=== PATIENT | male | born 1960 | race Caucasian/White ===

== ENCOUNTER 2017-10-20 13:23 | Inpatient (IN) | payer MEDICARE, MEDICAID ==
[~2017-10-20] VITALS: Ht 182.9 cm; Wt 84.4 kg
[2017-10-20] VITALS (9 sets, daily range): BP systolic 73–164; BP diastolic 39–79
--- NOTE | 2017-10-20 13:44 | ED General ---
General Stated Complaint: SOA Source of Information: Patient, EMS Exam Limitations: No Limitations History of Present Illness Date Seen by Provider: Oct 20, 2017 Time Seen by Provider: 13:39 Initial Comments The patient is a 56-year-old white male who is quadriplegic. He was sent from [facility] after it was observed that he had rattling breath sounds and they feared aspiration. There was no observed aspiration. He has a chronic tracheostomy, a feeding tube, and a colostomy. He was able to give history only by shaking his head yes or no. Timing/Duration: 4-6 Hours Associated Systoms: Shortness of Air Allergies and Home Medications Allergies Coded Allergies: amoxicillin (Verified Allergy, Unknown, 10/20/17) nitrofurantoin (Verified Allergy, Unknown, 10/20/17) Constitutional: see HPI Respiratory: short of breath, wheezing Physical Exam Vital Signs Vital Sign - Last 12Hours 10/20/17 13:27 Temp 101.2 Pulse 104 Resp 22 Pulse Ox 99 O2 Delivery Trach Collar O2 Flow Rate 14.00 Capillary Refill : General Appearance: Anxious, Other (skin is damp) Eyes: Bilateral Eye Normal Inspection HEENT: Normal ENT Inspection Neck: Normal Inspection Respiratory: Other (Reiling and distant breath sounds on the right) Cardiovascular: Regular Rate, Rhythm, No Edema, No Gallop, No JVD, No Murmur, Normal Peripheral Pulses Gastrointestinal: Other (colostomy with bag leaking soft stool) Extremity: Other (flexion contractures and 1+ doughy edema) Progress/Results/Core Measures Suspected Sepsis SIRS Temperature: Pulse: Respiratory Rate: Laboratory Tests 10/20/17 13:48: White Blood Count 21.2H Blood Pressure / Mean: Laboratory Tests 10/20/17 13:48: Creatinine 1.02, Platelet Count 263, Total Bilirubin 0.5 Results/Orders Lab Results Laboratory Tests Test 10/20/17 13:48 10/20/17 14:20 Range/Units White Blood Count 21.2 H 4.3-11.0 10^3/uL Red Blood Count 4.70 4.35-5.85 10^6/uL Hemoglobin 11.6 L 13.3-17.7 G/DL Hematocrit 38 L 40-54 % Mean Corpuscular Volume 80 80-99 FL Mean Corpuscular Hemoglobin 25 25-34 PG Mean Corpuscular Hemoglobin Concent 31 L 32-36 G/DL Red Cell Distribution Width 17.6 H 10.0-14.5 % Platelet Count 263 130-400 10^3/uL Mean Platelet Volume 11.6 H 7.4-10.4 FL Neutrophils (%) (Auto) 82 H 42-75 % Lymphocytes (%) (Auto) 7 L 12-44 % Monocytes (%) (Auto) 6 0-12 % Eosinophils (%) (Auto) 4 0-10 % Basophils (%) (Auto) 0 0-10 % Neutrophils # (Auto) 17.5 H 1.8-7.8 X 10^3 Lymphocytes # (Auto) 1.4 1.0-4.0 X 10^3 Monocytes # (Auto) 1.4 H 0.0-1.0 X 10^3 Eosinophils # (Auto) 0.9 H 0.0-0.3 10^3/uL Basophils # (Auto) 0.0 0.0-0.1 10^3/uL Sodium Level 139 135-145 MMOL/L Potassium Level 4.7 3.6-5.0 MMOL/L Chloride Level 100 98-107 MMOL/L Carbon Dioxide Level 22 21-32 MMOL/L Anion Gap 17 H 5-14 MMOL/L Blood Urea Nitrogen 86 H 7-18 MG/DL Creatinine 1.02 0.60-1.30 MG/DL Estimat Glomerular Filtration Rate > 60 BUN/Creatinine Ratio 84 Glucose Level 282 H 70-105 MG/DL Calcium Level 11.9 H 8.5-10.1 MG/DL Total Bilirubin 0.5 0.1-1.0 MG/DL Aspartate Amino Transf (AST/SGOT) 13 5-34 U/L Alanine Aminotransferase (ALT/SGPT) 13 0-55 U/L Alkaline Phosphatase 110 40-136 U/L Total Protein 9.7 H 6.4-8.2 GM/DL Albumin 3.7 3.2-4.5 GM/DL My Orders Orders - CUAUHTEMOC MANLEY MD Cbc With Automated Diff (10/20/17 13:30) Comprehensive Metabolic Panel (10/20/17 13:30) Ua Culture If Indicated (10/20/17 13:30) Chest 1 View, Ap/Pa Only (10/20/17 13:30) Manual Differential (10/20/17 13:48) Blood Culture (10/20/17 14:24) Influenza A And B Antigens (10/20/17 14:24) Sputum Culture (10/20/17 14:24) Lactic Acid Analyzer (10/20/17 14:24) Urinalysis (10/20/17 14:44) Urine Culture (10/20/17 14:44) Arterial Blood Gas (10/20/17 14:44) Cbc With Automated Diff (10/20/17 14:46) Comprehensive Metabolic Panel (10/20/17 14:46) Lactic Acid Analyzer (10/20/17 14:46) Sputum Culture (10/20/17 14:46) Ua Culture If Indicated (10/20/17 14:46) Protime With Inr (10/20/17 14:46) Partial Thromboplastin Time (10/20/17 14:46) O2 (10/20/17 14:46) Saline Lock/Iv-Start (10/20/17 14:46) Saline Lock/Iv-Start (10/20/17 14:46) Cefepime 2 Grams Iv (10/20/17 15:00) Vital Signs Adult Sepsis Patie Q1H (10/20/17 14:46) Remove Rings In Anticipation O (10/20/17 14:46) Vital Signs/I&O Vital Sign - Last 12Hours 10/20/17 13:27 Temp 101.2 Pulse 104 Resp 22 B/P (MAP) Pulse Ox 99 O2 Delivery Trach Collar O2 Flow Rate 14.00 Capillary Refill : Departure Communication (Admissions) Progress Notes Chest x-ray suggestive of infiltrates bibasilar plus cardiomegaly. White count is 21,000. Dr. Schwartz was called and discussed the case. Time 1442 Impression Impression: Primary Impression: pneumonia Disposition: ADMITTED INPATIENT Condition: Stable/Unchanged Admissions Decision to Admit Reason: Admit from ER (General) Decision to Admit/Date: Oct 20, 2017 Time/Decision to Admit Time: 14:54 CUAUHTEMOC MANLEY MD Oct 20, 2017 13:44
[2017-10-20 14:04] LABS: BASOPHILS % (AUTO) 0 % (0-10); EOSINOPHILS # (AUTO) 0.9 10^3/uL (0.0-0.3); EOSINOPHILS % (AUTO) 4 % (0-10); HEMATOCRIT 38 % (40-54); HEMOGLOBIN 11.6 G/DL (13.3-17.7); LYMPHOCYTES # (AUTO) 1.4 X 10^3 (1.0-4.0); LYMPHOCYTES % (AUTO) 7 % (12-44); MEAN CORPUSCULAR HEMOGLOBIN 25 PG (25-34); MEAN CORPUSCULAR HGB CONC 31 G/DL (32-36); MEAN CORPUSCULAR VOLUME 80 FL (80-99); MEAN PLATELET VOLUME 11.6 FL (7.4-10.4); MONOCYTES # (AUTO) 1.4 X 10^3 (0.0-1.0); MONOCYTES % (AUTO) 6 % (0-12); NEUTROPHILS # (AUTO) 17.5 X 10^3 (1.8-7.8); NEUTROPHILS % (AUTO) 82 % (42-75); PLATELET COUNT 263 10^3/uL (130-400); RED CELL DISTRIBUTION WIDTH 17.6 % (10.0-14.5); WHITE BLOOD COUNT 21.2 10^3/uL (4.3-11.0)
--- NOTE | 2017-10-20 14:10 | Diagnostic Imaging Report ---
INDICATION: Shortness of air. Time of exam: 1:54 PM No prior studies are available for comparison. The heart is enlarged. There is a tracheostomy tube with tip above the dolores. There appear to be airspace infiltrates in the left perihilar and bibasilar regions. No effusion or pneumothorax is seen. IMPRESSION: Cardiomegaly and bilateral pulmonary infiltrates. Dictated by: Dictated on workstation # [id number]
[2017-10-20 14:27] LABS: ALANINE AMINOTRANSFERASE 13 U/L (0-55); ALBUMIN 3.7 GM/DL (3.2-4.5); ALKALINE PHOSPHATASE 110 U/L (40-136); BILIRUBIN,TOTAL 0.5 MG/DL (0.1-1.0); BUN/CREATININE RATIO 84; CALCIUM 11.9 MG/DL (8.5-10.1); CARBON DIOXIDE 22 MMOL/L (21-32); CHLORIDE 100 MMOL/L (98-107); CREATININE SERUM 1.02 MG/DL (0.60-1.30); GFR ESTIMATED > 60; GLUCOSE 282 MG/DL (70-105); POTASSIUM 4.7 MMOL/L (3.6-5.0); SODIUM 139 MMOL/L (135-145); TOTAL PROTEIN 9.7 GM/DL (6.4-8.2)
[2017-10-20 14:30] LABS: BILIRUBIN,URINE NEGATIVE (NEGATIVE); CLARITY,URINE SLIGHTLY CLOUDY; COLOR,URINE YELLOW; GLUCOSE, URINE (UA) 4+ (NEGATIVE); KETONES,URINE NEGATIVE (NEGATIVE); LEUKOCYTE ESTERASE ,URINE NEGATIVE (NEGATIVE); NITRITE,URINE NEGATIVE (NEGATIVE); PH,URINE 7 (5-9); PROTEIN,URINE 2+ (NEGATIVE); UROBILINOGEN,URINE NORMAL (NORMAL)
[2017-10-20 14:55] LABS: BAND NEUTROPHILS 1 %; EOSINOPHILS % (MANUAL) 5 %; LYMPHOCYTES % (MANUAL) 9 %; MONOCYTES % (MANUAL) 6 %; NEUTROPHILS % (MANUAL) 79 %
[2017-10-20 14:56] LABS: ANISOCYTOSIS MODERATE; BASOPHILS % (MANUAL) 0 %
[2017-10-20] MEDS ORDERED: CEFEPIME INJECTION 2,000 MG in D5W 50 ML IVPB SOLUTION 50 ML IV ONE (15:00)
[2017-10-20 15:01] LABS: BACTERIA,URINE NEGATIVE /HPF; CALCIUM OXALATE CRYSTALS,UR MODERATE /LPF
[2017-10-20 15:09] LABS: PROTHROMBIN TIME PATIENT 30.8 SEC (12.2-14.7)
[2017-10-20] MEDS ORDERED: NS IV 1000 ML 1,000 ML ONE (18:03)
[2017-10-20] MEDS ORDERED: NS IV 1000 ML 1,000 ML IV SCH ×2 (18:15→23:30)
[2017-10-20] MEDS ORDERED: RT-ALBUTEROL/IPRATROPIUM 3 ML (DUONEB) VIAL ONE (18:15)
[2017-10-20] MEDS ORDERED: CATHETER FLUSH 10 ML SYR IV PRN (18:15)
[2017-10-20] MEDS ORDERED: VANCOMYCIN 1500 MG/NS 500 ML IVPB IV NR ×2 (18:30)
[2017-10-20] MEDS: APAP 325 MG/10.15 ML LIQ (TYLENOL) UDC PEG PRN (18:37)
[2017-10-20] MEDS: NS IV 1000 ML 1,000 ML IV SCH ×5 (18:38→22:52)
[2017-10-20 20:23] LABS: ABG BASE EXCESS 3.9 MMOL/L (-2.5-2.5); ABG OXYGEN SATURATION 97 % (94-100); ABG PCO2 37 MMHG (35-45); ABG PH 7.49 (7.37-7.43); ABG PO2 85 MMHG (79-93); ABG TCO2 27.8 MMOL/L (21.0-31.0)
[2017-10-20] MEDS ORDERED: ACET160O28 PEG (20:24)
[2017-10-20 20:26] LABS: ALLENS TEST YES-POS; INSPIRED O2 100%; PATIENT TEMP 102.9; VENTILATOR NO
[2017-10-20] MEDS ORDERED: FAMO20TA3 PEG (20:36)
[2017-10-20] MEDS ORDERED: CARB15DR74 OU (20:36)
[2017-10-20] MEDS ORDERED: METF1000 PEG (20:36)
[2017-10-20] MEDS ORDERED: LEVO100T7 PEG (20:36)
[2017-10-20] MEDS ORDERED: [UNRECOGNIZED DRUG - CODE] PEG (20:36)
[2017-10-20] MEDS ORDERED: CARV25TA PEG (20:36)
[2017-10-20] MEDS ORDERED: DIGO125T PEG (20:36)
[2017-10-20] MEDS ORDERED: WARF7.5T6 PEG (20:36)
[2017-10-20] MEDS ORDERED: INSU100V6 SQ (20:36)
[2017-10-20] MEDS ORDERED: IPRA3AMP IH (20:39)
[2017-10-20] MEDS ORDERED: RT-ALBUTEROL/IPRATROPIUM 3 ML (DUONEB) VIAL INH PRN (21:15)
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
[2017-10-20] MEDS ORDERED: NOREPINEPHRINE 4 MG/4 ML (LEVOPHED) AMP IV ONE (21:36)
[2017-10-20] MEDS ORDERED: NS (IVPB) 250 ML ONE (21:36)
[2017-10-20] MEDS: NOREPINEPHRINE 4 MG in NS (IVPB) 250 ML IV SCH (21:41)
--- NOTE | 2017-10-20 21:41 | Progress Note-Post Operative ---
Post-Operative Progess Note Surgeon (s)/Boot Repairer (s) Surgeon TRAM ROLAND DO Boot Repairer: na Pre-Operative Diagnosis sepsis- need central line Post-Operative Diagnosis same Procedure & Operative Findings Date of Procedure 10/20/17 Procedure Performed/Findings left femoral vein central line placement u/s guided Anesthesia Type none Estimated Blood Loss Estimated blood loss (mL): minimal Specimens/Packing Specimens Removed na TRAM ROLAND DO Oct 20, 2017 21:40
[2017-10-20 21:57] LABS: BASOPHILS % (AUTO) 0 % (0-10); EOSINOPHILS # (AUTO) 0.4 10^3/uL (0.0-0.3); EOSINOPHILS % (AUTO) 3 % (0-10); HEMATOCRIT 29 % (40-54); LYMPHOCYTES # (AUTO) 1.3 X 10^3 (1.0-4.0); LYMPHOCYTES % (AUTO) 9 % (12-44); MEAN CORPUSCULAR HEMOGLOBIN 25 PG (25-34); MEAN CORPUSCULAR HGB CONC 31 G/DL (32-36); MEAN CORPUSCULAR VOLUME 81 FL (80-99); MONOCYTES # (AUTO) 1.3 X 10^3 (0.0-1.0); MONOCYTES % (AUTO) 9 % (0-12); NEUTROPHILS # (AUTO) 11.5 X 10^3 (1.8-7.8); NEUTROPHILS % (AUTO) 79 % (42-75); PLATELET COUNT 206 10^3/uL (130-400); RED BLOOD COUNT 3.63 10^6/uL (4.35-5.85); WHITE BLOOD COUNT 14.5 10^3/uL (4.3-11.0)
[2017-10-20] MEDS ORDERED: RT-ALBUTEROL/IPRATROPIUM 3 ML (DUONEB) VIAL INH SCH (22:00)
[2017-10-20 22:12] LABS: BUN/CREATININE RATIO 88; CALCIUM 9.5 MG/DL (8.5-10.1); CARBON DIOXIDE 25 MMOL/L (21-32); CHLORIDE 109 MMOL/L (98-107); GFR ESTIMATED > 60; GLUCOSE 245 MG/DL (70-105); MAGNESIUM 1.8 MG/DL (1.8-2.4); PHOSPHORUS 2.2 MG/DL (2.3-4.7); POTASSIUM 3.4 MMOL/L (3.6-5.0); SODIUM 145 MMOL/L (135-145)
[2017-10-20 22:13] LABS: INR 3.2 (0.8-1.4); PROTHROMBIN TIME PATIENT 32.7 SEC (12.2-14.7)
--- NOTE | 2017-10-20 22:48 | OPERATIVE REPORT ---
DATE OF SERVICE: 10/20/2017 PREOPERATIVE DIAGNOSIS: Sepsis, needing central line. POSTOPERATIVE DIAGNOSIS: Sepsis, needing central line. PROCEDURE: Left femoral vein central line placement ultrasound-guided. SURGEON: Tram Menchaca DO. ANESTHESIA: None. ESTIMATED BLOOD LOSS: Minimal. COMPLICATIONS: None. INDICATIONS: The patient is a 56-year-old male with sepsis secondary to the pneumonia. The patient is paraplegic and has atrial fibrillation, on Coumadin, his INR is greater than 3. A central line was decided to be placed at the left femoral vein. Consent was obtained. DESCRIPTION OF PROCEDURE: The left femoral area was prepped and draped in a sterile fashion. Timeout was performed. Using ultrasound, the left femoral vein was located. Under direct visualization of the ultrasound, the left femoral vein was then accessed. Dark nonpulsatile blood was withdrawn. The guidewire was inserted and the needle was removed. A stab incision was made at the insertion point and the dilator was then advanced over the guidewire and removed. A triple lumen catheter was then advanced over the guidewire and the wire was then removed. All ports were accessed and flushed without difficulty. The catheter was then secured with 3-0 silk sutures. The area was then washed and dried and sterile bandage was applied. The patient tolerated the procedure well without any complications. RECOMMENDATIONS: Recommend only leaving the femoral central line for a few days and then if still needed, have a PICC line placed and then have the femoral line removed. Job ID: [id number] DocumentID: [id number] Dictated Date: 10/20/2017 21:43:58 [employer] Agent Date: 10/20/2017 22:47:41 Dictated By: TRAM MENCHACA DO
[2017-10-20] MEDS: inSUlin (REGULAR) HUMAN 1 UNIT/0.01 ML (CHARGE PER UNIT) SC SCH (23:30)
[2017-10-20] MEDS: POTASSIUM CL 10MEQ/50ML IVPB 50 ML IV SCH (23:31)
[2017-10-21] VITALS (33 sets, daily range): BP systolic 95–158; BP diastolic 56–95
[2017-10-21] MEDS: NS IV 1000 ML 1,000 ML IV SCH ×2 (01:19→05:25)
[2017-10-21] MEDS: RT-ALBUTEROL/IPRATROPIUM 3 ML (DUONEB) VIAL INH SCH ×12 (01:55→21:59)
[2017-10-21] MEDS ORDERED: meTOprolol 5 MG/5 ML (LOPRESSOR) VIAL IV ONE (03:00)
[2017-10-21] MEDS ORDERED: DIGOXIN 0.25 MG/ML (LANOXIN) 2 ML AMP IV SCH (03:00)
[2017-10-21] MEDS: MAGNESIUM 1 GM/100 ML IVPB 100 ML IV SCH ×5 (03:08→05:58)
[2017-10-21 03:20] LABS: BASOPHILS % (AUTO) 0 % (0-10); EOSINOPHILS # (AUTO) 0.6 10^3/uL (0.0-0.3); EOSINOPHILS % (AUTO) 4 % (0-10); HEMATOCRIT 32 % (40-54); HEMOGLOBIN 9.6 G/DL (13.3-17.7); LYMPHOCYTES # (AUTO) 1.4 X 10^3 (1.0-4.0); LYMPHOCYTES % (AUTO) 9 % (12-44); MEAN CORPUSCULAR HEMOGLOBIN 25 PG (25-34); MEAN CORPUSCULAR HGB CONC 30 G/DL (32-36); MEAN CORPUSCULAR VOLUME 82 FL (80-99); MEAN PLATELET VOLUME 11.1 FL (7.4-10.4); MONOCYTES # (AUTO) 1.2 X 10^3 (0.0-1.0); MONOCYTES % (AUTO) 8 % (0-12); NEUTROPHILS # (AUTO) 12.3 X 10^3 (1.8-7.8); NEUTROPHILS % (AUTO) 79 % (42-75); PLATELET COUNT 232 10^3/uL (130-400); RED BLOOD COUNT 3.89 10^6/uL (4.35-5.85); RED CELL DISTRIBUTION WIDTH 17.2 % (10.0-14.5); WHITE BLOOD COUNT 15.6 10^3/uL (4.3-11.0)
[2017-10-21 03:37] LABS: BUN/CREATININE RATIO 76; CALCIUM 9.2 MG/DL (8.5-10.1); CARBON DIOXIDE 23 MMOL/L (21-32); CHLORIDE 111 MMOL/L (98-107); CREATININE SERUM 0.72 MG/DL (0.60-1.30); GFR ESTIMATED > 60; GLUCOSE 252 MG/DL (70-105); MAGNESIUM 1.6 MG/DL (1.8-2.4); PHOSPHORUS 2.3 MG/DL (2.3-4.7); POTASSIUM 3.3 MMOL/L (3.6-5.0); SODIUM 146 MMOL/L (135-145)
[2017-10-21] MEDS: POTASSIUM CL 10MEQ/50ML IVPB 50 ML IV SCH ×7 (03:53→06:03)
[2017-10-21] MEDS: CEFEPIME 2 GM/D5W 50 ML IVPB IV SCH ×4 (05:06→18:34)
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
[2017-10-21] MEDS: LACTATED RINGERS 1,000 ML IV SCH ×2 (06:29→17:43)
[2017-10-21] MEDS: inSUlin (REGULAR) HUMAN 1 UNIT/0.01 ML (CHARGE PER UNIT) SC SCH ×4 (06:29→18:15)
[2017-10-21] MEDS ORDERED: LEVOTHYROXINE 100 MCG (LEVOTHROID) TAB PO NR (07:44)
[2017-10-21] MEDS: VANCOMYCIN 1250 MG/NS 250 ML IVPB IV SCH ×4 (08:13→20:16)
[2017-10-21] MEDS: inSUlin DETERMIR 1 UNIT/0.01 ML (LEVEMIR) CHARGE PER UNIT SQ SCH ×2 (08:14→21:18)
[2017-10-21 09:31] LABS: MAGNESIUM 2.4 MG/DL (1.8-2.4); POTASSIUM 3.8 MMOL/L (3.6-5.0)
--- NOTE | 2017-10-21 10:07 | Diagnostic Imaging Report ---
INDICATION: Pneumonia COMPARISON: 10/20/2017 FINDINGS: A single view of the chest demonstrates persistent but decreased infiltrate in the left hilar region. There is unchanged opacity in the right lung base. The heart remains enlarged without pulmonary edema. There is no pneumothorax. Trace effusion is seen in the right costophrenic angle. IMPRESSION: 1. Stable consolidation and infiltrate with small effusion in the right base. 2. Improved aeration of the left hilar region. Dictated by: Dictated on workstation # [id number]
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
[2017-10-21] MEDS: aCETylcysteine 20% (MUCOMYST) 30ML SOLN VIAL INH SCH ×3 (14:21→21:59)
[2017-10-21] MEDS: DAKIN'S 1/2 STRENGTH (0.25%) 473 ML BTL TOP SCH (17:43)
[2017-10-22] VITALS (36 sets, daily range): BP systolic 96–150; BP diastolic 52–101
[2017-10-22] MEDS: RT-ALBUTEROL/IPRATROPIUM 3 ML (DUONEB) VIAL INH SCH ×12 (00:46→22:48)
[2017-10-22] MEDS: NOREPINEPHRINE 4 MG in NS (IVPB) 250 ML IV SCH (01:55)
[2017-10-22] MEDS: aCETylcysteine 20% (MUCOMYST) 30ML SOLN VIAL INH SCH ×6 (02:40→22:48)
[2017-10-22 05:36] LABS: BASOPHILS % (AUTO) 0 % (0-10); EOSINOPHILS # (AUTO) 0.2 10^3/uL (0.0-0.3); EOSINOPHILS % (AUTO) 2 % (0-10); HEMATOCRIT 28 % (40-54); HEMOGLOBIN 8.2 G/DL (13.3-17.7); LYMPHOCYTES # (AUTO) 0.9 X 10^3 (1.0-4.0); LYMPHOCYTES % (AUTO) 9 % (12-44); MEAN CORPUSCULAR HEMOGLOBIN 24 PG (25-34); MEAN CORPUSCULAR HGB CONC 29 G/DL (32-36); MEAN CORPUSCULAR VOLUME 83 FL (80-99); MEAN PLATELET VOLUME 10.4 FL (7.4-10.4); MONOCYTES % (AUTO) 9 % (0-12); NEUTROPHILS # (AUTO) 8.5 X 10^3 (1.8-7.8); NEUTROPHILS % (AUTO) 80 % (42-75); PLATELET COUNT 210 10^3/uL (130-400); RED BLOOD COUNT 3.38 10^6/uL (4.35-5.85); RED CELL DISTRIBUTION WIDTH 16.7 % (10.0-14.5); WHITE BLOOD COUNT 10.5 10^3/uL (4.3-11.0)
[2017-10-22 05:46] LABS: INR 4.4 (0.8-1.4); PROTHROMBIN TIME PATIENT 41.8 SEC (12.2-14.7)
[2017-10-22 05:54] LABS: BUN/CREATININE RATIO 43; CALCIUM 8.9 MG/DL (8.5-10.1); CARBON DIOXIDE 22 MMOL/L (21-32); CHLORIDE 113 MMOL/L (98-107); CREATININE SERUM 0.53 MG/DL (0.60-1.30); GFR ESTIMATED > 60; GLUCOSE 124 MG/DL (70-105); MAGNESIUM 1.6 MG/DL (1.8-2.4); PHOSPHORUS 2.2 MG/DL (2.3-4.7); POTASSIUM 3.3 MMOL/L (3.6-5.0); SODIUM 146 MMOL/L (135-145)
[2017-10-22] MEDS: POTASSIUM CL 10MEQ/50ML IVPB 50 ML IV SCH ×4 (05:59→08:05)
[2017-10-22] MEDS: MAGNESIUM 1 GM/100 ML IVPB 100 ML IV SCH ×3 (05:59→06:10)
[2017-10-22] MEDS ORDERED: TROUGH ORDER-PHARMACY XX NR (06:00)
[2017-10-22] MEDS: inSUlin (REGULAR) HUMAN 1 UNIT/0.01 ML (CHARGE PER UNIT) SC SCH ×4 (06:01→17:00)
[2017-10-22] MEDS: CEFEPIME 2 GM/D5W 50 ML IVPB IV SCH ×4 (06:09→17:00)
[2017-10-22] MEDS: VANCOMYCIN 1250 MG/NS 250 ML IVPB IV SCH ×2 (06:10)
[2017-10-22] MEDS: LEVOTHYROXINE 100 MCG (LEVOTHROID) TAB PO SCH (06:10)
[2017-10-22] MEDS: LACTATED RINGERS 1,000 ML IV SCH ×3 (06:13→17:00)
--- OUTSIDE RECORDS SUMMARY | 2017-10-22 06:46 | XMS REPORT ---
Author Author Shari Correia [facility] Address [address] [place], [place] [id number] Care Team Providers Care Planer Off Bearer Name Role Phone Shari Correia PCP Unavailable Strides, Independent Unavailable Unavailable Allergies and Adverse Reactions Name Reaction Notes amoxicillin nitrofurantoin Plan of Treatment Planned Activity Comments Planned Date Planned Time Plan/Goal Hemoglobin A1C 12/23/2015 12:00 AM Vitamin B12 12/23/2015 12:00 AM TSH 12/23/2015 12:00 AM T4, Free 12/23/2015 12:00 AM ABDOMEN ONE VIEW 12/09/2016 12:00 AM Basic metabolic profile 03/16/2015 12:00 AM .Lipid Panel 03/16/2015 12:00 AM TSH 03/16/2015 12:00 AM Medications Active Name Start Date Estimated Completion Date SIG Comments aspirin 81 mg oral tablet,delayed release (DR/EC) take 1 tablet (81 mg) by oral route once daily ferrous sulfate 325 mg (65 mg iron) oral tablet 07/30/2014 TAKE 1 TABLET BY MOUTH DAILY citalopram 20 mg oral tablet 10/21/2014 take 1 tablet by oral route daily for 30 days Nyamyc 100,000 unit/gram topical powder 11/19/2014 apply to the affected area(s) by topical route 2 times per day Levemir FlexTouch 100 unit/mL (3 mL) subcutaneous insulin pen 11/21/2014 INJECT 20 UNITS TWICE DAILY ferrous sulfate 325 mg (65 mg iron) oral tablet 01/12/2015 TAKE 1 TABLET BY MOUTH DAILY levothyroxine 50 mcg oral tablet 02/13/2015 TAKE 1 TABLET BY MOUTH EVERY DAY WITH 25MCG (TOTAL OF 75MCG) ferrous sulfate 325 mg (65 mg iron) oral tablet 03/02/2015 TAKE 1 TABLET BY MOUTH DAILY nystatin 100,000 unit/gram topical powder 03/30/2015 APPLY TO AFFECTED AREA TWO TIMES DAILY ferrous sulfate 325 mg (65 mg iron) oral tablet 04/14/2015 TAKE 1 TABLET BY MOUTH DAILY nystatin 100,000 unit/gram topical powder 04/20/2015 APPLY TO AFFECTED AREA TWO TIMES DAILY baclofen 20 mg oral tablet 05/07/2015 TAKE 1 TABLET BY MOUTH THREE TIMES DAILY for 30 days nystatin 100,000 unit/gram topical powder 05/25/2015 APPLY TO AFFECTED AREA TWO TIMES DAILY Januvia 100 mg oral tablet 09/04/2015 TAKE 1 TABLET BY MOUTH BEFORE BREAKFAST Senna Lax 8.6 mg oral tablet 09/04/2015 TAKE 1 TABLET BY MOUTH TWICE DAILY Unifine Pentips 31 gauge x 09/28" miscellaneous needle 2015 USE DIRECTED WITH CollarityLOG FLEXPEN baclofen 20 mg oral tablet 03/31/2016 TAKE 1 TABLET BY MOUTH THREE TIMES DAILY FOR 30 DAYS 28 mg iron- 800 mcg oral tablet take 1 tablet by oral route daily MagOx 400 mg oral tablet take 1 tablet by oral route daily levothyroxine 50 mcg oral tablet 05/19/2016 11/10/2017 take 1 tablet (50 mcg) by oral route once daily for 90 days metformin 1,000 mg oral tablet 05/19/2016 take 1 tablet (1,000 mg) by oral route 2 times per day with morning and evening meals pravastatin 20 mg oral tablet take 1 tablet (20 mg) by oral route once daily Fiber Therapy (m-cellulose) 500 mg oral tablet take 1 tablet by oral route daily Mucinex 600 mg oral tablet extended release 12hr take 1 tablet (600 mg) by oral route every 12 hours Xarelto 20 mg oral tablet take 1 tablet (20 mg) by oral route once daily with the evening meal Ferrex 150 Forte 150-25-1 mg-mcg-mg oral capsule take 1 capsule by oral route once daily Mapap Extra Strength 500 mg oral tablet take 2 tablets (1,000 mg) by oral route every 4 hours as needed not to exceed 8 tablets per 24hrs Celexa 20 mg oral tablet take 1 tablet (20 mg) by oral route once daily Levemir 100 unit/mL subcutaneous solution inject by subcutaneous 10 units daily albuterol sulfate 2.5 mg /3 mL (0.083 %) inhalation solution for nebulization 06/20/2016 12/17/2016 inhale 3 milliliters (2.5 mg) by nebulization route 4 for 30 days [facility] CONTOUR TEST STRIPS one box 06/27/2016 12/19/2017 Blood sugar checks TID. Dx: E11.9 Xarelto 20 mg oral tablet 08/08/2016 TAKE 1 TABLET BY MOUTH DAILY metformin 1,000 mg oral tablet 08/08/2016 TAKE 1 TABLET BY MOUTH TWICE DAILY Januvia 100 mg oral tablet 09/06/2016 TAKE 1 TABLET BY MOUTH DAILY Vitamin Plus Low Iron 27 mg iron- 1 mg oral tablet 09/29/2016 TAKE 1 TABLET BY MOUTH ONCE DAILY levothyroxine 50 mcg oral tablet 09/29/2016 TAKE 1 TABLET BY MOUTH DAILY baclofen 20 mg oral tablet 09/29/2016 TAKE 1 TABLET BY MOUTH THREE TIMES DAILY famotidine 20 mg oral tablet 10/24/2016 04/22/2017 TAKE 1 TABLET BY MOUTH TWICE DAILY for 30 days citalopram 20 mg oral tablet 10/31/2016 TAKE 1 TABLET BY MOUTH DAILY pravastatin 20 mg oral tablet 10/31/2016 TAKE 1 TABLET BY MOUTH DAILY metformin 1,000 mg oral tablet 11/07/2016 TAKE 1 TABLET BY MOUTH TWICE DAILY Levemir 100 unit/mL subcutaneous solution 12/06/2016 INJECT 10 UNITS SUBCUTANEOUS DAILY Name Start Date Expiration Date SIG Comments warfarin 3 mg oral tablet 03/22/2010 04/21/2010 TAKE 1 TABLET BY MOUTH DAILY zolpidem 10 mg oral tablet 04/26/2010 08/24/2010 TAKE 1 TABLET BY MOUTH AT BEDTIME NEEDED FOR INSOMNIA potassium chloride 20 mEq oral tablet,ER particles/crystals 12/26/20102010 TAKE 1 TABLET BY MOUTH EVERY DAY cefpodoxime 100 mg oral tablet 11/26/2012 12/03/2012 take 1 tablet (100 mg) by oral route every 12 hours for 7 days with food Keflex 500 mg oral capsule 12/31/2012 01/07/2013 take 1 capsule (500 mg) by oral route every 12 hours for 7 days Levemir Flexpen 100 unit/mL (3 mL) subcutaneous insulin pen 02/08/20132012 INJECT 20 UNITS TWICE DAILY Cipro 500 mg oral tablet 04/22/2013 04/27/2013 take 1 tablet (500 mg) by oral route every 12 hours for 5 days baclofen 20 mg oral tablet 08/27/2013 10/26/2013 TAKE 1 TABLET BY MOUTH THREE TIMES DAILY hydrocodone-acetaminophen 5-500 mg oral tablet 08/27/2013 09/26/2013 take 1 tablet by oral route every 6 hours as needed for pain baclofen 20 mg oral tablet 10/08/2013 03/07/2014 TAKE 1 TABLET BY MOUTH THREE TIMES DAILY citalopram 20 mg oral tablet 10/08/2013 10/03/2014 take 1 tablet by oral route daily for 30 days metformin 500 mg oral tablet 10/08/2013 04/06/2014 TAKE 1 TABLET BY MOUTH THREE TIMES DAILY Replaced/Retired Drug 27-1 mg oral tablet 10/08/2013 04/06/2014 take 1 tablet by oral route daily for 30 days Levemir Flexpen 100 unit/mL (3 mL) subcutaneous insulin pen 04/08/20142013 INJECT 20 UNITS TWICE DAILY for 30 days ferrous sulfate 325 mg (65 mg iron) oral tablet 05/05/2014 08/03/2014 TAKE 1 TABLET BY MOUTH DAILY Macrobid 100 mg oral capsule 05/22/2014 05/29/2014 take 1 capsule (100 mg) by oral route every 12 hours with food for 7 days Bactrim DS 800-160 mg oral tablet 06/05/2014 06/10/2014 take 1 tablet by oral route 2 times per day for 5 days Bactrim 400-80 mg oral tablet 06/26/2014 07/06/2014 take 2 tablets by oral route every 12 hours for 10 days Keflex 500 mg oral capsule 07/28/2014 08/09/2014 take 1 capsule (500 mg) by oral route every 12 hours for 12 days Macrobid 100 mg oral capsule 07/28/2014 08/27/2014 take 1 capsule by oral route every 12 hours for 30 days Coumadin 1 mg oral tablet 09/10/2014 09/05/2015 take 1 tablet (1 mg) by oral route once daily for 90 days warfarin 2.5 mg oral tablet 09/30/2014 03/29/2015 take 1 tablet (2.5 mg) by oral route once daily for 30 days Replaced/Retired Drug 27-1 mg oral tablet 10/10/2014 10/05/2015 take 1 tablet by oral route daily for 30 days Unifine Pentips 31 gauge x 09/28" miscellaneous needle 10/10/2014 10/05/2015 USE DIRECTED WITH NOVOLOG FLEXPEN Metamucil oral Take 2 capfuls at hs prn levothyroxine 50 mcg oral tablet 12/11/2014 06/03/2016 take 1 tablet (50 mcg) by oral route once daily for 90 days baclofen 20 mg oral tablet 01/15/2015 05/15/2015 TAKE 1 TABLET BY MOUTH THREE TIMES DAILY for 30 days ceftriaxone 1 gram injection recon soln 01/19/2015 01/20/2015 inject 1 gram by intramuscular route once daily for 1 day levothyroxine 25 mcg oral tablet 01/26/2015 02/25/2015 take 1 tablet (25 mcg) by oral route once daily along with 50 mcg for a total of 75 mcg. lidocaine HCl 10 mg/mL (1 %) injection solution 02/13/2015 USE DIRECTED TO RECONSTITUTE CEFTRIAXONE lidocaine HCl 10 mg/mL (1 %) injection solution 02/13/2015 USE DIRECTED TO RECONSTITUTE CEFTRIAXONE Nyamyc 100,000 unit/gram topical powder 02/27/2015 APPLY TO AFFECTED AREA TWO TIMES DAILY Nystop 100,000 unit/gram topical powder 03/02/2015 APPLY TO AFFECTED AREA TWO TIMES DAILY Levemir FlexTouch 100 unit/mL (3 mL) subcutaneous insulin pen 03/05/20152014 INJECT 20 UNITS TWICE DAILY Novolog Flexpen 100 unit/mL subcutaneous insulin pen 03/05/2015 09/01/2015 INJECT 12 UNITS SUBCUTANEOUSLY 15 MINUTES BEFORE EACH MEAL warfarin 2.5 mg oral tablet 03/30/2015 take 1 tablet (2.5 mg) by oral route once daily for 30 days hydrocodone-acetaminophen 5-325 mg oral tablet 03/30/2015 04/29/2015 take 1 tablet by oral route every 6 hours as needed for pain for 30 days cephalexin 250 mg oral capsule 04/16/2015 04/26/2015 take 2 capsules by oral route Q12H Bactrim DS 800-160 mg oral tablet 05/04/2015 05/14/2015 take 1 tablet by oral route 2 times per day cefixime 200 mg oral suspension for reconstitution 05/08/2015 05/18/2015 1 tab PO BID for 10 days Levaquin 500 mg oral tablet 06/03/2015 06/10/2015 take 1 tablet (500 mg) by oral route once daily for 7 days ferrous sulfate 325 mg (65 mg iron) oral tablet 06/15/2015 TAKE 1 TABLET BY MOUTH DAILY fenofibrate 54 mg oral tablet 08/18/2015 08/12/2016 take 1 tablet (54 mg) by oral route once daily for 90 days nystatin 100,000 unit/gram topical powder 08/31/2015 APPLY TO AFFECTED AREA TWO TIMES DAILY digoxin 250 mcg oral tablet 09/04/2015 TAKE 1 TABLET BY MOUTH EVERY DAY Mucinex 600 mg oral tablet extended release 12hr 09/04/2015 TAKE 1 TABLET BY MOUTH EVERY 12 HOURS Xarelto 20 mg oral tablet 09/04/2015 TAKE 1 TABLET BY MOUTH DAILY levothyroxine 50 mcg oral tablet 09/04/2015 TAKE 1 TABLET BY MOUTH EVERY MORNING AT 6AM Vol-Plus 27-1 mg oral tablet 09/16/2015 take 1 tablet by oral route daily for 30 days citalopram 20 mg oral tablet 10/08/2015 TAKE 1 TABLET BY MOUTH DAILY Levemir FlexTouch 100 unit/mL (3 mL) subcutaneous insulin pen 10/19/2015 INJECT 20 UNITS TWICE DAILY albuterol sulfate 2.5 mg /3 mL (0.083 %) inhalation solution for nebulization 11/05/2015 USE 1 VIAL VIA NEBULIZER EVERY FOUR HOURS Macrobid 100 mg oral capsule 11/13/2015 11/27/2015 take 1 capsule (100 mg) by oral route 2 times per day with food for 14 days Ceftin 250 mg oral tablet 12/25/2015 01/01/2016 take 1 tablet (250 mg) by oral route every 12 hours for 7 days pravastatin 20 mg oral tablet 12/28/2015 09/23/2016 TAKE 1 TABLET BY MOUTH ONCE DAILY AT BEDTIME for 90 days Cipro 500 mg oral tablet 11/08/2016 2016 take 1 tablet (500 mg) by oral route 2 times per day for 10 days Discontinued Name Start Date Discontinued Date SIG Comments bisacodyl 10 mg rectal suppository 08/24/2009 11/05/2012 insert 1 suppository (10 mg) by rectal route once daily Cipro 500 mg oral tablet 11/05/2012 take 1 tablet (500 mg) by oral route 2 times per day for 7 days baclofen 20 mg oral tablet 11/05/2012 11/05/2012 Take 1 tablet TID Triaoluance 06/05/2014 1 at noon levemir subqutaneous 20 units 06/05/2014 BID NovoFine 30 30 gauge x 1/3" miscellaneous needle 06/05/2014 use as directed metronidazole 500 mg oral tablet 06/05/2014 betamethasone dipropionate 0.05 % topical cream 04/01/2013 06/05/2014 apply a thin layer to the affected area(s) by topical route 2 times per day Lanoxin oral .25 08/27/2013 06/25/2014 Take 1 tablet in am warfarin 4 mg oral tablet 01/28/2014 06/25/2014 TAKE 1 TABLET BY MOUTH ONCE DAILY metoclopramide HCl 10 mg oral tablet 04/07/2014 06/25/2014 TAKE 1 TABLET BY MOUTH TWICE DAILY Metoclopramide oral 10 mg 06/30/2014 09/10/2014 Take 1 tablet BID, 1 in am and 1 in pm metoclopramide HCl 10 mg oral tablet 08/01/2014 10/14/2015 TAKE 1 TABLET BY MOUTH TWICE DAILY metoclopramide HCl 10 mg oral tablet 10/14/2015 05/19/2016 take 1 tablet by oral route 3 times a day (before meals) for 30 days Cipro 500 mg oral tablet 12/07/2015 12/09/2015 take 1 tablet (500 mg) by oral route every 12 hours for 7 days atorvastatin 10 mg oral tablet 05/19/2016 take 1 tablet (10 mg) by oral route once daily at bedtime digoxin 125 mcg oral tablet 05/19/2016 take 1 tablet (125 mcg) by oral route once daily escitalopram oxalate 10 mg oral tablet 05/19/2016 take 1 tablet (10 mg) by oral route once daily Colace 100 mg oral capsule 05/19/2016 take 1 capsule (100 mg) by oral route 2 times per day midodrine 10 mg oral tablet 05/19/2016 take 1 tablet (10 mg) by oral route 3 times per day guaifenesin 100 mg/5 mL oral liquid 05/19/2016 take 20 milliliters by oral route every 8 hours Problem List Description Status Onset Atrial Fibrillation Active Diabetes Mellitus, Type II Active Chronic UTI's Active Hemorrhoids, External Active Kidney Stones Active Quadriplegic spinal paralysis Active 04/28/2016 Recurrent hematuria Active 12/09/2016 Bacterial UTI Active 12/09/2016 H/O renal calculi Active 12/09/2016 Vital Signs Date Time BP-Sys(mm[Hg] BP-Angelita(mm[Hg]) HR(bpm) RR(rpm) Temp WT HT HC BMI BSA BMI Percentile O2 Sat(%) 12/09/2016 8:37:00 AM 78 bpm 20 rpm 96.3 F 210 lbs 72 in 28.48 kg/m2 2.20 m2 98 % 08/31/2016 2:26:00 PM 134 mmHg 78 mmHg 102 bpm 18 rpm 98.2 F 190 lbs 72 in 25.7684 kg/m 2.0924 m 99 % 05/19/2016 4:28:00 PM 124 mmHg 68 mmHg 88 bpm 18 rpm 99.7 F 100 % 04/26/2016 2:54:00 PM 184 lbs 04/26/2016 2:15:00 PM 118 mmHg 70 mmHg 84 bpm 18 rpm 97.9 F 184 lbs 72 in 24.9546 kg/m 2.0591 m 12/24/2015 9:58:00 AM 120 mmHg 70 mmHg 79 bpm 16 rpm 98.8 F 96 % 12/18/2015 10:55:00 AM 100 mmHg 70 mmHg 56 bpm 18 rpm 97.9 F 100 % 10/05/2015 3:38:00 PM 62 bpm 97.1 F 219.25 lbs 72 in 29.74 kg/ m2 2.25 m2 100 % 08/31/2015 3:02:00 PM 124 mmHg 74 mmHg 59 bpm 97.8 F 223 lbs 72 in 30.2439 kg/m 2.2668 m 98 % 06/05/2015 11:34:00 AM 110 mmHg 70 mmHg 92 bpm 24 rpm 97.7 F 235 lbs 72 in 31.87 kg/m2 2.33 m2 88 % 06/03/2015 10:01:00 AM 118 mmHg 76 mmHg 89 bpm 18 rpm 96.8 F 99 % 03/16/2015 2:21:00 PM 73 bpm 99.4 F 234 lbs 72 in 31.74 kg/m2 2.32 m2 98 % 12/23/2014 9:10:00 AM 230 lbs 72 in 31.1933 kg/m 2.3021 m 12/11/2014 2:45:00 PM 116 mmHg 72 mmHg 91 bpm 18 rpm 99 F 229.312 lbs 72 in 31.10 kg/m2 2.30 m2 98 % 09/10/2014 3:54:00 PM 124 mmHg 68 mmHg 58 bpm 16 rpm 98 F 225 lbs 72 in 30.5152 kg/m 2.277 m 99 % 06/25/2014 2:58:00 PM 118 mmHg 70 mmHg 96 bpm 18 rpm 99.5 F 230 lbs 72 in 31.19 kg/m2 2.30 m2 97 % 06/11/2014 2:17:00 PM 130 mmHg 72 mmHg 76 bpm 18 rpm 99 F 72 in 99 % 03/18/2014 1:21:00 PM 108 mmHg 80 mmHg 57 bpm 18 rpm 98.5 F 72 in 97 % 12/26/2013 2:49:00 PM 122 mmHg 64 mmHg 101 bpm 18 rpm 99.8 F 100 % 10/08/2013 2:17:00 PM 64 bpm 18 rpm 97.4 F 212 lbs 72 in 28.75 kg/m2 2.21 m2 97 % 08/01/2013 2:05:00 PM 116 mmHg 72 mmHg 76 bpm 16 rpm 97.6 F 205 lbs 72 in 27.8027 kg/m 2.1734 m 08/01/2013 10:20:00 AM 122 mmHg 88 mmHg 64 bpm 16 rpm 97.7 F 98 % 07/09/2013 2:59:00 PM 110 mmHg 64 mmHg 98 bpm 16 rpm 99.8 F 100 % 07/03/2013 1:52:00 PM 94 mmHg 50 mmHg 74 bpm 18 rpm 98 F 100 % 04/22/2013 1:46:00 PM 112 mmHg 78 mmHg 64 bpm 18 rpm 99.5 F 208 lbs 72 in 28.2096 kg/m 2.1893 m 04/01/2013 1:54:00 PM 110 mmHg 80 mmHg 52 bpm 16 rpm 98.9 F 98 % 12/31/2012 2:06:00 PM 122 mmHg 80 mmHg 67 bpm 16 rpm 98.3 F 98 % 11/29/2012 1:08:00 PM 110 mmHg 82 mmHg 119 bpm 18 rpm 97.2 F 100 % 11/05/2012 1:07:00 PM 125 mmHg 78 mmHg 75 bpm 20 rpm 99.3 F 225 lbs 72 in 30.5152 kg/m 2.277 m 99 % Social History Name Description Comments Tobacco Never smoker Alcohol rare History of Procedures Date Ordered Description Order Status 12/23/2015 12:00 AM COMPLETE CBC W/AUTO DIFF WBC Returned 12/23/2015 12:00 AM COMPREHEN METABOLIC PANEL Returned 11/05/2012 12:00 AM COMPLETE CBC W/AUTO DIFF WBC Reviewed 11/05/2012 12:00 AM COMPREHEN METABOLIC PANEL Reviewed 11/05/2012 12:00 AM LIPID PANEL Reviewed 11/05/2012 12:00 AM ASSAY THYROID STIM HORMONE Reviewed 11/05/2012 12:00 AM GLYCOSYLATED HEMOGLOBIN TEST Reviewed 11/28/2012 12:00 AM ASSAY OF IRON Reviewed 11/28/2012 12:00 AM VITAMIN B-12 Reviewed 11/28/2012 12:00 AM ASSAY OF FOLIC ACID SERUM Reviewed 11/28/2012 12:00 AM ASSAY OF FERRITIN Reviewed 07/03/2013 12:00 AM Flu Injection 3 Years And Above [facility]# [address]-85 RHC Reviewed 07/09/2013 12:00 AM THER/PROPH/DIAG INJ SC/IM Reviewed 07/09/2013 12:00 AM Toradol 30 Mg [facility]#4321-4966-27 Reviewed 12/26/2013 12:00 AM LIPID PANEL Reviewed 12/26/2013 12:00 AM GLYCOSYLATED HEMOGLOBIN TEST Reviewed 12/26/2013 12:00 AM PROTHROMBIN TIME Reviewed 02/27/2014 12:00 AM ASSAY THYROID STIM HORMONE Reviewed 04/23/2014 12:00 AM PROTHROMBIN TIME Reviewed 06/09/2014 12:00 AM COMPLETE CBC W/AUTO DIFF WBC Reviewed 06/09/2014 12:00 AM COMPREHEN METABOLIC PANEL Reviewed 06/09/2014 12:00 AM LIPID PANEL Reviewed 06/09/2014 12:00 AM GLYCOSYLATED HEMOGLOBIN TEST Reviewed 06/09/2014 12:00 AM ASSAY THYROID STIM HORMONE Reviewed 06/09/2014 12:00 AM ASSAY OF FREE THYROXINE Reviewed 06/09/2014 12:00 AM PROTHROMBIN TIME Reviewed 09/09/2014 12:00 AM COMPLETE CBC W/AUTO DIFF WBC Reviewed 09/09/2014 12:00 AM COMPREHEN METABOLIC PANEL Reviewed 09/09/2014 12:00 AM LIPID PANEL Reviewed 09/09/2014 12:00 AM GLYCOSYLATED HEMOGLOBIN TEST Reviewed 09/09/2014 12:00 AM ASSAY THYROID STIM HORMONE Reviewed 09/09/2014 12:00 AM ASSAY OF FREE THYROXINE Reviewed 09/09/2014 12:00 AM PROTHROMBIN TIME Reviewed 12/03/2014 12:00 AM COMPLETE CBC W/AUTO DIFF WBC Reviewed 12/03/2014 12:00 AM COMPREHEN METABOLIC PANEL Reviewed 12/03/2014 12:00 AM PROTHROMBIN TIME Reviewed 12/03/2014 12:00 AM ASSAY THYROID STIM HORMONE Reviewed 12/12/2014 12:00 AM ASSAY THYROID STIM HORMONE Reviewed 01/19/2015 12:00 AM URINALYSIS AUTO W/SCOPE Reviewed 03/16/2015 12:00 AM COMPLETE CBC W/AUTO DIFF WBC Reviewed Results Summary Data and Description Results 08/14/2009 9:26 AM PT PPP Cont Qn 18.20 secsINR PPP Qn 2.2 Coumadin Plan continue with 3 mg daily INR Target Range 2.0-3.0 Next Lab Draw Repeat in 1 month 11/27/2012 5:04 PM WBC 11.8 RBC 4.55 HGB 11.50 g/dLHCT 36.50 %MCV 80.0 fLMCH 25.30 pgMCHC 31.50 g/dLRDW SD 46 RDW CV 15.80 %MPV 9.40 fLPLT 315 NRBC# 0.00 NRBC% 0.0 %NEUT 65.90 %%LYMP 25.20 %%MONO 7.70 %%EOS 0.90 %%BASO 0.30 %#NEUT 7.75 #LYMP 2.96 #MONO 0.91 #EOS 0.10 #BASO 0.03 MANUAL DIFF NOT IND PROTIME 24.60 secsINR 2.4 GLUCOSE 115.0 mg/dLSODIUM 134.0 mmol/LPOTASSIUM 3.70 mmol/ LCHLORIDE 96.0 mmol/LCO2 25.0 mmol/LBUN 10.0 mg/dLCREATININE 0.50 mg/dLSGOT/AST 17.0 IU/LSGPT/ALT 16.0 IU/LALK PHOS 102.0 IU/LTOTAL PROTEIN 7.40 g/dLALBUMIN 3.30 g/dLTOTAL BILI 0.40 mg/dLCALCIUM 9.60 mg/dLAGE 52 GFR NonAA 173 GFR AA 210 eGFR 60 eGFR AA* 60 TRIGLYCERIDES 310.0 mg/dLCHOLESTEROL 201.0 mg/dLHDL 29.0 mg/ dLTOT CHOL/HDL 6.9 LDL (CALC) 110.0 mg/dLTSH 3.330 uIU/mLCREAT UR 8.40 mg/ dLMICROALBUMIN UR 19.0 ug/mLALB:CREAT RATIO 226 FERRITIN 72.0 ng/mLIRON TOTAL 35.0 ug/dLGLYCOHEMOGLOBIN A1C 6.90 %VITAMIN B12 425.0 pg/mLFOLATE 18.60 ng/mL 11/29/2012 1:09 PM Colonoscopy-Women and Men over 50 Declined 12/27/2012 12:59 PM COLOR LT PINK APPEARANCE CLEAR SPEC GRAV <=1.005 pH 5.5 PROTEIN NEGATIVE GLUCOSE NEGATIVE KETONE NEGATIVE BILIRUBIN NEGATIVE BLOOD LARGE NITRITE NEGATIVE LEUK SCREEN TRACE WBC/HPF 0-5 RBC/HPF 0-5 CASTS/LPF NEGATIVE CRYSTALS NEGATIVE MUCOUS THRDS NEGATIVE BACTERIA FEW EPITH CELLS NEGATIVE TRICHOMONAS NEGATIVE YEAST NEGATIVE CULT ORDERED YES 02/14/2013 1:42 PM COLOR YELLOW APPEARANCE HAZY SPEC GRAV <=1.005 pH 6.0 PROTEIN NEGATIVE GLUCOSE NEGATIVE KETONE NEGATIVE BILIRUBIN NEGATIVE BLOOD NEGATIVE NITRITE POSITIVE LEUK SCREEN SMALL WBC/HPF 0-5 RBC/HPF NEGATIVE CASTS/ LPF NEGATIVE CRYSTALS NEGATIVE MUCOUS THRDS NEGATIVE BACTERIA 2++ EPITH CELLS NEGATIVE TRICHOMONAS NEGATIVE YEAST NEGATIVE CULT ORDERED YES 03/14/2013 5:52 PM COLOR YELLOW APPEARANCE CLOUDY SPEC GRAV <=1.005 pH 6.5 PROTEIN NEGATIVE GLUCOSE NEGATIVE KETONE NEGATIVE BILIRUBIN NEGATIVE BLOOD TRACE -INTACT NITRITE POSITIVE LEUK SCREEN TRACE WBC/HPF 10-20 RBC/HPF RARE CASTS/LPF NEGATIVE CRYSTALS NEGATIVE MUCOUS THRDS NEGATIVE BACTERIA 3+++ EPITH CELLS NEGATIVE TRICHOMONAS NEGATIVE YEAST NEGATIVE CULT SET UP? YES 04/09/2013 12:32 PM WBC 11.4 RBC 4.63 HGB 12.20 g/dLHCT 38.10 %MCV 82.0 fLMCH 26.30 pgMCHC 32.0 g/dLRDW SD 50 RDW CV 16.50 %MPV 9.50 fLPLT 244 NRBC# 0.00 NRBC % 0.0 GLUCOSE 87.0 mg/dLSODIUM 132.0 mmol/LPOTASSIUM 4.10 mmol/LCHLORIDE 95.0 mmol/LCO2 28.0 mmol/LBUN 13.0 mg/dLCREATININE 0.50 mg/dLSGOT/AST 16.0 IU/LSGPT/ ALT 13.0 IU/LALK PHOS 91.0 IU/LTOTAL PROTEIN 8.0 g/dLALBUMIN 3.70 g/dLTOTAL BILI 0.50 mg/dLCALCIUM 9.50 mg/dLAGE 52 GFR NonAA 173 GFR AA 210 eGFR 60 eGFR AA * 60 TRIGLYCERIDES 218.0 mg/dLCHOLESTEROL 155.0 mg/dLHDL 36.0 mg/dLTOT CHOL/HDL 4.3 LDL (CALC) 75.0 mg/dLHGB A1C <4.0 %Est Avg Glucose 68.1 mg/dLDIGOXIN 0.0120 ng/mLHGB A1C <4.0 %Est Avg Glucose 68.1 mg/dL 04/23/2013 4:51 PM COLOR STRAW APPEARANCE HAZY SPEC GRAV <=1.005 pH 6.5 PROTEIN NEGATIVE GLUCOSE NEGATIVE KETONE NEGATIVE BILIRUBIN NEGATIVE BLOOD LARGE NITRITE NEGATIVE LEUK SCREEN SMALL WBC/HPF 0-5 RBC/HPF 0-5 CASTS/LPF FEW HYALINE CRYSTALS TRACE AMORPH MUCOUS THRDS FEW BACTERIA 1+ EPITH CELLS FEW SQUAMOUS TRICHOMONAS FEW YEAST FEW CULT SET UP? YES 05/30/2013 5:10 PM COLOR YELLOW APPEARANCE HAZY SPEC GRAV <=1.005 pH 7.0 PROTEIN NEGATIVE GLUCOSE NEGATIVE KETONE NEGATIVE BILIRUBIN NEGATIVE BLOOD SMALL NITRITE POSITIVE LEUK SCREEN LARGE WBC/HPF 5-10 RBC/HPF NEGATIVE CASTS/ LPF NEGATIVE CRYSTALS 1+ AMORPHOUS MUCOUS THRDS NEGATIVE BACTERIA 1+ EPITH CELLS NEGATIVE TRICHOMONAS NEGATIVE YEAST NEGATIVE CULT SET UP? YES 06/11/2013 2:35 PM PROTIME 23.90 secsINR 2.3 06/13/2013 4:14 PM COLOR YELLOW APPEARANCE CLEAR SPEC GRAV <=1.005 pH 7.0 PROTEIN NEGATIVE GLUCOSE NEGATIVE KETONE NEGATIVE BILIRUBIN NEGATIVE BLOOD TRACE -LYSED NITRITE POSITIVE LEUK SCREEN SMALL WBC/HPF 0-5 RBC/HPF NEGATIVE CASTS/ LPF NEGATIVE CRYSTALS NEGATIVE MUCOUS THRDS NEGATIVE BACTERIA 1+ EPITH CELLS FEW RENAL TRICHOMONAS NEGATIVE YEAST NEGATIVE CULT ORDERED YES 07/02/2013 5:29 PM COLOR YELLOW APPEARANCE CLOUDY SPEC GRAV <=1.005 pH 6.5 PROTEIN NEGATIVE GLUCOSE NEGATIVE KETONE NEGATIVE BILIRUBIN NEGATIVE BLOOD MODERATE NITRITE POSITIVE LEUK SCREEN MODERATE WBC/HPF 5-10 RBC/HPF NEGATIVE CASTS/LPF NEGATIVE CRYSTALS 1+ AMORPHOUS MUCOUS THRDS 1+ BACTERIA 1+ EPITH CELLS NEGATIVE TRICHOMONAS NEGATIVE YEAST NEGATIVE CULT SET UP? YES 07/19/2013 11:43 AM PROTIME 25.50 secsINR 2.5 Coumadin Plan cont same Next Lab Draw Repeat in 1 month 08/07/2013 1:01 PM WBC 8.4 RBC 5.05 HGB 13.90 g/dLHCT 41.10 %MCV 81.0 fLMCH 27.50 pgMCHC 33.80 g/dLRDW SD 49 RDW CV 16.20 %MPV 9.60 fLPLT 215 NRBC# 0.00 NRBC% 0.0 PROTIME 28.90 secsINR 2.8 COLOR YELLOW APPEARANCE CLEAR SPEC GRAV 1.010 pH 7.5 PROTEIN NEGATIVE GLUCOSE NEGATIVE KETONE NEGATIVE BILIRUBIN NEGATIVE BLOOD NEGATIVE NITRITE NEGATIVE LEUK SCREEN NEGATIVE WBC/HPF RARE RBC/ HPF RARE CASTS/LPF NEGATIVE CRYSTALS NEGATIVE MUCOUS THRDS NEGATIVE BACTERIA NEGATIVE EPITH CELLS FEW SQUAMOUS TRICHOMONAS NEGATIVE YEAST NEGATIVE CULT SET UP? NO GLUCOSE 99.0 mg/dLSODIUM 133.0 mmol/LPOTASSIUM 3.70 mmol/LCHLORIDE 95.0 mmol/LCO2 25.0 mmol/LBUN 12.0 mg/dLCREATININE 0.60 mg/dLCALCIUM 10.40 mg/dL[age] GFR NonAA 0 GFR AA 0 eGFR 0 eGFR AA* 0 11/01/2013 3:18 PM PROTIME 20.20 secsINR 1.9 12/06/2013 1:26 PM PROTIME 29.40 secsINR 2.7 12/31/2013 1:37 PM PROTIME 33.20 secsINR 3.1 TRIGLYCERIDES 236.0 mg/ dLCHOLESTEROL 170.0 mg/dLHDL 37.0 mg/dLTOT CHOL/HDL 4.6 LDL (CALC) 86.0 mg/ dLHGB A1C 5.10 %Est Avg Glucose 99.7 mg/dL 01/08/2014 2:39 PM PROTIME 31.0 secsINR 2.9 03/07/2014 1:43 PM COLOR YELLOW APPEARANCE CLOUDY SPEC GRAV 1.025 pH 6.0 PROTEIN TRACE GLUCOSE NEGATIVE KETONE NEGATIVE BILIRUBIN NEGATIVE BLOOD SMALL NITRITE POSITIVE [place]UK SCREEN LARGE WBC/HPF 100-200 RBC/HPF RARE CASTS/LPF NEGATIVE CRYSTALS NEGATIVE MUCOUS THRDS NEGATIVE BACTERIA 3+++ EPITH CELLS NEGATIVE TRICHOMONAS NEGATIVE YEAST NEGATIVE CULT SET UP? YES 03/14/2014 2:19 PM FREE T4 1.01 TSH 5.770 uIU/mL 04/08/2014 2:00 PM COLOR YELLOW APPEARANCE CLEAR SPEC GRAV <=1.005 pH 7.0 PROTEIN NEGATIVE GLUCOSE NEGATIVE KETONE NEGATIVE BILIRUBIN NEGATIVE BLOOD NEGATIVE NITRITE NEGATIVE LEUK SCREEN NEGATIVE WBC/HPF NEGATIVE RBC/HPF NEGATIVE CASTS/LPF NEGATIVE CRYSTALS NEGATIVE MUCOUS THRDS NEGATIVE BACTERIA NEGATIVE EPITH CELLS NEGATIVE TRICHOMONAS NEGATIVE YEAST NEGATIVE CULT SET UP? NO 04/25/2014 7:07 PM PROTIME 10.0 secsINR 1.0 06/03/2014 4:58 PM COLOR YELLOW APPEARANCE HAZY SPEC GRAV <=1.005 pH 7.0 PROTEIN NEGATIVE GLUCOSE NEGATIVE KETONE NEGATIVE BILIRUBIN NEGATIVE BLOOD MODERATE NITRITE NEGATIVE LEUK SCREEN LARGE WBC/HPF 5-10 RBC/HPF RARE CASTS/LPF NEGATIVE CRYSTALS NEGATIVE MUCOUS THRDS NEGATIVE BACTERIA 2++ EPITH CELLS NEGATIVE TRICHOMONAS NEGATIVE YEAST NEGATIVE CULT SET UP? YES 06/12/2014 5:31 PM PROTIME 10.30 secsINR 1.0 WBC 6.8 RBC 4.61 HGB 12.80 g/ dLHCT 38.20 %MCV 83.0 fLMCH 27.80 pgMCHC 33.50 g/dLRDW SD 46 RDW CV 15.30 %MPV 8.90 fLPLT 252 NRBC# 0.00 NRBC% 0.0 %NEUT 55.0 %%LYMP 36.0 %%MONO 6.80 %%EOS 1.80 %%BASO 0.40 %#NEUT 3.74 #LYMP 2.45 #MONO 0.46 #EOS 0.12 #BASO 0.03 MANUAL DIFF NOT IND GLUCOSE 94.0 mg/dLSODIUM 130.0 mmol/LPOTASSIUM 3.90 mmol/LCHLORIDE 95.0 mmol/LCO2 26.0 mmol/LBUN 11.0 mg/dLCREATININE 0.50 mg/dLSGOT/AST 17.0 IU/ LSGPT/ALT 19.0 IU/LALK PHOS 87.0 IU/LTOTAL PROTEIN 7.50 g/dLALBUMIN 3.70 g/ dLTOTAL BILI 0.30 mg/dLCALCIUM 9.10 mg/dLAGE 53 GFR NonAA 173 GFR AA 210 eGFR 60 eGFR AA* 60 TRIGLYCERIDES 295.0 mg/dLCHOLESTEROL 177.0 mg/dLHDL 35.0 mg/ dLTOT CHOL/HDL 5.1 LDL (CALC) 83.0 mg/dLFREE T4 0.98 TSH 8.030 uIU/mLHGB A1C 6.30 %Est Avg Glucose 134.1 mg/dL 06/20/2014 2:40 PM COLOR YELLOW APPEARANCE HAZY SPEC GRAV 1.010 pH 7.0 PROTEIN NEGATIVE GLUCOSE NEGATIVE KETONE NEGATIVE BILIRUBIN NEGATIVE BLOOD LARGE NITRITE NEGATIVE [place] SCREEN MODERATE WBC/HPF 5-10 RBC/HPF NEGATIVE CASTS/LPF NEGATIVE CRYSTALS NEGATIVE MUCOUS THRDS NEGATIVE BACTERIA FEW EPITH CELLS NEGATIVE TRICHOMONAS NEGATIVE YEAST NEGATIVE CULT SET UP? YES 07/18/2014 2:37 PM GLUCOSE 174.0 mg/dLSODIUM 133.0 mmol/LPOTASSIUM 4.10 mmol/ LCHLORIDE 96.0 mmol/LCO2 27.0 mmol/LBUN 10.0 mg/dLCREATININE 0.60 mg/dLCALCIUM 9.50 mg/dLAGE 53 GFR NonAA 140 GFR AA 170 eGFR 60 eGFR AA* 60 COLOR YELLOW APPEARANCE HAZY SPEC GRAV <=1.005 pH 6.5 PROTEIN NEGATIVE GLUCOSE 100 KETONE NEGATIVE BILIRUBIN NEGATIVE BLOOD TRACE-INTACT NITRITE POSITIVE [place]UK SCREEN TRACE WBC/HPF 0-5 RBC/HPF RARE CASTS/LPF NEGATIVE CRYSTALS NEGATIVE MUCOUS THRDS NEGATIVE BACTERIA 1+ EPITH CELLS FEW SQUAMOUS TRICHOMONAS NEGATIVE YEAST NEGATIVE CULT SET UP? YES COLOR YELLOW APPEARANCE HAZY SPEC GRAV <=1.005 pH 6.5 PROTEIN NEGATIVE GLUCOSE 100 KETONE NEGATIVE BILIRUBIN NEGATIVE BLOOD TRACE- INTACT NITRITE POSITIVE [place]UK SCREEN TRACE WBC/HPF 0-5 RBC/HPF RARE CASTS/LPF NEGATIVE CRYSTALS NEGATIVE MUCOUS THRDS NEGATIVE BACTERIA 1+ EPITH CELLS FEW SQUAMOUS TRICHOMONAS NEGATIVE YEAST NEGATIVE CULT SET UP? YES TSH 4.610 uIU/mL 09/09/2014 2:51 PM WBC 7.0 RBC 4.83 HGB 13.50 g/dLHCT 40.70 %MCV 84.0 fLMCH 28.0 pgMCHC 33.20 g/dLRDW SD 45 RDW CV 14.50 %MPV 10.10 fLPLT 218 NRBC# 0.00 NRBC% 0.0 %NEUT 71.90 %%LYMP 21.30 %%MONO 5.70 %%EOS 0.70 %%BASO 0.40 %#NEUT 5.01 #LYMP 1.49 #MONO 0.40 #EOS 0.05 #BASO 0.03 MANUAL DIFF NOT IND PROTIME 11.0 secsINR 1.1 GLUCOSE 105.0 mg/dLSODIUM 133.0 mmol/LPOTASSIUM 3.60 mmol/ LCHLORIDE 101.0 mmol/LCO2 22.0 mmol/LBUN 13.0 mg/dLCREATININE 0.60 mg/dLSGOT/ AST 14.0 IU/LSGPT/ALT 16.0 IU/LALK PHOS 77.0 IU/LTOTAL PROTEIN 6.50 g/dLALBUMIN 3.40 g/dLTOTAL BILI 0.30 mg/dLCALCIUM 8.50 mg/dLAGE 53 GFR NonAA 140 GFR AA 170 eGFR 60 eGFR AA* 60 FREE T4 0.96 TSH 6.340 uIU/mLTRIGLYCERIDES 273.0 mg/ dLCHOLESTEROL 163.0 mg/dLHDL 30.0 mg/dLTOT CHOL/HDL 5.4 LDL (CALC) 78.0 mg/ dLHGB A1C <4.0 %Est Avg Glucose 68.1 mg/dL 10/02/2014 4:10 PM COLOR STRAW APPEARANCE CLEAR SPEC GRAV <=1.005 pH 7.5 PROTEIN NEGATIVE GLUCOSE NEGATIVE KETONE NEGATIVE BILIRUBIN NEGATIVE BLOOD MODERATE NITRITE POSITIVE [place] SCREEN MODERATE WBC/HPF 5-10 RBC/HPF NEGATIVE CASTS/LPF NEGATIVE CRYSTALS TRACE AMORPH MUCOUS THRDS NEGATIVE BACTERIA 1+ EPITH CELLS NEGATIVE TRICHOMONAS NEGATIVE YEAST NEGATIVE CULT SET UP? YES 2014 1:20 PM COLOR YELLOW APPEARANCE CLEAR SPEC GRAV 1.010 pH 6.0 PROTEIN NEGATIVE GLUCOSE 250 KETONE NEGATIVE BILIRUBIN NEGATIVE BLOOD SMALL NITRITE POSITIVE [place] SCREEN LARGE WBC/HPF 10-20 RBC/HPF 5-10 CASTS/LPF NEGATIVE CRYSTALS 2++ AMORPHOUS MUCOUS THRDS NEGATIVE BACTERIA 3+++ EPITH CELLS NEGATIVE TRICHOMONAS NEGATIVE YEAST NEGATIVE 12/04/2014 1:05 PM PROTIME 24.30 secsINR 2.4 COLOR YELLOW APPEARANCE HAZY SPEC GRAV 1.020 pH 6.5 PROTEIN TRACE GLUCOSE NEGATIVE KETONE NEGATIVE BILIRUBIN NEGATIVE BLOOD MODERATE NITRITE POSITIVE [place] SCREEN MODERATE WBC/HPF 20-50 RBC/ HPF 5-10 CASTS/LPF NEGATIVE CRYSTALS NEGATIVE MUCOUS THRDS NEGATIVE BACTERIA 1+ EPITH CELLS NEGATIVE TRICHOMONAS NEGATIVE YEAST NEGATIVE WBC 4.3 RBC 5.09 HGB 14.10 g/dLHCT 43.70 %MCV 86.0 fLMCH 27.70 pgMCHC 32.30 g/dLRDW SD 44 RDW CV 14.40 %MPV 9.60 fLPLT 254 NRBC# 0.00 NRBC% 0.0 TSH 7.030 uIU/mL 01/12/2015 1:59 PM COLOR YELLOW APPEARANCE CLOUDY SPEC GRAV <=1.005 pH 6.5 PROTEIN NEGATIVE GLUCOSE NEGATIVE KETONE NEGATIVE BILIRUBIN NEGATIVE BLOOD LARGE NITRITE NEGATIVE [place] SCREEN LARGE WBC/HPF 5-10 RBC/HPF NEGATIVE CASTS/ LPF FEW FINE GRAN CRYSTALS 2++ AMORPHOUS MUCOUS THRDS NEGATIVE BACTERIA 2++ EPITH CELLS FEW RENAL TRICHOMONAS NEGATIVE YEAST NEGATIVE CULT ORDERED YES 01/15/2015 2:41 PM PROTIME 23.60 secsINR 2.3 TSH 6.310 uIU/mL 01/22/2015 1:59 PM COLOR YELLOW APPEARANCE CLEAR SPEC GRAV <=1.005 pH 6.5 PROTEIN NEGATIVE GLUCOSE NEGATIVE KETONE NEGATIVE BILIRUBIN NEGATIVE BLOOD MODERATE NITRITE NEGATIVE [place] SCREEN TRACE WBC/HPF 0-5 RBC/HPF RARE CASTS/LPF NEGATIVE CRYSTALS NEGATIVE MUCOUS THRDS NEGATIVE BACTERIA FEW EPITH CELLS FEW RENAL TRICHOMONAS NEGATIVE YEAST NEGATIVE CULT SET UP? NO 02/12/2015 2:45 PM TSH 4.780 uIU/mLPROTIME 28.0 secsINR 2.7 03/12/2015 2:55 PM WBC 6.6 RBC 4.87 HGB 13.20 g/dLHCT 41.0 %MCV 84.0 fLMCH 27.10 pgMCHC 32.20 g/dLRDW SD 46 RDW CV 14.90 %MPV 10.0 fLPLT 232 NRBC# 0.00 NRBC% 0.0 TSH 3.410 uIU/mLPROTIME 24.0 secsINR 2.3 COLOR YELLOW APPEARANCE CLOUDY SPEC GRAV 1.010 pH 6.0 PROTEIN 30 GLUCOSE NEGATIVE KETONE NEGATIVE BILIRUBIN NEGATIVE BLOOD LARGE NITRITE POSITIVE [place] SCREEN LARGE MICRO INDICATED? SEE BELOW WBC/HPF 20-50 RBC/HPF 0-5 CASTS/LPF NEGATIVE CRYSTALS NEGATIVE MUCOUS THRDS NEGATIVE BACTERIA 2++ EPITH CELLS FEW RENAL TRICHOMONAS NEGATIVE YEAST NEGATIVE CULT SET UP? YES GLUCOSE 196.0 mg/dLSODIUM 133.0 mmol/ LPOTASSIUM 3.90 mmol/LCHLORIDE 96.0 mmol/LCO2 25.0 mmol/LBUN 15.0 mg/ dLCREATININE 0.70 mg/dLSGOT/AST 18.0 IU/LSGPT/ALT 26.0 IU/LALK PHOS 76.0 IU/ LTOTAL PROTEIN 7.30 g/dLALBUMIN 3.90 g/dLTOTAL BILI 0.40 mg/dLCALCIUM 8.90 mg/ dLAGE 54 GFR NonAA 117 GFR AA 142 eGFR >60 mL/min/1.73 m2eGFR AA* >60 04/09/2015 3:11 PM PROTIME 24.90 secsINR 2.4 COLOR STRAW APPEARANCE CLEAR SPEC GRAV <=1.005 pH 6.0 PROTEIN NEGATIVE GLUCOSE NEGATIVE KETONE NEGATIVE BILIRUBIN NEGATIVE BLOOD TRACE-INTACT NITRITE NEGATIVE [place] SCREEN MODERATE WBC/HPF 0-5 RBC/HPF NEGATIVE CASTS/LPF FEW FINE GRAN CRYSTALS 1+ AMORPHOUS MUCOUS THRDS NEGATIVE BACTERIA 2++ EPITH CELLS NEGATIVE TRICHOMONAS NEGATIVE YEAST NEGATIVE CULT ORDERED YES 04/30/2015 4:40 PM COLOR YELLOW APPEARANCE HAZY SPEC GRAV 1.010 pH 6.0 PROTEIN 100 GLUCOSE >=1000 KETONE NEGATIVE BILIRUBIN NEGATIVE BLOOD LARGE NITRITE POSITIVE [place] SCREEN MODERATE MICRO INDICATED? SEE BELOW WBC/HPF 100-200 RBC/ HPF 10-20 CASTS/LPF NEGATIVE CRYSTALS NEGATIVE MUCOUS THRDS NEGATIVE BACTERIA 3+ ++ EPITH CELLS NEGATIVE TRICHOMONAS NEGATIVE YEAST NEGATIVE CULT SET UP? YES 06/05/2015 10:55 AM LACTIC ACID 3.5 mmol/LWBC 11.5 RBC 4.62 HGB 12.40 g/dLHCT 38.50 %MCV 83.0 fLMCH 26.80 pgMCHC 32.20 g/dLRDW SD 48 RDW CV 15.90 %MPV 8.70 fLPLT 259 NRBC# 0.00 NRBC% 0.0 GLUCOSE 318.0 mg/dLSODIUM 131.0 mmol/LPOTASSIUM 4.0 mmol/LCHLORIDE 94.0 mmol/LCO2 26.0 mmol/LBUN 15.0 mg/dLCREATININE 0.80 mg/ dLSGOT/AST 16.0 IU/LSGPT/ALT 19.0 IU/LALK PHOS 77.0 IU/LTOTAL PROTEIN 7.10 g/ dLALBUMIN 3.90 g/dLTOTAL BILI 0.30 mg/dLCALCIUM 9.20 mg/dLAGE 54 GFR NonAA 100 GFR AA 121 eGFR >60 mL/min/1.73meGFR AA* >60 10/06/2015 10:23 AM WBC 8.0 RBC 4.47 HGB 9.20 g/dLHCT 32.0 %MCV 72.0 fLMCH 20.60 pgMCHC 28.80 g/dLRDW SD 46 RDW CV 17.80 %MPV 9.40 fLPLT 360 NRBC# 0.00 NRBC% 0.0 GLUCOSE 177.0 mg/dLSODIUM 127.0 mmol/LPOTASSIUM 4.40 mmol/LCHLORIDE 92.0 mmol/LCO2 23.0 mmol/LBUN 11.0 mg/dLCREATININE 0.60 mg/dLSGOT/AST 14.0 IU/ LSGPT/ALT 10.0 IU/LALK PHOS 76.0 IU/LTOTAL PROTEIN 7.50 g/dLALBUMIN 3.60 g/ dLTOTAL BILI 0.40 mg/dLCALCIUM 9.20 mg/dLAGE 54 GFR NonAA 139 GFR AA 168 eGFR > 60 mL/min/1.73meGFR AA* >60 MAGNESIUM 1.80 mg/dLCOLOR YELLOW APPEARANCE CLOUDY SPEC GRAV 1.015 pH 8.0 PROTEIN 30 GLUCOSE NEGATIVE mg/dLKETONE NEGATIVE BILIRUBIN NEGATIVE BLOOD SMALL NITRITE NEGATIVE [place] SCREEN LARGE WBC/HPF 10-20 RBC/HPF NEGATIVE CASTS/LPF FEW HYALINE /LPFCRYSTALS 2++ TRI PHOS MUCOUS THRDS NEGATIVE BACTERIA 2++ EPITH CELLS NEGATIVE /HPFTRICHOMONAS NEGATIVE YEAST NEGATIVE CULT ORDERED YES Hemoglobin A1c 5.80 %Estim. Avg Glu (eAG) 120 10/10/2015 5:50 AM GLUCOSE 124.0 mg/dLSODIUM 139.0 mmol/LPOTASSIUM 3.40 mmol/ LCHLORIDE 102.0 mmol/LCO2 28.0 mmol/LBUN 14.0 mg/dLCREATININE 0.60 mg/dLSGOT/ AST 10.0 IU/LSGPT/ALT 8.0 IU/LALK PHOS 65.0 IU/LTOTAL PROTEIN 7.0 g/dLALBUMIN 3.40 g/dLTOTAL BILI 0.30 mg/dLCALCIUM 8.70 mg/dLAGE 54 GFR NonAA 139 GFR AA 168 eGFR >60 mL/min/1.73meGFR AA* >60 WBC 6.7 RBC 3.76 HGB 7.90 g/dLHCT 27.80 % MCV 74.0 fLMCH 21.0 pgMCHC 28.40 g/dLRDW SD 48 RDW CV 17.80 %MPV 8.10 fLPLT 226 NRBC# 0.00 NRBC% 0.0 %NEUT 72.10 %%LYMP 12.10 %%MONO 14.80 %%EOS 0.70 %%BASO 0.30 %#NEUT 4.80 #LYMP 0.81 #MONO 0.99 #EOS 0.05 #BASO 0.02 MANUAL DIFF NOT IND 10/11/2015 6:20 AM TSH 7.840 uIU/mLGLUCOSE 123.0 mg/dLSODIUM 140.0 mmol/ LPOTASSIUM 2.90 mmol/LCHLORIDE 105.0 mmol/LCO2 28.0 mmol/LBUN 8.0 mg/ dLCREATININE 0.50 mg/dLALBUMIN 3.30 g/dLCALCIUM 8.50 mg/dLPHOSPHORUS 2.60 mg/ dLAGE 54 GFR NonAA 172 GFR AA 208 eGFR >60 mL/min/1.73meGFR AA* >60 MAGNESIUM 1.80 mg/dLDIGOXIN 0.0020 ng/mLWBC 6.7 RBC 3.64 HGB 7.60 g/dLHCT 27.30 %MCV 75.0 fLMCH 20.90 pgMCHC 27.80 g/dLRDW SD 49 RDW CV 17.60 %MPV 8.50 fLPLT 247 NRBC# 0.00 NRBC% 0.0 %NEUT 65.0 %%LYMP 19.20 %%MONO 13.80 %%EOS 1.70 %%BASO 0.30 %# NEUT 4.33 #LYMP 1.28 #MONO 0.92 #EOS 0.11 #BASO 0.02 MANUAL DIFF NOT IND FREE T4 0.95 10/12/2015 6:30 AM GLUCOSE 123.0 mg/dLSODIUM 137.0 mmol/LPOTASSIUM 3.0 mmol/ LCHLORIDE 101.0 mmol/LCO2 27.0 mmol/LBUN 6.0 mg/dLCREATININE 0.50 mg/dLALBUMIN 3.30 g/dLCALCIUM 8.60 mg/dLPHOSPHORUS 2.60 mg/dLAGE 54 GFR NonAA 172 GFR AA 208 eGFR >60 mL/min/1.73meGFR AA* >60 MAGNESIUM 1.50 mg/dLWBC 8.6 RBC 4.00 HGB 8.40 g/dLHCT 29.40 %MCV 74.0 fLMCH 20.80 pgMCHC 28.20 g/dLRDW SD 47 RDW CV 17.40 %MPV 8.80 fLPLT 264 NRBC# 0.00 NRBC% 0.0 %NEUT 62.90 %%LYMP 20.20 %%MONO 15.10 %%EOS 1.40 %%BASO 0.40 %#NEUT 5.40 #LYMP 1.73 #MONO 1.29 #EOS 0.12 #BASO 0.03 MANUAL DIFF NOT IND 10/12/2015 5:00 PM COLOR YELLOW APPEARANCE CLEAR SPEC GRAV 1.015 pH 5.5 PROTEIN 30 GLUCOSE NEGATIVE mg/dLKETONE NEGATIVE BILIRUBIN NEGATIVE BLOOD LARGE NITRITE NEGATIVE [place] SCREEN MODERATE MICRO INDICATED? SEE BELOW WBC/HPF 20-50 RBC/HPF 5-10 CASTS/LPF NEGATIVE /LPFCRYSTALS NEGATIVE MUCOUS THRDS FEW BACTERIA FEW EPITH CELLS 1+ SQUAMOUS /HPFTRICHOMONAS NEGATIVE YEAST NEGATIVE CULT SET UP ? YES 10/13/2015 6:55 AM GLUCOSE 128.0 mg/dLSODIUM 137.0 mmol/LPOTASSIUM 3.0 mmol/ LCHLORIDE 103.0 mmol/LCO2 28.0 mmol/LBUN 4.0 mg/dLCREATININE 0.50 mg/dLALBUMIN 3.0 g/dLCALCIUM 8.20 mg/dLPHOSPHORUS 2.70 mg/dLAGE 54 GFR NonAA 172 GFR AA 208 eGFR >60 mL/min/1.73meGFR AA* >60 MAGNESIUM 1.60 mg/dLWBC 6.8 RBC 3.87 HGB 8.0 g/dLHCT 28.10 %MCV 73.0 fLMCH 20.70 pgMCHC 28.50 g/dLRDW SD 46 RDW CV 17.40 %MPV 8.50 fLPLT 225 NRBC# 0.00 NRBC% 0.0 %NEUT 59.20 %%LYMP 28.10 %%MONO 10.50 % %EOS 1.90 %%BASO 0.30 %#NEUT 4.00 #LYMP 1.90 #MONO 0.71 #EOS 0.13 #BASO 0.02 MANUAL DIFF NOT IND 11/10/2015 3:02 PM COLOR YELLOW APPEARANCE CLEAR SPEC GRAV <=1.005 pH 6.5 PROTEIN NEGATIVE GLUCOSE NEGATIVE mg/dLKETONE NEGATIVE BILIRUBIN NEGATIVE BLOOD LARGE NITRITE NEGATIVE [place] SCREEN LARGE WBC/HPF 5-10 RBC/HPF 5-10 CASTS/LPF NEGATIVE /LPFCRYSTALS 1+ AMORPHOUS MUCOUS THRDS NEGATIVE BACTERIA FEW EPITH CELLS NEGATIVE /HPFTRICHOMONAS NEGATIVE YEAST NEGATIVE CULT ORDERED YES 12/07/2015 2:47 PM COLOR YELLOW APPEARANCE CLEAR SPEC GRAV <=1.005 pH 6.5 PROTEIN NEGATIVE GLUCOSE 100 KETONE NEGATIVE BILIRUBIN NEGATIVE BLOOD MODERATE NITRITE NEGATIVE [place] SCREEN LARGE WBC/HPF TNTC RBC/HPF 5-10 CASTS/LPF NEGATIVE /LPFCRYSTALS NEGATIVE MUCOUS THRDS NEGATIVE BACTERIA 2++ EPITH CELLS NEGATIVE / HPFTRICHOMONAS NEGATIVE YEAST NEGATIVE CULT ORDERED YES 12/14/2015 2:58 PM COLOR YELLOW APPEARANCE CLEAR SPEC GRAV <=1.005 pH 5.5 PROTEIN NEGATIVE GLUCOSE NEGATIVE mg/dLKETONE NEGATIVE BILIRUBIN NEGATIVE BLOOD SMALL NITRITE NEGATIVE [place] SCREEN SMALL WBC/HPF 0-5 RBC/HPF NEGATIVE CASTS/LPF NEGATIVE /LPFCRYSTALS NEGATIVE MUCOUS THRDS NEGATIVE BACTERIA 2++ EPITH CELLS NEGATIVE /HPFTRICHOMONAS NEGATIVE YEAST NEGATIVE CULT ORDERED YES 12/17/2015 5:00 PM GLUCOSE 114.0 mg/dLSODIUM 135.0 mmol/LPOTASSIUM 4.30 mmol/ LCHLORIDE 94.0 mmol/LCO2 27.0 mmol/LBUN 15.0 mg/dLCREATININE 0.70 mg/dLCALCIUM 9.20 mg/dLAGE 55 GFR NonAA 116 GFR AA 141 eGFR >60 mL/min/1.73meGFR AA* >60 12/23/2015 3:10 PM WBC 14.0 RBC 4.17 HGB 8.50 g/dLHCT 28.30 %MCV 68.0 fLMCH 20.40 pgMCHC 30.0 g/dLRDW SD 41 RDW CV 17.10 %MPV 8.70 fLPLT 446 NRBC# 0.00 NRBC % 0.0 GLUCOSE 150.0 mg/dLSODIUM 130.0 mmol/LPOTASSIUM 4.0 mmol/LCHLORIDE 92.0 mmol/LCO2 27.0 mmol/LBUN 14.0 mg/dLCREATININE 0.60 mg/dLSGOT/AST 11.0 IU/LSGPT/ ALT 10.0 IU/LALK PHOS 70.0 IU/LTOTAL PROTEIN 7.60 g/dLALBUMIN 3.30 g/dLTOTAL BILI 0.40 mg/dLCALCIUM 9.50 mg/dLAGE 55 GFR NonAA 139 GFR AA 168 eGFR >60 mL/min /1.73meGFR AA* >60 COLOR YELLOW APPEARANCE CLEAR SPEC GRAV <=1.005 pH 6.0 PROTEIN TRACE GLUCOSE 250 KETONE NEGATIVE BILIRUBIN NEGATIVE BLOOD MODERATE NITRITE NEGATIVE [place] SCREEN TRACE MICRO IND? SEE BELOW WBC/HPF 0-5 RBC/HPF RARE CASTS/LPF NEGATIVE /LPFCRYSTALS NEGATIVE MUCOUS THRDS NEGATIVE BACTERIA FEW EPITH CELLS NEGATIVE /HPFTRICHOMONAS NEGATIVE YEAST NEGATIVE 03/23/2016 6:50 AM WBC 8.4 RBC 4.55 HGB 10.0 g/dLHCT 33.40 %MCV 73.0 fLMCH 22.0 pgMCHC 29.90 g/dLRDW SD 50 RDW CV 19.20 %MPV 8.70 fLPLT 367 NRBC# 0.00 NRBC % 0.0 GLUCOSE 186.0 mg/dLSODIUM 134.0 mmol/LPOTASSIUM 3.80 mmol/LCHLORIDE 95.0 mmol/LCO2 28.0 mmol/LBUN 24.0 mg/dLCREATININE 0.50 mg/dLSGOT/AST 21.0 IU/LSGPT/ ALT 28.0 IU/LALK PHOS 172.0 IU/LTOTAL PROTEIN 8.20 g/dLALBUMIN 3.40 g/dLTOTAL BILI 0.30 mg/dLCALCIUM 9.80 mg/dLAGE 55 GFR NonAA 171 GFR AA 207 eGFR >60 mL/min /1.73meGFR AA* >60 TRIGLYCERIDES 185.0 mg/dLCHOLESTEROL 153.0 mg/dLHDL 21.0 mg /dLTOT CHOL/HDL 7.3 LDL (CALC) 95.0 mg/dLMAGNESIUM 2.0 mg/dLPREALBUMIN 22.0 mg/ dLFREE T4 1.01 TSH 6.910 uIU/mL 03/30/2016 6:35 AM GLUCOSE 149.0 mg/dLSODIUM 136.0 mmol/LPOTASSIUM 4.30 mmol/ LCHLORIDE 97.0 mmol/LCO2 27.0 mmol/LBUN 21.0 mg/dLCREATININE 0.50 mg/dLSGOT/AST 18.0 IU/LSGPT/ALT 25.0 IU/LALK PHOS 164.0 IU/LTOTAL PROTEIN 7.70 g/dLALBUMIN 3.40 g/dLTOTAL BILI 0.20 mg/dLCALCIUM 9.70 mg/dLAGE 55 GFR NonAA 171 GFR AA 207 eGFR >60 mL/min/1.73meGFR AA* >60 WBC 9.4 RBC 4.57 HGB 10.10 g/dLHCT 34.70 % MCV 76.0 fLMCH 22.10 pgMCHC 29.10 g/dLRDW SD 51 RDW CV 18.90 %MPV 8.90 fLPLT 451 NRBC# 0.00 NRBC% 0.0 05/18/2016 6:35 AM GLUCOSE 100.0 mg/dLSODIUM 135.0 mmol/LPOTASSIUM 4.40 mmol/ LCHLORIDE 104.0 mmol/LCO2 18.0 mmol/LBUN 23.0 mg/dLCREATININE 0.60 mg/dLSGOT/ AST 18.0 IU/LSGPT/ALT 16.0 IU/LALK PHOS 118.0 IU/LTOTAL PROTEIN 7.60 g/ dLALBUMIN 3.90 g/dLTOTAL BILI 0.40 mg/dLCALCIUM 9.50 mg/dLAGE 55 GFR NonAA 139 GFR AA 168 eGFR >60 mL/min/1.73meGFR AA* >60 MAGNESIUM 1.80 mg/dLPHOSPHORUS 3.70 mg/dLWBC 7.4 RBC 5.22 HGB 11.40 g/dLHCT 39.30 %MCV 75.0 fLMCH 21.80 pgMCHC 29.0 g/dLRDW SD 49 RDW CV 18.80 %MPV 9.40 fLPLT 341 NRBC# 0.00 NRBC% 0.0 %NEUT 59.0 %%LYMP 28.90 %%MONO 8.60 %%EOS 2.40 %%BASO 0.70 %#NEUT 4.38 #LYMP 2.15 # MONO 0.64 #EOS 0.18 #BASO 0.05 SEGS 61 LYMPHS 31 MONOS 5 EOS 2.0 %BASO 1.0 % 05/19/2016 4:02 PM MAGNESIUM 1.70 mg/dLGLUCOSE 120.0 mg/dLSODIUM 135.0 mmol/ LPOTASSIUM 4.10 mmol/LCHLORIDE 100.0 mmol/LCO2 22.0 mmol/LBUN 17.0 mg/ dLCREATININE 0.60 mg/dLSGOT/AST 17.0 IU/LSGPT/ALT 20.0 IU/LALK PHOS 148.0 IU/ LTOTAL PROTEIN 9.0 g/dLALBUMIN 4.50 g/dLTOTAL BILI 0.40 mg/dLCALCIUM 9.90 mg/ dLAGE 55 GFR NonAA 139 GFR AA 168 eGFR >60 mL/min/1.73meGFR AA* >60 08/22/2016 4:13 PM WBC 8.2 RBC 5.85 HGB 14.80 g/dLHCT 45.70 %MCV 78.0 fLMCH 25.30 pgMCHC 32.40 g/dLRDW SD 50 RDW CV 18.50 %MPV 8.80 fLPLT 308 NRBC# 0.00 NRBC% 0.0 GLUCOSE 129.0 mg/dLSODIUM 130.0 mmol/LPOTASSIUM 3.80 mmol/LCHLORIDE 90.0 mmol/LCO2 26.0 mmol/LBUN 15.0 mg/dLCREATININE 0.60 mg/dLCALCIUM 10.70 mg/ dLAGE 55 GFR NonAA 139 GFR AA 168 eGFR >60 mL/min/1.73meGFR AA* >60 MAGNESIUM 2.0 mg/dL 11/07/2016 11:29 AM COLOR YELLOW APPEARANCE HAZY SPEC GRAV <=1.005 pH 6.5 PROTEIN NEGATIVE GLUCOSE NEGATIVE mg/dLKETONE NEGATIVE BILIRUBIN NEGATIVE BLOOD LARGE NITRITE POSITIVE [place]UK SCREEN LARGE MICRO IND? SEE BELOW WBC/HPF 10-20 RBC/ HPF 5-10 CASTS/LPF NEGATIVE /LPFCRYSTALS NEGATIVE MUCOUS THRDS NEGATIVE BACTERIA 1+ EPITH CELLS NEGATIVE /HPFTRICHOMONAS NEGATIVE YEAST NEGATIVE 11/22/2016 2:25 PM MAGNESIUM 2.0 mg/dLGLUCOSE 110.0 mg/dLSODIUM 129.0 mmol/ LPOTASSIUM 4.50 mmol/LCHLORIDE 92.0 mmol/LCO2 25.0 mmol/LBUN 13.0 mg/ dLCREATININE 0.60 mg/dLCALCIUM 10.20 mg/dLAGE 56 GFR NonAA 138 GFR AA 167 eGFR > 60 mL/min/1.73meGFR AA* >60 WBC 8.0 RBC 5.37 HGB 15.0 g/dLHCT 45.40 %MCV 85.0 fLMCH 27.90 pgMCHC 33.0 g/dLRDW SD 42 RDW CV 13.50 %MPV 8.50 fLPLT 297 NRBC# 0.00 NRBC% 0.0 History Of Immunizations Name Date Admin Mfg Name Mfg Code Trade Name Lot# Route Inj Vis Given Vis Pub CVX Influenza 07/03/2013 [employer] pasteur PMC Fluzone > 3 Years [id number] Intramuscular Right Deltoid 07/03/2013 04/19/2013 141 Pneumococcal 03/30/2016 Not Entered NE Prevnar 13 Not Entered Not Entered 09/02/2016 09/25/2017 133 Influenza 09/05/2016 Not Entered NE Fluvirin Not Entered Not Entered 09/25/2017 09/25/2017 141 History of Past Illness Name Date of Onset Comments Hemorrhoids, External Kidney Stones Chronic UTI's Atrial Fibrillation Diabetes Mellitus, Type II Quadriplegia Hypothyroidism Quadriplegic spinal paralysis 04/28/2016 Recurrent hematuria 12/09/2016 Bacterial UTI 12/09/2016 H/O renal calculi 12/09/2016 Diabetes Mellitus, Type II Nov 05 2012 1:08PM Atrial Fibrillation Nov 05 2012 1:08PM Chronic Urinary Tract Infections Nov 05 2012 1:08PM Paraplegia Nov 05 2012 1:08PM Fatigue Nov 05 2012 1:08PM Screening for Ischemic Heart Disease Nov 05 2012 1:08PM Anemia Nov 28 2012 3:40PM Diabetes Mellitus, Type II Nov 29 2012 1:10PM Atrial Fibrillation Nov 29 2012 1:10PM Chronic Urinary Tract Infections Nov 29 2012 1:10PM Paraplegia Nov 29 2012 1:10PM Hyperlipidemia Nov 29 2012 1:10PM Diabetes Mellitus, Type II Dec 31 2012 2:08PM Atrial Fibrillation Dec 31 2012 2:08PM Chronic Urinary Tract Infections Dec 31 2012 2:08PM Paraplegia Dec 31 2012 2:08PM Hyperlipidemia Dec 31 2012 2:08PM Diabetes Mellitus, Type II Apr 01 2013 1:58PM Atrial Fibrillation Apr 01 2013 1:58PM Chronic Urinary Tract Infections Apr 01 2013 1:58PM Paraplegia Apr 01 2013 1:58PM Hyperlipidemia Apr 01 2013 1:58PM Heat rash Apr 01 2013 1:58PM Dysuria Apr 22 2013 1:51PM Left Otitis Media, Acute Apr 22 2013 1:51PM Flu Jul 03 2013 2:02PM Diabetes Mellitus, Type II Jul 03 2013 1:55PM Atrial Fibrillation Jul 03 2013 1:55PM Chronic Urinary Tract Infections Jul 03 2013 1:55PM Paraplegia Jul 03 2013 1:55PM Hyperlipidemia Jul 03 2013 1:55PM Cellulitis/Abscess Jul 09 2013 3:01PM Resolved Cellulitis/Abscess Aug 01 2013 10:22AM Hyponatremia Aug 01 2013 10:22AM Urinary Tract Infection Aug 01 2013 10:22AM Abscess Aug 01 2013 2:13PM Diabetes Mellitus, Type II Oct 08 2013 2:22PM Hyperlipidemia, unspecified Oct 08 2013 2:22PM Atrial Fibrillation Oct 08 2013 2:22PM Hemorrhoids, External Oct 08 2013 2:22PM Diabetes Mellitus, Type II Dec 26 2013 2:53PM Atrial Fibrillation Dec 26 2013 2:53PM Hemorrhoids, External Dec 26 2013 2:53PM Fatigue Feb 27 2014 11:15AM Atrial Fibrillation Mar 18 2014 1:25PM Diabetes Mellitus, Type II Mar 18 2014 1:25PM Hemorrhoids, External Mar 18 2014 1:25PM Kidney Stones Mar 18 2014 1:25PM Urinary Tract Infection Mar 18 2014 1:25PM Atrial Fibrillation Apr 23 2014 11:59AM Atrial Fibrillation Jun 09 2014 7:57AM Diabetes Mellitus, Type II Jun 09 2014 7:57AM Fatigue Jun 09 2014 7:57AM Hyperlipidemia, Mixed Jun 25 2014 3:02PM Hypothyroidism, Acquired Jun 25 2014 3:02PM Hyponatremia Jun 25 2014 3:02PM Diabetes Mellitus, Type II Jun 11 2014 2:21PM UTI Jun 11 2014 2:21PM Atrial Fibrillation Sep 09 2014 8:24AM Diabetes Mellitus, Type II Sep 09 2014 8:24AM Fatigue Sep 09 2014 8:24AM Atrial Fibrillation Sep 10 2014 3:59PM Hemorrhoids, External Sep 10 2014 3:59PM Kidney Stones Sep 10 2014 3:59PM Pressure ulcer Sep 10 2014 3:59PM Glucose intolerance (impaired glucose tolerance) Sep 10 2014 3:59PM Chronic anticoagulation Sep 10 2014 3:59PM Hypothyroidism, Acquired Dec 03 2014 3:22PM Atrial Fibrillation Dec 03 2014 3:22PM Diabetes Mellitus, Type II Dec 03 2014 3:22PM Hypothyroidism, Acquired Dec 12 2014 11:40AM UTI (lower urinary tract infection) Jan 19 2015 9:13AM Atrial Fibrillation Dec 11 2014 2:46PM Diabetes Mellitus, Type II Dec 11 2014 2:46PM Hemorrhoids, External Dec 11 2014 2:46PM Kidney Stones Dec 11 2014 2:46PM Atrial Fibrillation Mar 05 2015 4:55PM Diabetes Mellitus, Type II Mar 05 2015 4:55PM Hemorrhoids, External Mar 05 2015 4:55PM Kidney Stones Mar 05 2015 4:55PM Hypothyroid Mar 05 2015 4:55PM UTI (urinary tract infection) Apr 16 2015 5:13PM Atrial Fibrillation Mar 16 2015 2:24PM Diabetes Mellitus, Type II Mar 16 2015 2:24PM Hemorrhoids, External Mar 16 2015 2:24PM Kidney Stones Mar 16 2015 2:24PM Quadriplegia following spinal cord injury Mar 16 2015 2:24PM Recurrent UTI Mar 16 2015 2:24PM UTI (urinary tract infection) May 04 2015 1:39PM Bronchitis, Acute Jun 03 2015 10:03AM Pneumonia of left lower lobe due to infectious organism Jun 05 2015 11:37AM Diabetes Mellitus, Type II Aug 31 2015 3:08PM Generalized weakness Aug 31 2015 3:08PM Tracheostomy present Aug 31 2015 3:08PM Acute respiratory failure with hypoxia Aug 31 2015 3:08PM Pleural effusion associated with pulmonary infection Aug 31 2015 3:08PM Quadriplegia, C1-C4 incomplete Aug 31 2015 3:08PM Atrial fibrillation with normal ventricular rate Aug 31 2015 3:08PM Anticoagulant long-term use Aug 31 2015 3:08PM Diabetes Mellitus, Type II Oct 05 2015 3:43PM Fatigue Oct 05 2015 3:43PM Hypothyroidism, Acquired Oct 05 2015 3:43PM Chronic hypoxemic respiratory failure Oct 05 2015 3:43PM Paraplegic spinal paralysis Oct 05 2015 3:43PM Recurrent UTI (urinary tract infection) Oct 05 2015 3:43PM Atrial fibrillation with normal ventricular rate Oct 05 2015 3:43PM Urinary tract infection associated with catheterization of urinary tract, initial encounter Dec 18 2015 10:58AM Urinary tract infection associated with catheterization of urinary tract, subsequent encounter Dec 24 2015 9:59AM Pneumonia Mar 29 2016 4:07PM Atrial Fibrillation Mar 29 2016 4:07PM Diabetes Mellitus, Type II Mar 29 2016 4:07PM Hemorrhoids, External Mar 29 2016 4:07PM Kidney Stones Mar 29 2016 4:07PM Acute on chronic respiratory failure with hypoxia Mar 29 2016 4:07PM Pressure sore, stage III Mar 29 2016 4:07PM Quadriplegia Mar 29 2016 4:07PM Quadriplegic spinal paralysis Apr 26 2016 3:26PM Metabolic acidosis May 19 2016 4:32PM Paraplegia at T4 level May 19 2016 4:32PM History of Gram positive sepsis May 19 2016 4:32PM Iron (Fe) deficiency anemia May 19 2016 4:32PM Nonhealing nonsurgical wound May 19 2016 4:32PM Diabetes Mellitus, Type II, Uncontrolled May 19 2016 4:32PM Respiratory failure, chronic neuromuscular May 19 2016 4:32PM Tracheostomy care May 19 2016 4:32PM Bowel habit changes May 19 2016 4:32PM Ileus Aug 05 2016 1:14PM Hypothyroidism, Acquired Aug 31 2016 2:31PM Paraplegia Aug 31 2016 2:31PM Spasticity Aug 31 2016 2:31PM History of recurrent pneumonia Aug 31 2016 2:31PM History of recurrent UTI (urinary tract infection) Aug 31 2016 2:31PM Atrial fibrillation Aug 31 2016 2:31PM Recurrent hematuria Dec 09 2016 8:40AM Urinary tract infection, site not specified Dec 09 2016 8:40AM H/O renal calculi Dec 09 2016 8:40AM History of kidney stones Dec 09 2016 9:37AM Recurrent UTI Dec 09 2016 9:37AM Payers Insurance Name Company Name Plan Name Plan Number Policy Number Policy Group Number Start Date Medicare RHC Medicare RHC [id number] N/A [facility] [id number] Tuesday, 2012 [facility] [id number] N/A Medicare Part A Medicare - Lab/Xray [id number] Sunday, June 25, 1989 Medicare Part B Medicare Of [place] [id number] May [facility] Prog [id number] May Medicare Part A Medicare Part A [id number] Sunday, June 25, 1989 History of Encounters Visit Date Visit Type Provider 12/09/2016 Office visit Shari Correia MD 08/31/2016 Office visit Rhonda Tejada MD 05/19/2016 Office visit Rhonda Tejada MD 05/11/2016 [facility] Carolyn Mercado MD 04/29/2016 [facility] Shahram Morrow DO 04/29/2016 [facility] Carolyn Mercado MD 04/29/2016 [facility] Carolyn Mercado MD 04/26/2016 Procedures Austin Reyez DO 03/29/2016 Office visit Rhonda Tejada MD 12/24/2015 Office visit Nicholas Bonilla APRN 12/18/2015 Office visit Nicholas Bonilla APRN 10/20/2015 Office visit Sidney Shin MD 10/10/2015 [facility] Yonny Rivera MD 10/05/2015 Office visit Rhonda Tejada MD 08/31/2015 Office visit Rhonda Tejada MD 06/09/2015 Hospital Austin Reyez DO 06/08/2015 Hospital Austin Reyez DO 06/08/2015 Hospital Austin Reyez DO 06/05/[address] Kev Shane MD 06/03/2015 Office visit Jasmyne Del Rosario WEATHER ALGORITHM SCIENTIST 03/16/2015 Office visit Rhonda Tejada MD 12/23/2014 Office visit Shari Correia MD 12/11/2014 Office visit Rhonda Tejada MD 09/10/2014 Office visit Rhonda Tejada MD 06/25/2014 Office visit hRonda Tejada MD 06/11/2014 Office visit Rhonda Tejada MD 04/10/2014 [facility] Sidney Shin MD 04/08/2014 [facility] Jamaica Martin MD 03/18/2014 Office visit Nicholas Bonilla WEATHER ALGORITHM SCIENTIST 12/26/2013 Office visit Rhonda Tejada MD 12/12/2013 [facility] Carolyn Mercado MD 12/08/2013 [facility] Joan Sherman MD 12/06/2013 [facility] Jamaica Martin MD 10/08/2013 Office visit Rhonda Tejada MD 08/01/2013 Office visit Austin Reyez DO 08/01/2013 Office visit Jovanna Kapadia MD 07/13/2013 [facility] DO 07/10/2013 [facility] DO 07/09/2013 Office visit Jovanna Kapadia MD 07/09/2013 [facility] DO 07/03/2013 Office visit Jovanna Kapadia MD 04/22/2013 Office visit Jasmyne Del Rosario WEATHER ALGORITHM SCIENTIST 04/01/2013 Office visit Jovanna Kapadia MD 12/31/2012 Office visit Jovanna Kapadia MD 11/29/2012 Office visit Jovanna Kapadia MD 11/05/2012 Office visit Jasmyne Del Rosario WEATHER ALGORITHM SCIENTIST 11/30/2011 [facility] Carolyn Mercado MD 08/12/2011 [facility] Carolyn Mercado MD 06/29/2011 [facility] Carolyn Mercado MD 03/20/2011 [facility] Carolyn Mercado MD 05/01/2010 Laboratory Jose Luis Stinson MD 04/28/2010 Laboratory Jose Luis Stinson MD 11/20/2009 [facility] Jose Luis Stinson MD 2009 [facility] Jose Luis Stinson MD 11/17/2009 [facility] Jose Luis Stinson MD 11/16/2009 [facility] Suha Ray MD 11/15/2009 [facility] Suha Ray MD 09/02/2009 Laboratory Richar Jeong MD 08/14/2009 Laboratory Richar Jeong MD 07/21/2009 Laboratory Richar Jeong MD 07/20/2009 Office visit Richar Jeong MD 07/17/2009 Laboratory Richar Jeong MD 06/26/2009 Laboratory Richar Jeong MD 06/19/2009 Laboratory Richar Jeong MD 06/04/2009 Laboratory Richar Jeong MD 05/18/2009 Laboratory Jose Luis Stinson MD 05/18/2009 Voided Jose Luis Stinson MD
--- OUTSIDE RECORDS SUMMARY | 2017-10-22 06:47 | XMS REPORT ---
Author Author Rhonda Tejada Organization [facility] Address [address] [place], [place] [address] Care Team Providers Care Telephone Operator Chief Name Role Phone Rhonda Tejada PCP Strides, Independent Unavailable Unavailable Allergies and Adverse Reactions Name Reaction Notes amoxicillin nitrofurantoin Plan of Treatment Planned Activity Comments Planned Date Planned Time Plan/Goal Hemoglobin A1C 12/23/2015 12:00 AM Vitamin B12 12/23/2015 12:00 AM TSH 12/23/2015 12:00 AM T4, Free 12/23/2015 12:00 AM CBC with Auto 03/13/2017 12:00 AM Complete blood count (CBC) with differential count 05/22/2017 12:00 AM URINALYSIS W/MICRO C&S IF IND 05/22/2017 12:00 AM Basic metabolic profile 03/16/2015 12:00 [...] 09/28" miscellaneous needle 2015 USE DIRECTED WITH Cura TVLOG FLEXPEN baclofen 20 mg oral tablet 03/31/2016 [...] take 1 tablet by oral route daily Xarelto 20 mg oral tablet take 1 tablet (20 mg) by oral route once daily with the evening meal Ferrex 150 Forte 150-25-1 mg-mcg-mg oral capsule take 1 capsule by oral route once daily Mapap Extra Strength 500 mg oral tablet take 2 tablets (1,000 mg) by oral route every 4 hours as needed not to exceed 8 tablets per 24hrs Levemir 100 unit/mL subcutaneous solution inject by subcutaneous 10 units daily Xarelto 20 mg oral tablet 08/08/2016 TAKE [...] 1 TABLET BY MOUTH THREE TIMES DAILY pravastatin 20 mg oral tablet 10/31/2016 TAKE 1 TABLET BY MOUTH DAILY metformin 1,000 mg oral tablet 11/07/2016 TAKE 1 TABLET BY MOUTH TWICE DAILY Levemir 100 unit/mL subcutaneous solution 12/06/2016 INJECT 10 UNITS SUBCUTANEOUS DAILY Pepcid 20 mg oral tablet take 1 tablet (20 mg) by oral route 2 times per day Reglan 10 mg oral tablet take 1 tablet (10 mg) by oral route 3 times per day 30 minutes before meals and at bedtime Contour Test Strips miscellaneous strip 01/17/2017 07/16/2017 Test 3x daily. Dx: E11.9 Xarelto 20 mg oral tablet 01/25/2017 TAKE 1 TABLET BY MOUTH DAILY Januvia 100 mg oral tablet 01/31/2017 TAKE 1 TABLET BY MOUTH DAILY betamethasone valerate 0.1 % topical cream 03/22/2017 07/20/2017 apply a thin layer to the affected area(s) by topical route once daily for 30 days baclofen 20 mg oral tablet 03/27/2017 TAKE 1 TABLET BY MOUTH THREE TIMES DAILY levothyroxine 100 mcg oral tablet 04/24/2017 10/21/2017 take 1 tablet (100 mcg ) by oral route once daily for 30 days metformin 1,000 mg oral tablet 04/26/2017 TAKE 1 TABLET BY MOUTH TWICE DAILY famotidine 20 mg oral tablet 04/26/2017 TAKE 1 TABLET BY MOUTH TWICE DAILY for 30 days citalopram 20 mg oral tablet 04/26/2017 TAKE 1 TABLET BY MOUTH DAILY pravastatin 20 mg oral tablet 04/26/2017 TAKE 1 TABLET BY MOUTH DAILY Name Start Date Expiration Date SIG [...] ONCE DAILY AT BEDTIME for 90 days albuterol sulfate 2.5 mg /3 mL (0.083 %) inhalation solution for nebulization 06/20/2016 12/17/2016 inhale 3 milliliters (2.5 mg) by nebulization route 4 for 30 days famotidine 20 mg oral tablet 10/24/2016 04/22/2017 TAKE 1 TABLET BY MOUTH TWICE DAILY for 30 days Cipro 500 mg oral tablet 11/08/2016 2016 take 1 tablet (500 mg) by oral route 2 times per day for 10 days Bactrim DS 800-160 mg oral tablet 04/13/2017 05/11/2017 Take one tablet PO BID x7 days and then one PO after supper x14 days Discontinued Name Start Date Discontinued Date SIG Comments bisacodyl 10 mg rectal suppository 08/24/2009 11/05/2012 insert 1 suppository (10 mg) by rectal route once daily Cipro 500 mg oral tablet 11/05/2012 take 1 tablet (500 mg) by oral route 2 times per day for 7 days baclofen 20 mg oral tablet 11/05/2012 11/05/2012 Take 1 tablet TID Triaoluance 06/05/2014 1 at [facility] 20 units 06/05/2014 BID NovoFine 30 [...] milliliters by oral route every 8 hours Mucinex 600 mg oral tablet extended release 12hr 12/21/2016 take 1 tablet ( 600 mg) by oral route every 12 hours Celexa 20 mg oral tablet 03/22/2017 take 1 tablet (20 mg) by oral route once daily [facility] CONTOUR TEST STRIPS one box 06/27/2016 01/17/2017 Blood sugar checks TID. Dx: E11.9 citalopram 20 mg oral tablet 10/31/2016 12/21/2016 TAKE 1 TABLET BY MOUTH DAILY Problem List Description Status Onset Atrial Fibrillation Active Diabetes Mellitus, Type II Active Chronic UTI's Active Hemorrhoids, External Active Kidney Stones Active Quadriplegic spinal paralysis Active 04/28/2016 Recurrent hematuria Active 12/09/2016 Bacterial UTI Active 12/09/2016 H/O renal calculi Active 12/09/2016 Neurogenic bladder disorder Active 04/13/2017 Protein in urine Active 04/13/2017 Vital Signs Date Time BP-Sys(mm[Hg] BP-Angelita(mm[Hg]) HR(bpm) RR(rpm) Temp WT HT HC BMI BSA BMI Percentile O2 Sat(%) 05/22/2017 2:37:00 PM 79 bpm 16 rpm 99.9 F 217 lbs 72 in 29.43 kg/m2 2.24 m2 96 % 04/13/2017 10:20:00 AM 68 bpm 18 rpm 97.7 F 211 lbs 72 in 28.6165 kg/m 2.205 m 98 % 03/22/2017 3:59:00 PM 211 lbs 03/22/2017 3:21:00 PM 114 mmHg 78 mmHg 99 bpm 16 rpm 99.5 F 99 % 12/21/2016 2:19:00 PM 82 bpm 16 rpm 100.7 F 72 in 99 % 12/09/2016 8:37:00 AM 78 bpm 20 rpm 96.3 F 210 lbs 72 in 28.4808 kg/m 2.1998 m 98 % 08/31/2016 2:26:00 PM 134 mmHg 78 mmHg 102 bpm 18 rpm 98.2 F 190 lbs 72 in 25.77 kg/m2 2.09 m2 99 % 05/19/2016 4:28:00 PM 124 mmHg 68 mmHg 88 bpm 18 rpm 99.7 F 100 % 04/26/2016 2:54:00 PM 184 lbs 04/26/2016 2:15:00 PM 118 mmHg 70 mmHg 84 bpm 18 rpm 97.9 F 184 lbs 72 in 24.95 kg/m2 2.06 m2 12/24/2015 9:58:00 AM 120 mmHg 70 mmHg 79 bpm 16 rpm 98.8 F 96 % 12/18/2015 10:55:00 AM 100 mmHg 70 mmHg 56 bpm 18 rpm 97.9 F 100 % 10/05/2015 3:38:00 PM 62 bpm 97.1 F 219.25 lbs 72 in 29.7353 kg/m 2.2477 m 100 % 08/31/2015 3:02:00 PM 124 mmHg 74 mmHg 59 bpm 97.8 F 223 lbs 72 in 30.24 kg/m2 2.27 m2 98 % 06/05/2015 11:34:00 AM 110 mmHg 70 mmHg 92 bpm 24 rpm 97.7 F 235 lbs 72 in 31.8714 kg/m 2.327 m 88 % 06/03/2015 10:01:00 AM 118 mmHg 76 mmHg 89 bpm 18 rpm 96.8 F 99 % 03/16/2015 2:21:00 PM 73 bpm 99.4 F 234 lbs 72 in 31.7358 kg/m 2.3221 m 98 % 12/23/2014 9:10:00 AM 230 lbs 72 in 31.19 kg/m2 2.30 m2 12/11/2014 2:45:00 PM 116 mmHg 72 mmHg 91 bpm 18 rpm 99 F 229.312 lbs 72 in 31.1 kg/m 2.2987 m 98 % 09/10/2014 3:54:00 PM 124 mmHg 68 mmHg 58 bpm 16 rpm 98 F 225 lbs 72 in 30.52 kg/m2 2.28 m2 99 % 06/25/2014 2:58:00 PM 118 mmHg 70 mmHg 96 bpm 18 rpm 99.5 F 230 lbs 72 in 31.1933 kg/m 2.3021 m 97 % 06/11/2014 2:17:00 PM 130 mmHg [...] rpm 97.4 F 212 lbs 72 in 28.7521 kg/m 2.2102 m 97 % 08/01/2013 2:05:00 PM 116 mmHg 72 mmHg 76 bpm 16 rpm 97.6 F 205 lbs 72 in 27.80 kg/m2 2.17 m2 08/01/2013 10:20:00 AM 122 mmHg 88 mmHg 64 bpm 16 rpm 97.7 F 98 % 07/09/2013 2:59:00 PM 110 mmHg 64 mmHg 98 bpm 16 rpm 99.8 F 100 % 07/03/2013 1:52:00 PM 94 mmHg 50 mmHg 74 bpm 18 rpm 98 F 100 % 04/22/2013 1:46:00 PM 112 mmHg 78 mmHg 64 bpm 18 rpm 99.5 F 208 lbs 72 in 28.21 kg/m2 2.19 m2 04/01/2013 1:54:00 PM 110 mmHg 80 mmHg 52 bpm 16 rpm 98.9 F 98 % 12/31/2012 2:06:00 PM 122 mmHg 80 mmHg 67 bpm 16 rpm 98.3 F 98 % 11/29/2012 1:08:00 PM 110 mmHg 82 mmHg 119 bpm 18 rpm 97.2 F 100 % 11/05/2012 1:07:00 PM 125 mmHg 78 mmHg 75 bpm 20 rpm 99.3 F 225 lbs 72 in 30.52 kg/m2 2.28 m2 99 % Social History Name Description Comments Tobacco Never smoker Alcohol rare History of Procedures Date Ordered Description Order Status 12/23/2015 12:00 AM COMPLETE CBC W/AUTO DIFF WBC Returned 12/23/2015 12:00 AM COMPREHEN METABOLIC PANEL Returned 12/09/2016 12:00 AM X-RAY EXAM OF ABDOMEN Reviewed 03/13/2017 12:00 AM COMPREHEN METABOLIC PANEL Returned 03/13/2017 12:00 AM GLYCOSYLATED HEMOGLOBIN TEST Returned 03/13/2017 12:00 AM LIPID PANEL Returned 03/13/2017 12:00 AM MICROALBUMIN QUANTITATIVE Returned 03/13/2017 12:00 AM ASSAY THYROID STIM HORMONE Returned 04/11/2017 12:00 AM Consult/Referral Reviewed 03/22/2017 12:00 AM METABOLIC PANEL TOTAL CA Returned 04/15/2017 12:00 AM URINALYSIS AUTO W/SCOPE Returned 03/22/2017 12:00 AM ASSAY THYROID STIM HORMONE Returned 03/22/2017 12:00 AM HEMOGLOBIN ELECTROPHORESIS Returned 05/22/2017 12:00 AM COMPREHEN METABOLIC PANEL Returned 05/22/2017 12:00 AM GLYCOSYLATED HEMOGLOBIN TEST Returned 05/22/2017 12:00 AM ASSAY THYROID STIM HORMONE Returned 11/05/2012 12:00 AM COMPLETE CBC W/AUTO [...] AM Flu Injection 3 Years And Above [facility]# [address]-56 RHC Reviewed 07/09/2013 12:00 AM THER/PROPH/DIAG INJ SC/IM Reviewed 07/09/2013 12:00 AM Toradol 30 Mg [facility]#8459-4523-18 Reviewed 12/26/2013 12:00 AM LIPID PANEL Reviewed [...] CBC W/AUTO DIFF WBC Reviewed Results Summary Date and Description Results 11/27/2012 5:04 PM WBC 11.8 RBC 4.55 HGB 11.50 g/dLHCT 36.50 %MCV 80.0 fLMCH 25.30 pgMCHC 31.50 g/dLRDW SD 46 RDW CV 15.80 %MPV 9.40 fLPLT 315 NRBC# 0.00 NRBC% 0.0 %NEUT 65.90 %%LYMP 25.20 %%MONO 7.70 %%EOS 0.90 %%BASO 0.30 %#NEUT 7.75 #LYMP 2.96 #MONO 0.91 #EOS 0.10 #BASO 0.03 MANUAL DIFF NOT IND GLUCOSE 115.0 mg/dLSODIUM 134.0 mmol/LPOTASSIUM 3.70 mmol/LCHLORIDE 96.0 mmol/LCO2 25.0 mmol/LBUN 10.0 mg/dLCREATININE 0.50 mg/dLSGOT/AST 17.0 IU/LSGPT/ALT 16.0 IU/ LALK PHOS 102.0 IU/LTOTAL PROTEIN 7.40 g/dLALBUMIN 3.30 g/dLTOTAL BILI 0.40 mg/ dLCALCIUM 9.60 mg/dLAGE 52 GFR NonAA 173 GFR AA 210 eGFR 60 eGFR AA* 60 TRIGLYCERIDES 310.0 mg/dLCHOLESTEROL 201.0 mg/dLHDL 29.0 mg/dLTOT CHOL/HDL 6.9 LDL (CALC) 110.0 mg/dLTSH 3.330 uIU/mLFERRITIN 72.0 ng/mLIRON TOTAL 35.0 ug/ dLGLYCOHEMOGLOBIN A1C 6.90 %VITAMIN B12 425.0 pg/mLFOLATE 18.60 ng/mL 12/31/2013 1:37 PM PROTIME 33.20 secsINR 3.1 TRIGLYCERIDES 236.0 mg/ dLCHOLESTEROL 170.0 mg/dLHDL 37.0 mg/dLTOT CHOL/HDL 4.6 LDL (CALC) 86.0 mg/ dLHGB A1C 5.10 %Est Avg Glucose 99.7 mg/dL 03/14/2014 2:19 PM FREE T4 1.01 TSH 5.770 uIU/mL 04/25/2014 7:07 PM PROTIME 10.0 secsINR 1.0 06/12/2014 5:31 PM PROTIME 10.30 secsINR 1.0 [...] A1C 6.30 %Est Avg Glucose 134.1 mg/dL 09/09/2014 2:51 PM WBC 7.0 RBC 4.83 [...] A1C <4.0 %Est Avg Glucose 68.1 mg/dL 12/04/2014 1:05 PM PROTIME 24.30 secsINR 2.4 WBC 4.3 RBC 5.09 HGB 14.10 g/ dLHCT 43.70 %MCV 86.0 fLMCH 27.70 pgMCHC 32.30 g/dLRDW SD 44 RDW CV 14.40 %MPV 9.60 fLPLT 254 NRBC# 0.00 NRBC% 0.0 TSH 7.030 uIU/mL 01/15/2015 2:41 PM TSH 6.310 uIU/mL 01/22/2015 1:59 PM COLOR YELLOW APPEARANCE CLEAR SPEC GRAV <=1.005 pH 6.5 PROTEIN NEGATIVE GLUCOSE NEGATIVE KETONE NEGATIVE BILIRUBIN NEGATIVE BLOOD MODERATE NITRITE NEGATIVE LEUK SCREEN TRACE WBC/HPF 0-5 RBC/HPF RARE CASTS/LPF NEGATIVE CRYSTALS NEGATIVE MUCOUS THRDS NEGATIVE BACTERIA FEW EPITH CELLS FEW RENAL TRICHOMONAS NEGATIVE YEAST NEGATIVE CULT SET UP? NO 03/12/2015 2:55 PM GLUCOSE 196.0 mg/dLSODIUM 133.0 mmol/LPOTASSIUM 3.90 mmol/ LCHLORIDE 96.0 mmol/LCO2 25.0 mmol/LBUN 15.0 mg/dLCREATININE 0.70 mg/dLSGOT/AST 18.0 IU/LSGPT/ALT 26.0 IU/LALK PHOS 76.0 IU/LTOTAL PROTEIN 7.30 g/dLALBUMIN 3.90 g/dLTOTAL BILI 0.40 mg/dLCALCIUM 8.90 mg/dLAGE 54 GFR NonAA 117 GFR AA 142 eGFR >60 mL/min/1.73 m2eGFR AA* >60 10/06/2015 10:23 AM WBC 8.0 RBC 4.47 HGB 9.20 g/dLHCT 32.0 %MCV 72.0 fLMCH 20.60 pgMCHC 28.80 g/dLRDW SD 46 RDW CV 17.80 %MPV 9.40 fLPLT 360 NRBC# 0.00 NRBC% 0.0 History Of Immunizations Name Date Admin Mfg Name Mfg Code Trade Name Lot# Route Inj Vis Given Vis Pub CVX Influenza 07/03/2013 sanofi pasteur PMC Fluzone > 3 Years [id number] Intramuscular Right Deltoid 07/03/2013 04/19/2013 141 Pneumococcal [...] Bacterial UTI 12/09/2016 H/O renal calculi 12/09/2016 Neurogenic bladder disorder 04/13/2017 Protein in urine 04/13/2017 Diabetes Mellitus, Type II Nov 05 2012 [...] 9:37AM Recurrent UTI Dec 09 2016 9:37AM Quadriplegia Dec 21 2016 2:23PM Recurrent UTI Dec 21 2016 2:23PM Neurogenic bladder Dec 21 2016 2:23PM Diabetes Mellitus, Type II Mar 13 2017 9:20AM Hypothyroidism, Acquired Mar 13 2017 9:20AM Hypothyroidism, Acquired Mar 22 2017 3:23PM Elevated serum protein level Mar 22 2017 3:23PM Hyponatremia Mar 22 2017 3:23PM Paroxysmal atrial fibrillation Mar 22 2017 3:23PM Quadriplegia Mar 22 2017 3:23PM Neurogenic bladder Mar 22 2017 3:23PM Woods catheter in place Mar 22 2017 3:23PM Colostomy care Mar 22 2017 3:23PM Pressure ulcer of left buttock, stage 1 Mar 22 2017 3:23PM Bacterial infection, unspecified Apr 13 2017 10:22AM Protein in urine Apr 13 2017 10:22AM Neurogenic bladder disorder Apr 13 2017 10:22AM Diabetes Mellitus, Type II May 22 2017 2:42PM Hypothyroidism, Acquired May 22 2017 2:42PM Hyponatremia May 22 2017 2:42PM Hypercalcemia May 22 2017 2:42PM Quadriplegia May 22 2017 2:42PM Elevated serum protein level May 22 2017 2:42PM Elevated hematocrit May 22 2017 2:42PM History of respiratory failure May 22 2017 2:42PM Payers Insurance Name Company Name Plan Name Plan Number Policy Number Policy Group Number Start Date Medicare RHC Medicare RHC [id number] N/A [facility] [id number] Tuesday, 2012 [facility] [id number] N/A Medicare Part A Medicare - Lab/Xray [id number] Sunday, June 25, 1989 Medicare Part B Medicare Of [place] [id number] May [place] [employer] [place]g [id number] May Medicare Part A Medicare Part A [id number] Sunday, June 25, 1989 History of Encounters Visit Date Visit Type Provider 05/22/2017 Office visit Rhonda Tejada MD 05/01/2017 Surgery Shari Correia MD 04/13/2017 Office visit Shari Correia MD 03/22/2017 Office visit Rhonda Tejada MD 12/21/2016 Office visit Rhonda Tejada MD 12/17/2016 [facility] Gonzalez Mattson MD 12/15/2016 [facility] Aissatou DO 12/09/2016 Office visit Shari Correia MD 08/31/2016 Office visit Rhonda Tejada MD 05/19/2016 Office visit Rhonda Tejada MD 05/11/2016 Hospital Carolyn Mercado MD 04/29/2016 [facility] Shahram Morrow DO 04/29/2016 [facility] Carolyn Mercado MD 04/29/2016 Hospital Carolyn Mercado MD 04/26/2016 Procedures Austin Reyez DO 03/29/2016 Office visit Rhonda Tejada MD 12/24/2015 Office visit Nicholas Bonilla APRN 12/18/2015 Office visit Nicholas Bonilla APRN 10/20/2015 Office visit Sidney Shin MD 10/10/2015 [facility] Yonny Rivera MD 10/05/2015 Office visit Rhonda Tejada MD 08/31/2015 Office visit Rhonda Tejada MD 06/09/2015 [facility]2015 [facility] DO 06/08/2015 [facility] DO 06/05/[address] Kev Shane MD 06/03/2015 Office visit Jasmyne Del Rosario APRN 03/16/2015 Office visit Rhonda Tejada MD 12/23/2014 Office visit Shari Correia MD 12/11/2014 Office visit Rhonda Tejada MD 09/10/2014 Office visit Rhonda Tejada MD 06/25/2014 Office visit Rhonda Tejada MD 06/11/2014 Office visit Rhonda Tejada MD 04/10/2014 [facility] Sidney Shin MD 04/08/2014 [facility] Jamaica Martin MD 03/18/2014 Office visit Nicholas Bonilla APRN 12/26/2013 Office visit Rhonda Tejada MD 12/12/2013 [facility] Carolyn Mercado MD 12/08/2013 [facility] Joan Sherman MD 12/06/2013 [facility] Jamaica Martin MD 10/08/2013 Office visit Rhonda Tejada MD 08/01/2013 Office visit Austin Reyez DO 08/01/2013 Office visit Jovanna Kapadia MD 07/13/2013 Hospital Austin Reyez DO 07/10/2013 Hospital Austin Reyez DO 07/09/2013 Office visit Jovanna Kapadia MD 07/09/2013 Hospital Austin Reyez DO 07/03/2013 Office visit Jovanna Kapadia MD 04/22/2013 Office visit Jasmyne Del Rosario VIAL GAUGER 04/01/2013 Office visit Jovanna Kapadia MD 12/31/2012 Office visit Jovanna Kapadia MD 11/29/2012 Office visit Jovanna Kapadia MD 11/05/2012 Office visit Jasmyne Del Rosario VIAL GAUGER 11/30/2011 Hospital Carolyn Mercado MD 08/12/2011 Hospital Carolyn Mercado MD 06/29/2011 Hospital Carolyn Mercado MD 03/20/2011 Hospital Carolyn Mercado MD 05/01/2010 Laboratory Jose Luis Stinson MD 04/28/2010 Laboratory Jose Luis Stinson MD 11/20/2009 [facility] Jose Luis Stinson MD 2009 [facility] Jose Luis Stinson MD 11/17/2009 [facility] Jose Luis Stinson MD 11/16/2009 [facility] Suha Ray MD 11/15/2009 [facility] Suha Ray MD 09/02/2009 Laboratory Richar [...]
--- OUTSIDE RECORDS SUMMARY | 2017-10-22 06:47 | XMS REPORT | CCD ---
Author Author JB KNIGHT Unknown Address [address] [place] [address] Care Team Providers Care Internet Marketing Analyst Name Role Phone BANKS, RAMESH DO Attphys BANKS, RAMESH DO Prisurg Allergies Allergy Code Allergy Type Reaction Status MACROBID 949478 Drug allergy Active Active Medications Medication Code Dose Units Frequency Route Modification Start Date/Time Albuterol Sulfate 0.083% Inhalation Solution 844178 2.5 MILLIGRAMS EVERY 6 HOURS INHALATION 12/18/2016 11: 15 Prescription Detail 2.5 MILLIGRAMS INHALATION EVERY 6 HOURS Atorvastatin Calcium 20MG Oral Tablet [id number] 20 MILLIGRAMS DAILY ORAL 12/18/2016 11:15 Prescription Detail 20 MILLIGRAMS ORAL DAILY Famotidine 20MG Oral Tablet [id number] 20 MILLIGRAMS TWO TIMES A DAY ORAL 12/18/2016 11:15 Prescription Detail 20 MILLIGRAMS ORAL TWO TIMES A DAY HYDROcodone bitartrate-acetaminophen 5MG-325MG Oral Tablet [id number] 1 EACH NEEDED ORAL 12/18/2016 11:15 Prescription Detail 1 EACH ORAL NEEDED Levemir 100U/1ML Subcutaneous Solution 709955 20 UNIT AT BEDTIME SUBCUTANEOUS 12/18/2016 11:15 Prescription Detail 20 UNIT SUBCUTANEOUS AT BEDTIME levoFLOXacin 500MG Oral Tablet [id number] 500 MILLIGRAMS DAILY BY MOUTH 12/18/2016 11:14 Prescription Detail 500 MILLIGRAMS BY MOUTH DAILY Magnesium Oxide 400MG Oral Tablet [id number] 400 MILLIGRAMS DAILY BY MOUTH 05/12/2016 11:17 Prescription Detail 400 MILLIGRAMS BY MOUTH DAILY FOR SUPPLEMENT/LOW MAGNESIUM Aspirin 81MG Oral Tablet, Enteric Coated [id number] 81 MILLIGRAMS DAILY ORAL 10/13/2015 12:41 Prescription Detail 81 MILLIGRAMS ORAL DAILY Baclofen 20MG Oral Tablet 198530 20 MILLIGRAMS THREE TIMES A DAY ORAL 10/13/2015 12:41 Prescription Detail 20 MILLIGRAMS ORAL THREE TIMES A DAY [facility] Fiber Therapy 500 MG Oral Tablet [id number] 500 MG DAILY ORAL 10/13/2015 12:41 Prescription Detail 500 MG ORAL DAILY Januvia 100MG Oral Tablet [id number] 100 MILLIGRAMS DAILY ORAL 10/13/2015 12:41 Prescription Detail 100 MILLIGRAMS ORAL DAILY Levothyroxine 25MCG Oral Tablet [id number] 50 MCG DAILY ORAL 10/13/2015 12:41 Prescription Detail 50 MCG ORAL DAILY Vitamin Oral Tablet [id number] 1 EACH DAILY ORAL 10/13/2015 12:41 Prescription Detail 1 EACH ORAL DAILY Xarelto 20MG Oral Tablet [id number] 20 MILLIGRAMS DAILY ORAL 10/13/2015 12:41 Prescription Detail 20 MILLIGRAMS ORAL DAILY Celexa 20MG Oral Tablet [id number] 20 MILLIGRAMS DAILY ORAL 04/10/2014 13:46 Prescription Detail 20 MILLIGRAMS ORAL DAILY Problems Problem Code Start Date Resolved Date Status Severe sepsis with septic shock 90204764 12/14/2016 Active Dehydrated 47240090 12/15/2016 Active Acute nephritis 04131729 12/15/2016 Active Septic shock 39824247 12/14/2016 Resolved Severe sepsis with septic shock 45426600 04/29/20162016 Resolved Quadraplegia 39128043 12/15/2016 Resolved Procedures Procedure Code Procedure Type Date ^CULTURE AEROBIC ID [id number] SNOMED CT 08/19/2016 ^CULTURE URINE IDENTIFICATION 724409927 SNOMED CT 2015 ^UA WITH MICRO 819799558 SNOMED CT 08/19/2016 CULTURE URINE 586731004 SNOMED CT 08/19/2016 UA ROUTINE C&S IF IND [id number] SNOMED CT 08/19/2016 Results UA ROUTINE C&S IF IND - Collect Date/Time: 08/19/2016 09:45 Test Name Code Test Result Test Units Test Ref Range COLOR YELLOW N/A NL: YELLOW APPEARANCE CLOUDY N/A NL: CLEAR SPEC GRAV 1.010 N/A NL: 1.002 - 1.022 pH 8.5 N/A NL: 5 - 9 PROTEIN NEGATIVE N/A NL: NEGATIVE mg/dl GLUCOSE NEGATIVE N/A NL: NEGATIVE mg/dl KETONE NEGATIVE N/A NL: NEGATIVE mg/dl BILIRUBIN NEGATIVE N/A NL: NEGATIVE BLOOD SMALL N/A NL: NEGATIVE NITRITE POSITIVE N/A NL: NEGATIVE LEUK SCREEN LARGE N/A NL: NEGATIVE MICRO INDICATED? SEE BELOW N/A WBC/HPF 20-50 N/A NL: NEGATIVE RBC/HPF 5-10 N/A NL: NEGATIVE CASTS/LPF NEGATIVE N/A NL: NEGATIVE CRYSTALS 1+ AMORPHOUS N/A NL: NEGATIVE MUCOUS THRDS NEGATIVE N/A NL: NEGATIVE BACTERIA 3+++ N/A NL: NEGATIVE EPITH CELLS NEGATIVE N/A NL: NEGATIVE TRICHOMONAS NEGATIVE N/A NL: NEGATIVE YEAST NEGATIVE N/A NL: NEGATIVE CULT SET UP? YES N/A Function Status Unknown or Not Available. History of Immunizations Immunization Code Date influenza, split (incl. purified surface antigen) 15 08/14/2006 pneumococcal polysaccharide PPV23 33 08/19/2011 pneumococcal, unspecified formulation 109 03/30/2016 Influenza, seasonal, injectable 141 06/25/2012 Plan of Treatment Unknown or Not Available. Social History Smoking Status Code Start Date End Date Never smoker [id number] Vital Signs Unknown or Not Available. Function Status Unknown or Not Available. Goals Unknown or Not Available. ASSESSMENTS Unknown or Not Available. Health Concerns Section Unknown or Not Available.
--- OUTSIDE RECORDS SUMMARY | 2017-10-22 06:48 | XMS REPORT | CCD ---
Author Author MAYRA MORALES Organization Unknown Address [address] [place], [place] [address] Care Team Providers Care Disability Examiner Name Role Phone SIXTO HYDE, SIGIFREDO Mcgovern Attphys SIGIFREDO HENSON MDsufrandy Vital Signs Unknown or Not Available. Allergies Allergy Code Allergy Type Reaction Status MACROBID 218054 Drug allergy Active AMOXICILLIN AND CLAVULANATE POTASSIUM 48895 Drug allergy HIVES Active Procedures Procedure Code Procedure Type Date COMPREHENSIVE METABOLIC PANEL 448848908 SNOMED CT 2014 ^CBC W/AUTO DIFF 1944968 SNOMED CT 01/13/2015 URINALYSIS ONLY 058292045 SNOMED CT 01/13/2015 CBC W/ AUTO DIFF (RFLX MAN DIFF IF IND) 1534525 SNOMED CT 01/13/2015 History of Immunizations Immunization Code Date influenza, split (incl. purified surface antigen) 15 08/14/2006 pneumococcal polysaccharide PPV23 33 08/19/2011 Influenza, seasonal, injectable 141 06/25/2012 Problems Problem Code Start Date Resolved Date Status Abdominal pain 40949089 04/08/2014 Active DIABETES MELLITUS 78676 Active DECUBITUS ULCERS 617275867 Active Quadraplegia 62682824 Active Results COMPREHENSIVE METABOLIC PANEL - Collect Date/Time: 01/13/2015 10:00 Test Name Code Test Result Test Units Test Ref Range GLUCOSE 2345-7 278 MG/DL L=70 H=100 SODIUM 2951-2 133 MEQ/L L=135 H=148 POTASSIUM 2823-3 4.0 MEQ/L L=3.5 H=5.3 CHLORIDE 2075-0 96 MEQ/L L=96 H=110 CO2 2028-9 25 MEQ/L L=22 H=29 BUN 3094-0 11 MG/DL L=8 H=22 CREATININE 2160-0 0.7 MG/DL L=0.6 H=1.6 SGOT/AST 1920-8 15 IU/L L=10 H=40 SGPT/ALT 1742-6 21 IU/L L=8 H=54 ALK PHOS 6768-6 68 IU/L L=35 H=115 TOTAL PROTEIN 2885-2 8.7 G/DL L=5.5 H=8.5 ALBUMIN 1751-7 4.5 G/DL L=3.1 H=5.4 TOTAL BILI 1975-2 0.5 MG/DL L=0.0 H=1.5 CALCIUM 38601-1 10.1 MG/DL L=8.2 H=10.6 AGE 54 yrs GFR NonAA 117 GFR AA 142 eGFR >60 N/A eGFR AA* >60 N/A CBC W/ AUTO DIFF (RFLX MAN DIFF IF IND) - Collect Date/Time: 01/13/2015 10:00 Test Name Code Test Result Test Units Test Ref Range WBC 33244-9 11.4 TH/CMM L=4.5 H=10.8 RBC 789-8 5.00 ML/CMM L=4.70 H=6.10 HGB 718-7 13.8 G/DL L=14.0 H=18.0 HCT 4544-3 42.5 % L=42.0 H=52.0 MCV 85 FL L=81 H=99 MCH 27.6 PG L=27.0 H=33.0 MCHC 32.5 G/DL L=31.0 H=36.0 RDW SD 46 FL L=36 H=50 RDW CV 15.1 % L=0.0 H=14.8 MPV 9.1 FL L=9.3 H=12.5 PLT 777-3 233 TH/CMM L=130 H=440 NRBC# 0.00 TH/CMM L=0.00 H=0.00 NRBC% 0.0 /100WBC L=0.0 H=2.0 %NEUT 82.3 % %LYMP 13.0 % %MONO 4.1 % %EOS 0.4 % %BASO 0.2 % #NEUT 9.40 TH/CMM L=2.10 H=8.20 #LYMP 1.48 TH/CMM L=0.90 H=5.20 #MONO 0.47 TH/CMM L=0.16 H=1.00 #EOS 0.05 TH/CMM L=0.00 H=0.80 #BASO 0.02 TH/CMM L=0.00 H=0.20 MANUAL DIFF NOT IND N/A PT/PTT - Collect Date/Time: 01/13/2015 10:00 Test Name Code Test Result Test Units Test Ref Range PROTIME 93425-9 21.7 SEC L=9.9 H=11.9 INR 2.1 PTT 3173-2 40.9 SEC L=22.2 H=37.2 URINALYSIS ONLY - Collect Date/Time: 01/13/2015 10:30 Test Name Code Test Result Test Units Test Ref Range COLOR YELLOW N/A NL: YELLOW APPEARANCE CLEAR N/A NL: CLEAR SPEC GRAV <=1.005 N/A NL: 1.002 - 1.022 pH 6.0 N/A NL: 5 - 9 PROTEIN NEGATIVE N/A NL: NEGATIVE mg/dl GLUCOSE >=1000 N/A NL: NEGATIVE mg/dl KETONE NEGATIVE N/A NL: NEGATIVE mg/dl BILIRUBIN NEGATIVE N/A NL: NEGATIVE BLOOD LARGE N/A NL: NEGATIVE NITRITE NEGATIVE N/A NL: NEGATIVE LEUK SCREEN SMALL N/A NL: NEGATIVE WBC/HPF 0-5 N/A NL: NEGATIVE RBC/HPF 0-5 N/A NL: NEGATIVE CASTS/LPF NEGATIVE N/A NL: NEGATIVE CRYSTALS NEGATIVE N/A NL: NEGATIVE MUCOUS THRDS NEGATIVE N/A NL: NEGATIVE BACTERIA 2++ N/A NL: NEGATIVE EPITH CELLS NEGATIVE N/A NL: NEGATIVE TRICHOMONAS NEGATIVE N/A NL: NEGATIVE YEAST NEGATIVE N/A NL: NEGATIVE Active Medications Medication Code Dose Units Frequency Route Modification Start Date/Time Baclofen 20MG Oral Tablet 256238 40 MILLIGRAMS WITH LUNCH ORAL 04/10/2014 13:46 Celexa 20MG Oral Tablet 770932 20 MILLIGRAMS DAILY ORAL 04/10/2014 13:46 Digoxin 0.25MG Oral Tablet 307057 0.25 MILLIGRAMS DAILY ORAL 04/10/2014 13:46 Lanoxin 0.25MG Oral Tablet 063819 0.25 MILLIGRAMS DAILY ORAL 04/10/2014 13:46 Levemir 100U/ML Subcutaneous Solution 070426 20 EACH TWO TIMES A DAY SUBCUTANEOUS 04/10/2014 13:46 Warfarin 4MG Oral Tablet 365425 4 MILLIGRAMS DAILY ORAL 04/10/2014 13:46 Baclofen 20MG Oral Tablet 000414 40 MILLIGRAMS AT BEDTIME ORAL 12/09/2013 11:23 Baclofen 20MG Oral Tablet 797464 60 MILLIGRAMS DAILY ORAL 12/09/2013 11:23 Metformin 500MG Oral Tablet 576600 500 MILLIGRAMS EVERY 6 HOURS ORAL 12/09/2013 11:23 TriAdvance [id number]-159ZS-907ZG-2M Oral Tablet 0903975 1 EACH DAILY ORAL 12/09/2013 11:23 Citalopram 20MG Oral Tablet 696224 20 MILLIGRAMS DAILY ORAL 07/18/2013 10:31 Hydrocodone Bitart/Acet 500MG-5MG Oral Tablet 341961 1 EACH AT BEDTIME ORAL 07/18/2013 10:31 Novolog 100U/ML Subcutaneous Solution 8527261 12 UNIT BEFORE EACH MEAL SUBCUTANEOUS 07/18/2013 10:31 Reglan 10MG Oral Tablet 629156 10 MILLIGRAMS TWO TIMES A DAY ORAL 07/18/2013 10:31 Medications Administered During Visit Unknown or Not Available. Encounters Encounter Diagnosis Diagnosis Code Start Date HEMATURIA UNSPECIFIED 99148 01/13/2015 Social History Smoking Status Code Start Date End Date Never smoker [id number] Patient Decision Aids Unknown or Not Available. Discharge Instructions You were admitted to [facility] on 01/13/2015 with a principal diagnosis of HEMATURIA UNSPECIFIED. You were discharged from [facility] on 01/13/2015. Should you have any questions prior to discharge, please contact a member of your healthcare team. If you have left the hospital and have any questions, please contact your primary care physician. Chief Complaint and Reason For Visit Chief Complaint Date of Onset BLOOD IN CATHETER Function Status Unknown or Not Available. Referral/Transition of Care Unknown or Not Available.
--- OUTSIDE RECORDS SUMMARY | 2017-10-22 06:50 | XMS REPORT ---
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 Name Role Phone Rhonda Tejada PCP [place], Independent Unavailable Unavailable Allergies and Adverse Reactions Name Reaction Notes amoxicillin nitrofurantoin Plan of Treatment Planned Activity Comments Planned Date Planned Time Plan/Goal Hemoglobin A1C 12/23/2015 12:00 AM Vitamin B12 12/23/2015 12:00 AM TSH 12/23/2015 12:00 AM T4, Free 12/23/2015 12:00 AM Basic metabolic profile 03/16/2015 12:00 [...] 09/28" miscellaneous needle 2015 USE DIRECTED WITH [employer] FLEXPEN baclofen 20 mg oral tablet 03/31/2016 [...] TAKE 1 TABLET BY MOUTH TWICE DAILY Cipro 500 mg oral tablet 11/08/2016 2016 take 1 tablet (500 mg) by oral route 2 times per day for 10 days Name Start Date Expiration Date SIG Comments [...] 30 days Unifine Pentips 31 gauge x /" miscellaneous needle 10/10/2014 10/05/2015 USE DIRECTED WITH [...] ONCE DAILY AT BEDTIME for 90 days Discontinued Name Start Date Discontinued Date [...] Stones Active Quadriplegic spinal paralysis Active 04/28/2016 Vital Signs Date Time BP-Sys(mm[Hg] BP-Angelita(mm[Hg]) HR(bpm) RR(rpm) Temp WT HT HC BMI BSA BMI Percentile O2 Sat(%) 08/31/2016 2:26:00 PM 134 mmHg 78 mmHg [...] AM Flu Injection 3 Years And Above [facility]# [address]-27 RHC Reviewed 07/09/2013 12:00 AM THER/PROPH/DIAG INJ SC/IM Reviewed 07/09/2013 12:00 AM Toradol 30 Mg [facility]#7634-2582-37 Reviewed 12/26/2013 12:00 AM LIPID PANEL Reviewed [...] >60 mL/min/1.73meGFR AA* >60 MAGNESIUM 2.0 mg/dL History Of Immunizations Name Date Admin Mfg Name Mfg Code Trade Name Lot# Route Inj Vis Given Vis Pub CVX Influenza 07/03/2013 sanofi pasteur PMC Fluzone > 3 Years [id number] Intramuscular Right Deltoid 07/03/2013 04/19/2013 141 Pneumococcal 03/30/2016 Not Entered NE Prevnar 13 Not Entered Not Entered 09/02/2016 09/25/2017 133 Influenza 09/05/2016 Not Entered NE Fluvirin Not Entered Not Entered 09/25/2017 09/25/2017 141 History of Past Illness Name Date of Onset Comments Hemorrhoids, External Kidney Stones Chronic UTI's Atrial Fibrillation Diabetes Mellitus, Type II Quadriplegia Hypothyroidism Quadriplegic spinal paralysis 04/28/2016 Diabetes Mellitus, Type II Nov 05 2012 [...] 2:31PM Atrial fibrillation Aug 31 2016 2:31PM Payers Insurance Name Company Name Plan Name Plan Number Policy Number Policy Group Number Start Date Medicare RHC Medicare RHC [id number] N/A [facility] [id number] Tuesday, 2012 [facility] [id number] N/A Medicare Part A Medicare - Lab/Xray [id number] Sunday, June 25, 1989 Medicare Part B Medicare Of [place] [id number] May [place] Medical [facility] Pro [id number] May Medicare Part A Medicare Part A [id number] Sunday, June 25, 1989 History of Encounters Visit Date Visit Type Provider 08/31/2016 Office visit Rhonda Tejada MD 05/19/2016 Office visit Rhonda Tejada MD 05/11/2016 [facility] Carolyn Mercado MD 04/29/2016 [facility] Shahram Morrow DO 04/29/2016 [facility] Carolyn Mercado MD 04/29/2016 [facility] Carolyn Mercado MD 04/26/2016 Procedures Austin Reyez DO 03/29/2016 Office visit Rhonda Tejada MD 12/24/2015 Office visit Nicholas Bonilla APRN 12/18/2015 Office visit Nicholas Bonilla APRN 10/20/2015 Office visit Sidney Shin MD 10/10/2015 [facility] Yonny Rivera MD 10/05/2015 Office visit Rhonda Tejada MD 08/31/2015 Office visit Rhonda Tejada MD 06/09/2015 Hospital [facility] Reyez DO 06/08/2015 [facility]2015 [facility] DO 06/05/[address] Kev Shane MD 06/03/2015 Office visit Jasmyne Del Rosario SOLAR SALES MANAGER 03/16/2015 Office visit Rhonda Tejada MD 12/23/2014 Office visit Shari Correia MD 12/11/2014 Office visit Rhonda Tejada MD 09/10/2014 Office visit Rhonda Tejada MD 06/25/2014 Office visit Rhonda Tejada MD 06/11/2014 Office visit Rhonda Tejada MD 04/10/2014 [facility] Sidney Shin MD 04/08/2014 [facility] Veronica HYDE 03/18/2014 Office visit Nicholas Bonilla APRN 12/26/2013 Office visit Rhonda Tejada MD 12/12/2013 [facility] Carolyn Mercado MD 12/08/2013 [facility] Joan Sherman [facility]/06[facility] Office visit Rhonda Tejada MD 08/01/2013 [facility] 08/01[facility]2013 Office visit Jovanna Kapadia MD 07/13/2013 [facility] DO 07/10/2013 [facility] DO 07/09/2013 Office visit Jovanna Kapadia MD 07/09/2013 [facility] DO 07/03/2013 Office visit Jovanna Kapadia MD 04/22/2013 Office visit Jasmyne Del Rosario SOLAR SALES MANAGER 04/01/2013 Office visit Jovanna Kapadia MD 12/31/2012 Office visit Jovanna Kapadia MD 11/29/2012 Office visit Jovanna Kapadia MD 11/05/2012 Office visit Jasmyne Del Rosario SOLAR SALES MANAGER 11/30/2011 Hospital Carolyn Mercado MD 08/12/2011 Hospital Carolyn Mercado MD 06/29/2011 Hospital Carolyn Mercado MD 03/20/2011 Hospital Carolyn Mercado MD 05/01/2010 Laboratory Jose Luis Stinson MD 04/28/2010 Laboratory Jose Luis Stinson MD 11/20/2009 Hospital Jose Luis Stinson MD 2009 Hospital Jose Luis Stinson MD 11/17/2009 [facility] Jose Luis Stinson MD 11/16/2009 [facility] Suha Ray MD 11/15/2009 [facility] Suha Ray MD 09/02/2009 Laboratory Richar Jeong MD 08/14/2009 Laboratory Richar Jeong MD 07/21/2009 Laboratory Richar Jeong MD 07/20/2009 Office visit Richar Jeong MD 07/17/2009 Laboratory Richar Jeong MD 06/26/2009 Laboratory Richar Jeong MD 06/19/2009 Laboratory Richar Jeong MD 06/04/2009 Laboratory Richar Jeong MD 05/18/2009 Laboratory Jose Luis Stinson MD 05/18/2009 Voided Jose Luis Stinson MD
--- OUTSIDE RECORDS SUMMARY | 2017-10-22 06:52 | XMS REPORT ---
Author Author Nicholas Bonilla [facility] Address [address] [place], [place] [id number] Care Team Providers Care Assistant Athletic Trainer Name Role Phone Nicholas Bonilla PCP Str[place], Independent Unavailable Unavailable Allergies and Adverse Reactions Name Reaction Notes amoxicillin Plan of Treatment Planned Activity Comments Planned Date Planned Time Plan/Goal GLYCOSYLATED HEMOGLOBIN TEST 12/23/2015 12:00 AM VITAMIN B-12 12/23/2015 12:00 AM ASSAY THYROID STIM HORMONE 12/23/2015 12:00 AM ASSAY OF FREE THYROXINE 12/23/2015 12:00 AM METABOLIC PANEL TOTAL CA 03/16/2015 12:00 AM LIPID PANEL 03/16/2015 12:00 AM ASSAY THYROID STIM HORMONE 03/16/2015 12:00 AM Medications Active Name Start Date Estimated Completion Date SIG Comments aspirin 81 mg oral tablet,delayed release (DR/EC) take 1 tablet (81 mg) by oral route once daily pravastatin 20 mg oral tablet 07/14/2014 TAKE 1 TABLET BY MOUTH ONCE DAILY AT BEDTIME ferrous sulfate 325 mg (65 mg iron) oral tablet 07/30/2014 TAKE 1 TABLET BY MOUTH DAILY metformin 500 mg oral tablet 08/01/2014 TAKE 1 TABLET BY MOUTH THREE TIMES DAILY citalopram 20 mg oral tablet 10/21/2014 take 1 tablet by oral route daily for 30 days Nyamyc 100,000 unit/gram topical powder 11/19/2014 apply to the affected area(s) by topical route 2 times per day pravastatin 20 mg oral tablet 11/20/2014 TAKE 1 TABLET BY MOUTH ONCE DAILY AT BEDTIME Levemir FlexTouch 100 unit/mL (3 mL) subcutaneous insulin pen 11/21/2014 INJECT 20 UNITS TWICE DAILY Metamucil oral Take 2 capfuls at hs prn levothyroxine 50 mcg oral tablet 12/11/2014 06/03/2016 take 1 tablet (50 mcg) by oral route once daily for 90 days ferrous sulfate 325 mg (65 mg iron) oral tablet 01/12/2015 TAKE 1 TABLET BY MOUTH DAILY [facility] CONTOUR TEST STRIPS one box 01/29/2015 07/22/2016 USE DIRECTED. Blood sugar checks TID. Dx: insulin dependent DMII. 250.00 levothyroxine 50 mcg oral tablet 02/13/2015 TAKE 1 TABLET BY MOUTH EVERY DAY WITH 25MCG (TOTAL OF 75MCG) lidocaine HCl 10 mg/mL (1 %) injection solution 02/13/2015 USE DIRECTED TO [facility] Nyamyc 100,000 unit/gram topical powder 02/27/2015 APPLY TO AFFECTED AREA TWO TIMES DAILY pravastatin 20 mg oral tablet 03/02/2015 TAKE 1 TABLET BY MOUTH ONCE DAILY AT BEDTIME Nystop 100,000 unit/gram topical powder 03/02/2015 APPLY TO AFFECTED AREA TWO TIMES DAILY ferrous sulfate 325 mg (65 mg iron) oral tablet 03/02/2015 TAKE 1 TABLET BY MOUTH DAILY levothyroxine 75 mcg oral tablet 03/05/2015 08/26/2016 take 1 tablet (75 mcg) by oral route once daily for 90 days nystatin 100,000 unit/gram topical powder 03/30/2015 APPLY TO AFFECTED AREA TWO TIMES DAILY warfarin 2.5 mg oral tablet 03/30/2015 take 1 tablet (2.5 mg) by oral route once daily for 30 days ferrous sulfate 325 mg (65 mg iron) oral tablet 04/14/2015 TAKE 1 TABLET BY MOUTH DAILY nystatin 100,000 unit/gram topical powder 04/20/2015 APPLY TO AFFECTED AREA TWO TIMES DAILY baclofen 20 mg oral tablet 05/07/2015 TAKE 1 TABLET BY MOUTH THREE TIMES DAILY for 30 days nystatin 100,000 unit/gram topical powder 05/25/2015 APPLY TO AFFECTED AREA TWO TIMES DAILY pravastatin 20 mg oral tablet 06/08/2015 TAKE 1 TABLET BY MOUTH ONCE DAILY AT BEDTIME ferrous sulfate 325 mg (65 mg iron) oral tablet 06/15/2015 TAKE 1 TABLET BY MOUTH DAILY fenofibrate 54 mg oral tablet 08/18/2015 08/12/2016 take 1 tablet (54 mg) by oral route once daily for 90 days nystatin 100,000 unit/gram topical powder 08/31/2015 APPLY TO AFFECTED AREA TWO TIMES DAILY digoxin 250 mcg oral tablet 09/04/2015 TAKE 1 TABLET BY MOUTH EVERY DAY famotidine 20 mg oral tablet 09/04/2015 TAKE 1 TABLET BY MOUTH TWICE DAILY Mucinex 600 mg oral tablet extended release 12hr 09/04/2015 TAKE 1 TABLET BY MOUTH EVERY 12 HOURS Januvia 100 mg oral tablet 09/04/2015 TAKE 1 TABLET BY MOUTH BEFORE BREAKFAST Senna Lax 8.6 mg oral tablet 09/04/2015 TAKE 1 TABLET BY MOUTH TWICE DAILY Xarelto 20 mg oral tablet 09/04/2015 TAKE 1 TABLET BY MOUTH DAILY levothyroxine 50 mcg oral tablet 09/04/2015 TAKE 1 TABLET BY MOUTH EVERY MORNING AT 6AM Vol-Plus 27-1 mg oral tablet 09/16/2015 take 1 tablet by oral route daily for 30 days albuterol sulfate 2.5 mg /3 mL (0.083 %) inhalation solution for nebulization 09/22/2015 inhale 3 milliliters (2.5 mg) by nebulization route 3 times per day as needed citalopram 20 mg oral tablet 10/08/2015 TAKE 1 TABLET BY MOUTH DAILY metoclopramide HCl 10 mg oral tablet 10/14/2015 10/08/2016 take 1 tablet by oral route 3 times a day (before meals) for 30 days Levemir FlexTouch 100 unit/mL (3 mL) subcutaneous insulin pen 10/19/2015 INJECT 20 UNITS TWICE DAILY albuterol sulfate 2.5 mg /3 mL (0.083 %) inhalation solution for nebulization 11/05/2015 USE 1 VIAL VIA NEBULIZER EVERY FOUR HOURS baclofen 20 mg oral tablet 11/10/2015 TAKE 1 TABLET BY MOUTH THREE TIMES DAILY FOR 30 DAYS Unifine Pentips 31 gauge x 09/28" miscellaneous needle 2015 USE DIRECTED WITH [employer] FLEXPEN Ceftin 250 mg oral tablet 12/25/2015 01/01/2016 take 1 tablet (250 mg) by oral route every 12 hours for 7 days pravastatin 20 mg oral tablet 12/28/2015 09/23/2016 TAKE 1 TABLET BY MOUTH ONCE DAILY AT BEDTIME for 90 days Name Start Date Expiration Date SIG [...] by oral route daily for 30 days pravastatin 20 mg oral tablet 01/23/2014 01/18/2015 TAKE 1 TABLET BY MOUTH ONCE DAILY AT BEDTIME for 90 days Levemir Flexpen 100 unit/mL (3 mL) [...] 10/10/2014 10/05/2015 USE DIRECTED WITH NOVOLOG FLEXPEN baclofen 20 mg oral tablet 01/15/2015 05/15/2015 [...] mcg for a total of 75 mcg. Levemir FlexTouch 100 unit/mL (3 mL) subcutaneous insulin pen 03/05/20152014 INJECT 20 UNITS TWICE DAILY Novolog Flexpen 100 unit/mL subcutaneous insulin pen 03/05/2015 09/01/2015 INJECT 12 UNITS SUBCUTANEOUSLY 15 MINUTES BEFORE EACH MEAL hydrocodone-acetaminophen 5-325 mg oral tablet 03/30/2015 04/29/2015 [...] oral route once daily for 7 days Macrobid 100 mg oral capsule 11/13/2015 11/27/2015 take 1 capsule (100 mg) by oral route 2 times per day with food for 14 days Discontinued Name Start Date Discontinued Date SIG Comments bisacodyl 10 mg rectal suppository 08/24/2009 11/05/2012 insert 1 suppository (10 mg) by rectal route once daily Cipro 500 mg oral tablet 11/05/2012 take 1 tablet (500 mg) by oral route 2 times per day for 7 days baclofen 20 mg oral tablet 11/05/2012 11/05/2012 Take 1 tablet TID Triaoluance 06/05/2014 1 at [facility] subqutaneous 20 units 06/05/2014 BID NovoFine 30 30 gauge x 09/27" miscellaneous needle 06/05/2014 use as directed metronidazole [...] TWICE DAILY Cipro 500 mg oral tablet 12/07/2015 12/09/2015 take 1 tablet (500 mg) by oral route every 12 hours for 7 days Problem List Description Status Onset Atrial Fibrillation Active Diabetes Mellitus, Type II Active Chronic UTI's Active Hemorrhoids, External Active Kidney Stones Active Vital Signs Date Time BP-Sys(mm[Hg] BP-Angelita(mm[Hg]) HR(bpm) RR(rpm) Temp WT HT HC BMI BSA BMI Percentile O2 Sat(%) 12/24/2015 9:58:00 AM 120 mmHg 70 mmHg [...] F 225 lbs 72 in 30.52 kg/m2 2.277 m 99 % Social History Name Description Comments Tobacco Never smoker Alcohol rare History of Procedures Date Ordered Description Order Status 12/23/2015 12:00 AM COMPLETE CBC W/AUTO DIFF WBC Returned 12/23/2015 12:00 AM COMPREHEN METABOLIC PANEL Returned 11/05/2012 12:00 AM COMPLETE CBC W/AUTO DIFF WBC Returned 11/05/2012 12:00 AM COMPREHEN METABOLIC PANEL Returned 11/05/2012 12:00 AM LIPID PANEL Returned 11/05/2012 12:00 AM ASSAY THYROID STIM HORMONE Returned 11/05/2012 12:00 AM GLYCOSYLATED HEMOGLOBIN TEST Returned 11/28/2012 12:00 AM ASSAY OF IRON Returned 11/28/2012 12:00 AM VITAMIN B-12 Returned 11/28/2012 12:00 AM ASSAY OF FOLIC ACID SERUM Reviewed 11/28/2012 12:00 AM ASSAY OF FERRITIN Returned 07/03/2013 12:00 AM Flu Injection 3 Years And Above [facility]# [address]-18 RHC Reviewed 07/09/2013 12:00 AM THER/PROPH/DIAG INJ SC/IM Reviewed 07/09/2013 12:00 AM Toradol [address] [facility]#3808-3449-38 Reviewed 12/26/2013 12:00 AM LIPID PANEL Reviewed 12/26/2013 12:00 AM GLYCOSYLATED HEMOGLOBIN TEST Reviewed 12/26/2013 12:00 AM PROTHROMBIN TIME Reviewed 02/27/2014 12:00 AM ASSAY THYROID STIM HORMONE Returned 04/23/2014 12:00 AM PROTHROMBIN TIME Returned 06/09/2014 12:00 AM COMPLETE CBC W/AUTO DIFF WBC Returned 06/09/2014 12:00 AM COMPREHEN METABOLIC PANEL Returned 06/09/2014 12:00 AM LIPID PANEL Returned 06/09/2014 12:00 AM GLYCOSYLATED HEMOGLOBIN TEST Returned 06/09/2014 12:00 AM ASSAY THYROID STIM HORMONE Returned 06/09/2014 12:00 AM ASSAY OF FREE THYROXINE Returned 06/09/2014 12:00 AM PROTHROMBIN TIME Returned 09/09/2014 12:00 AM COMPLETE CBC W/AUTO DIFF WBC Returned 09/09/2014 12:00 AM COMPREHEN METABOLIC PANEL Returned 09/09/2014 12:00 AM LIPID PANEL Returned 09/09/2014 12:00 AM GLYCOSYLATED HEMOGLOBIN TEST Returned 09/09/2014 12:00 AM ASSAY THYROID STIM HORMONE Returned 09/09/2014 12:00 AM ASSAY OF FREE THYROXINE Returned 09/09/2014 12:00 AM PROTHROMBIN TIME Returned 12/03/2014 12:00 AM COMPLETE CBC W/AUTO DIFF WBC Returned 12/03/2014 12:00 AM COMPREHEN METABOLIC PANEL Returned 12/03/2014 12:00 AM PROTHROMBIN TIME Returned 12/03/2014 12:00 AM ASSAY THYROID STIM HORMONE Returned 12/12/2014 12:00 AM ASSAY THYROID STIM HORMONE Returned 01/19/2015 12:00 AM URINALYSIS AUTO W/SCOPE Returned 03/16/2015 12:00 AM COMPLETE CBC W/AUTO DIFF WBC Returned Results Summary Data and Description Results 08/14/2009 9:26 AM PT PPP Cont Qn 18.20 secsINR PPP Qn 2.2 Coumadin Plan continue with 3 mg daily INR Target Range 2.0-3.0 Next Lab Draw Repeat in 1 month 11/27/2012 5:04 PM WBC 11.8 RBC 4.55 HGB 11.50 g/dLHCT 36.50 %MCV 80.0 fLMCH 25.30 pgMCHC 31.50 g/dLRDW CV 15.80 %MPV 9.40 fLPLT 315 %NEUT 65.90 %%LYMP 25.20 %%MONO 7.70 %%EOS 0.90 %%BASO 0.30 %#NEUT 7.75 #LYMP 2.96 #MONO 0.91 #EOS 0.10 #BASO 0.03 PROTIME 24.60 secsINR 2.4 GLUCOSE 115.0 mg/dLSODIUM 134.0 mmol/ LPOTASSIUM 3.70 mmol/LCHLORIDE 96.0 mmol/LCO2 25.0 mmol/LBUN 10.0 mg/ dLCREATININE 0.50 mg/dLSGOT/AST 17.0 IU/LSGPT/ALT 16.0 IU/LALK PHOS 102.0 IU/ LTOTAL PROTEIN 7.40 g/dLALBUMIN 3.30 g/dLTOTAL BILI 0.40 mg/dLCALCIUM 9.60 mg/ dLeGFR 60 TRIGLYCERIDES 310.0 mg/dLCHOLESTEROL 201.0 mg/dLHDL 29.0 mg/dLLDL ( CALC) 110.0 mg/dLTSH 3.330 uIU/mLCREAT UR 8.40 mg/dLMICROALBUMIN UR 19.0 ug/ mLALB:CREAT RATIO 226 FERRITIN 72.0 ng/mLIRON TOTAL 35.0 ug/dLVITAMIN B12 425.0 pg/mLFOLATE 18.60 ng/mL 11/29/2012 1:09 PM Colonoscopy-Women and Men over 50 Declined 12/27/2012 12:59 PM COLOR LT PINK APPEARANCE CLEAR SPEC GRAV <=1.005 pH 5.5 PROTEIN NEGATIVE GLUCOSE NEGATIVE KETONE NEGATIVE BILIRUBIN NEGATIVE BLOOD LARGE NITRITE NEGATIVE LEUK SCREEN TRACE CASTS/LPF NEGATIVE CRYSTALS NEGATIVE MUCOUS THRDS NEGATIVE BACTERIA FEW EPITH CELLS NEGATIVE TRICHOMONAS NEGATIVE YEAST NEGATIVE 02/14/2013 1:42 PM COLOR YELLOW APPEARANCE HAZY SPEC GRAV <=1.005 pH 6.0 PROTEIN NEGATIVE GLUCOSE NEGATIVE KETONE NEGATIVE BILIRUBIN NEGATIVE BLOOD NEGATIVE NITRITE POSITIVE LEUK SCREEN SMALL CASTS/LPF NEGATIVE CRYSTALS NEGATIVE MUCOUS THRDS NEGATIVE BACTERIA 2++ EPITH CELLS NEGATIVE TRICHOMONAS NEGATIVE YEAST NEGATIVE 03/14/2013 5:52 PM COLOR YELLOW APPEARANCE CLOUDY SPEC GRAV <=1.005 pH 6.5 PROTEIN NEGATIVE GLUCOSE NEGATIVE KETONE NEGATIVE BILIRUBIN NEGATIVE BLOOD TRACE -INTACT NITRITE POSITIVE LEUK SCREEN TRACE CASTS/LPF NEGATIVE CRYSTALS NEGATIVE MUCOUS THRDS NEGATIVE BACTERIA 3+++ EPITH CELLS NEGATIVE TRICHOMONAS NEGATIVE YEAST NEGATIVE 04/09/2013 12:32 PM WBC 11.4 RBC 4.63 HGB 12.20 g/dLHCT 38.10 %MCV 82.0 fLMCH 26.30 pgMCHC 32.0 g/dLRDW CV 16.50 %MPV 9.50 fLPLT 244 GLUCOSE 87.0 mg/dLSODIUM 132.0 mmol/LPOTASSIUM 4.10 mmol/LCHLORIDE 95.0 mmol/LCO2 28.0 mmol/LBUN 13.0 mg/ dLCREATININE 0.50 mg/dLSGOT/AST 16.0 IU/LSGPT/ALT 13.0 IU/LALK PHOS 91.0 IU/ LTOTAL PROTEIN 8.0 g/dLALBUMIN 3.70 g/dLTOTAL BILI 0.50 mg/dLCALCIUM 9.50 mg/ dLeGFR 60 TRIGLYCERIDES 218.0 mg/dLCHOLESTEROL 155.0 mg/dLHDL 36.0 mg/dLLDL ( CALC) 75.0 mg/dLHGB A1C <4.0 %Est Avg Glucose 68.1 mg/dLDIGOXIN 0.0120 ng/mLHGB A1C <4.0 %Est Avg Glucose 68.1 mg/dL 04/23/2013 4:51 PM COLOR STRAW APPEARANCE HAZY SPEC GRAV <=1.005 pH 6.5 PROTEIN NEGATIVE GLUCOSE NEGATIVE KETONE NEGATIVE BILIRUBIN NEGATIVE BLOOD LARGE NITRITE NEGATIVE LEUK SCREEN SMALL CASTS/LPF FEW HYALINE CRYSTALS TRACE AMORPH MUCOUS THRDS FEW BACTERIA 1+ EPITH CELLS FEW SQUAMOUS TRICHOMONAS FEW YEAST FEW 05/30/2013 5:10 PM COLOR YELLOW APPEARANCE HAZY SPEC GRAV <=1.005 pH 7.0 PROTEIN NEGATIVE GLUCOSE NEGATIVE KETONE NEGATIVE BILIRUBIN NEGATIVE BLOOD SMALL NITRITE POSITIVE LEUK SCREEN LARGE CASTS/LPF NEGATIVE CRYSTALS 1+ AMORPHOUS MUCOUS THRDS NEGATIVE BACTERIA 1+ EPITH CELLS NEGATIVE TRICHOMONAS NEGATIVE YEAST NEGATIVE 06/11/2013 2:35 PM PROTIME 23.90 secsINR 2.3 06/13/2013 4:14 PM COLOR YELLOW APPEARANCE CLEAR SPEC GRAV <=1.005 pH 7.0 PROTEIN NEGATIVE GLUCOSE NEGATIVE KETONE NEGATIVE BILIRUBIN NEGATIVE BLOOD TRACE -LYSED NITRITE POSITIVE LEUK SCREEN SMALL CASTS/LPF NEGATIVE CRYSTALS NEGATIVE MUCOUS THRDS NEGATIVE BACTERIA 1+ EPITH CELLS FEW RENAL TRICHOMONAS NEGATIVE YEAST NEGATIVE 07/02/2013 5:29 PM COLOR YELLOW APPEARANCE CLOUDY SPEC GRAV <=1.005 pH 6.5 PROTEIN NEGATIVE GLUCOSE NEGATIVE KETONE NEGATIVE BILIRUBIN NEGATIVE BLOOD MODERATE NITRITE POSITIVE LEUK SCREEN MODERATE CASTS/LPF NEGATIVE CRYSTALS 1+ AMORPHOUS MUCOUS THRDS 1+ BACTERIA 1+ EPITH CELLS NEGATIVE TRICHOMONAS NEGATIVE YEAST NEGATIVE 07/19/2013 11:43 AM PROTIME 25.50 secsINR 2.5 Coumadin Plan cont same Next Lab Draw Repeat in 1 month 08/07/2013 1:01 PM WBC 8.4 RBC 5.05 HGB 13.90 g/dLHCT 41.10 %MCV 81.0 fLMCH 27.50 pgMCHC 33.80 g/dLRDW CV 16.20 %MPV 9.60 fLPLT 215 PROTIME 28.90 secsINR 2.8 COLOR YELLOW APPEARANCE CLEAR SPEC GRAV 1.010 pH 7.5 PROTEIN NEGATIVE GLUCOSE NEGATIVE KETONE NEGATIVE BILIRUBIN NEGATIVE BLOOD NEGATIVE NITRITE NEGATIVE LEUK SCREEN NEGATIVE CASTS/LPF NEGATIVE CRYSTALS NEGATIVE MUCOUS THRDS NEGATIVE BACTERIA NEGATIVE EPITH CELLS FEW SQUAMOUS TRICHOMONAS NEGATIVE YEAST NEGATIVE GLUCOSE 99.0 mg/dLSODIUM 133.0 mmol/LPOTASSIUM 3.70 mmol/LCHLORIDE 95.0 mmol/LCO2 25.0 mmol/LBUN 12.0 mg/dLCREATININE 0.60 mg/dLCALCIUM 10.40 mg/ dLeGFR 0 11/01/2013 3:18 PM PROTIME 20.20 secsINR 1.9 12/06/2013 1:26 PM PROTIME 29.40 secsINR 2.7 12/31/2013 1:37 PM PROTIME 33.20 secsINR 3.1 TRIGLYCERIDES 236.0 mg/ dLCHOLESTEROL 170.0 mg/dLHDL 37.0 mg/dLLDL (CALC) 86.0 mg/dLHGB A1C 5.10 %Est Avg Glucose 99.7 mg/dL 01/08/2014 2:39 PM PROTIME 31.0 secsINR 2.9 03/07/2014 1:43 PM COLOR YELLOW APPEARANCE CLOUDY SPEC GRAV 1.025 pH 6.0 PROTEIN TRACE GLUCOSE NEGATIVE KETONE NEGATIVE BILIRUBIN NEGATIVE BLOOD SMALL NITRITE POSITIVE LEUK SCREEN LARGE CASTS/LPF NEGATIVE CRYSTALS NEGATIVE MUCOUS THRDS NEGATIVE BACTERIA 3+++ EPITH CELLS NEGATIVE TRICHOMONAS NEGATIVE YEAST NEGATIVE 03/14/2014 2:19 PM TSH 5.770 uIU/mL 04/08/2014 2:00 PM COLOR YELLOW APPEARANCE CLEAR SPEC GRAV <=1.005 pH 7.0 PROTEIN NEGATIVE GLUCOSE NEGATIVE KETONE NEGATIVE BILIRUBIN NEGATIVE BLOOD NEGATIVE NITRITE NEGATIVE LEUK SCREEN NEGATIVE CASTS/LPF NEGATIVE CRYSTALS NEGATIVE MUCOUS THRDS NEGATIVE BACTERIA NEGATIVE EPITH CELLS NEGATIVE TRICHOMONAS NEGATIVE YEAST NEGATIVE 04/25/2014 7:07 PM PROTIME 10.0 secsINR 1.0 06/03/2014 4:58 PM COLOR YELLOW APPEARANCE HAZY SPEC GRAV <=1.005 pH 7.0 PROTEIN NEGATIVE GLUCOSE NEGATIVE KETONE NEGATIVE BILIRUBIN NEGATIVE BLOOD MODERATE NITRITE NEGATIVE LEUK SCREEN LARGE CASTS/LPF NEGATIVE CRYSTALS NEGATIVE MUCOUS THRDS NEGATIVE BACTERIA 2++ EPITH CELLS NEGATIVE TRICHOMONAS NEGATIVE YEAST NEGATIVE 06/12/2014 5:31 PM PROTIME 10.30 secsINR 1.0 WBC 6.8 RBC 4.61 HGB 12.80 g/ dLHCT 38.20 %MCV 83.0 fLMCH 27.80 pgMCHC 33.50 g/dLRDW CV 15.30 %MPV 8.90 fLPLT 252 %NEUT 55.0 %%LYMP 36.0 %%MONO 6.80 %%EOS 1.80 %%BASO 0.40 %#NEUT 3.74 #LYMP 2.45 #MONO 0.46 #EOS 0.12 #BASO 0.03 GLUCOSE 94.0 mg/dLSODIUM 130.0 mmol/ LPOTASSIUM 3.90 mmol/LCHLORIDE 95.0 mmol/LCO2 26.0 mmol/LBUN 11.0 mg/ dLCREATININE 0.50 mg/dLSGOT/AST 17.0 IU/LSGPT/ALT 19.0 IU/LALK PHOS 87.0 IU/ LTOTAL PROTEIN 7.50 g/dLALBUMIN 3.70 g/dLTOTAL BILI 0.30 mg/dLCALCIUM 9.10 mg/ dLeGFR 60 TRIGLYCERIDES 295.0 mg/dLCHOLESTEROL 177.0 mg/dLHDL 35.0 mg/dLLDL ( CALC) 83.0 mg/dLTSH 8.030 uIU/mLHGB A1C 6.30 %Est Avg Glucose 134.1 mg/dL 06/20/2014 2:40 PM COLOR YELLOW APPEARANCE HAZY SPEC GRAV 1.010 pH 7.0 PROTEIN NEGATIVE GLUCOSE NEGATIVE KETONE NEGATIVE BILIRUBIN NEGATIVE BLOOD LARGE NITRITE NEGATIVE LEUK SCREEN MODERATE CASTS/LPF NEGATIVE CRYSTALS NEGATIVE MUCOUS THRDS NEGATIVE BACTERIA FEW EPITH CELLS NEGATIVE TRICHOMONAS NEGATIVE YEAST NEGATIVE 07/18/2014 2:37 PM GLUCOSE 174.0 mg/dLSODIUM 133.0 mmol/LPOTASSIUM 4.10 mmol/ LCHLORIDE 96.0 mmol/LCO2 27.0 mmol/LBUN 10.0 mg/dLCREATININE 0.60 mg/dLCALCIUM 9.50 mg/dLeGFR 60 COLOR YELLOW APPEARANCE HAZY SPEC GRAV <=1.005 pH 6.5 PROTEIN NEGATIVE GLUCOSE 100 KETONE NEGATIVE BILIRUBIN NEGATIVE BLOOD TRACE-INTACT NITRITE POSITIVE LEUK SCREEN TRACE CASTS/LPF NEGATIVE CRYSTALS NEGATIVE MUCOUS THRDS NEGATIVE BACTERIA 1+ EPITH CELLS FEW SQUAMOUS TRICHOMONAS NEGATIVE YEAST NEGATIVE COLOR YELLOW APPEARANCE HAZY SPEC GRAV <=1.005 pH 6.5 PROTEIN NEGATIVE GLUCOSE 100 KETONE NEGATIVE BILIRUBIN NEGATIVE BLOOD TRACE-INTACT NITRITE POSITIVE LEUK SCREEN TRACE CASTS/LPF NEGATIVE CRYSTALS NEGATIVE MUCOUS THRDS NEGATIVE BACTERIA 1+ EPITH CELLS FEW SQUAMOUS TRICHOMONAS NEGATIVE YEAST NEGATIVE TSH 4.610 uIU/mL 09/09/2014 2:51 PM WBC 7.0 RBC 4.83 HGB 13.50 g/dLHCT 40.70 %MCV 84.0 fLMCH 28.0 pgMCHC 33.20 g/dLRDW CV 14.50 %MPV 10.10 fLPLT 218 %NEUT 71.90 %%LYMP 21.30 %%MONO 5.70 %%EOS 0.70 %%BASO 0.40 %#NEUT 5.01 #LYMP 1.49 #MONO 0.40 #EOS 0.05 #BASO 0.03 PROTIME 11.0 secsINR 1.1 GLUCOSE 105.0 mg/dLSODIUM 133.0 mmol/ LPOTASSIUM 3.60 mmol/LCHLORIDE 101.0 mmol/LCO2 22.0 mmol/LBUN 13.0 mg/ dLCREATININE 0.60 mg/dLSGOT/AST 14.0 IU/LSGPT/ALT 16.0 IU/LALK PHOS 77.0 IU/ LTOTAL PROTEIN 6.50 g/dLALBUMIN 3.40 g/dLTOTAL BILI 0.30 mg/dLCALCIUM 8.50 mg/ dLeGFR 60 TSH 6.340 uIU/mLTRIGLYCERIDES 273.0 mg/dLCHOLESTEROL 163.0 mg/dLHDL 30.0 mg/dLLDL (CALC) 78.0 mg/dLHGB A1C <4.0 %Est Avg Glucose 68.1 mg/dL 10/02/2014 4:10 PM COLOR STRAW APPEARANCE CLEAR SPEC GRAV <=1.005 pH 7.5 PROTEIN NEGATIVE GLUCOSE NEGATIVE KETONE NEGATIVE BILIRUBIN NEGATIVE BLOOD MODERATE NITRITE POSITIVE LEUK SCREEN MODERATE CASTS/LPF NEGATIVE CRYSTALS TRACE AMORPH MUCOUS THRDS NEGATIVE BACTERIA 1+ EPITH CELLS NEGATIVE TRICHOMONAS NEGATIVE YEAST NEGATIVE 2014 1:20 PM COLOR YELLOW APPEARANCE CLEAR SPEC GRAV 1.010 pH 6.0 PROTEIN NEGATIVE GLUCOSE 250 KETONE NEGATIVE BILIRUBIN NEGATIVE BLOOD SMALL NITRITE POSITIVE LEUK SCREEN LARGE CASTS/LPF NEGATIVE CRYSTALS 2++ AMORPHOUS MUCOUS THRDS NEGATIVE BACTERIA 3+++ EPITH CELLS NEGATIVE TRICHOMONAS NEGATIVE YEAST NEGATIVE 12/04/2014 1:05 PM PROTIME 24.30 secsINR 2.4 COLOR YELLOW APPEARANCE HAZY SPEC GRAV 1.020 pH 6.5 PROTEIN TRACE GLUCOSE NEGATIVE KETONE NEGATIVE BILIRUBIN NEGATIVE BLOOD MODERATE NITRITE POSITIVE LEUK SCREEN MODERATE CASTS/LPF NEGATIVE CRYSTALS NEGATIVE MUCOUS THRDS NEGATIVE BACTERIA 1+ EPITH CELLS NEGATIVE TRICHOMONAS NEGATIVE YEAST NEGATIVE WBC 4.3 RBC 5.09 HGB 14.10 g/dLHCT 43.70 %MCV 86.0 fLMCH 27.70 pgMCHC 32.30 g/dLRDW CV 14.40 %MPV 9.60 fLPLT 254 TSH 7.030 uIU/mL 01/12/2015 1:59 PM COLOR YELLOW APPEARANCE CLOUDY SPEC GRAV <=1.005 pH 6.5 PROTEIN NEGATIVE GLUCOSE NEGATIVE KETONE NEGATIVE BILIRUBIN NEGATIVE BLOOD LARGE NITRITE NEGATIVE LEUK SCREEN LARGE CASTS/LPF FEW FINE GRAN CRYSTALS 2++ AMORPHOUS MUCOUS THRDS NEGATIVE BACTERIA 2++ EPITH CELLS FEW RENAL TRICHOMONAS NEGATIVE YEAST NEGATIVE 01/15/2015 2:41 PM PROTIME 23.60 secsINR 2.3 TSH 6.310 uIU/mL 01/22/2015 1:59 PM COLOR YELLOW APPEARANCE CLEAR SPEC GRAV <=1.005 pH 6.5 PROTEIN NEGATIVE GLUCOSE NEGATIVE KETONE NEGATIVE BILIRUBIN NEGATIVE BLOOD MODERATE NITRITE NEGATIVE LEUK SCREEN TRACE CASTS/LPF NEGATIVE CRYSTALS NEGATIVE MUCOUS THRDS NEGATIVE BACTERIA FEW EPITH CELLS FEW RENAL TRICHOMONAS NEGATIVE YEAST NEGATIVE 02/12/2015 2:45 PM TSH 4.780 uIU/mLPROTIME 28.0 secsINR 2.7 03/12/2015 2:55 PM WBC 6.6 RBC 4.87 HGB 13.20 g/dLHCT 41.0 %MCV 84.0 fLMCH 27.10 pgMCHC 32.20 g/dLRDW CV 14.90 %MPV 10.0 fLPLT 232 TSH 3.410 uIU/mLPROTIME 24.0 secsINR 2.3 COLOR YELLOW APPEARANCE CLOUDY SPEC GRAV 1.010 pH 6.0 PROTEIN 30 GLUCOSE NEGATIVE KETONE NEGATIVE BILIRUBIN NEGATIVE BLOOD LARGE NITRITE POSITIVE LEUK SCREEN LARGE CASTS/LPF NEGATIVE CRYSTALS NEGATIVE MUCOUS THRDS NEGATIVE BACTERIA 2++ EPITH CELLS FEW RENAL TRICHOMONAS NEGATIVE YEAST NEGATIVE GLUCOSE 196.0 mg/dLSODIUM 133.0 mmol/LPOTASSIUM 3.90 mmol/LCHLORIDE 96.0 mmol/ LCO2 25.0 mmol/LBUN 15.0 mg/dLCREATININE 0.70 mg/dLSGOT/AST 18.0 IU/LSGPT/ALT 26.0 IU/LALK PHOS 76.0 IU/LTOTAL PROTEIN 7.30 g/dLALBUMIN 3.90 g/dLTOTAL BILI 0.40 mg/dLCALCIUM 8.90 mg/dLeGFR >60 mL/min/1.73 m2 04/09/2015 3:11 PM PROTIME 24.90 secsINR 2.4 COLOR STRAW APPEARANCE CLEAR SPEC GRAV <=1.005 pH 6.0 PROTEIN NEGATIVE GLUCOSE NEGATIVE KETONE NEGATIVE BILIRUBIN NEGATIVE BLOOD TRACE-INTACT NITRITE NEGATIVE LEUK SCREEN MODERATE CASTS/LPF FEW FINE GRAN CRYSTALS 1+ AMORPHOUS MUCOUS THRDS NEGATIVE BACTERIA 2++ EPITH CELLS NEGATIVE TRICHOMONAS NEGATIVE YEAST NEGATIVE 04/30/2015 4:40 PM COLOR YELLOW APPEARANCE HAZY SPEC GRAV 1.010 pH 6.0 PROTEIN 100 GLUCOSE >=1000 KETONE NEGATIVE BILIRUBIN NEGATIVE BLOOD LARGE NITRITE POSITIVE LEUK SCREEN MODERATE CASTS/LPF NEGATIVE CRYSTALS NEGATIVE MUCOUS THRDS NEGATIVE BACTERIA 3+++ EPITH CELLS NEGATIVE TRICHOMONAS NEGATIVE YEAST NEGATIVE 06/05/2015 10:55 AM LACTIC ACID 3.5 mmol/LWBC 11.5 RBC 4.62 HGB 12.40 g/dLHCT 38.50 %MCV 83.0 fLMCH 26.80 pgMCHC 32.20 g/dLRDW CV 15.90 %MPV 8.70 fLPLT 259 GLUCOSE 318.0 mg/dLSODIUM 131.0 mmol/LPOTASSIUM 4.0 mmol/LCHLORIDE 94.0 mmol/ LCO2 26.0 mmol/LBUN 15.0 mg/dLCREATININE 0.80 mg/dLSGOT/AST 16.0 IU/LSGPT/ALT 19.0 IU/LALK PHOS 77.0 IU/LTOTAL PROTEIN 7.10 g/dLALBUMIN 3.90 g/dLTOTAL BILI 0.30 mg/dLCALCIUM 9.20 mg/dLeGFR >60 mL/min/1.73m 10/06/2015 10:23 AM WBC 8.0 RBC 4.47 HGB 9.20 g/dLHCT 32.0 %MCV 72.0 fLMCH 20.60 pgMCHC 28.80 g/dLRDW CV 17.80 %MPV 9.40 fLPLT 360 GLUCOSE 177.0 mg/ dLSODIUM 127.0 mmol/LPOTASSIUM 4.40 mmol/LCHLORIDE 92.0 mmol/LCO2 23.0 mmol/ LBUN 11.0 mg/dLCREATININE 0.60 mg/dLSGOT/AST 14.0 IU/LSGPT/ALT 10.0 IU/LALK PHOS 76.0 IU/LTOTAL PROTEIN 7.50 g/dLALBUMIN 3.60 g/dLTOTAL BILI 0.40 mg/ dLCALCIUM 9.20 mg/dLeGFR >60 mL/min/1.73mMAGNESIUM 1.80 mg/dLCOLOR YELLOW APPEARANCE CLOUDY SPEC GRAV 1.015 pH 8.0 PROTEIN 30 GLUCOSE NEGATIVE mg/ dLKETONE NEGATIVE BILIRUBIN NEGATIVE BLOOD SMALL NITRITE NEGATIVE LEUK SCREEN LARGE CASTS/LPF FEW HYALINE /LPFCRYSTALS 2++ TRI PHOS MUCOUS THRDS NEGATIVE BACTERIA 2++ EPITH CELLS NEGATIVE /HPFTRICHOMONAS NEGATIVE YEAST NEGATIVE Hemoglobin A1c 5.80 % 10/10/2015 5:50 AM GLUCOSE 124.0 mg/dLSODIUM 139.0 mmol/LPOTASSIUM 3.40 mmol/ LCHLORIDE 102.0 mmol/LCO2 28.0 mmol/LBUN 14.0 mg/dLCREATININE 0.60 mg/dLSGOT/ AST 10.0 IU/LSGPT/ALT 8.0 IU/LALK PHOS 65.0 IU/LTOTAL PROTEIN 7.0 g/dLALBUMIN 3.40 g/dLTOTAL BILI 0.30 mg/dLCALCIUM 8.70 mg/dLeGFR >60 mL/min/1.73mWBC 6.7 RBC 3.76 HGB 7.90 g/dLHCT 27.80 %MCV 74.0 fLMCH 21.0 pgMCHC 28.40 g/dLRDW CV 17.80 %MPV 8.10 fLPLT 226 %NEUT 72.10 %%LYMP 12.10 %%MONO 14.80 %%EOS 0.70 %% BASO 0.30 %#NEUT 4.80 #LYMP 0.81 #MONO 0.99 #EOS 0.05 #BASO 0.02 10/11/2015 6:20 AM TSH 7.840 uIU/mLGLUCOSE 123.0 mg/dLSODIUM 140.0 mmol/ LPOTASSIUM 2.90 mmol/LCHLORIDE 105.0 mmol/LCO2 28.0 mmol/LBUN 8.0 mg/ dLCREATININE 0.50 mg/dLALBUMIN 3.30 g/dLCALCIUM 8.50 mg/dLPHOSPHORUS 2.60 mg/ dLeGFR >60 mL/min/1.73mMAGNESIUM 1.80 mg/dLDIGOXIN 0.0020 ng/mLWBC 6.7 RBC 3.64 HGB 7.60 g/dLHCT 27.30 %MCV 75.0 fLMCH 20.90 pgMCHC 27.80 g/dLRDW CV 17.60 %MPV 8.50 fLPLT 247 %NEUT 65.0 %%LYMP 19.20 %%MONO 13.80 %%EOS 1.70 %%BASO 0.30 %#NEUT 4.33 #LYMP 1.28 #MONO 0.92 #EOS 0.11 #BASO 0.02 10/12/2015 6:30 AM GLUCOSE 123.0 mg/dLSODIUM 137.0 mmol/LPOTASSIUM 3.0 mmol/ LCHLORIDE 101.0 mmol/LCO2 27.0 mmol/LBUN 6.0 mg/dLCREATININE 0.50 mg/dLALBUMIN 3.30 g/dLCALCIUM 8.60 mg/dLPHOSPHORUS 2.60 mg/dLeGFR >60 mL/min/1.73m MAGNESIUM 1.50 mg/dLWBC 8.6 RBC 4.00 HGB 8.40 g/dLHCT 29.40 %MCV 74.0 fLMCH 20.80 pgMCHC 28.20 g/dLRDW CV 17.40 %MPV 8.80 fLPLT 264 %NEUT 62.90 %%LYMP 20.20 %%MONO 15.10 %%EOS 1.40 %%BASO 0.40 %#NEUT 5.40 #LYMP 1.73 #MONO 1.29 # EOS 0.12 #BASO 0.03 10/12/2015 5:00 PM COLOR YELLOW APPEARANCE CLEAR SPEC GRAV 1.015 pH 5.5 PROTEIN 30 GLUCOSE NEGATIVE mg/dLKETONE NEGATIVE BILIRUBIN NEGATIVE BLOOD LARGE NITRITE NEGATIVE LEUK SCREEN MODERATE CASTS/LPF NEGATIVE /LPFCRYSTALS NEGATIVE MUCOUS THRDS FEW BACTERIA FEW EPITH CELLS 1+ SQUAMOUS /HPFTRICHOMONAS NEGATIVE YEAST NEGATIVE 10/13/2015 6:55 AM GLUCOSE 128.0 mg/dLSODIUM 137.0 mmol/LPOTASSIUM 3.0 mmol/ LCHLORIDE 103.0 mmol/LCO2 28.0 mmol/LBUN 4.0 mg/dLCREATININE 0.50 mg/dLALBUMIN 3.0 g/dLCALCIUM 8.20 mg/dLPHOSPHORUS 2.70 mg/dLeGFR >60 mL/min/1.73mMAGNESIUM 1.60 mg/dLWBC 6.8 RBC 3.87 HGB 8.0 g/dLHCT 28.10 %MCV 73.0 fLMCH 20.70 pgMCHC 28.50 g/dLRDW CV 17.40 %MPV 8.50 fLPLT 225 %NEUT 59.20 %%LYMP 28.10 %%MONO 10.50 %%EOS 1.90 %%BASO 0.30 %#NEUT 4.00 #LYMP 1.90 #MONO 0.71 #EOS 0.13 #BASO 0.02 11/10/2015 3:02 PM COLOR YELLOW APPEARANCE CLEAR SPEC GRAV <=1.005 pH 6.5 PROTEIN NEGATIVE GLUCOSE NEGATIVE mg/dLKETONE NEGATIVE BILIRUBIN NEGATIVE BLOOD LARGE NITRITE NEGATIVE LEUK SCREEN LARGE CASTS/LPF NEGATIVE /LPFCRYSTALS 1+ AMORPHOUS MUCOUS THRDS NEGATIVE BACTERIA FEW EPITH CELLS NEGATIVE / HPFTRICHOMONAS NEGATIVE YEAST NEGATIVE 12/07/2015 2:47 PM COLOR YELLOW APPEARANCE CLEAR SPEC GRAV <=1.005 pH 6.5 PROTEIN NEGATIVE GLUCOSE 100 KETONE NEGATIVE BILIRUBIN NEGATIVE BLOOD MODERATE NITRITE NEGATIVE LEUK SCREEN LARGE CASTS/LPF NEGATIVE /LPFCRYSTALS NEGATIVE MUCOUS THRDS NEGATIVE BACTERIA 2++ EPITH CELLS NEGATIVE /HPFTRICHOMONAS NEGATIVE YEAST NEGATIVE 12/14/2015 2:58 PM COLOR YELLOW APPEARANCE CLEAR SPEC GRAV <=1.005 pH 5.5 PROTEIN NEGATIVE GLUCOSE NEGATIVE mg/dLKETONE NEGATIVE BILIRUBIN NEGATIVE BLOOD SMALL NITRITE NEGATIVE LEUK SCREEN SMALL CASTS/LPF NEGATIVE /LPFCRYSTALS NEGATIVE MUCOUS THRDS NEGATIVE BACTERIA 2++ EPITH CELLS NEGATIVE / HPFTRICHOMONAS NEGATIVE YEAST NEGATIVE 12/17/2015 5:00 PM GLUCOSE 114.0 mg/dLSODIUM 135.0 mmol/LPOTASSIUM 4.30 mmol/ LCHLORIDE 94.0 mmol/LCO2 27.0 mmol/LBUN 15.0 mg/dLCREATININE 0.70 mg/dLCALCIUM 9.20 mg/dLeGFR >60 mL/min/1.73m 12/23/2015 3:10 PM WBC 14.0 RBC 4.17 HGB 8.50 g/dLHCT 28.30 %MCV 68.0 fLMCH 20.40 pgMCHC 30.0 g/dLRDW CV 17.10 %MPV 8.70 fLPLT 446 GLUCOSE 150.0 mg/ dLSODIUM 130.0 mmol/LPOTASSIUM 4.0 mmol/LCHLORIDE 92.0 mmol/LCO2 27.0 mmol/LBUN 14.0 mg/dLCREATININE 0.60 mg/dLSGOT/AST 11.0 IU/LSGPT/ALT 10.0 IU/LALK PHOS 70.0 IU/LTOTAL PROTEIN 7.60 g/dLALBUMIN 3.30 g/dLTOTAL BILI 0.40 mg/dLCALCIUM 9.50 mg/dLeGFR >60 mL/min/1.73mCOLOR YELLOW APPEARANCE CLEAR SPEC GRAV <= 1.005 pH 6.0 PROTEIN TRACE GLUCOSE 250 KETONE NEGATIVE BILIRUBIN NEGATIVE BLOOD MODERATE NITRITE NEGATIVE LEUK SCREEN TRACE CASTS/LPF NEGATIVE /LPFCRYSTALS NEGATIVE MUCOUS THRDS NEGATIVE BACTERIA FEW EPITH CELLS NEGATIVE / HPFTRICHOMONAS NEGATIVE YEAST NEGATIVE History Of Immunizations Name Date Admin Mf Name Mfg Code Trade Name Lot# Route Inj Vis Given Vis Pub CVX Influenza 07/03/2013 sanofi pasteur PMC Fluzone > 3 Years [id number] Intramuscular Right Deltoid 07/03/2013 04/19/2013 141 History of Past Illness Name Date of Onset Comments Hemorrhoids, External Kidney Stones Chronic UTI's Atrial Fibrillation Diabetes Mellitus, Type II Quadriplegia Hypothyroidism Diabetes Mellitus, Type II Nov 05 2012 [...] tract, subsequent encounter Dec 24 2015 9:59AM Payers Insurance Name Company Name Plan Name Plan Number Policy Number Policy Group Number Start Date Medicare Part A Medicare Part A [id number] Sunday, 1989 [facility] [id number] N/A [facility] [id number] Tuesday, 2012 Medicare Part B Medicare [facility] [id number] May [place] Medical Assistance [facility] Medical Assistance Pro [id number] May History of Encounters Visit Date Visit Type Provider 12/24/2015 Office visit Nicholas Bonilla APRN 12/18/2015 Office visit Nicholas Bonilla APRN 10/20/2015 Office visit Sidney Shin MD 10/10/2015 [facility] Yonny Rivera MD 10/05/2015 Office visit Rhonda Tejada MD 08/31/2015 [facility] Austin Aissatou VELÁSQUEZ 06/08/2015 [facility] 06/05/[address] Kev Shane MD 06/03/2015 Office visit Jasmyne Del Rosario APRN 03/16/2015 Office visit Rhonda Tejada MD 12/23/2014 Office visit Shari Correia MD 12/11/2014 Office visit Rhonda eTjada MD 09/10/2014 Office visit Rhonda Tejada MD 06/25/2014 Office visit Rhonda Tejada MD 06/11/2014 Office visit Rhonda Tejada MD 04/10/2014 [facility] Sidney Shin MD 04/08/2014 [facility] Jamaica Martin MD 03/18/2014 Office visit Nicholas Bonilla APRN 12/26/2013 Office visit Rhonda Tejada MD 12/12/2013 [facility] Carolyn Mercado MD 12/08/2013 [facility] Joan Sherman MD 12/06/2013 [facility] Jamaica WallerPriscilla HYDE 10/08/2013 Office visit Rhonda Tejada MD 08/01/2013 Office visit Austin Reyez DO 08/01/2013 Office visit Jovanna Kapadia MD 07/13/2013 Hospital [place] Reyez DO 07/10/2013 Hospital [place] Reyez DO 07/09/2013 Office visit Jovanna Kapadia MD 07/09/2013 Hospital [place] Reyez DO 07/03/2013 Office visit Jovanna Kapadia MD 04/22/2013 Office visit Jasmyne Del Rosario CHOCOLATE PRODUCTION MACHINE OPERATOR 04/01/2013 Office visit Jovanna Kapadia MD 12/31/2012 Office visit Jovanna Kapadia MD 11/29/2012 Office visit Jovanna Kapadia MD 11/05/2012 Office visit Jasmyne Del Rosario CHOCOLATE PRODUCTION MACHINE OPERATOR 11/30/2011 [facility] Carolyn Mercado MD 08/12/2011 [facility] Carolyn Mercado MD 06/29/2011 [facility] Carolyn Mercado MD 03/20/2011 [facility] Carolyn Mercado MD 05/01/2010 Laboratory Jose Luis Stinson MD 04/28/2010 Laboratory Jose Luis Stinson MD 11/20/2009 [facility] Jose Luis Stinson MD 2009 [facility] Jose Luis Stinson MD 11/17/2009 [facility] Jose Luis Stinson MD 11/16/2009 [facility] Suha Ray MD 11/15/2009 [facility] Suha Ray MD 09/02/2009 Laboratory Richar [...]
--- OUTSIDE RECORDS SUMMARY | 2017-10-22 06:55 | XMS REPORT ---
Author Author Rhonda Tejada Organization [facility] Address [address] [place], [place] [id number] Care Team Providers Care Train Brake Operator Name Role Phone Rhonda Tejada PCP Strides, [...] APPLY TO AFFECTED AREA TWO TIMES DAILY famotidine 20 mg oral tablet 09/04/2015 TAKE 1 TABLET BY MOUTH TWICE DAILY Januvia 100 mg oral tablet 09/04/2015 TAKE 1 TABLET BY MOUTH BEFORE BREAKFAST Senna Lax 8.6 mg oral tablet 09/04/2015 TAKE 1 TABLET BY MOUTH TWICE DAILY Unifine Pentips 31 gauge x 09/28" miscellaneous needle 2015 USE DIRECTED WITH [employer] FLEXPEN baclofen 20 mg oral tablet 03/31/2016 [...] 1 TABLET BY MOUTH THREE TIMES DAILY Name Start Date Expiration Date SIG [...] AM Flu Injection 3 Years And Above [facility]# [address]-69 RHC Reviewed 07/09/2013 12:00 AM THER/PROPH/DIAG INJ SC/IM Reviewed 07/09/2013 12:00 AM Toradol 30 Mg [facility]#3327-8101-35 Reviewed 12/26/2013 12:00 AM LIPID PANEL Reviewed [...] sanofi pasteur PMC Fluzone > 3 Years [id number] Intramuscular Right Deltoid 07/03/2013 04/19/2013 141 Pneumococcal 03/30/2016 Not Entered NE Prevnar 13 Not Entered Not Entered 09/02/2016 09/25/2017 133 History of Past Illness Name Date of [...] Number Start Date Medicare Part A Medicare RHC [id number] N/A [facility] [id number] Tuesday, 2012 [facility] [id number] N/A Medicare Part A Medicare - Lab/Xray [id number] Sunday, June [birth year], 1989 Medicare Part B Medicare Of [place] [id number] May [place] Medical Assistance [facility] Pro [id number] May Medicare Part A Medicare Part A [id number] Sunday, June 25[birth year] 1989 History of Encounters Visit Date Visit Type Provider 08/31/2016 Office visit Rhonda Tejada MD 05/19/2016 Office visit Rhonda Tejada MD 05/11/2016 Hospital Carolyn Mercado MD 04/29/2016 [facility] Shahram Morrow DO 04/29/2016 [facility] Carolyn Mercado MD 04/29/2016 [facility] Carolyn Mercado MD 04/26/2016 Procedures Austin Reyez DO 03/29/2016 Office visit Rhonda Tejada MD 12/24/2015 Office visit Nicholas Bonilla STERILE PREPARATION TECHNICIAN 12/18/2015 Office visit Nicholas Bonilla STERILE PREPARATION TECHNICIAN 10/20/2015 Office visit Sidney Shin MD 10/10/2015 [facility] Yonny Rivera MD 10/05/2015 Office visit Rhonda Tejada MD 08/31/2015 Office visit Rohnda Tejada MD 06/09/2015 Hospital Austin Reyez DO 06/08/2015 Hospital Austin Reyez DO 06/08/2015 Hospital [place] Aissatou DO 06/05/[address] Kev Shane MD 06/03/2015 Office visit Jasmyne Del Rosario STERILE PREPARATION TECHNICIAN 03/16/2015 Office visit Rhonda Tejada MD 12/23/2014 Office visit Shari Correia MD 12/11/2014 Office visit Rhonda Tejada MD 09/10/2014 Office visit Rhonda Tejada MD 06/25/2014 Office visit Rhonda Tejada MD 06/11/2014 Office visit Rhonda Tejada MD 04/10/2014 [facility] Sidney Shin MD 04/08/2014 [facility] Jamaica Martin MD 03/18/2014 Office visit Nicholas Bonilla APRN 12/26/2013 Office visit Rhonda Tejada MD 12/12/2013 [facility] Carolyn Mercado MD 12/08/2013 [facility] Joan Sherman MD 12/06/2013 [facility] Jamaica Martin MD 10/08/2013 Office visit Rhonda Tejada MD 08/01/2013 Office visit Austin Reyez DO 08/01/2013 Office visit Jovanna Kapadia MD 07/13/2013 Hospital [place] Bouman DO 07/10/2013 [facility] Austin Racheluman DO 07/09/2013 Office visit Jovanna Kapadia MD 07/09/2013 [facility] 07/03/2013 Office visit Jovanna Kapadia MD 04/22/2013 Office visit Jasmyne Del Rosario STERILE PREPARATION TECHNICIAN 04/01/2013 Office visit Jovanna Kapadia MD 12/31/2012 Office visit Jovanna Kapadia MD 11/29/2012 Office visit Jovanna Kapadia MD 11/05/2012 Office visit Jasmyne Del Rosario STERILE PREPARATION TECHNICIAN 11/30/2011 Hospital Carolyn Mercado MD 08/12/2011 [facility] Carolyn Mercado MD 06/29/2011 [facility] Carolyn Mercado MD 03/20/2011 [facility] Carolyn Mercado MD 05/01/2010 Laboratory Jose Luis Stinson MD 04/28/2010 Laboratory Jose Luis Stinson MD 11/20/2009 [facility] Jose Luis Stinson MD 2009 [facility] Jose Luis Stinson MD 11/17/2009 [facility] Jose Luis Stinson MD 11/16/2009 [facility] Suha Ray MD 11/15/2009 [facility] Suha Ray MD 09/02/2009 Laboratory Richar [...]
--- OUTSIDE RECORDS SUMMARY | 2017-10-22 06:56 | XMS REPORT ---
Author Author [facility] Organization [facility] Address [address] [place], [place] [id number] Care Team Providers Care Quality Control Chemist Name Role Phone PCP Unavailable Strides, Independent Unavailable Unavailable Allergies and Adverse Reactions Name Reaction Notes amoxicillin Plan of Treatment Planned Activity Comments Planned Date Planned Time Plan/Goal COMPREHEN METABOLIC PANEL 12/03/2014 12:00 AM URINALYSIS AUTO W/SCOPE 01/19/2015 12:00 AM Medications Active Name Start Date Estimated Completion Date SIG Comments ASCENSIA CONTOUR TEST STRIPS one box 01/09/2014 07/03/2015 USE DIRECTED. Blood sugar checks TID. Dx: insulin dependent DMII. 250.00 aspirin oral tablet,delayed release (DR/EC) 81 mg take 1 tablet (81 mg) by oral route once daily pravastatin oral tablet 20 mg 07/14/2014 TAKE 1 TABLET BY MOUTH ONCE DAILY AT BEDTIME ferrous sulfate oral tablet 325 mg (65 mg iron) 07/30/2014 TAKE 1 TABLET BY MOUTH DAILY metoclopramide HCl oral tablet 10 mg 08/01/2014 TAKE 1 TABLET BY MOUTH TWICE DAILY metformin oral tablet 500 mg 08/01/2014 TAKE 1 TABLET BY MOUTH THREE TIMES DAILY fenofibrate oral tablet 54 mg 09/10/2014 09/05/2015 take 1 tablet (54 mg) by oral route once daily for 90 days Coumadin oral tablet 1 mg 09/10/2014 09/05/2015 take 1 tablet (1 mg) by oral route once daily for 90 days warfarin oral tablet 2.5 mg 09/30/2014 03/29/2015 take 1 tablet (2.5 mg) by oral route once daily for 30 days Vol-Plus oral tablet 27-1 mg 10/10/2014 10/05/2015 take 1 tablet by oral route daily for 30 days Unifine Pentips miscellaneous needle 31 X 1/4 " 10/10/2014 10/05/2015 USE DIRECTED WITH NOVOLOG FLEXPEN citalopram oral tablet 20 mg 10/21/2014 take 1 tablet by oral route daily for 30 days [facility] topical powder 100,000 unit/gram 11/19/2014 apply to the affected area(s) by topical route 2 times per day pravastatin oral tablet 20 mg 11/20/2014 TAKE 1 TABLET BY MOUTH ONCE DAILY AT BEDTIME Levemir FlexTouch subcutaneous insulin pen 100 unit/mL (3 mL) 11/21/2014 INJECT 20 UNITS TWICE DAILY Metamucil oral Take 2 capfuls at hs prn levothyroxine oral tablet 50 mcg 12/11/2014 06/03/2016 take 1 tablet (50 mcg) by oral route once daily for 90 days Levemir FlexTouch subcutaneous insulin pen 100 unit/mL (3 mL) 12/30/2014 INJECT 20 UNITS TWICE DAILY ferrous sulfate oral tablet 325 mg (65 mg iron) 01/12/2015 TAKE 1 TABLET BY MOUTH DAILY baclofen oral tablet 20 mg 01/15/2015 05/15/2015 TAKE 1 TABLET BY MOUTH THREE TIMES DAILY for 30 days ceftriaxone injection recon soln 1 gram 01/19/2015 01/20/2015 inject 1 gram by intramuscular route once daily for 1 day Name Start Date Expiration Date SIG Comments Warfarin Oral Tablet 3 mg 03/22/2010 04/21/2010 TAKE 1 TABLET BY MOUTH DAILY Zolpidem Oral Tablet 10 mg 04/26/2010 08/24/2010 TAKE 1 TABLET BY MOUTH AT BEDTIME NEEDED FOR INSOMNIA potassium chloride Oral Tablet, ER Particles/Crystals 20 mEq 12/26/20102010 TAKE 1 TABLET BY MOUTH EVERY DAY cefpodoxime Oral tablet 100 mg 11/26/2012 12/03/2012 take 1 tablet (100 mg) by oral route every 12 hours for 7 days with food Keflex Oral capsule 500 mg 12/31/2012 01/07/2013 take 1 capsule (500 mg) by oral route every 12 hours for 7 days Levemir Flexpen Subcutaneous Insulin Pen 100 unit/mL (3 mL) 02/08/20132012 INJECT 20 UNITS TWICE DAILY Cipro Oral tablet 500 mg 04/22/2013 04/27/2013 take 1 tablet (500 mg) by oral route every 12 hours for 5 days baclofen Oral tablet 20 mg 08/27/2013 10/26/2013 TAKE 1 TABLET BY MOUTH THREE TIMES DAILY hydrocodone-acetaminophen Oral tablet 5-500 mg 08/27/2013 09/26/2013 take 1 tablet by oral route every 6 hours as needed for pain baclofen oral tablet 20 mg 10/08/2013 03/07/2014 TAKE 1 TABLET BY MOUTH THREE TIMES DAILY citalopram oral tablet 20 mg 10/08/2013 10/03/2014 take 1 tablet by oral route daily for 30 days metformin oral tablet 500 mg 10/08/2013 04/06/2014 TAKE 1 TABLET BY MOUTH THREE TIMES DAILY Vol-Plus oral tablet 27-1 mg 10/08/2013 04/06/2014 take 1 tablet by oral route daily for 30 days pravastatin oral tablet 20 mg 01/23/2014 01/18/2015 TAKE 1 TABLET BY MOUTH ONCE DAILY AT BEDTIME for 90 days Levemir Flexpen subcutaneous insulin pen 100 unit/mL (3 mL) 04/08/20142013 INJECT 20 UNITS TWICE DAILY for 30 days ferrous sulfate oral tablet 325 mg (65 mg iron) 05/05/2014 08/03/2014 TAKE 1 TABLET BY MOUTH DAILY Macrobid oral capsule 100 mg 05/22/2014 05/29/2014 take 1 capsule (100 mg) by oral route every 12 hours with food for 7 days Novolog Flexpen subcutaneous insulin pen 100 unit/mL 05/30/2014 11/26/2014 INJECT 12 UNITS SUBCUTANEOUSLY 15 MINUTES BEFORE EACH MEAL Bactrim DS oral tablet 800-160 mg 06/05/2014 06/10/2014 take 1 tablet by oral route 2 times per day for 5 days Bactrim oral tablet 400-80 mg 06/26/2014 07/06/2014 take 2 tablets by oral route every 12 hours for 10 days levothyroxine oral tablet 25 mcg 06/26/2014 10/24/2014 take 1 tablet (25 mcg) by oral route once daily for 30 days Keflex oral capsule 500 mg 07/28/2014 08/09/2014 take 1 capsule (500 mg) by oral route every 12 hours for 12 days Macrobid oral capsule 100 mg 07/28/2014 08/27/2014 take 1 capsule by oral route every 12 hours for 30 days hydrocodone-acetaminophen oral tablet 5-325 mg 12/03/2014 01/02/2015 take 1 tablet by oral route every 6 hours as needed for pain for 30 days Bactrim DS oral tablet 800-160 mg 12/16/2014 01/15/2015 take 1 tablet by oral route 2 times per day Discontinued Name Start Date Discontinued Date SIG Comments Bisacodyl Rectal Suppository 10 mg 08/24/2009 11/05/2012 insert 1 suppository (10 mg) by rectal route once daily Cipro Oral Tablet 500 mg 11/05/2012 take 1 tablet (500 mg) by oral route 2 times per day for 7 days baclofen Oral tablet 20 mg 11/05/2012 11/05/2012 Take 1 tablet TID Triaoluance 06/05/2014 1 [facility]aneous [facility] units 06/05/2014 BID NovoFine 30 Miscellaneous Needle 30 x 09/27 " 06/05/2014 use as directed metronidazole Oral tablet 500 mg 06/05/2014 betamethasone dipropionate topical cream 0.05 % 04/01/2013 06/05/2014 apply a thin layer to the affected area(s) by topical route 2 times per day Lanoxin oral .25 08/27/2013 06/25/2014 Take 1 tablet in am warfarin oral tablet 4 mg 01/28/2014 06/25/2014 TAKE 1 TABLET BY MOUTH ONCE DAILY metoclopramide HCl oral tablet 10 mg 04/07/2014 06/25/2014 TAKE 1 TABLET BY MOUTH TWICE DAILY Metoclopramide oral 10 mg 06/30/2014 09/10/2014 Take 1 tablet BID, 1 in am and 1 in pm Problem List Description Status Onset Atrial Fibrillation Active Diabetes Mellitus, Type II Active Chronic UTI's Active Hemorrhoids, External Active Kidney Stones Active Vital Signs Date Time BP-Sys(mm[Hg] BP-Angelita(mm[Hg]) HR(bpm) RR(rpm) Temp WT HT HC BMI BSA BMI Percentile O2 Sat(%) 12/23/2014 9:10:00 AM 230 lbs 72 in [...] of Procedures Date Ordered Description Order Status 11/05/2012 12:00 AM COMPLETE CBC W/AUTO DIFF [...] 11/28/2012 12:00 AM ASSAY OF FERRITIN Returned 07/09/2013 12:00 AM THER/PROPH/DIAG INJ SC/IM Reviewed 12/26/2013 12:00 AM LIPID PANEL Reviewed [...] W/AUTO DIFF WBC Returned 12/03/2014 12:00 AM PROTHROMBIN TIME Returned 12/03/2014 12:00 AM ASSAY THYROID STIM HORMONE Returned 12/12/2014 12:00 AM ASSAY THYROID STIM HORMONE Returned Results Summary Data and Description Results [...] mg/dLLDL ( CALC) 75.0 mg/dLHGB A1C <4.0 %DIGOXIN 0.0120 ng/mLHGB A1C <4.0 % 04/23/2013 4:51 PM COLOR STRAW APPEARANCE HAZY [...] 37.0 mg/dLLDL (CALC) 86.0 mg/dLHGB A1C 5.10 % 01/08/2014 2:39 PM PROTIME 31.0 secsINR 2.9 [...] CALC) 83.0 mg/dLTSH 8.030 uIU/mLHGB A1C 6.30 % 06/20/2014 2:40 PM COLOR YELLOW APPEARANCE HAZY [...] 30.0 mg/dLLDL (CALC) 78.0 mg/dLHGB A1C <4.0 % 10/02/2014 4:10 PM COLOR STRAW APPEARANCE CLEAR [...] PROTIME 23.60 secsINR 2.3 TSH 6.310 uIU/mL History Of Immunizations Name Date Admin Mf Name Mfg Code Trade Name Lot# Route Inj Vis Given Vis Pub CVX Influenza 07/03/2013 sanofi pasteur PMC Fluzone > 3 Years [id number] Intramuscular Right Deltoid 07/03/2013 04/19/2013 141 History [...] urinary tract infection) Jan 19 2015 9:13AM Payers Insurance Name Company Name Plan Name Plan Number Policy Number Policy Group Number Start Date Medicare Part B Medicare Of [place] [id number] May [facility] [id number] Tuesday, 2012 [facility] [id number] N/A [place] [facility] [place] [facility] [place] [facility]g [id number] May Medicare Part A Medicare Part A [id number] Sunday, 1989 History of Encounters Visit Date Visit Type Provider 12/23/2014 Office visit Shari Correia MD 12/11/2014 Office visit Rhonda Tejada MD 09/10/2014 Office visit Rhonda Tejada MD 06/25/2014 Office visit Rhonda Tejada MD 06/11/2014 Office visit Rhonda Tejada MD 04/10/2014 [facility] Sidnye Shin MD 04/08/2014 [facility] Jamaica Martin MD 03/18/2014 Office visit Nicholas Bonilla APRN 12/26/2013 Office visit Rhonda Tejada MD 12/12/2013 [facility] Carolyn Mercado MD 12/08/2013 [facility] Joan Sherman MD 12/06/2013 [facility] Jamaica Martin MD 10/08/2013 Office visit Rhonda Tejada MD 08/01/2013 Office visit Jovanna Kapadia MD 08/01/2013 Office visit Austin Reyez DO 07/13/2013 [facility] Austin Reyez DO 07/10/2013 [facility] Austin Reyez DO 07/09/2013 Office visit Jovanna Kapadia MD 07/09/2013 [facility] Austin Reyez DO 07/03/2013 Office visit Jovanna Kapadia MD 04/22/2013 Office visit Jasmyne Del Rosario EMERGENCY ROOM DOCTOR 04/01/2013 Office visit Jovanna Kapadia MD 12/31/2012 Office visit Jovanna Kapadia MD 11/29/2012 Office visit Jovanna Kapadia MD 11/05/2012 Office visit Jasmyne Del Rosario EMERGENCY ROOM DOCTOR 11/30/2011 Hospital Carolyn Mercado MD 08/12/2011 Hospital Carolyn Mercado MD 06/29/2011 [facility] Carolyn Mercado MD 03/20/2011 Hospital Carolyn Mercado MD 05/01/2010 Laboratory Jose Luis Stinson MD 04/28/2010 Laboratory Jose Luis Stinson MD 11/20/2009 [facility] Jose Luis Stinson MD 2009 [facility] Jose Luis Stinson MD 11/17/2009 [facility] Jose Luis Stinson MD 11/16/2009 [facility] Suha Ray MD 11/15/2009 [facility] Suha Ray MD 09/02/2009 Laboratory Richar Jeong MD 08/14/2009 Laboratory Richar Jeong MD 07/21/2009 Laboratory Richar Jeong MD 07/20/2009 Office visit Richar Jeong MD 07/17/2009 Laboratory Richar Jeong MD 06/26/2009 Laboratory Richar Jeong MD 06/19/2009 Laboratory Richar Jeong MD 06/04/2009 Laboratory Richar Jeong MD 05/18/2009 Voided Jose Luis Stinson MD 05/18/2009 Laboratory Jose Luis Stinson MD
--- OUTSIDE RECORDS SUMMARY | 2017-10-22 06:58 | XMS REPORT | CCD ---
Author Author JB KNIGHT Unknown Address [address] [place], [place] [address] Care Team Providers Care Wheat Washer Name Role Phone BANKS, RAMESH DO Attphys BANKS, RAMESH DO Prisurg Vital Signs Unknown or Not Available. Allergies Allergy Code Allergy Type Reaction Status MACROBID [id number] Drug allergy Active AMOXICILLIN AND CLAVULANATE POTASSIUM 73939 Drug allergy HIVES Active Procedures Procedure Code Procedure Type Date ^CULTURE AEROBIC ID [id number] SNOMED CT 04/29/2016 ^CULTURE URINE IDENTIFICATION [id number] SNOMED CT 2015 ^UA WITH MICRO [id number] SNOMED CT 04/29/2016 CULTURE URINE 352098566 SNOMED CT 04/29/2016 UA ROUTINE C&S IF IND [id number] SNOMED CT 04/29/2016 History of Immunizations Immunization Code Date influenza, split (incl. purified surface antigen) 15 08/14/2006 pneumococcal polysaccharide PPV23 33 08/19/2011 pneumococcal, unspecified formulation 109 03/30/2016 Influenza, seasonal, injectable 141 06/25/2012 Problems Problem Code Start Date Resolved Date Status Septic shock 06133365 Active Quadraplegia 40059306 Active Severe sepsis with septic shock 03072030 04/29/2016 Active Results UA ROUTINE C&S IF IND - Collect Date/Time: 04/29/2016 17:30 Test Name Code Test Result Test Units Test Ref Range COLOR RED N/A NL: YELLOW APPEARANCE CLOUDY N/A NL: CLEAR SPEC GRAV 1.020 N/A NL: 1.002 - 1.022 pH 6.5 N/A NL: 5 - 9 PROTEIN >=300 N/A NL: NEGATIVE mg/dl GLUCOSE NEGATIVE N/A NL: NEGATIVE mg/dl KETONE NEGATIVE N/A NL: NEGATIVE mg/dl BILIRUBIN NEGATIVE N/A NL: NEGATIVE BLOOD LARGE N/A NL: NEGATIVE NITRITE NEGATIVE N/A NL: NEGATIVE LEUK SCREEN MODERATE N/A NL: NEGATIVE MICRO INDICATED? SEE BELOW N/A WBC/HPF 50-100 N/A NL: NEGATIVE RBC/HPF 100-200 N/A NL: NEGATIVE CASTS/LPF NEGATIVE N/A NL: NEGATIVE CRYSTALS NEGATIVE N/A NL: NEGATIVE MUCOUS THRDS NEGATIVE N/A NL: NEGATIVE BACTERIA 1+ N/A NL: NEGATIVE EPITH CELLS NEGATIVE N/A NL: NEGATIVE TRICHOMONAS NEGATIVE N/A NL: NEGATIVE YEAST NEGATIVE N/A NL: NEGATIVE CULT SET UP? YES N/A Active Medications Medication Code Dose Units Frequency Route Modification Start Date/Time Pravastatin Sodium 20MG Oral Tablet [id number] 20 MILLIGRAMS DAILY ORAL 05/12/2016 12:29 Prescription Detail 20 MILLIGRAMS ORAL DAILY Senna-Time S 50MG-8.6MG Oral Tablet 139390 2 EACH TWO TIMES A DAY BY MOUTH 05/12/2016 11:18 Prescription Detail 2 EACH BY MOUTH TWO TIMES A DAY FOR CONSTIPATION Ferrex 150 Forte [id number] Oral Capsule [id number] 150 MILLIGRAMS DAILY BY MOUTH 05/12/2016 11:17 Prescription Detail 150 MILLIGRAMS BY MOUTH DAILY FOR IRON DEFICIENCY ANEMIA Magnesium Oxide 400MG Oral Tablet [id number] 400 MILLIGRAMS DAILY BY MOUTH 05/12/2016 11:17 Prescription Detail 400 MILLIGRAMS BY MOUTH DAILY FOR SUPPLEMENT/LOW MAGNESIUM Mapap Extra Strength 500MG Oral Tablet [id number] 500-1000 MILLIGRAMS NEEDED EVERY 6 HR BY MOUTH 2015 11:17 Prescription Detail 500-1000 MILLIGRAMS BY MOUTH NEEDED EVERY 6 HR Albuterol Sulfate 0.083% Inhalation Solution 637757 1 EACH EVERY 4 HOURS INHALATION 10/13/2015 12:41 Prescription Detail 1 EACH INHALATION EVERY 4 HOURS Aspirin 81MG Oral Tablet, Enteric Coated 558090 81 MILLIGRAMS DAILY ORAL 10/13/2015 12:41 Prescription Detail 81 MILLIGRAMS ORAL DAILY Baclofen 20MG Oral Tablet [id number] 20 MILLIGRAMS THREE TIMES A DAY ORAL 10/13/2015 12:41 Prescription Detail 20 MILLIGRAMS ORAL THREE TIMES A DAY [facility] Fiber Therapy 500 MG Oral Tablet [id number] 500 MG DAILY ORAL 10/13/2015 12:41 Prescription Detail 500 MG ORAL DAILY Januvia 100MG Oral Tablet 375839 100 MILLIGRAMS DAILY ORAL 10/13/2015 12:41 Prescription Detail 100 MILLIGRAMS ORAL DAILY Levemir 100U/1ML Subcutaneous Solution 095096 10 UNIT DAILY SUBCUTANEOUS 10/13/2015 12:41 Prescription Detail 10 UNIT SUBCUTANEOUS DAILY Levothyroxine 25MCG Oral Tablet 160018 50 MCG DAILY ORAL 10/13/2015 12:41 Prescription Detail 50 MCG ORAL DAILY metFORMIN HCl 500MG Oral Tablet 051778 3516 MILLIGRAMS TWO TIMES A DAY ORAL 10/13/2015 12:41 Prescription Detail 1000 MILLIGRAMS ORAL TWO TIMES A DAY Mucinex 600MG Oral Tablet, Extended Release [id number] 600 MILLIGRAMS TWO TIMES A DAY ORAL 10/13/2015 12:41 Prescription Detail 600 MILLIGRAMS ORAL TWO TIMES A DAY NovoLOG 100U/1ML Subcutaneous Solution 072085 1 EACH s..s. with meals SUBCUTANEOUS 10/13/2015 12:41 Prescription Detail 1 EACH SUBCUTANEOUS s..s. with meals Pepcid 20MG Oral Tablet 428077 20 MILLIGRAMS TWO TIMES A DAY ORAL 10/13/2015 12:41 Prescription Detail 20 MILLIGRAMS ORAL TWO TIMES A DAY Vitamin Oral Tablet [id number] 1 EACH DAILY ORAL 10/13/2015 12:41 Prescription Detail 1 EACH ORAL DAILY Xarelto 20MG Oral Tablet [id number] 20 MILLIGRAMS DAILY ORAL 10/13/2015 12:41 Prescription Detail 20 MILLIGRAMS ORAL DAILY Celexa 20MG Oral Tablet 750387 20 MILLIGRAMS DAILY ORAL 04/10/2014 13:46 Prescription Detail 20 MILLIGRAMS ORAL DAILY Medications Administered During Visit Unknown or Not Available. Encounters Encounter Diagnosis Diagnosis Code Start Date Hematuria, unspecified R319 04/29/2016 Social History Smoking Status Code Start Date End Date Never smoker [id number] Patient Decision Aids Unknown or Not Available. Discharge Instructions You were admitted to [facility] on 04/29/2016 16:10 with a principal diagnosis of Hematuria, unspecified You had the following tests done: UA ROUTINE C&S IF IND You were discharged from [facility] on 04/29/2016 18:42 Should you have any questions prior to discharge, please contact a member of your healthcare team. If you have left the hospital and have any questions, please contact your primary care physician. Chief Complaint and Reason For Visit Chief Complaint Date of Onset BP PROBLEM Function Status Unknown or Not Available. Plan of Care Unknown or Not Available. Referral/Transition of Care Unknown or Not Available.
--- OUTSIDE RECORDS SUMMARY | 2017-10-22 06:58 | XMS REPORT ---
Author Author Nicholas Bonilla [facility] Address [address] [place], [place] [address] Care Team Providers Care Legal Secretary Name Role Phone Nicholas Bonilla PCP Strides, Independent Unavailable Unavailable Allergies and Adverse Reactions Name Reaction Notes amoxicillin Plan of Treatment Planned Activity Comments Planned Date Planned Time Plan/Goal COMPLETE CBC W/AUTO DIFF WBC 12/23/2015 12:00 AM COMPREHEN METABOLIC PANEL 12/23/2015 12:00 AM GLYCOSYLATED HEMOGLOBIN TEST 12/23/2015 12:00 AM VITAMIN [...] 10/08/2015 TAKE 1 TABLET BY MOUTH DAILY pravastatin 20 mg oral tablet 10/08/2015 TAKE 1 TABLET BY MOUTH ONCE DAILY AT BEDTIME metoclopramide HCl 10 mg oral tablet 10/14/2015 [...] 09/28" miscellaneous needle 2015 USE DIRECTED WITH [employer] FLEXPEN Ceftin 250 mg oral tablet 12/18/2015 12/25/2015 take 1 tablet (250 mg) by oral route every 12 hours for 7 days Name Start Date Expiration Date SIG Comments warfarin 3 mg oral tablet 03/22/2010 04/21/2010 TAKE 1 TABLET BY MOUTH DAILY zolpidem 10 mg oral tablet 04/26/2010 08/24/2010 TAKE 1 TABLET BY MOUTH AT BEDTIME NEEDED FOR INSOMNIA potassium chloride 20 mEq oral tablet,ER particles/crystals 12/26/2010 5/3/ 2011 TAKE 1 TABLET BY MOUTH EVERY DAY [...] 1 tablet TID Triaoluance 06/05/2014 1 at [facility] subqutaneous 20 units 06/05/2014 BID NovoFine 30 30 gauge x /3" miscellaneous needle 06/05/2014 use as directed metronidazole [...] HC BMI BSA BMI Percentile O2 Sat(%) 12/18/2015 10:55:00 AM 100 mmHg 70 mmHg [...] AM Flu Injection 3 Years And Above [facility]# [id number] RHC Reviewed 07/09/2013 12:00 AM THER/PROPH/DIAG INJ SC/IM Reviewed 07/09/2013 12:00 AM Toradol 30 Mg [facility]#[id number] Reviewed 12/26/2013 12:00 AM LIPID PANEL Reviewed [...] mg/dLCREATININE 0.70 mg/dLCALCIUM 9.20 mg/dLeGFR >60 mL/min/1.73m History Of Immunizations Name Date Admin Mfg Name Mfg Code Trade Name Lot# Route Inj Vis Given Vis Pub CVX Influenza 07/03/2013 sanofi pasteur PMC Fluzone > 3 Years [id number] Intramuscular Right Deltoid 07/03/2013 04/19/2013 141 History [...] normal ventricular rate Oct 05 2015 3:43PM Payers Insurance Name Company Name Plan Name Plan Number Policy Number Policy Group Number Start Date Medicare Part B Medicare Of [place] [id number] May [facility] [id number] N/A [place] Medical Assistance Program [place] Medical [place] Pro [id number] May Medicare Part A Medicare Part A [id number] Sunday, 1989 [facility] [id number] Tuesday, 2012 History of Encounters Visit Date Visit Type Provider 12/18/2015 Office visit Nicholas Bonilla APRN 10/20/2015 Office visit Sidney Shin MD 10/10/2015 [facility] Yonny Rivera MD 10/05/2015 Office visit Rhonda Tejada MD 08/31/2015 Office visit Rhonda Tejada MD 06/09/2015 [facility] Austin Reyez DO 06/08/2015 [facility] Austin Reyez DO 06/08/2015 [facility] Austin Reyez DO 06/05/[address] Kev Shane MD 06/03/2015 Office visit Jasmyne Del Rosario TIRE DESIGN ENGINEER 03/16/2015 Office visit Rhonda Tejada MD 12/23/2014 Office visit Shari Correia MD 12/11/2014 Office visit Rhonda Tejada MD 09/10/2014 Office visit Rhonda Tejada MD 06/25/2014 Office visit Rhonda Tejada MD 06/11/2014 Office visit Rhonda Tejada MD 04/10/2014 [facility] Sidney Shin MD 04/08/2014 [facility] Jamaica Martin MD 03/18/2014 Office visit Nicholas Bonilla TIRE DESIGN ENGINEER 12/26/2013 Office visit Rhonda Tejada MD 12/12/2013 [facility] Carolyn Mercado MD 12/08/2013 [facility] Joan Sherman MD 12/06/2013 [facility] Jamaica Martin MD 10/08/2013 Office visit Rhonda Tejada MD 08/01/2013 Office visit Austin Reyez DO 08/01/2013 Office visit Jovanna Kapadia MD 07/13/2013 [facility] DO 07/10/2013 [facility] DO 07/09/2013 Office visit Jovanna Kapadia MD 07/09/2013 [facility] DO 07/03/2013 Office visit Jovanna Kapadia MD 04/22/2013 Office visit Jasmyne Del Rosario TIRE DESIGN ENGINEER 04/01/2013 Office visit Jovanna Kapadia MD 12/31/2012 Office visit Jovanna Kapadia MD 11/29/2012 Office visit Jovanna Kapadia MD 11/05/2012 Office visit Jasmyne Del Rosario TIRE DESIGN ENGINEER 11/30/2011 [facility] Carolyn Mercado MD 08/12/2011 [facility] Carolyn Mercado MD 06/29/2011 Hospital Carolyn Mercado MD 03/20/2011 [facility] Carolyn Mercado MD 05/01/2010 Laboratory Jose Luis Stinson MD 04/28/2010 Laboratory Jose Luis Stinson MD 11/20/2009 [facility] Jose Luis Stinson MD 2009 [facility] Jose Luis Stinson MD 11/17/2009 Hospital Jose Luis Stinson MD 11/16/2009 [facility] Suha Ray MD 11/15/2009 [facility] Suha Ray MD 09/02/2009 Laboratory [...]
--- OUTSIDE RECORDS SUMMARY | 2017-10-22 07:02 | XMS REPORT ---
Author Author Rhonda Tejada [facility] Address [address] [place], [place] [address] Care Team Providers Care Land Surveyor Assistant Name Role Phone Rhonda Tejada PCP Strides, [...] 09/28" miscellaneous needle 2015 USE DIRECTED WITH [employer] FLEXPEN baclofen 20 mg oral tablet 03/31/2016 [...] solution inject by subcutaneous 10 units daily [facility] CONTOUR TEST STRIPS one box [...] BY MOUTH TWICE DAILY for 30 days pravastatin 20 mg oral tablet 10/31/2016 TAKE [...] 30 minutes before meals and at bedtime Name Start Date Expiration Date SIG Comments [...] by nebulization route 4 for 30 days Cipro 500 mg oral [...] mg) by oral route every 12 hours citalopram 20 mg oral tablet 10/31/2016 12/21/2016 [...] HC BMI BSA BMI Percentile O2 Sat(%) 12/21/2016 2:19:00 PM 82 bpm 16 rpm [...] 12:00 AM X-RAY EXAM OF ABDOMEN Reviewed 11/05/2012 12:00 AM COMPLETE CBC W/AUTO DIFF [...] AM Flu Injection 3 Years And Above [facility]# [id number] RHC Reviewed 07/09/2013 12:00 AM THER/PROPH/DIAG INJ SC/IM Reviewed 07/09/2013 12:00 AM Toradol 30 Mg [facility]#[id number] Reviewed 12/26/2013 12:00 AM LIPID PANEL Reviewed [...] sanofi pasteur PMC Fluzone > 3 Years [id number] Intramuscular Right Deltoid 07/03/2013 04/19/2013 141 Pneumococcal [...] 2:23PM Neurogenic bladder Dec 21 2016 2:23PM Payers Insurance Name Company Name Plan Name Plan Number Policy Number Policy Group Number Start Date Medicare RHC Medicare RHC [id number] N/A [facility] [id number] Tuesday, 2012 [facility] [id number] N/A Medicare Part A Medicare - Lab/Xray [id number] Sunday, [birth year] 1989 Medicare Part B Medicare Of [place] [id number] May [place] Medical Assistance [facility] Pro [id number] May Medicare Part A Medicare Part A [id number] Sunday, [birth year] 25[birth year] 1989 History of Encounters Visit Date Visit Type Provider 12/21/2016 Office visit Rhonda Tejada MD 12/17/2016 [facility] Gonzalez Mattson MD 12/15/2016 [facility] Austin Reyez DO 12/09/2016 Office visit Shari Correia MD 08/31/2016 Office visit Rhonda Tejada MD 05/19/2016 Office visit Rhonda Tejada MD 05/11/2016 Hospital Carolyn Mercado MD 04/29/2016 [facility] Shahram Morrow DO 04/29/2016 [facility] Carolyn Mercado MD 04/29/2016 [facility] Carolyn Mercado MD 04/26/2016 Procedures Austin Bouman DO 03/29/2016 Office visit Rhonda Tejada MD 12/24/2015 Office visit Nicholas Bonilla [employer] 12/18/2015 Office visit Nicholas Bonilla APRN 10/20/2015 Office visit Sidney Shin MD 10/10/2015 [facility] Yonny Rivera MD 10/05/2015 Office visit Rhonda Tejada MD 08/31/2015 Office visit Rhonda Tejada MD 06/09/2015 Hospital Austin Bouman DO 06/08/2015 Hospital Austin Bouman DO 06/08/2015 Hospital Austin Bouman DO 06/05/[address] Kev Shane MD 06/03/2015 Office visit Jasmyne Del Rosario [employer] 03/16/2015 Office visit Rhonda Tejada MD 12/23/2014 Office visit Shari Correia MD 12/11/2014 Office visit Rhonda Tejada MD 09/10/2014 Office visit Rhonda Tejada MD 06/25/2014 Office visit Rhonda Tejada MD 06/11/2014 Office visit Rhonda Tejada MD 04/10/2014 [facility] Sidney Shin MD 04/08/2014 [facility] Jamaica Martin MD 03/18/2014 Office visit Nicholas Bonlila APRN 12/26/2013 Office visit Rhonda Tejada MD 12/12/2013 [facility] Carolyn Mercado MD 12/08/2013 [facility] Joan Sherman [facility]06[facility]2013 [facility]2013 Office visit Rhonda Tejada MD 08/01/2013 Office visit Austin Racheljosefa DO 08/01/2013 Office visit Jovanna Kapadia MD 07/13/2013 Hospital Austin Bouman DO 07/10/2013 Hospital Austin Bouman DO 07/09/2013 Office visit Jovanna Kapadia MD 07/09/2013 Hospital Austin Bouman DO 07/03/2013 Office visit Jovanna Kapadia MD 04/22/2013 Office visit Jasmyne Del Rosario [employer] 04/01/2013 Office visit Jovanna Kapadia MD 12/31/2012 Office visit Jovanna Kapadia MD 11/29/2012 Office visit Jovanna Kapadia MD 11/05/2012 Office visit Jasmyne Del Rosario [employer] 11/30/2011 [facility] Carolyn Mercado MD 08/12/2011 [facility] Carolyn Mercado MD 06/29/2011 [facility] Carolyn Mercado MD 03/20/2011 [facility] Carolyn Mercado MD 05/01/2010 Laboratory Jose Luis Stinson MD 04/28/2010 Laboratory Jose Luis Stinson MD 11/20/2009 [facility] Jose Luis Stinson MD 2009 [facility] Jose Luis Stinson MD 11/17/2009 [facility] Jose Luis Stinson MD 11/16/2009 [facility] Suha Ray MD 11/15/2009 [facility] Suha Ray MD 09/02/2009 Laboratory Rich[facility] [...]
--- OUTSIDE RECORDS SUMMARY | 2017-10-22 07:04 | XMS REPORT ---
Author Author Rhonda Tejada Organization [facility] Address [address] [place], [place] [address] Care Team Providers Care Plate Gauger Name Role Phone Rhonda Tejada PCP Strides, [...] 09/28" miscellaneous needle 2015 USE DIRECTED WITH [employer] Partners[employer] baclofen 20 mg oral tablet 03/31/2016 TAKE [...] 12/19/2017 Blood sugar checks TID. Dx: E11.9 Name Start Date Expiration Date SIG Comments [...] tablet TID Triaoluance 06/05/2014 [facility] units 06/05/2014 BID NovoFine [...] HC BMI BSA BMI Percentile O2 Sat(%) 05/19/2016 4:28:00 PM 124 mmHg 68 mmHg [...] AM Flu Injection 3 Years And Above [facility]# [id number] RHC Reviewed 07/09/2013 12:00 AM THER/PROPH/DIAG INJ SC/IM Reviewed 07/09/2013 12:00 AM Toradol 30 Mg [facility]#[id number] Reviewed 12/26/2013 12:00 AM LIPID PANEL Reviewed [...] 155.0 mg/dLHDL 36.0 mg/dLLDL ( CALC) 75.0 mg/dLEst Avg Glucose 68.1 mg/dLDIGOXIN 0.0120 ng/mLEst Avg Glucose 68.1 mg/dL 04/23/2013 4:51 PM [...] dLCHOLESTEROL 170.0 mg/dLHDL 37.0 mg/dLLDL (CALC) 86.0 mg/dLEst Avg Glucose 99.7 mg/dL 01/08/2014 2:39 PM [...] 35.0 mg/dLLDL ( CALC) 83.0 mg/dLTSH 8.030 uIU/mLEst Avg Glucose 134.1 mg/dL 06/20/2014 2:40 PM [...] mg/dLCHOLESTEROL 163.0 mg/dLHDL 30.0 mg/dLLDL (CALC) 78.0 mg/dLEst Avg Glucose 68.1 mg/dL 10/02/2014 4:10 PM [...] EPITH CELLS NEGATIVE /HPFTRICHOMONAS NEGATIVE YEAST NEGATIVE 10/10/2015 5:50 AM GLUCOSE 124.0 mg/dLSODIUM 139.0 [...] CELLS NEGATIVE / HPFTRICHOMONAS NEGATIVE YEAST NEGATIVE 03/23/2016 6:50 AM WBC 8.4 RBC 4.55 HGB 10.0 g/dLHCT 33.40 %MCV 73.0 fLMCH 22.0 pgMCHC 29.90 g/dLRDW CV 19.20 %MPV 8.70 fLPLT 367 GLUCOSE 186.0 mg/ dLSODIUM 134.0 mmol/LPOTASSIUM 3.80 mmol/LCHLORIDE 95.0 mmol/LCO2 28.0 mmol/ LBUN 24.0 mg/dLCREATININE 0.50 mg/dLSGOT/AST 21.0 IU/LSGPT/ALT 28.0 IU/LALK PHOS 172.0 IU/LTOTAL PROTEIN 8.20 g/dLALBUMIN 3.40 g/dLTOTAL BILI 0.30 mg/ dLCALCIUM 9.80 mg/dLeGFR >60 mL/min/1.73mTRIGLYCERIDES 185.0 mg/dLCHOLESTEROL 153.0 mg/dLHDL 21.0 mg/dLLDL (CALC) 95.0 mg/dLMAGNESIUM 2.0 mg/dLPREALBUMIN 22.0 mg/dLTSH 6.910 uIU/mL 03/30/2016 6:35 AM GLUCOSE 149.0 mg/dLSODIUM 136.0 mmol/LPOTASSIUM 4.30 mmol/ LCHLORIDE 97.0 mmol/LCO2 27.0 mmol/LBUN 21.0 mg/dLCREATININE 0.50 mg/dLSGOT/AST 18.0 IU/LSGPT/ALT 25.0 IU/LALK PHOS 164.0 IU/LTOTAL PROTEIN 7.70 g/dLALBUMIN 3.40 g/dLTOTAL BILI 0.20 mg/dLCALCIUM 9.70 mg/dLeGFR >60 mL/min/1.73mWBC 9.4 RBC 4.57 HGB 10.10 g/dLHCT 34.70 %MCV 76.0 fLMCH 22.10 pgMCHC 29.10 g/dLRDW CV 18.90 %MPV 8.90 fLPLT 451 05/18/2016 6:35 AM GLUCOSE 100.0 mg/dLSODIUM 135.0 mmol/LPOTASSIUM 4.40 mmol/ LCHLORIDE 104.0 mmol/LCO2 18.0 mmol/LBUN 23.0 mg/dLCREATININE 0.60 mg/dLSGOT/ AST 18.0 IU/LSGPT/ALT 16.0 IU/LALK PHOS 118.0 IU/LTOTAL PROTEIN 7.60 g/ dLALBUMIN 3.90 g/dLTOTAL BILI 0.40 mg/dLCALCIUM 9.50 mg/dLeGFR >60 mL/min/1.73m MAGNESIUM 1.80 mg/dLPHOSPHORUS 3.70 mg/dLWBC 7.4 RBC 5.22 HGB 11.40 g/dLHCT 39.30 %MCV 75.0 fLMCH 21.80 pgMCHC 29.0 g/dLRDW CV 18.80 %MPV 9.40 fLPLT 341 % NEUT 59.0 %%LYMP 28.90 %%MONO 8.60 %%EOS 2.40 %%BASO 0.70 %#NEUT 4.38 #LYMP 2.15 #MONO 0.64 #EOS 0.18 #BASO 0.05 EOS 2.0 %BASO 1.0 % 05/19/2016 4:02 PM MAGNESIUM 1.70 mg/dLGLUCOSE 120.0 mg/dLSODIUM 135.0 mmol/ LPOTASSIUM 4.10 mmol/LCHLORIDE 100.0 mmol/LCO2 22.0 mmol/LBUN 17.0 mg/ dLCREATININE 0.60 mg/dLSGOT/AST 17.0 IU/LSGPT/ALT 20.0 IU/LALK PHOS 148.0 IU/ LTOTAL PROTEIN 9.0 g/dLALBUMIN 4.50 g/dLTOTAL BILI 0.40 mg/dLCALCIUM 9.90 mg/ dLeGFR >60 mL/min/1.73m History Of Immunizations Name Date Admin Mfg Name Mfg Code Trade Name Lot# Route Inj Vis Given Vis Pub CVX Influenza 07/03/2013 sanofi pasteur PMC Fluzone > 3 Years [id number] Intramuscular Right Deltoid 07/03/2013 04/19/2013 141 History [...] at T4 level May 19 2016 4:32PM Chronic hypoxemic respiratory failure May 19 2016 4:32PM History of Gram positive sepsis May 19 2016 4:32PM Iron (Fe) deficiency anemia May 19 2016 4:32PM Nonhealing nonsurgical wound May 19 2016 4:32PM Payers Insurance Name Company Name Plan Name Plan Number Policy Number Policy Group Number Start Date Medicare Part A Medicare RHC [id number] N/A [facility] [id number] N/A Medicare Part A Medicare - Lab/Xray [id number] Sunday, June 25, 1989 Medicare Part B Medicare Of [place] [id number] May [place] Medical Assistance [facility] Medical Assistance Prog [id number] May Medicare Part A Medicare Part A [id number] Sunday, June 25, 1989 [facility] [id number] Tuesday, September 25, 2012 History of Encounters Visit Date Visit Type Provider 05/19/2016 Office visit Rhonda Tejada MD 05/11/2016 Hospital Carolyn Mercado MD 04/29/2016 [facility] Shahram Morrow DO 04/29/2016 [facility] Carolyn Mrecado MD 04/29/2016 [facility] Carolyn Mercado MD 04/26/2016 Procedures Austin Reyez DO 03/29/2016 Office visit Rhonda Tejada MD 12/24/2015 Office visit Nicholas Bonilla APRN 12/18/2015 Office visit Nicholas Bonilla APRN 10/20/2015 Office visit Sidney Shin MD 10/10/2015 [facility] Yonny Rivera MD 10/05/2015 Office visit Rhonda Tejada MD 08/31/2015 Office visit Rhonda Tejada MD 06/09/2015 [facility] 06/08/2015 [facility] 06/08/2015 [facility] 06/05/[address] Kev Shane MD 06/03/2015 Office visit Jasmyne Del Rosario APRN 03/16/2015 Office visit Rhonda Tejada MD 12/23/2014 Office visit Shari Correia MD 12/11/2014 Office visit Rhonda Tejada MD 09/10/2014 Office visit Rhonda Tejada MD 06/25/2014 Office visit Rhonda Tejada MD 06/11/2014 Office visit Rhonda Tejada MD 04/10/2014 [facility] Sidney Shin MD 04/08/2014 [facility] Jamaica Martin MD 03/18/2014 Office visit Nicholas Bonilla APRN 12/26/2013 Office visit Rhonda Tejada MD 12/12/2013 [facility] Carolyn Mercado MD 12/08/2013 [facility] Joan Sherman MD 12/06/2013 [facility] [place] Veronica HYDE 10/08/2013 Office visit Rhonda Tejada MD 08/01/2013 Office visit Austin Reyez DO 08/01/2013 Office visit Jovanna Kapadia MD 07/13/2013 Hospital Austin Reyez DO 07/10/2013 Hospital Austin Reyez DO 07/09/2013 Office visit Jovanna Kapadia MD 07/09/2013 Hospital Austin Reyez DO 07/03/2013 Office visit Jovanna Kapadia MD 04/22/2013 Office visit Jasmyne Del Rosario HAND BRIM IRONER 04/01/2013 Office visit Jovanna Kapadia MD 12/31/2012 Office visit Jovanna Kapadia MD 11/29/2012 Office visit Jovanna Kapadia MD 11/05/2012 Office visit Jasmyne Del Rosario HAND BRIM IRONER 11/30/2011 [facility] Carolyn Mercado MD 08/12/2011 [facility] Carolyn Mercado MD 06/29/2011 [facility] Carolyn Mercado MD 03/20/2011 [facility] Carolyn Mercado MD 05/01/2010 Laboratory Jose Luis Stinson MD 04/28/2010 Laboratory Jose Luis Stinson MD 11/20/2009 [facility] Jose Luis Stinson MD 2009 [facility] Jose Luis Stinson MD 11/17/2009 [facility] Jose Luis Stinson MD 11/16/2009 [facility] Suha Ray MD 11/15/2009 [facility] Suha Ray MD 09/02/2009 Laboratory [...]
--- OUTSIDE RECORDS SUMMARY | 2017-10-22 07:08 | XMS REPORT ---
Author Author Rhonda Tejada Organization [facility] Address [address] [place], [place] [id number] Care Team Providers Care Enrollment Management Vice President Name Role Phone Rhonda Tejada PCP Strides, Independent Unavailable Unavailable Allergies and Adverse Reactions Name Reaction Notes amoxicillin nitrofurantoin Plan of Treatment Planned Activity Comments Planned Date Planned Time Plan/Goal Hemoglobin A1C 12/23/2015 12:00 AM Vitamin B12 12/23/2015 12:00 AM TSH 12/23/2015 12:00 AM T4, Free 12/23/2015 12:00 AM CBC with Auto 03/13/2017 12:00 AM CMP (comprehensive metabolic panel) 03/13/2017 12:00 AM Hemoglobin A1C 03/13/2017 12:00 AM Lipid profile 03/13/2017 12:00 AM Microalbuminuria 03/13/2017 12:00 AM Thyroid stimulating hormone (TSH) 03/13/2017 12:00 AM Basic metabolic profile 03/16/2015 12:00 [...] TWICE DAILY Unifine Pentips 31 gauge x 1/4" miscellaneous needle 2015 USE DIRECTED WITH [email or web address] baclofen 20 mg oral tablet 03/31/2016 TAKE [...] 01/31/2017 TAKE 1 TABLET BY MOUTH DAILY Name [...] 30 days Unifine Pentips 31 gauge x 1/4" miscellaneous needle 10/10/2014 10/05/2015 USE DIRECTED WITH [...] 1 tablet TID Triaoluance 06/05/2014 1 at on [facility] subqutaneous 20 units 06/05/2014 BID NovoFine [...] mg) by oral route every 12 hours ASCENSIA CONTOUR TEST STRIPS one box 06/27/2016 [...] AM Flu Injection 3 Years And Above [facility]# [id number] RHC Reviewed 07/09/2013 12:00 AM THER/PROPH/DIAG INJ SC/IM Reviewed 07/09/2013 12:00 AM Toradol 30 Mg [facility]#[id number] Reviewed 12/26/2013 12:00 AM LIPID PANEL Reviewed [...] Reviewed Results Summary Date and Description Results 08/14/2009 9:26 AM PT [...] sanofi pasteur PMC Fluzone > 3 Years [id number] Intramuscular Right Deltoid 07/03/2013 04/19/2013 141 Pneumococcal [...] 9:20AM Hypothyroidism, Acquired Mar 13 2017 9:20AM Payers Insurance Name Company Name Plan Name Plan Number Policy Number Policy Group Number Start Date Medicare [facility] Medicare [facility] [id number] N/A [facility] [id number] Tuesday, 2012 [facility] [id number] N/A Medicare Part A Medicare - Lab/Xray [id number] Sunday, June [birth year] 1989 Medicare Part B Medicare Of [place] [id number] May [facility] Medical Assistance Pro [id number] May Medicare Part A Medicare Part A [id number] Sunday, June 25, 1989 History of Encounters Visit Date Visit Type Provider 12/21/2016 Office visit Rhonda Tejada MD 12/17/2016 [facility] Gonzalez Mattson MD 12/15/2016 [facility] Austin Reyez DO 12/09/2016 Office visit Shari Correia MD 08/31/2016 Office visit Rhonda Tejada MD 05/19/2016 Office visit Rhonda Tejada MD 05/11/2016 Hospital Carolyn Mercado MD 04/29/2016 [facility] Shahram Morrow DO 04/29/2016 [facility] Carolyn Mercado MD 04/29/2016 Hospital Carolyn Mercado MD 04/26/2016 Procedures Austin Reyez DO 03/29/2016 Office visit Rhonda Tejada MD 12/24/2015 Office visit Nicholas Bonilla DIGITAL CONTROLS TECHNICAL OFFICER 12/18/2015 Office visit Nicholas Bonilla DIGITAL CONTROLS TECHNICAL OFFICER 10/20/2015 Office visit Sidney Shin MD 10/10/2015 [facility] Yonny Rivera MD 10/05/2015 Office visit Rhonda Tejada MD 08/31/2015 Office visit Rhonda Tejada MD 06/09/2015 [facility] 06/08/2015 [facility] 06/08/2015 [facility] 06/05/[address] Kev Shane MD 06/03/2015 Office visit Jasmyne Del Rosario APRN 03/16/2015 Office visit Rhonda Tejada MD 12/23/2014 Office visit Shari Correia MD 12/11/2014 Office visit Rhonda Tejada MD 09/10/2014 Office visit Rhonda Tejada MD 06/25/2014 Office visit Rhonda Tejada MD 06/11/2014 Office visit Rhonda Tejada MD 04/10/2014 [facility] Sidney Shin MD 04/08/2014 [facility] Jamaica Martin MD 03/18/2014 Office visit Nicholas Bonilla APRN 12/26/2013 Office visit Rhonda Tejada MD 12/12/2013 [facility] Carolyn Mercado MD 12/08/2013 [facility] Joan Sherman MD 12/06/2013 [facility] Jamaica Martin MD 10/08/2013 Office visit Rhonda Tejada MD 08/01/2013 Office visit Austin Reyez DO 08/01/2013 Office visit Jovanna Kapadia MD 07/13/2013 Hospital Austin Reyez DO 07/10/2013 Hospital Austin Reyez DO 07/09/2013 Office visit Jovnana Kapadia MD 07/09/2013 Hospital Austin Reyez DO 07/03/2013 Office visit Jovanna Kapadia MD 04/22/2013 Office visit Jasmyne Del Rosario DIGITAL CONTROLS TECHNICAL OFFICER 04/01/2013 Office visit Jovanna Kapadia MD 12/31/2012 Office visit Jovanna Kapadia MD 11/29/2012 Office visit Jovanna Kapadia MD 11/05/2012 Office visit Jasmyne Del Rosario DIGITAL CONTROLS TECHNICAL OFFICER 11/30/2011 Hospital Carolyn Mercado MD 08/12/2011 [facility] Carolyn Mercado MD 06/29/2011 [facility] Carolyn Mercado MD 03/20/2011 [facility] Carolyn Mercado MD 05/01/2010 Laboratory Jose Luis Stinson MD 04/28/2010 Laboratory Jose Luis Stinson MD 11/20/2009 [facility] Jose Luis Stinson MD 2009 [facility] Jose Luis Stinson MD 11/17/2009 [facility] Jose Luis Stinson MD 11/16/2009 [facility] Suha Ray MD 11/15/2009 [facility] Suha Ray MD 09/02/2009 Laboratory [...]
--- OUTSIDE RECORDS SUMMARY | 2017-10-22 07:10 | XMS REPORT ---
Author Author Nicholas Bonilla [facility] Address [address] [place], [place] [address] Care Team Providers Care Welt Slasher Name Role Phone Nicholas Bonilla PCP Strides, [...] 30 DAYS Unifine Pentips 31 gauge x 1/4" miscellaneous needle 2015 USE DIRECTED WITH [employer] FLEXPEN Ceftin 250 mg oral tablet 12/18/2015 [...] tablet TID Triaoluance 06/05/2014 1 at noon [facility] subqutaneous 20 units 06/05/2014 BID NovoFine 30 [...] AM Flu Injection 3 Years And Above [facility]# [id number] RHC Reviewed 07/09/2013 12:00 AM THER/PROPH/DIAG INJ SC/IM Reviewed 07/09/2013 12:00 AM Toradol 30 Mg [facility]#[id number] Reviewed 12/26/2013 12:00 AM LIPID PANEL Reviewed [...] NEGATIVE History Of Immunizations Name Date Admin Mfg Name Mfg Code Trade Name Lot# Route Inj Vis Given Vis Pub CVX Influenza 07/03/2013 sanofi pasteur PMC Fluzone > 3 Years [id number] Intramuscular Right Deltoid 07/03/2013 04/19/2013 141 History [...] tract, initial encounter Dec 18 2015 10:58AM Payers Insurance Name Company Name Plan Name Plan Number Policy Number Policy Group Number Start Date Medicare Part B Medicare [place] [id number] May [facility] [id number] N/A [place] Medical [place] Program [place] Medical Assistance Pro [id number] May Medicare Part A Medicare Part A [id number] Sunday, 1989 [facility] [id number] Tuesday, 2012 History of Encounters Visit Date Visit Type Provider 12/18/2015 Office visit Nicholas Bonilla SUPERINTENDENT MARINE 10/20/2015 Office visit Sidney Shin MD 10/10/2015 [facility] Yonny Rivera MD 10/05/2015 Office visit Rhonda Tejada MD 08/31/2015 Office visit Rhonda Tejada MD 06/09/2015 [facility] Austin Reyez DO 06/08/2015 [facility] Austin Reyez DO 06/08/2015 [facility] Austin Aissatou VELÁSQUEZ 06/05/[address] Kev Shane MD 06/03/2015 Office visit Jasmyne Del Rosario SUPERINTENDENT MARINE 03/16/2015 Office visit Rhonda Tejada MD 12/23/2014 Office visit Shari Correia MD 12/11/2014 Office visit Rhonda Tejada MD 09/10/2014 Office visit Rhonda Tejada MD 06/25/2014 Office visit Rhonda Tejada MD 06/11/2014 Office visit Rhonda Tejada MD 04/10/2014 [facility] Sidney Shin MD 04/08/2014 [facility] Jamaica Martin MD 03/18/2014 Office visit Nicholas Bonilla APRN 12/26/2013 Office visit Rhonda Tejada MD 12/12/2013 [facility] Carolyn Mercado MD 12/08/2013 [facility] Joan Sherman MD 12/06/2013 [facility] Jamaica Martin MD 10/08/2013 Office visit Rhonda Tejada MD 08/01/2013 Office visit Austin Reyez DO 08/01/2013 Office visit Jovanna Kapadia MD 07/13/2013 [facility] Austin Reyez DO 07/10/2013 Hospital Austin Reyez DO 07/09/2013 Office visit Jovanna Kapadia MD 07/09/2013 Hospital Austin Reyez DO 07/03/2013 Office visit Jovanna Kapadia MD 04/22/2013 Office visit Jasmyne Del Rosario SUPERINTENDENT MARINE 04/01/2013 Office visit Jovanna Kapadia MD 12/31/2012 Office visit Jovanna Kapadia MD 11/29/2012 Office visit Jovanna Kapadia MD 11/05/2012 Office visit Jasmyne Del Rosario SUPERINTENDENT MARINE 11/30/2011 Hospital Carolyn Mercado MD 08/12/2011 [facility] Carolyn Mercado MD 06/29/2011 [facility] Carolyn Mercado MD 03/20/2011 [facility] Carolyn Mercado MD 05/01/2010 Laboratory Jose Luis Stinson MD 04/28/2010 Laboratory Jose Luis Stinson MD 11/20/2009 [facility] Jose Luis Stinson MD 2009 [facility] Jose Luis Stinson MD 11/17/2009 [facility] Jose Luis Stinson MD 11/16/2009 [facility] Suha Ray MD 11/15/2009 [facility] Suha Ray MD 09/02/2009 Laboratory Richar Jeong MD 08/14/2009 Laboratory Richar Jeong MD 07/21/2009 Laboratory Richar Jeong MD 07/20/2009 Office visit Richar Jeong MD 07/17/2009 Laboratory Richar Jeong MD 06/26/2009 Laboratory Richar Jeong MD 06/19/2009 Laboratory Richar Jeong MD 06/04/2009 Laboratory Richar Jeong MD 05/18/2009 Laboratory Jose Luis Stinson MD 05/18/2009 Voided Jose Luis Stinson MD
--- OUTSIDE RECORDS SUMMARY | 2017-10-22 07:11 | XMS REPORT ---
Author Author [facility] Organization [facility] Address [address] [place], [place] [address] Care Team Providers Care Hse Coordinator Name Role Phone PCP Unavailable Strides, Independent Unavailable Unavailable Allergies and Adverse Reactions Name Reaction Notes amoxicillin Plan of Treatment Planned Activity Comments Planned Date Planned Time Plan/Goal COMPREHEN METABOLIC PANEL 12/03/2014 12:00 AM Medications Active Name Start Date Estimated Completion Date SIG Comments aspirin oral tablet,delayed release (DR/EC) 81 mg [...] days Unifine Pentips miscellaneous needle 31 X /4 " 10/10/2014 10/05/2015 USE DIRECTED WITH NOVOLOG FLEXPEN citalopram oral tablet 20 mg 10/21/2014 take 1 tablet by oral route daily for 30 days [facility] topical powder 100,000 unit/gram 11/19/2014 apply to [...] once daily for 90 days ferrous sulfate oral tablet 325 mg (65 mg iron) 01/12/2015 TAKE 1 TABLET BY MOUTH DAILY baclofen oral tablet 20 mg 01/15/2015 05/15/2015 TAKE 1 TABLET BY MOUTH THREE TIMES DAILY for 30 days ASCENSIA CONTOUR TEST STRIPS one box 01/29/2015 07/22/2016 USE DIRECTED. Blood sugar checks TID. Dx: insulin dependent DMII. 250.00 levothyroxine oral tablet 50 mcg 02/13/2015 TAKE 1 TABLET BY MOUTH EVERY DAY WITH 25MCG (TOTAL OF 75MCG) lidocaine HCl injection solution 10 mg/mL (1 %) 02/13/2015 USE DIRECTED TO RECONSTITUTE CEFTRIAXONE Nyamyc topical powder 100,000 unit/gram 02/27/2015 APPLY TO AFFECTED AREA TWO TIMES DAILY pravastatin oral tablet 20 mg 03/02/2015 TAKE 1 TABLET BY MOUTH ONCE DAILY AT BEDTIME Nystop topical powder 100,000 unit/gram 03/02/2015 APPLY TO AFFECTED AREA TWO TIMES DAILY ferrous sulfate oral tablet 325 mg (65 mg iron) 03/02/2015 TAKE 1 TABLET BY MOUTH DAILY Levemir FlexTouch subcutaneous insulin pen 100 unit/mL (3 mL) 03/05/20152014 INJECT 20 UNITS TWICE DAILY levothyroxine oral tablet 75 mcg 03/05/2015 08/26/2016 take 1 tablet (75 mcg) by oral route once daily for 90 days Novolog Flexpen subcutaneous insulin pen 100 unit/mL 03/05/2015 09/01/2015 INJECT 12 UNITS SUBCUTANEOUSLY 15 MINUTES BEFORE EACH MEAL Name Start Date Expiration Date SIG Comments [...] with food for 7 days Bactrim DS oral tablet 800-160 mg 06/05/2014 06/10/2014 take 1 tablet by oral route 2 times per day for 5 days Bactrim oral tablet 400-80 mg 06/26/2014 07/06/2014 take 2 tablets by oral route every 12 hours for 10 days Keflex oral capsule 500 mg 07/28/2014 08/09/2014 take 1 capsule (500 mg) by oral route every 12 hours for 12 days Macrobid oral capsule 100 mg 07/28/2014 08/27/2014 take 1 capsule by oral route every 12 hours for 30 days Bactrim DS oral tablet 800-160 mg 12/16/2014 01/15/2015 take 1 tablet by oral route 2 times per day ceftriaxone injection recon soln 1 gram 01/19/2015 01/20/2015 inject 1 gram by intramuscular route once daily for 1 day levothyroxine oral tablet 25 mcg 01/26/2015 02/25/2015 take 1 tablet (25 mcg) by oral route once daily along with 50 mcg for a total of 75 mcg. hydrocodone-acetaminophen oral tablet 5-325 mg 01/29/2015 02/28/2015 take 1 tablet by oral route every 6 hours as needed for pain for 30 days Discontinued Name Start Date Discontinued Date SIG Comments Bisacodyl Rectal Suppository 10 mg 08/24/2009 11/05/2012 insert 1 suppository (10 mg) by rectal route once daily Cipro Oral Tablet 500 mg 11/05/2012 take 1 tablet (500 mg) by oral route 2 times per day for 7 days baclofen Oral tablet 20 mg 11/05/2012 11/05/2012 Take 1 tablet TID Triaoluance 06/05/2014 1 at [facility] subqutaneous 20 units 06/05/2014 BID NovoFine 30 Miscellaneous Needle 30 x 1/3 " 06/05/2014 use as directed metronidazole Oral [...] 01/19/2015 12:00 AM URINALYSIS AUTO W/SCOPE Returned Results Summary Data and Description Results [...] PM TSH 4.780 uIU/mLPROTIME 28.0 secsINR 2.7 History Of Immunizations Name Date Admin Mfg Name Mfg Code Trade Name Lot# Route Inj Vis Given Vis Pub CVX Influenza 07/03/2013 sanofi pasteur PMC Fluzone > 3 Years [id number] Intramuscular Right Deltoid 07/03/2013 04/19/2013 141 History of Past Illness Name Date of Onset Comments Hemorrhoids, External Kidney Stones Chronic UTI's Atrial Fibrillation Diabetes Mellitus, Type II Quadriplegia hypothyroidism Diabetes Mellitus, Type II Nov 05 2012 [...] 2015 4:55PM Hypothyroid Mar 05 2015 4:55PM Payers Insurance Name Company Name Plan Name Plan Number Policy Number Policy Group Number Start Date Medicare Part B Medicare [place] [id number] [facility] [id number] Tuesday, 2012 [facility] [id number] N/A [place] Medical Assistance [facility] Medical Assistance Pro [id number] May Medicare Part A Medicare Part A [id number] Sunday, 1989 History of Encounters Visit Date Visit Type Provider 12/23/2014 Office visit Shari Correia MD 12/11/2014 Office visit Rhonda Tejada MD 09/10/2014 Office visit Rhonda Tejada MD 06/25/2014 Office visit Rhonda Tejada MD 06/11/2014 Office visit Rhonda Tejada MD 04/10/2014 [facility] Sidney Shin MD 04/08/2014 [facility] Jamaica Martin MD 03/18/2014 Office visit Nicholas Bonilla APRN 12/26/2013 Office visit Rhonda Tejada MD 12/12/2013 [facility] Carolyn Mercado MD 12/08/2013 [facility] Joan Sherman MD 12/06/2013 [facility] Jamaica Martin MD 10/08/2013 Office visit Rhonda Tejada MD 08/01/2013 Office visit Jovanna Kapadia MD 08/01/2013 Office visit Austin Reyez DO 07/13/2013 [facility] Austin Reyez DO 07/10/2013 [facility] Austin Reyez DO 07/09/2013 Office visit Jovanna Kapadia MD 07/09/2013 [facility] Austin Reyez DO 07/03/2013 Office visit Jovanna Kapadia MD 04/22/2013 Office visit Jasmyne Del Rosario APRN 04/01/2013 Office visit Jovanna Kapadia MD 12/31/2012 Office visit Jovanna Kapadia MD 11/29/2012 Office visit Jovanna Kapadia MD 11/05/2012 Office visit Jasmyne Del Rosario APRN 11/30/2011 [facility] Carolyn Mercado MD 08/12/2011 [facility] Carolyn Mercado MD 06/29/2011 [facility] Carolyn Mercado MD 03/20/2011 [facility] Carolyn Mercado MD 05/01/2010 Laboratory Jose Luis Stinson MD 04/28/2010 Laboratory Jose Luis Stinson MD 11/20/2009 [facility] Jose Luis Stinson MD 2009 [facility] Jose Luis Stinson MD 11/17/2009 [facility] Jose Luis Stinson MD 11/16/2009 [facility] Suha Ray MD 11/15/2009 [facility] Suha Ray MD 09/02/2009 Laboratory Richar [...]
--- OUTSIDE RECORDS SUMMARY | 2017-10-22 07:14 | XMS REPORT ---
Author Author Asutin Reyez Organization [facility] Address [address] [place] [id number] Care Team Providers Care Tin Plater Name Role Phone Austin Reyez PCP Unavailable Strides, Independent Unavailable Unavailable Allergies [...] pen 11/21/2014 INJECT 20 UNITS TWICE DAILY levothyroxine 50 mcg oral tablet 12/11/2014 06/03/2016 [...] EVERY DAY WITH 25MCG (TOTAL OF 75MCG) pravastatin 20 mg oral tablet 03/02/2015 TAKE [...] TABLET BY MOUTH ONCE DAILY AT BEDTIME famotidine 20 mg oral tablet 09/04/2015 TAKE 1 TABLET BY MOUTH TWICE DAILY Januvia 100 mg oral tablet 09/04/2015 TAKE 1 TABLET BY MOUTH BEFORE BREAKFAST Senna Lax 8.6 mg oral tablet 09/04/2015 TAKE 1 TABLET BY MOUTH TWICE DAILY albuterol sulfate 2.5 mg /3 mL (0.083 %) inhalation solution for nebulization 09/22/2015 inhale 3 milliliters (2.5 mg) by nebulization route 3 times per day as needed metoclopramide HCl 10 mg oral tablet 10/14/2015 10/08/2016 take 1 tablet by oral route 3 times a day (before meals) for 30 days Unifine Pentips 31 gauge x /" miscellaneous needle 2015 USE DIRECTED WITH NOVOLOG FLEXPEN baclofen 20 mg oral tablet 03/31/2016 TAKE 1 TABLET BY MOUTH THREE TIMES DAILY FOR 30 DAYS atorvastatin 10 mg oral tablet take 1 tablet (10 mg) by oral route once daily at bedtime digoxin 125 mcg oral tablet take 1 tablet (125 mcg) by oral route once daily escitalopram oxalate 10 mg oral tablet take 1 tablet (10 mg) by oral route once daily 28 mg iron- 800 mcg oral tablet take 1 tablet by oral route daily Colace 100 mg oral capsule take 1 capsule (100 mg) by oral route 2 times per day midodrine 10 mg oral tablet take 1 tablet (10 mg) by oral route 3 times per day MagOx 400 mg oral tablet take 1 tablet by oral route daily guaifenesin 100 mg/5 mL oral liquid take 20 milliliters by oral route every 8 hours Name Start Date Expiration Date SIG Comments [...] oral Take 2 capfuls at hs prn baclofen 20 mg oral tablet 01/15/2015 05/15/2015 [...] HC BMI BSA BMI Percentile O2 Sat(%) 04/26/2016 2:54:00 PM 184 lbs 04/26/2016 2:15:00 [...] AM Flu Injection 3 Years And Above [facility]# [address]-51 RHC Reviewed 07/09/2013 12:00 AM THER/PROPH/DIAG INJ SC/IM Reviewed 07/09/2013 12:00 AM Toradol 30 Mg [facility]#[id number] Reviewed 12/26/2013 12:00 AM LIPID PANEL Reviewed [...] g/dLRDW CV 18.90 %MPV 8.90 fLPLT 451 History Of Immunizations Name Date Admin Mfg Name Mfg Code Trade Name Lot# Route Inj Vis Given Vis Pub CVX Influenza 07/03/2013 sanofi pasteur PMC Fluzone > 3 Years [id number] Intramuscular Right Deltoid 07/03/2013 04/19/2013 141 History [...] Quadriplegic spinal paralysis Apr 26 2016 3:26PM Payers Insurance Name Company Name Plan Name Plan Number Policy Number Policy Group Number Start Date Medicare Part A Medicare [facility] [address] [id number] N/A [facility] [id number] N/A Medicare Part A Medicare - Lab/Xray [id number] Sunday, [birth year] 1989 Medicare Part B Medicare Of [place] [id number] May [place] Medical Assistance Program [place] Medical Assistance Pro [id number] May Medicare Part A Medicare Part A [id number] Sunday, June 25, 1991 [facility] [id number] Tuesday, September 25, 2012 History of Encounters Visit Date Visit Type Provider 04/26/2016 Procedures Austin Reyez DO 03/29/2016 Office visit Rhonda Tejada MD 12/24/2015 Office visit Nicholas Bonilla PHARMACOLOGY ASSOCIATE 12/18/2015 Office visit Nicholas Bonilla APRN 10/20/2015 Office visit Sidney Shin MD 10/10/2015 [facility] Yonny Rivera MD 10/05/2015 Office visit Rhonda Tejada MD 08/31/2015 Office visit Rhonda Tejada MD 06/09/2015 [facility] 06/08/2015 [facility] [place] Aissatou [place]QUEZ 06/08/2015 [facility] [place] Aissatou [place] 06/05/[address] Kev Shane MD 06/03/2015 Office visit Jasmyne Del Rosario APRN 03/16/2015 Office visit Rhonda Tejada MD 12/23/2014 Office visit Shari Correia MD 12/11/2014 Office visit Rhonda Tejada MD 09/10/2014 Office visit Rhonda Tejada MD 06/25/2014 Office visit Rhonda Tejada MD 06/11/2014 Office visit Rhonda Tejada MD 04/10/2014 [facility] Sidney Shin MD 04/08/2014 [facility] Jamaica Martin MD 03/18/2014 Office visit Nicholas Bonilla APRN 12/26/2013 Office visit Rhonda Tejada MD 12/12/2013 [facility] Carolyn Mercado MD 12/08/2013 [facility] Joan Sherman MD 12/06/2013 [facility] Jamaica Martin MD 10/08/2013 Office visit Rhonda Tejada MD 08/01/2013 Office visit Austin Reyez DO 08/01/2013 Office visit Jovanna Kapadia MD 07/13/2013 Hospital Austin Reyez DO 07/10/2013 [facility] Austin Reyez DO 07/09/2013 Office visit Jovanna Kapadia MD 07/09/2013 Hospital Austin Reyez DO 07/03/2013 Office visit Jovanna Kapadia MD 04/22/2013 Office visit Jasmyne Del Rosario APRN 04/01/2013 Office visit Jovanna Kapadia MD 12/31/2012 Office visit Jovanna Kapadia MD 11/29/2012 Office visit Jovanna Kapadia MD 11/05/2012 Office visit Jasmyne [place] Del Rosario APRN 11/30/2011 Hospital Carolyn Mercado MD 08/12/2011 [facility] Carolyn Mercado MD 06/29/2011 [facility] Carolyn Mercado MD 03/20/2011 [facility] Carolyn Mercado MD 05/01/2010 Laboratory Jose Luis Stinson MD 04/28/2010 Laboratory Jose Luis Stinson MD 11/20/2009 [facility] Jose Luis Stinson MD 2009 [facility] Jose Luis Stinson MD 11/17/2009 [facility] Jose Luis Stinson MD 11/16/2009 [facility] Suha Ray MD 11/15/2009 [facility] Suha Ray MD 09/02/2009 Laboratory Richar [...]
[2017-10-22] MEDS: KCL 10 MEQ TAB (MICRO K) PO SCH (07:16)
--- OUTSIDE RECORDS SUMMARY | 2017-10-22 07:17 | XMS REPORT ---
Author Author Rhonda Tejada Organization [facility] Address [address] [place], [place] [id number] Care Team Providers Care Body Former Name Role Phone Rhonda Tejada PCP Strides, Independent Unavailable Unavailable Allergies and Adverse Reactions Name Reaction Notes amoxicillin nitrofurantoin Plan of Treatment Planned Activity Comments Planned Date Planned Time Plan/Goal Hemoglobin A1C 12/23/2015 12:00 AM Vitamin B12 12/23/2015 12:00 AM TSH 12/23/2015 12:00 AM T4, Free 12/23/2015 12:00 AM CBC with Auto 03/13/2017 12:00 AM Protein electrophoresis blood 03/22/2017 12:00 AM Basic metabolic profile 03/16/2015 12:00 [...] 09/28" miscellaneous needle 2015 USE DIRECTED WITH fsboWOWPEN baclofen 20 mg oral tablet 03/31/2016 TAKE [...] topical route once daily for 30 days levothyroxine 50 mcg oral tablet 03/27/2017 TAKE 1 TABLET BY MOUTH DAILY baclofen 20 mg oral tablet 03/27/2017 TAKE [...] 1 tablet TID Triaoluance 06/05/2014 1 at [facility] subqutaneous 20 units 06/05/2014 BID [...] HC BMI BSA BMI Percentile O2 Sat(%) 03/22/2017 3:59:00 PM 211 lbs 03/22/2017 3:21:00 [...] THYROID STIM HORMONE Returned 03/22/2017 12:00 AM METABOLIC PANEL TOTAL CA Returned 03/22/2017 12:00 AM ASSAY THYROID STIM [...] AM Flu Injection 3 Years And Above [facility]# [address]-80 RHC Reviewed 07/09/2013 12:00 AM THER/PROPH/DIAG INJ SC/IM Reviewed 07/09/2013 12:00 AM Toradol 30 Mg [facility]#4637-8412-89 Reviewed 12/26/2013 12:00 AM LIPID PANEL Reviewed [...] 8.50 fLPLT 297 NRBC# 0.00 NRBC% 0.0 03/15/2017 11:10 AM WBC 6.1 RBC 6.71 HGB 18.10 g/dLHCT 55.10 %MCV 82.0 fLMCH 27.0 pgMCHC 32.80 g/dLRDW SD 44 RDW CV 16.20 %MPV 8.70 fLPLT 209 NRBC# 0.00 NRBC % 0.0 %NEUT 67.20 %%LYMP 26.40 %%MONO 4.30 %%EOS 1.30 %%BASO 0.50 %#NEUT 4.09 # LYMP 1.61 #MONO 0.26 #EOS 0.08 #BASO 0.03 MANUAL DIFF SEE BELOW SEGS 67 BANDS 0 LYMPHS 28 MONOS 3 EOS 2.0 %GLUCOSE 134.0 mg/dLSODIUM 126.0 mmol/LPOTASSIUM 4.40 mmol/LCHLORIDE 91.0 mmol/LCO2 22.0 mmol/LBUN 9.0 mg/dLCREATININE 0.60 mg/dLSGOT/ AST 27.0 IU/LSGPT/ALT 27.0 IU/LALK PHOS 117.0 IU/LTOTAL PROTEIN 9.80 g/ dLALBUMIN 4.80 g/dLTOTAL BILI 0.60 mg/dLCALCIUM 10.30 mg/dLAGE 56 GFR NonAA 138 GFR AA 167 eGFR >60 mL/min/1.73meGFR AA* >60 TRIGLYCERIDES 217.0 mg/ dLCHOLESTEROL 207.0 mg/dLHDL 40.0 mg/dLTOT CHOL/HDL 5.2 LDL (CALC) 124.0 mg/ dLHGB A1C 5.60 %Est Avg Glucose 114.0 mg/dLTSH 3.940 uIU/mL 03/20/2017 10:53 AM MICROALBUMIN UR 46.0 ug/mL 03/31/2017 9:40 AM GLUCOSE 108.0 mg/dLSODIUM 126.0 mmol/LPOTASSIUM 4.50 mmol/ LCHLORIDE 91.0 mmol/LCO2 23.0 mmol/LBUN 11.0 mg/dLCREATININE 0.60 mg/dLCALCIUM 10.70 mg/dLAGE 56 GFR NonAA 138 GFR AA 167 eGFR >60 mL/min/1.73meGFR AA* >60 TSH 4.550 uIU/mL History Of Immunizations Name Date Admin Mfg Name Mfg Code Trade Name Lot# Route Inj Vis Given Vis Pub CVX Influenza 07/03/2013 sanofi pasteur PMC Fluzone > 3 Years [id number] Intramuscular Right Deltoid 07/03/2013 04/19/2013 141 Pneumococcal [...] 2017 3:23PM Hyponatremia Mar 22 2017 3:23PM Payers Insurance Name Company Name Plan Name Plan Number Policy Number Policy Group Number Start Date Medicare C Medicare RHC [id number] N/A [facility] - C [id number] Tuesday, 2012 [facility] [id number] N/A Medicare Part A Medicare - Lab/Xray [id number] Sunday, June 25, 1989 Medicare Part B Medicare Of [place] [id number] May [place] [facility] Medical Assistance Prog [id number] May Medicare Part A Medicare Part A [id number] Sunday, June 25, 1989 History of Encounters Visit Date Visit Type Provider 03/22/2017 Office visit Rhonda Tejada MD 12/21/2016 Office visit hRonda Tejada MD 12/17/2016 [facility] Gonzalez Mattson MD 12/15/2016 [facility] Austin Reyez DO 12/09/2016 Office visit Shari Correia MD 08/31/2016 Office visit Rhonda Tejada MD 05/19/2016 Office visit Rhonda Tejada MD 05/11/2016 [facility] Carolyn Mercado MD 04/29/2016 [facility] Shahram Morrow DO 04/29/2016 [facility] Carolyn Mercado MD 04/29/2016 [facility] Carolyn Mercado MD 04/26/2016 Procedures Austin Reyez DO 03/29/2016 Office visit Rhonda Tejada MD 12/24/2015 Office visit Nicholas Bonilla APRN 12/18/2015 Office visit Nicholas Bonilla APRN 10/20/2015 Office visit Sidney Shin MD 10/10/2015 [facility] Yonny Rivera MD 10/05/2015 Office visit Rhonda Tejada MD 08/31/2015 Office visit Rhonda Tejada MD 06/09/2015 [facility] Austin Reyez DO 06/08/2015 Hospital Austin Reyez DO 06/08/2015 [facility] Austin Reyez DO 06/05/[address] Kev Shane MD 06/03/2015 Office visit Jasmyne Del Rosario [employer] 03/16/2015 Office visit Rhonda Tejada MD 12/23/2014 Office visit Shari Correia MD 12/11/2014 Office visit Rhonda Tejada MD 09/10/2014 Office visit Rhonda Tejada MD 06/25/2014 Office visit Rhonda Tejada MD 06/11/2014 Office visit Rhonda Tejada MD 04/10/2014 [facility] Sidney Shin MD 04/08/2014 [facility] Jamaica Martin MD 03/18/2014 Office visit Nicholas Bonilla [employer] 12/26/2013 Office visit Rhonda Tejada MD 12/12/2013 Hospital Carolyn Mercado MD 12/08/2013 [facility] Joan Sherman MD 12/06/2013 [facility] Jamaica Martin MD 10/08/2013 Office visit Rhonda Tejada MD 08/01/2013 Office visit Austin Reyez DO 08/01/2013 Office visit Jovanna Kapadia MD 07/13/2013 [facility] DO 07/10/2013 [facility] visit Jovanna Kapadia MD 04/22/2013 Office visit Jasmyne Del Rosario [employer]GER 04/01/2013 Office visit Jovanna Kapadia MD 12/31/2012 Office visit Jovanna Kapadia MD 11/29/2012 Office visit Jovanna Kapadia MD 11/05/2012 Office visit Jasmyne Del Rosario [employer] MANAGER 11/30/2011 Hospital Carolyn Mercado MD 08/12/2011 Hospital Carolyn Mercado MD 06/29/2011 Hospital Carolyn Mercado MD 03/20/2011 Hospital aCrolyn Mercado MD 05/01/2010 Laboratory Jose Luis Stinson MD 04/28/2010 Laboratory Jose Luis Stinson MD 11/20/2009 [facility] Jose Luis Stinson MD 2009 [facility] Jose Luis Stinson MD 11/17/2009 Hospital Jose Luis Stinson MD 11/16/2009 [facility] Suha Ray MD 11/15/2009 [facility] Suha Ray MD 09/02/2009 Laboratory [place] [...]
--- OUTSIDE RECORDS SUMMARY | 2017-10-22 07:18 | XMS REPORT | CCD ---
Author Author JB KNIGHT Unknown Address [address] [place] [address] Care Team Providers Care Car Inspector Name Role Phone KIRBY ANTONIO MD Attphys [place] JUAN LUIS, BURTON VELÁSQUEZ Prisurg A., MAGY L NASST B., CAROLANN NASST J., SHAUNNEETA NASST A., TONI NASST H., FALLON D NASST H., FALLON D NASST H., DAVINA S NASST B., CAROLANN NASST C., MANJIT NASST B., CHRISTINE NASST K., MAGY D NASST Allergies Allergy Code Allergy Type Reaction Status MACROBID 833450 Drug allergy Active AMOXICILLIN 723 Drug allergy Active Active Medications Medication Code Dose Units Frequency Route Modification Start Date/Time Albuterol Sulfate 0.083% Inhalation Solution 284748 2.5 MILLIGRAMS EVERY 6 HOURS INHALATION 12/18/2016 11: 15 Prescription Detail 2.5 MILLIGRAMS INHALATION EVERY 6 HOURS Atorvastatin Calcium 20MG Oral Tablet 784036 20 MILLIGRAMS DAILY ORAL 12/18/2016 11:15 Prescription Detail 20 MILLIGRAMS ORAL DAILY Famotidine 20MG Oral Tablet 468444 20 MILLIGRAMS TWO TIMES A DAY ORAL 12/18/2016 11:15 Prescription Detail 20 MILLIGRAMS ORAL TWO TIMES A DAY HYDROcodone bitartrate-acetaminophen 5MG-325MG Oral Tablet 774828 1 EACH NEEDED ORAL 12/18/2016 11:15 Prescription Detail 1 EACH ORAL NEEDED Levemir 100U/1ML Subcutaneous Solution 297317 20 UNIT AT BEDTIME SUBCUTANEOUS 12/18/2016 11:15 Prescription Detail 20 UNIT SUBCUTANEOUS AT BEDTIME levoFLOXacin 500MG Oral Tablet 983396 500 MILLIGRAMS DAILY BY MOUTH 12/18/2016 11:14 Prescription Detail 500 MILLIGRAMS BY MOUTH DAILY Aspirin 81MG Oral Tablet, Enteric Coated 501080 81 MILLIGRAMS DAILY ORAL 10/13/2015 12:41 Prescription Detail 81 MILLIGRAMS ORAL DAILY Baclofen 20MG Oral Tablet 801317 20 MILLIGRAMS THREE TIMES A DAY ORAL 10/13/2015 12:41 Prescription Detail 20 MILLIGRAMS ORAL THREE TIMES A DAY [facility] Fiber Therapy 500 MG Oral Tablet 282146 500 MG DAILY ORAL 10/13/2015 12:41 Prescription Detail 500 MG ORAL DAILY Januvia 100MG Oral Tablet 242997 100 MILLIGRAMS DAILY ORAL 10/13/2015 12:41 Prescription Detail 100 MILLIGRAMS ORAL DAILY Vitamin Oral Tablet 894567 1 EACH DAILY ORAL 10/13/2015 12:41 Prescription Detail 1 EACH ORAL DAILY Xarelto 20MG Oral Tablet 1621941 20 MILLIGRAMS DAILY ORAL 10/13/2015 12:41 Prescription Detail 20 MILLIGRAMS ORAL DAILY Celexa 20MG Oral Tablet 188098 20 MILLIGRAMS DAILY ORAL 04/10/2014 13:46 Prescription Detail 20 MILLIGRAMS ORAL DAILY Problems Problem Code Start Date Resolved Date Status UTI 01950859 06/12/2017 Active Sepsis 70372370 06/12/2017 Active Quadraplegia 66850106 12/15/2016 Resolved Severe sepsis with septic shock 37533094 12/14/20162016 Resolved Dehydrated 43503690 12/15/2016 06/11/2017 Resolved Acute nephritis 34080722 12/15/2016 06/11/2017 Resolved Procedures Procedure Code Procedure Type Date CX CHEST [id number] 12/17/2016 SMALL BOWEL,INCL MULTIPLE SERIAL FILMS 68735810 SNOMED CT 12/16/2016 ABDOMEN ACUTE SERIES 0088920 SNOMED CT 12/16/2016 US ECHO 2D COMP WITH DOPP AND COLOR 91817589 SNOMED CT ABDOMEN ACUTE SERIES 6744955 SNOMED CT 12/15/2016 BEDSIDE GLUCOSE 26973510 SNOMED CT 12/18/2016 BEDSIDE GLUCOSE 24038489 SNOMED CT 12/17/2016 BEDSIDE GLUCOSE 41656708 SNOMED CT 12/17/2016 BEDSIDE GLUCOSE 21676933 SNOMED CT 12/17/2016 BEDSIDE GLUCOSE 84215819 SNOMED CT 12/17/2016 BEDSIDE GLUCOSE 21635973 SNOMED CT 12/16/2016 COMPREHENSIVE METABOLIC PANEL 474637697 SNOMED CT 2016 CBC W/ AUTO DIFF (RFLX MAN DIFF IF IND) 2517305 SNOMED CT 12/17/2016 BEDSIDE GLUCOSE 37836692 SNOMED CT 12/16/2016 BEDSIDE GLUCOSE 90124949 SNOMED CT 12/16/2016 BEDSIDE GLUCOSE 00051523 SNOMED CT 12/16/2016 BEDSIDE GLUCOSE 73538739 SNOMED CT 12/16/2016 HEMOGLOBIN A1C 85990586 SNOMED CT 12/16/2016 COMPREHENSIVE METABOLIC PANEL 152356323 SNOMED CT 2016 CBC W/ MANUAL DIFF 33958506 SNOMED CT 12/16/2016 BEDSIDE GLUCOSE 94937535 SNOMED CT 12/15/2016 BEDSIDE GLUCOSE 92997257 SNOMED CT 12/15/[address] 12/15/[address] 12/15/2016 IRON PANEL 336683664 SNOMED CT 12/15/2016 CULTURE URINE 616578345 SNOMED CT 12/15/2016 LACTIC ACID 8202180 SNOMED CT 12/15/2016 BEDSIDE GLUCOSE 59474268 SNOMED CT 12/15/2016 BEDSIDE GLUCOSE 11292208 SNOMED CT 12/15/2016 LACTIC ACID 5818291 SNOMED [address] 12/15/2016 COMPREHENSIVE METABOLIC PANEL 270350740 SNOMED CT 2016 CBC W/ AUTO DIFF (RFLX MAN DIFF IF IND) 1237480 SNOMED CT 12/15/[address] 12/15/[address] 12/15/2016 UA W/MICRO C&S IF IND 073827614 SNOMED CT 12/15/2016 BEDSIDE GLUCOSE 33643669 SNOMED CT 12/15/2016 CULTURE URINE 372285806 SNOMED CT 12/14/2016 BEDSIDE GLUCOSE 20051543 SNOMED CT 12/14/2016 CULTURE BLOOD 65891707 SNOMED CT 12/14/[address] 12/14/2016 LACTIC ACID 5410646 SNOM[address] 12/14/2016 UA ROUTINE C&S IF IND 661723208 SNOMED CT 12/14/2016 C REACTIVE PROTEIN 34043878 SNOMED CT 12/14/[address] 12/14/2016 COMPREHENSIVE METABOLIC PANEL 038771686 SNOMED CT 2016 CBC W/ AUTO DIFF (RFLX MAN DIFF IF IND) 4051720 SNOMED CT 12/14/2016 ^CULTURE AEROBIC ID 055906500 SNOMED CT 12/15/2016 ^CULTURE URINE IDENTIFICATION 993209612 SNOMED CT 2016 ^CBC W/AUTO DIFF 5684637 SNOMED CT 12/15/2016 ^UA WITH MICRO 415057080 SNOMED CT 12/14/2016 ^CBC W/AUTO DIFF 5466168 SNOMED CT 12/14/2016 BAN AERO ECLIPSE TREATMENT 90926041 SNOMED CT 12/18/2016 BAN AERO ECLIPSE TREATMENT 78163485 SNOMED CT 12/18/2016 BAN AERO ECLIPSE TREATMENT 80677585 SNOMED CT 12/17/2016 BAN AERO ECLIPSE TREATMENT 45054417 SNOMED CT 12/17/2016 BAN AERO ECLIPSE TREATMENT 37939217 SNOMED CT 12/17/2016 BAN AERO ECLIPSE TREATMENT 49079879 SNOMED CT 12/17/2016 BAN AERO ECLIPSE TREATMENT 22701583 SNOMED CT 12/16/2016 BAN AERO ECLIPSE TREATMENT 41631267 SNOMED CT 12/16/2016 BAN AERO ECLIPSE TREATMENT 22719727 SNOMED CT 12/16/2016 BAN AERO ECLIPSE TREATMENT 10486468 SNOMED CT 12/15/2016 BAN AERO ECLIPSE TREATMENT 12149967 SNOMED CT 12/15/2016 BAN AERO ECLIPSE TREATMENT 36478467 SNOMED CT 12/15/2016 Results BEDSIDE GLUCOSE - Collect Date/Time: 12/18/2016 05:23 Test Name Code Test Result Test Units Test Ref Range GLUCOSE POCT 105 MG/DL L=70 H=100 BEDSIDE GLUCOSE - Collect Date/Time: 12/17/2016 20:13 Test Name Code Test Result Test Units Test Ref Range GLUCOSE POCT 134 MG/DL L=70 H=100 BEDSIDE GLUCOSE - Collect Date/Time: 12/17/2016 16:38 Test Name Code Test Result Test Units Test Ref Range GLUCOSE POCT 135 MG/DL L=70 H=100 BEDSIDE GLUCOSE - Collect Date/Time: 12/17/2016 11:48 Test Name Code Test Result Test Units Test Ref Range GLUCOSE POCT 128 MG/DL L=70 H=100 BEDSIDE GLUCOSE - Collect Date/Time: 12/17/2016 05:28 Test Name Code Test Result Test Units Test Ref Range GLUCOSE POCT 86 MG/DL L=70 H=100 BEDSIDE GLUCOSE - Collect Date/Time: 12/16/2016 21:30 Test Name Code Test Result Test Units Test Ref Range GLUCOSE POCT 92 MG/DL L=70 H=100 BEDSIDE GLUCOSE - Collect Date/Time: 12/16/2016 18:14 Test Name Code Test Result Test Units Test Ref Range GLUCOSE POCT 119 MG/DL L=70 H=100 BEDSIDE GLUCOSE - Collect Date/Time: 12/16/2016 12:12 Test Name Code Test Result Test Units Test Ref Range GLUCOSE POCT 93 MG/DL L=70 H=100 BEDSIDE GLUCOSE - Collect Date/Time: 12/16/2016 06:09 Test Name Code Test Result Test Units Test Ref Range GLUCOSE POCT 89 MG/DL L=70 H=100 BEDSIDE GLUCOSE - Collect Date/Time: 12/16/2016 00:24 Test Name Code Test Result Test Units Test Ref Range GLUCOSE POCT 109 MG/DL L=70 H=100 BEDSIDE GLUCOSE - Collect Date/Time: 12/15/2016 19:15 Test Name Code Test Result Test Units Test Ref Range GLUCOSE POCT 110 MG/DL L=70 H=100 BEDSIDE GLUCOSE - Collect Date/Time: 12/15/2016 13:44 Test Name Code Test Result Test Units Test Ref Range GLUCOSE POCT 106 MG/DL L=70 H=100 BEDSIDE GLUCOSE - Collect Date/Time: 12/15/2016 05:59 Test Name Code Test Result Test Units Test Ref Range GLUCOSE POCT 117 MG/DL L=70 H=100 BEDSIDE GLUCOSE - Collect Date/Time: 12/15/2016 03:50 Test Name Code Test Result Test Units Test Ref Range GLUCOSE POCT 143 MG/DL L=70 H=100 BEDSIDE GLUCOSE - Collect Date/Time: 12/15/2016 02:22 Test Name Code Test Result Test Units Test Ref Range GLUCOSE POCT 126 MG/DL L=70 H=100 BEDSIDE GLUCOSE - Collect Date/Time: 12/14/2016 23:58 Test Name Code Test Result Test Units Test Ref Range GLUCOSE POCT 154 MG/DL L=70 H=100 COMPREHENSIVE METABOLIC PANEL - Collect Date/Time: 12/17/2016 05:25 Test Name Code Test Result Test Units Test Ref Range GLUCOSE 2345-7 89 MG/DL L=70 H=100 SODIUM 2951-2 131 MEQ/L L=135 H=148 POTASSIUM 2823-3 3.1 MEQ/L L=3.5 H=5.3 CHLORIDE 2075-0 93 MEQ/L L=96 H=110 CO2 2028-9 26 MEQ/L L=22 H=29 BUN 3094-0 5 MG/DL L=8 H=22 CREATININE 2160-0 0.5 MG/DL L=0.6 H=1.6 SGOT/AST 1920-8 19 IU/L L=10 H=40 SGPT/ALT 1742-6 14 IU/L L=8 H=54 ALK PHOS 6768-6 75 IU/L L=35 H=115 TOTAL PROTEIN 2885-2 6.8 G/DL L=5.5 H=8.5 ALBUMIN 1751-7 3.6 G/DL L=3.1 H=5.4 TOTAL BILI 1975-2 0.8 MG/DL L=0.0 H=1.5 CALCIUM 00808-2 9.3 MG/DL L=8.2 H=10.6 AGE 57[birth year]-8 56 yrs GFR NonAA 55004-4 171 [place] 486[address]-6 207 eGFR 39982-9 >60 N/A eGFR AA* 62213-1 >60 N/A COMPREHENSIVE METABOLIC PANEL - Collect Date/Time: 12/16/2016 06:05 Test Name Code Test Result Test Units Test Ref Range GLUCOSE 2345-7 95 MG/DL L=70 H=100 SODIUM 2951-2 136 MEQ/L L=135 H=148 POTASSIUM 2823-3 3.1 MEQ/L L=3.5 H=5.3 CHLORIDE 2075-0 97 MEQ/L L=96 H=110 CO2 2028-9 25 MEQ/L L=22 H=29 BUN 3094-0 9 MG/DL L=8 H=22 CREATININE 2160-0 0.6 MG/DL L=0.6 H=1.6 SGOT/AST 1920-8 17 IU/L L=10 H=40 SGPT/ALT 1742-6 16 IU/L L=8 H=54 ALK PHOS 6768-6 84 IU/L L=35 H=115 TOTAL PROTEIN 2885-2 6.9 G/DL L=5.5 H=8.5 ALBUMIN 1751-7 3.8 G/DL L=3.1 H=5.4 TOTAL BILI 1975-2 0.6 MG/DL L=0.0 H=1.5 CALCIUM 32528-0 9.0 MG/DL L=8.2 H=10.6 AGE [address]-7 56 yrs GFR NonAA 79698-2 138 GFR AA 09085-1 167 eGFR 40884-5 >60 N/A eGFR AA* 93359-6 >60 N/A COMPREHENSIVE METABOLIC PANEL - Collect Date/Time: 12/15/2016 05:55 Test Name Code Test Result Test Units Test Ref Range GLUCOSE 2345-7 113 MG/DL L=70 H=100 SODIUM 2951-2 131 MEQ/L L=135 H=148 POTASSIUM 2823-3 3.7 MEQ/L L=3.5 H=5.3 CHLORIDE 2075-0 105 MEQ/L L=96 H=110 CO2 2028-9 11 MEQ/L L=22 H=29 BUN 3094-0 28 MG/DL L=8 H=22 CREATININE 2160-0 1.0 MG/DL L=0.6 H=1.6 SGOT/AST 1920-8 20 IU/L L=10 H=40 SGPT/ALT 1742-6 17 IU/L L=8 H=54 ALK PHOS 6768-6 85 IU/L L=35 H=115 TOTAL PROTEIN 2885-2 7.7 G/DL L=5.5 H=8.5 ALBUMIN 1751-7 3.9 G/DL L=3.1 H=5.4 TOTAL BILI 1975-2 0.4 MG/DL L=0.0 H=1.5 CALCIUM 66841-7 9.7 MG/DL L=8.2 H=10.6 AGE [address]804-9 56 yrs GFR NonAA 26878-9 77 [place] [address]306-8 93 eGFR 66714-0 >60 N/A eGFR AA* 08342-6 >60 N/A COMPREHENSIVE METABOLIC PANEL - Collect Date/Time: 12/14/2016 23:45 Test Name Code Test Result Test Units Test Ref Range GLUCOSE 2345-7 122 MG/DL L=70 H=100 SODIUM 2951-2 128 MEQ/L L=135 H=148 POTASSIUM 2823-3 5.4 MEQ/L L=3.5 H=5.3 CHLORIDE 2075-0 95 MEQ/L L=96 H=110 CO2 2028-9 12 MEQ/L L=22 H=29 BUN 3094-0 26 MG/DL L=8 H=22 CREATININE 2160-0 1.0 MG/DL L=0.6 H=1.6 SGOT/AST 1920-8 37 IU/L L=10 H=40 SGPT/ALT 1742-6 23 IU/L L=8 H=54 ALK PHOS 6768-6 107 IU/L L=35 H=115 TOTAL PROTEIN 2885-2 9.4 G/DL L=5.5 H=8.5 ALBUMIN 1751-7 4.7 G/DL L=3.1 H=5.4 TOTAL BILI 1975-2 0.6 MG/DL L=0.0 H=1.5 CALCIUM 68554-0 10.5 MG/DL L=8.2 H=10.6 AGE 56 yrs GFR NonAA 77 GFR AA 93 eGFR >60 N/A eGFR AA* >60 N/A LIPASE - Collect Date/Time: 12/14/2016 23:45 Test Name Code Test Result Test Units Test Ref Range LIPASE 3040-3 49 U/L L=8 H=78 MAGNESIUM - Collect Date/Time: 12/14/2016 23:45 Test Name Code Test Result Test Units Test Ref Range MAGNESIUM 73113-1 2.8 MG/DL L=1.7 H=2.8 PHOSPHORUS - Collect Date/Time: 12/14/2016 23:45 Test Name Code Test Result Test Units Test Ref Range PHOSPHORUS 2777-1 3.1 MG/DL L=2.5 H=4.5 DIGOXIN - Collect Date/Time: 12/14/2016 23:45 Test Name Code Test Result Test Units Test Ref Range DIGOXIN 09968-9 <0.2 NG/DL L=0.8 H=2.0 CBC W/ AUTO DIFF (RFLX MAN DIFF IF IND) - Collect Date/Time: 12/17/2016 05:25 Test Name Code Test Result Test Units Test Ref Range WBC 86865-0 7.0 TH/CMM L=4.5 H=10.8 RBC 789-8 4.26 ML/CMM L=4.70 H=6.10 HGB 718-7 11.9 G/DL L=14.0 H=18.0 HCT 4544-3 36.2 % L=42.0 H=52.0 MCV 76621-7 85 FL L=81 H=99 MCH 55973-8 27.9 PG L=27.0 H=33.0 MCHC 81690-0 32.9 G/DL L=31.0 H=36[place] [address]-8 42 FL L=36 H=50 [place] [address]-6 13.7 % L=0.0 H=14.8 MPV 74464-5 8.9 FL L=9.3 H=12.5 PLT 777-3 200 TH/CMM L=130 H=440 NRBC# 49360-1 0.00 TH/CMM L=0.00 H=0.00 NRBC% 43720-9 0.0 /100WBC L=0.0 H=2.0 %NEUT 82158-5 59.5 % %LYMP 05098-1 24.8 % %MONO 92888-0 10.2 % %EOS 43048-6 4.3 % %BASO 53208-4 0.9 % #NEUT 80617-3 4.19 TH/CMM L=2.10 H=8.20 #LYMP 41084-1 1.74 TH/CMM L=0.90 H=5.20 #MONO 07044-2 0.72 TH/CMM L=0.16 H=1.00 #EOS 22899-0 0.30 TH/CMM L=0.00 H=0.80 #BASO 12991-3 0.06 TH/CMM L=0.00 H=0.20 MANUAL DIFF 20041-7 NOT IND N/A CBC W/ AUTO DIFF (RFLX MAN DIFF IF IND) - Collect Date/Time: 12/15/2016 05:55 Test Name Code Test Result Test Units Test Ref Range WBC 01256-6 17.3 TH/CMM L=4.5 H=10.8 RBC 789-8 4.63 ML/CMM L=4.70 H=6.10 HGB 718-7 12.8 G/DL L=14.0 H=18.0 HCT 4544-3 39.0 % L=42.0 H=52.0 MCV 61204-4 84 FL L=81 H=99 MCH 77007-2 27.6 PG L=27.0 H=33.0 MCHC 12000-4 32.8 G/DL L=31.0 H=36[place] [address]-5 43 FL L=36 H=50 [place] [address]-9 14.0 % L=0.0 H=14.8 MPV 14582-8 9.3 FL L=9.3 H=12.5 PLT 777-3 412 TH/CMM L=130 H=440 NRBC# 24760-1 0.00 TH/CMM L=0.00 H=0.00 NRBC% 62242-7 0.0 /100WBC L=0.0 H=2.0 %NEUT 58250-4 77.2 % %LYMP 41723-0 12.2 % %MONO 48556-8 9.7 % %EOS 27713-0 0.1 % %BASO 62711-2 0.4 % #NEUT 76484-7 13.32 TH/CMM L=2.10 H=8.20 #LYMP 61405-2 2.11 TH/CMM L=0.90 H=5.20 #MONO 99117-8 1.68 TH/CMM L=0.16 H=1.00 #EOS 32239-5 0.01 TH/CMM L=0.00 H=0.80 #BASO 46995-3 0.07 TH/CMM L=0.00 H=0.20 MANUAL DIFF 59904-9 NOT IND N/A CBC W/ AUTO DIFF (RFLX MAN DIFF IF IND) - Collect Date/Time: 12/14/2016 23:45 Test Name Code Test Result Test Units Test Ref Range WBC 14459-5 11.7 TH/CMM L=4.5 H=10.8 RBC 789-8 5.51 ML/CMM L=4.70 H=6.10 HGB 718-7 15.5 G/DL L=14.0 H=18.0 HCT 4544-3 44.2 % L=42.0 H=52.0 MCV 80 FL L=81 H=99 MCH 28.1 PG L=27.0 H=33.0 MCHC 35.1 G/DL L=31.0 H=36.0 RDW SD 40 FL L=36 H=50 RDW CV 13.9 % L=0.0 H=14.8 MPV 9.7 FL L=9.3 H=12.5 PLT 777-3 208 TH/CMM L=130 H=440 NRBC# 0.00 TH/CMM L=0.00 H=0.00 NRBC% 0.0 /100WBC L=0.0 H=2.0 %NEUT 74.9 % %LYMP 16.6 % %MONO 7.6 % %EOS 0.0 % %BASO 0.4 % #NEUT 8.72 TH/CMM L=2.10 H=8.20 #LYMP 1.93 TH/CMM L=0.90 H=5.20 #MONO 0.89 TH/CMM L=0.16 H=1.00 #EOS 0.00 TH/CMM L=0.00 H=0.80 #BASO 0.05 TH/CMM L=0.00 H=0.20 MANUAL DIFF NOT IND N/A CBC W/ MANUAL DIFF - Collect Date/Time: 12/16/2016 06:05 Test Name Code Test Result Test Units Test Ref Range WBC 97346-1 8.8 TH/CMM L=4.5 H=10.8 RBC 789-8 4.61 ML/CMM L=4.70 H=6.10 HGB 718-7 12.6 G/DL L=14.0 H=18.0 HCT 4544-3 38.9 % L=42.0 H=52.0 MCV 93761-7 84 FL L=81 H=99 MCH 46241-2 27.3 PG L=27.0 H=33.0 MCHC 58632-1 32.4 G/DL L=31.0 H=36[place] [address]-1 43 FL L=36 H=50 [place] [address]-7 14.0 % L=0.0 H=14.8 MPV 68519-1 8.9 FL L=9.3 H=12.5 PLT 777-3 300 TH/CMM L=130 H=440 NRBC# 23822-5 0.00 TH/CMM L=0.00 H=0.00 NRBC% 49858-7 0.0 /100WBC L=0.0 H=2.0 %NEUT 15353-0 67.5 % %LYMP 56716-0 21.8 % %MONO 01662-4 8.6 % %EOS 10947-8 1.0 % %BASO 79066-1 0.8 % #NEUT 93046-0 5.90 TH/CMM L=2.10 H=8.20 #LYMP 85721-4 1.91 TH/CMM L=0.90 H=5.20 #MONO 65817-9 0.75 TH/CMM L=0.16 H=1.00 #EOS 33327-2 0.09 TH/CMM L=0.00 H=0.80 #BASO 53700-3 0.07 TH/CMM L=0.00 H=0.20 SEGS 61812-9 64 % LYMPHS 27535-3 29 % MONOS 29740-1 6 % EOS 53685-8 1 % GASTROINTESTINAL PANEL - Collect Date/Time: 12/15/2016 01:50 Test Name Code Test Result Test Units Test Ref Range Campylobacter Not Detected N/A NEG: Not Detected C difficile A/B Not Detected N/A NEG: Not Detected Plesiomonas shigell Not Detected N/A NEG: Not Detected Salmonella Not Detected N/A NEG: Not Detected Vibrio Not Detected N/A NEG: Not Detected Vibrio cholerae Not Detected N/A NEG: Not Detected Yersinia enterocoli Not Detected N/A NEG: Not Detected Enteroaggreg E coli Not Detected N/A NEG: Not Detected Enteropathog E coli Not Detected N/A NEG: Not Detected Enterotoxigen E coli Not Detected N/A NEG: Not Detected Shiga-like E coli Not Detected N/A NEG: Not Detected E coli O157 Not Detected N/A NEG: Not Detected Shigella/Enter Ecoli Not Detected N/A NEG: Not Detected Cryptosporidium Not Detected N/A NEG: Not Detected Cyclospora cayetanen Not Detected N/A NEG: Not Detected Entamoeba histolytic Not Detected N/A NEG: Not Detected Giardia lamblia Not Detected N/A NEG: Not Detected Adenovirus F 40/41 Not Detected N/A NEG: Not Detected Astrovirus Not Detected N/A NEG: Not Detected Norovirus GI/GII Not Detected N/A NEG: Not Detected Rotavirus A Not Detected N/A NEG: Not Detected Sapovirus Not Detected N/A NEG: Not Detected UA ROUTINE C&S IF IND - Collect Date/Time: 12/15/2016 01:50 Test Name Code Test Result Test Units Test Ref Range COLOR YELLOW N/A NL: YELLOW APPEARANCE CLEAR N/A NL: CLEAR SPEC GRAV 1.020 N/A NL: 1.002 - 1.022 pH 7.0 N/A NL: 5 - 9 PROTEIN >=300 N/A NL: NEGATIVE mg/dl GLUCOSE NEGATIVE N/A NL: NEGATIVE mg/dl KETONE TRACE N/A NL: NEGATIVE mg/dl BILIRUBIN NEGATIVE N/A NL: NEGATIVE BLOOD LARGE N/A NL: NEGATIVE NITRITE NEGATIVE N/A NL: NEGATIVE LEUK SCREEN LARGE N/A NL: NEGATIVE MICRO INDICATED? SEE BELOW N/A WBC/HPF 100-200 N/A NL: NEGATIVE RBC/HPF 20-50 N/A NL: NEGATIVE CASTS/LPF 2++ HYALINE N/A NL: NEGATIVE CRYSTALS NEGATIVE N/A NL: NEGATIVE MUCOUS THRDS NEGATIVE N/A NL: NEGATIVE BACTERIA 2++ N/A NL: NEGATIVE EPITH CELLS FEW SQUAMOUS N/A NL: NEGATIVE TRICHOMONAS NEGATIVE N/A NL: NEGATIVE YEAST NEGATIVE N/A NL: NEGATIVE CULT SET UP? YES N/A UA W/MICRO C&S IF IND - Collect Date/Time: 12/15/2016 05:06 Test Name Code Test Result Test Units Test Ref Range COLOR YELLOW N/A NL: YELLOW APPEARANCE CLOUDY N/A NL: CLEAR SPEC GRAV 1.020 N/A NL: 1.002 - 1.022 pH 5.5 N/A NL: 5 - 9 PROTEIN 100 N/A NL: NEGATIVE mg/dl GLUCOSE NEGATIVE N/A NL: NEGATIVE mg/dl KETONE TRACE N/A NL: NEGATIVE mg/dl BILIRUBIN NEGATIVE N/A NL: NEGATIVE BLOOD LARGE N/A NL: NEGATIVE NITRITE NEGATIVE N/A NL: NEGATIVE LEUK SCREEN LARGE N/A NL: NEGATIVE WBC/HPF 100-200 N/A NL: NEGATIVE RBC/HPF 20-50 N/A NL: NEGATIVE CASTS/LPF 2++ HYALINE N/A NL: NEGATIVE CRYSTALS NEGATIVE N/A NL: NEGATIVE MUCOUS THRDS NEGATIVE N/A NL: NEGATIVE BACTERIA 2++ N/A NL: NEGATIVE EPITH CELLS FEW SQUAMOUS N/A NL: NEGATIVE TRICHOMONAS NEGATIVE N/A NL: NEGATIVE YEAST NEGATIVE N/A NL: NEGATIVE CULT SET UP? YES N/A C REACTIVE PROTEIN - Collect Date/Time: 12/14/2016 23:45 Test Name Code Test Result Test Units Test Ref Range C REACTIVE PROTEIN 1988-5 1.1 MG/DL L=0.0 H= 1.0 HEMOGLOBIN A1C - Collect Date/Time: 12/16/2016 06:05 Test Name Code Test Result Test Units Test Ref Range HGB A1C 83292-4 4.6 % L=4.0 H=6.4 Est Avg Glucose 19465-7 85.3 mg/dL IRON PANEL - Collect Date/Time: 12/15/2016 14:00 Test Name Code Test Result Test Units Test Ref Range IRON TOTAL 2498-4 53 MCG/DL L=50 H=212 Transferrin 3034-6 274 MG/DL L=175 H=375 TIBC Calculation 2500-7 343 MG/DL L=250 H=450 %Saturation Calc 2500-7 15 % L=15 H=55 VITAMIN B12 & FOLATE - Collect Date/Time: 12/15/2016 14:00 Test Name Code Test Result Test Units Test Ref Range VITAMIN B12 2132-9 968 PG/ML L=213 H=816 FOLATE 2284-8 19.70 ng/mL T4 - Collect Date/Time: 12/15/2016 14:00 Test Name Code Test Result Test Units Test Ref Range T4 3026-2 7.1 UG/DL L=4.5 H=12.0 TSH - Collect Date/Time: 12/15/2016 14:00 Test Name Code Test Result Test Units Test Ref Range TSH 66864-5 1.44 mIU/L L=0.35 H=4.94 LACTIC ACID - Collect Date/Time: 12/15/2016 12:00 Test Name Code Test Result Test Units Test Ref Range LACTIC ACID 2524-7 1.7 mmol/L L=0.5 H=1.6 LACTIC ACID - Collect Date/Time: 12/15/2016 05:55 Test Name Code Test Result Test Units Test Ref Range LACTIC ACID 2524-7 2.1 mmol/L L=0.5 H=1.6 LACTIC ACID - Collect Date/Time: 12/14/2016 23:45 Test Name Code Test Result Test Units Test Ref Range LACTIC ACID 2524-7 3.5 mmol/L L=0.5 H=1.6 Function Status Unknown or Not Available. History of Immunizations Immunization Code Date influenza, split (incl. purified surface antigen) 15 08/14/2006 pneumococcal polysaccharide PPV23 33 08/19/2011 pneumococcal, unspecified formulation 109 03/30/2016 Influenza, seasonal, injectable 141 06/25/2012 Plan of Treatment Unknown or Not Available. Social History Smoking Status Code Start Date End Date Never smoker [id number] Vital Signs Vital Sign Value Unit Date/Time Recent/Initial? BMI (Body Mass Index) 25.06 kg/m2 12/15/2016 03:07 Initial VS Weight Measured 184.8 [lb_av] 12/15/2016 03:07 Initial VS Height 72 [in_i] 12/15/2016 03:07 Initial VS BSA (Body Surface Area) 2.06 m2 12/15/2016 03:07 Initial VS BP Systolic 43 mm[Hg] 12/15/2016 03:13 Initial VS BP Diastolic 29 mm[Hg] 12/15/2016 03:13 Initial VS Respiratory Rate 18 /min 12/15/2016 03:14 Initial VS Heart Rate 99 /min 12/15/2016 03:14 Initial VS O2 % BldC Oximetry 99 % 12/15/2016 03:14 Initial VS Body Temperature 97.5 [degF] 12/15/2016 07:58 Initial VS BMI (Body Mass Index) 26.04 kg/m2 12/16/2016 05:00 Most Recent VS Weight Measured 192 [lb_av] 12/16/2016 05:00 Most Recent VS Height 72 [in_i] 12/16/2016 05:00 Most Recent VS BSA (Body Surface Area) 2.1 m2 12/16/2016 05:00 Most Recent VS BP Systolic 143 mm[Hg] 12/18/2016 11:28 Most Recent VS BP Diastolic 96 mm[Hg] 12/18/2016 11:28 Most Recent VS Respiratory Rate 20 /min 12/18/2016 11:28 Most Recent VS Heart Rate 91 /min 12/18/2016 11:28 Most Recent VS O2 % BldC Oximetry 99 % 12/18/2016 11:28 Most Recent VS Body Temperature 96.9 [degF] 12/18/2016 11:28 Most Recent VS Function Status Unknown or Not Available. Goals Unknown or Not Available. ASSESSMENTS Unknown or Not Available. Health Concerns Section Unknown or Not Available.
--- OUTSIDE RECORDS SUMMARY | 2017-10-22 07:18 | XMS REPORT | CCD ---
Author Author DANIEL JACKIE LAENDeni Organization Unknown Address [address] [place], [place] [id number] Care Team Providers Care Roundhouse Worker Name Role Phone MEMO HYDE, SIGIFREDO Cheema Attphys RAMESH BANKS DO Prisurg SUZANNE MATTHEWS DO Rndphys J., MAYRA NASST G., OSCAR NASST F., ALE NASST T., NANCY Liz NASST S., BRANDYN NASST R., TREVIN Cheema NASST A., GUILLAUME NASST R., EMELY NASST S., MIKI NASST C., MAGY Ferreira NASST L., LYNN Vargas NASST K., QUENTIN NASST S., MICHELE Calderon NASST H., JOE NASST Vital Signs Vital Sign Value Unit Date/Time Recent/Initial? BP Systolic 85 mmHg 10/09/2015 12:08 Initial VS BP Diastolic 42 mmHg 10/09/2015 12:08 Initial VS Respiratory Rate 20 bpm 10/09/2015 12:08 Initial VS Heart Rate 77 bpm 10/09/2015 12:08 Initial VS O2 % BldC Oximetry 100 % 10/09/2015 12:08 Initial VS Body Temperature 98.7 degrees 10/09/2015 12:08 Initial VS Weight Measured 214 lbs 10/09/2015 18:24 Initial VS Height 72 in 10/09/2015 18:24 Initial VS BMI (Body Mass Index) 29.02 kg/m^2 10/09/2015 18:24 Initial VS BSA (Body Surface Area) 2.22 m^2 10/09/2015 18:24 Initial VS BP Systolic 126 mmHg 10/13/2015 10:40 Most Recent VS BP Diastolic 62 mmHg 10/13/2015 10:40 Most Recent VS Respiratory Rate 18 bpm 10/13/2015 10:40 Most Recent VS Heart Rate 76 bpm 10/13/2015 10:40 Most Recent VS O2 % BldC Oximetry 96 % 10/13/2015 10:40 Most Recent VS Body Temperature 98.2 degrees 10/13/2015 10:40 Most Recent VS Allergies Allergy Code Allergy Type Reaction Status MACROBID 923941 Drug allergy Active AMOXICILLIN AND CLAVULANATE POTASSIUM 63121 Drug allergy HIVES Active Procedures Procedure Code Procedure Type Date CBC W/ AUTO DIFF (RFLX MAN DIFF IF IND) 2971814 SNOMED CT 10/09/2015 COMPREHENSIVE METABOLIC PANEL 776221394 SNOMED CT [address] 10/09/2015 C REACTIVE PROTEIN 70554944 SNOMED [address] 10/09/[address] 10/09/2015 LACTIC ACID 3972290 SN[address] 10/09/2015 CULTURE BLOOD 45772560 SNOMED CT 10/09/2015 CULTURE BLOOD 81452784 SNOMED CT 10/09/2015 ^CBC W/ MANUAL DIFF 57325238 SNOMED CT 10/09/2015 CBC W/ AUTO DIFF (RFLX MAN DIFF IF IND) 9053723 SNOMED CT 10/10/2015 COMPREHENSIVE METABOLIC PANEL 356332923 SNOMED CT 2015 ^CBC W/AUTO DIFF 9454068 SNOMED CT 10/10/2015 HGB A1C (SEND-OUT) 83979854 SNOMED CT 10/11/[address] 10/11/[address] 10/11/2015 T4 FREE 8826409 SNOMED CT 10/11/2015 CBC W/ AUTO DIFF (RFLX MAN DIFF IF IND) 3718605 SNOMED CT 10/11/[address] 10/11/2015 RENAL FUNCTION PANEL 844358829 SNOMED CT 10/11/2015 BEDSIDE GLUCOSE 67784530 SNOMED CT 10/10/2015 BEDSIDE GLUCOSE 60598208 SNOMED CT 10/11/2015 BEDSIDE GLUCOSE 71228268 SNOMED CT 10/11/2015 ^CBC W/AUTO DIFF 7556213 SNOMED CT 10/11/2015 BEDSIDE GLUCOSE 50526114 SNOMED CT 10/11/2015 CBC W/ AUTO DIFF (RFLX MAN DIFF IF IND) 1892380 SNOMED CT 10/12/[address] 10/12/2015 RENAL FUNCTION PANEL 954730208 SNOMED CT 10/12/2015 BEDSIDE GLUCOSE 29922656 SNOMED CT 10/11/2015 BEDSIDE GLUCOSE 67218911 SNOMED CT 10/11/2015 ^SENSITIVITY 227150392 SNOMED CT 10/09/2015 ^SENSITIVITY 938555707 SNOMED CT 10/09/2015 BEDSIDE GLUCOSE 36047892 SNOMED CT 10/12/2015 ^CBC W/AUTO DIFF 5992944 SNOMED CT 10/12/2015 CULTURE BLOOD 93797570 SNOMED CT 10/12/2015 CBC W/ AUTO DIFF (RFLX MAN DIFF IF IND) 5544660 SNOMED CT 10/13/[address] 10/13/2015 RENAL FUNCTION PANEL 552690517 SNOMED CT 10/13/2015 UA ROUTINE C&S IF IND 555895944 SNOMED CT 10/12/2015 BEDSIDE GLUCOSE 76174824 SNOMED CT 10/12/2015 CULTURE URINE 263864386 SNOMED CT 10/12/2015 ^UA WITH MICRO 032746119 SNOMED CT 10/12/2015 BEDSIDE GLUCOSE 58098888 SNOMED CT 10/12/2015 BEDSIDE GLUCOSE 60129065 SNOMED CT 10/12/2015 BEDSIDE GLUCOSE 37280206 SNOMED CT 10/13/2015 ^CBC W/AUTO DIFF 9983507 SNOMED CT 10/13/2015 BEDSIDE GLUCOSE 82415387 SNOMED CT 10/13/2015 ABDOMEN ACUTE SERIES 8638207 SNOMED CT 10/09/2015 ABDOMEN ONE VIEW 385314436 SNOMED CT 10/09/2015 ABDOMEN ONE VIEW 291040183 SNOMED CT 10/10/2015 OXYGEN/HOUR 337023998 SNOMED CT 10/09/2015 OXYGEN/HOUR 639767198 SNOMED CT 10/10/2015 OXYGEN/HOUR 946102271 SNOMED CT 10/10/2015 OXYGEN/HOUR 058185941 SNOMED CT 10/11/2015 OXYGEN/HOUR 879734220 SNOMED CT 10/11/2015 OXYGEN/HOUR 647358544 SNOMED CT 10/12/2015 OXYGEN/HOUR 025214972 SNOMED CT 10/13/2015 History of Immunizations Immunization Code Date influenza, split (incl. purified surface antigen) 15 08/14/2006 pneumococcal polysaccharide PPV23 33 08/19/2011 Influenza, seasonal, injectable 141 06/25/2012 Problems Problem Code Start Date Resolved Date Status DIABETES MELLITUS 11309 Active Quadraplegia 06316413 Active Results BEDSIDE GLUCOSE - Collect Date/Time: 10/13/2015 12:08 Test Name Code Test Result Test Units Test Ref Range GLUCOSE POCT 204 MG/DL L=70 H=100 BEDSIDE GLUCOSE - Collect Date/Time: 10/13/2015 05:49 Test Name Code Test Result Test Units Test Ref Range GLUCOSE POCT 127 MG/DL L=70 H=100 BEDSIDE GLUCOSE - Collect Date/Time: 10/12/2015 20:49 Test Name Code Test Result Test Units Test Ref Range GLUCOSE POCT 190 MG/DL L=70 H=100 BEDSIDE GLUCOSE - Collect Date/Time: 10/12/2015 17:29 Test Name Code Test Result Test Units Test Ref Range GLUCOSE POCT 184 MG/DL L=70 H=100 BEDSIDE GLUCOSE - Collect Date/Time: 10/12/2015 11:50 Test Name Code Test Result Test Units Test Ref Range GLUCOSE POCT 202 MG/DL L=70 H=100 BEDSIDE GLUCOSE - Collect Date/Time: 10/12/2015 05:25 Test Name Code Test Result Test Units Test Ref Range GLUCOSE POCT 117 MG/DL L=70 H=100 BEDSIDE GLUCOSE - Collect Date/Time: 10/11/2015 21:01 Test Name Code Test Result Test Units Test Ref Range GLUCOSE POCT 183 MG/DL L=70 H=100 BEDSIDE GLUCOSE - Collect Date/Time: 10/11/2015 17:05 Test Name Code Test Result Test Units Test Ref Range GLUCOSE POCT 144 MG/DL L=70 H=100 BEDSIDE GLUCOSE - Collect Date/Time: 10/11/2015 12:11 Test Name Code Test Result Test Units Test Ref Range GLUCOSE POCT 148 MG/DL L=70 H=100 BEDSIDE GLUCOSE - Collect Date/Time: 10/11/2015 05:26 Test Name Code Test Result Test Units Test Ref Range GLUCOSE POCT 113 MG/DL L=70 H=100 BEDSIDE GLUCOSE - Collect Date/Time: 10/11/2015 01:37 Test Name Code Test Result Test Units Test Ref Range GLUCOSE POCT 85 MG/DL L=70 H=100 BEDSIDE GLUCOSE - Collect Date/Time: 10/10/2015 17:42 Test Name Code Test Result Test Units Test Ref Range GLUCOSE POCT 96 MG/DL L=70 H=100 COMPREHENSIVE METABOLIC PANEL - Collect Date/Time: 10/10/2015 05:50 Test Name Code Test Result Test Units Test Ref Range GLUCOSE 2345-7 124 MG/DL L=70 H=100 SODIUM 2951-2 139 MEQ/L L=135 H=148 POTASSIUM 2823-3 3.4 MEQ/L L=3.5 H=5.3 CHLORIDE 2075-0 102 MEQ/L L=96 H=110 CO2 2028-9 28 MEQ/L L=22 H=29 BUN 3094-0 14 MG/DL L=8 H=22 CREATININE 2160-0 0.6 MG/DL L=0.6 H=1.6 SGOT/AST 1920-8 10 IU/L L=10 H=40 SGPT/ALT 1742-6 8 IU/L L=8 H=54 ALK PHOS 6768-6 65 IU/L L=35 H=115 TOTAL PROTEIN 2885-2 7.0 G/DL L=5.5 H=8.5 ALBUMIN 1751-7 3.4 G/DL L=3.1 H=5.4 TOTAL BILI 1975-2 0.3 MG/DL L=0.0 H=1.5 CALCIUM 21808-0 8.7 MG/DL L=8.2 H=10.6 AGE 54 yrs GFR NonAA 139 GFR AA 168 eGFR >60 N/A eGFR AA* >60 N/A COMPREHENSIVE METABOLIC PANEL - Collect Date/Time: 10/09/2015 08:00 Test Name Code Test Result Test Units Test Ref Range GLUCOSE 2345-7 196 MG/DL L=70 H=100 SODIUM 2951-2 134 MEQ/L L=135 H=148 POTASSIUM 2823-3 3.4 MEQ/L L=3.5 H=5.3 CHLORIDE 2075-0 96 MEQ/L L=96 H=110 CO2 2028-9 24 MEQ/L L=22 H=29 BUN 3094-0 11 MG/DL L=8 H=22 CREATININE 2160-0 0.6 MG/DL L=0.6 H=1.6 SGOT/AST 1920-8 13 IU/L L=10 H=40 SGPT/ALT 1742-6 10 IU/L L=8 H=54 ALK PHOS 6768-6 87 IU/L L=35 H=115 TOTAL PROTEIN 2885-2 8.8 G/DL L=5.5 H=8.5 ALBUMIN 1751-7 4.2 G/DL L=3.1 H=5.4 TOTAL BILI 1975-2 0.4 MG/DL L=0.0 H=1.5 CALCIUM 94871-8 9.5 MG/DL L=8.2 H=10.6 AGE 54 yrs GFR NonAA 139 GFR AA 168 eGFR >60 N/A eGFR AA* >60 N/A LIPASE - Collect Date/Time: 10/09/2015 08:00 Test Name Code Test Result Test Units Test Ref Range LIPASE 3040-3 41 U/L L=8 H=78 RENAL FUNCTION PANEL - Collect Date/Time: 10/13/2015 06:55 Test Name Code Test Result Test Units Test Ref Range GLUCOSE 2345-7 128 MG/DL L=70 H=100 SODIUM 2951-2 137 MEQ/L L=135 H=148 POTASSIUM 2823-3 3.0 MEQ/L L=3.5 H=5.3 CHLORIDE 2075-0 103 MEQ/L L=96 H=110 CO2 2028-9 28 MEQ/L L=22 H=29 BUN 3094-0 4 MG/DL L=8 H=22 CREATININE 2160-0 0.5 MG/DL L=0.6 H=1.6 ALBUMIN 1751-7 3.0 G/DL L=3.1 H=5.4 CALCIUM 11817-4 8.2 MG/DL L=8.2 H=10.6 PHOSPHORUS 2777-1 2.7 MG/DL L=2.5 H=4.5 AGE 54 yrs GFR NonAA 172 GFR AA 208 eGFR >60 N/A eGFR AA* >60 N/A RENAL FUNCTION PANEL - Collect Date/Time: 10/12/2015 06:30 Test Name Code Test Result Test Units Test Ref Range GLUCOSE 2345-7 123 MG/DL L=70 H=100 SODIUM 2951-2 137 MEQ/L L=135 H=148 POTASSIUM 2823-3 3.0 MEQ/L L=3.5 H=5.3 CHLORIDE 2075-0 101 MEQ/L L=96 H=110 CO2 2028-9 27 MEQ/L L=22 H=29 BUN 3094-0 6 MG/DL L=8 H=22 CREATININE 2160-0 0.5 MG/DL L=0.6 H=1.6 ALBUMIN 1751-7 3.3 G/DL L=3.1 H=5.4 CALCIUM 50995-6 8.6 MG/DL L=8.2 H=10.6 PHOSPHORUS 2777-1 2.6 MG/DL L=2.5 H=4.5 AGE 54 yrs GFR NonAA 172 GFR AA 208 eGFR >60 N/A eGFR AA* >60 N/A RENAL FUNCTION PANEL - Collect Date/Time: 10/11/2015 06:20 Test Name Code Test Result Test Units Test Ref Range GLUCOSE 2345-7 123 MG/DL L=70 H=100 SODIUM 2951-2 140 MEQ/L L=135 H=148 POTASSIUM 2823-3 2.9 MEQ/L L=3.5 H=5.3 CHLORIDE 2075-0 105 MEQ/L L=96 H=110 CO2 2028-9 28 MEQ/L L=22 H=29 BUN 3094-0 8 MG/DL L=8 H=22 CREATININE 2160-0 0.5 MG/DL L=0.6 H=1.6 ALBUMIN 1751-7 3.3 G/DL L=3.1 H=5.4 CALCIUM 42732-6 8.5 MG/DL L=8.2 H=10.6 PHOSPHORUS 2777-1 2.6 MG/DL L=2.5 H=4.5 AGE 54 yrs GFR NonAA 172 GFR AA 208 eGFR >60 N/A eGFR AA* >60 N/A DIGOXIN - Collect Date/Time: 10/11/2015 06:20 Test Name Code Test Result Test Units Test Ref Range DIGOXIN 27049-9 0.2 NG/DL L=0.8 H=2.0 CBC W/ AUTO DIFF (RFLX MAN DIFF IF IND) - Collect Date/Time: 10/13/2015 06:55 Test Name Code Test Result Test Units Test Ref Range WBC 12798-4 6.8 TH/CMM L=4.5 H=10.8 RBC 789-8 3.87 ML/CMM L=4.70 H=6.10 HGB 718-7 8.0 G/DL L=14.0 H=18.0 HCT 4544-3 28.1 % L=42.0 H=52.0 MCV 73 FL L=81 H=99 MCH 20.7 PG L=27.0 H=33.0 MCHC 28.5 G/DL L=31.0 H=36.0 RDW SD 46 FL L=36 H=50 RDW CV 17.4 % L=0.0 H=14.8 MPV 8.5 FL L=9.3 H=12.5 PLT 777-3 225 TH/CMM L=130 H=440 NRBC# 0.00 TH/CMM L=0.00 H=0.00 NRBC% 0.0 /100WBC L=0.0 H=2.0 %NEUT 59.2 % %LYMP 28.1 % %MONO 10.5 % %EOS 1.9 % %BASO 0.3 % #NEUT 4.00 TH/CMM L=2.10 H=8.20 #LYMP 1.90 TH/CMM L=0.90 H=5.20 #MONO 0.71 TH/CMM L=0.16 H=1.00 #EOS 0.13 TH/CMM L=0.00 H=0.80 #BASO 0.02 TH/CMM L=0.00 H=0.20 MANUAL DIFF NOT IND N/A CBC W/ AUTO DIFF (RFLX MAN DIFF IF IND) - Collect Date/Time: 10/12/2015 06:30 Test Name Code Test Result Test Units Test Ref Range WBC 93221-3 8.6 TH/CMM L=4.5 H=10.8 RBC 789-8 4.00 ML/CMM L=4.70 H=6.10 HGB 718-7 8.4 G/DL L=14.0 H=18.0 HCT 4544-3 29.4 % L=42.0 H=52.0 MCV 74 FL L=81 H=99 MCH 20.8 PG L=27.0 H=33.0 MCHC 28.2 G/DL L=31.0 H=36.0 RDW SD 47 FL L=36 H=50 RDW CV 17.4 % L=0.0 H=14.8 MPV 8.8 FL L=9.3 H=12.5 PLT 777-3 264 TH/CMM L=130 H=440 NRBC# 0.00 TH/CMM L=0.00 H=0.00 NRBC% 0.0 /100WBC L=0.0 H=2.0 %NEUT 62.9 % %LYMP 20.2 % %MONO 15.1 % %EOS 1.4 % %BASO 0.4 % #NEUT 5.40 TH/CMM L=2.10 H=8.20 #LYMP 1.73 TH/CMM L=0.90 H=5.20 #MONO 1.29 TH/CMM L=0.16 H=1.00 #EOS 0.12 TH/CMM L=0.00 H=0.80 #BASO 0.03 TH/CMM L=0.00 H=0.20 MANUAL DIFF NOT IND N/A CBC W/ AUTO DIFF (RFLX MAN DIFF IF IND) - Collect Date/Time: 10/11/2015 06:20 Test Name Code Test Result Test Units Test Ref Range WBC 32430-2 6.7 TH/CMM L=4.5 H=10.8 RBC 789-8 3.64 ML/CMM L=4.70 H=6.10 HGB 718-7 7.6 G/DL L=14.0 H=18.0 HCT 4544-3 27.3 % L=42.0 H=52.0 MCV 75 FL L=81 H=99 MCH 20.9 PG L=27.0 H=33.0 MCHC 27.8 G/DL L=31.0 H=36.0 RDW SD 49 FL L=36 H=50 RDW CV 17.6 % L=0.0 H=14.8 MPV 8.5 FL L=9.3 H=12.5 PLT 777-3 247 TH/CMM L=130 H=440 NRBC# 0.00 TH/CMM L=0.00 H=0.00 NRBC% 0.0 /100WBC L=0.0 H=2.0 %NEUT 65.0 % %LYMP 19.2 % %MONO 13.8 % %EOS 1.7 % %BASO 0.3 % #NEUT 4.33 TH/CMM L=2.10 H=8.20 #LYMP 1.28 TH/CMM L=0.90 H=5.20 #MONO 0.92 TH/CMM L=0.16 H=1.00 #EOS 0.11 TH/CMM L=0.00 H=0.80 #BASO 0.02 TH/CMM L=0.00 H=0.20 MANUAL DIFF NOT IND N/A CBC W/ AUTO DIFF (RFLX MAN DIFF IF IND) - Collect Date/Time: 10/10/2015 05:50 Test Name Code Test Result Test Units Test Ref Range WBC 58701-2 6.7 TH/CMM L=4.5 H=10.8 RBC 789-8 3.76 ML/CMM L=4.70 H=6.10 HGB 718-7 7.9 G/DL L=14.0 H=18.0 HCT 4544-3 27.8 % L=42.0 H=52.0 MCV 74 FL L=81 H=99 MCH 21.0 PG L=27.0 H=33.0 MCHC 28.4 G/DL L=31.0 H=36.0 RDW SD 48 FL L=36 H=50 RDW CV 17.8 % L=0.0 H=14.8 MPV 8.1 FL L=9.3 H=12.5 PLT 777-3 226 TH/CMM L=130 H=440 NRBC# 0.00 TH/CMM L=0.00 H=0.00 NRBC% 0.0 /100WBC L=0.0 H=2.0 %NEUT 72.1 % %LYMP 12.1 % %MONO 14.8 % %EOS 0.7 % %BASO 0.3 % #NEUT 4.80 TH/CMM L=2.10 H=8.20 #LYMP 0.81 TH/CMM L=0.90 H=5.20 #MONO 0.99 TH/CMM L=0.16 H=1.00 #EOS 0.05 TH/CMM L=0.00 H=0.80 #BASO 0.02 TH/CMM L=0.00 H=0.20 MANUAL DIFF NOT IND N/A CBC W/ AUTO DIFF (RFLX MAN DIFF IF IND) - Collect Date/Time: 10/09/2015 08:00 Test Name Code Test Result Test Units Test Ref Range WBC 27524-4 11.5 TH/CMM L=4.5 H=10.8 RBC 789-8 4.87 ML/CMM L=4.70 H=6.10 HGB 718-7 10.2 G/DL L=14.0 H=18.0 HCT 4544-3 34.7 % L=42.0 H=52.0 MCV 71 FL L=81 H=99 MCH 20.9 PG L=27.0 H=33.0 MCHC 29.4 G/DL L=31.0 H=36.0 RDW SD 45 FL L=36 H=50 RDW CV 17.6 % L=0.0 H=14.8 MPV 8.6 FL L=9.3 H=12.5 PLT 777-3 373 TH/CMM L=130 H=440 NRBC# 0.00 TH/CMM L=0.00 H=0.00 NRBC% 0.0 /100WBC L=0.0 H=2.0 %NEUT 92.2 % %LYMP 5.7 % %MONO 1.9 % %EOS 0.0 % %BASO 0.2 % #NEUT 10.64 TH/CMM L=2.10 H=8.20 #LYMP 0.66 TH/CMM L=0.90 H=5.20 #MONO 0.22 TH/CMM L=0.16 H=1.00 #EOS 0.00 TH/CMM L=0.00 H=0.80 #BASO 0.02 TH/CMM L=0.00 H=0.20 SEGS 89 % BANDS 2 % LYMPHS 8 % METAS 1 % MANUAL DIFF SEE BELOW N/A HYPO 2++ N/A UA ROUTINE C&S IF IND - Collect Date/Time: 10/12/2015 17:00 Test Name Code Test Result Test Units Test Ref Range COLOR YELLOW N/A NL: YELLOW APPEARANCE CLEAR N/A NL: CLEAR SPEC GRAV 1.015 N/A NL: 1.002 - 1.022 pH 5.5 N/A NL: 5 - 9 PROTEIN 30 N/A NL: NEGATIVE mg/dl GLUCOSE NEGATIVE N/A [...] CRYSTALS NEGATIVE N/A NL: NEGATIVE MUCOUS THRDS FEW N/A NL: NEGATIVE BACTERIA FEW N/A NL: NEGATIVE EPITH CELLS 1+ SQUAMOUS N/A NL: NEGATIVE TRICHOMONAS NEGATIVE N/A NL: NEGATIVE YEAST NEGATIVE N/A NL: NEGATIVE CULT SET UP? YES N/A HGB A1C (SEND-OUT) - Collect Date/Time: 10/11/2015 06:20 Test Name Code Test Result Test Units Test Ref Range Hemoglobin A1c 4548-4 6.0 % 4.8-5.6 Estim. Avg Glu (eAG) 88822-1 126 mg/dL C REACTIVE PROTEIN - Collect Date/Time: 10/09/2015 08:00 Test Name Code Test Result Test Units Test Ref Range C REACTIVE PROTEIN 1988-5 7.6 MG/DL L=0.0 H= 1.0 T4 FREE - Collect Date/Time: 10/11/2015 06:20 Test Name Code Test Result Test Units Test Ref Range FREE T4 3024-7 0.95 NG/DL L=0.71 H=1.85 TSH - Collect Date/Time: 10/11/2015 06:20 Test Name Code Test Result Test Units Test Ref Range TSH 22142-5 7.84 mIU/L L=0.35 H=4.94 LACTIC ACID - Collect Date/Time: 10/09/2015 08:00 Test Name Code Test Result Test Units Test Ref Range LACTIC ACID 2524-7 1.1 mmol/L L=0.5 H=1.6 MAGNESIUM - Collect Date/Time: 10/13/2015 06:55 Test Name Code Test Result Test Units Test Ref Range MAGNESIUM 33396-9 1.6 MG/DL L=1.7 H=2.8 MAGNESIUM - Collect Date/Time: 10/12/2015 06:30 Test Name Code Test Result Test Units Test Ref Range MAGNESIUM 28513-4 1.5 MG/DL L=1.7 H=2.8 MAGNESIUM - Collect Date/Time: 10/11/2015 06:20 Test Name Code Test Result Test Units Test Ref Range MAGNESIUM 31718-5 1.8 MG/DL L=1.7 H=2.8 MAGNESIUM - Collect Date/Time: 10/09/2015 08:00 Test Name Code Test Result Test Units Test Ref Range MAGNESIUM 73658-0 1.9 MG/DL L=1.7 H=2.8 Active Medications Medication Code Dose Units Frequency Route Modification Start Date/Time Albuterol Sulfate 0.083% Inhalation Solution 633674 1 EACH EVERY 4 HOURS INHALATION 10/13/2015 12:41 Prescription Detail 1 EACH INHALATION EVERY 4 HOURS Aspirin 81MG Oral Tablet, Enteric Coated 209213 81 MILLIGRAMS DAILY ORAL 10/13/2015 12:41 Prescription Detail 81 MILLIGRAMS ORAL DAILY Baclofen 20MG Oral Tablet 046620 20 MILLIGRAMS THREE TIMES A DAY ORAL 10/13/2015 12:41 Prescription Detail 20 MILLIGRAMS ORAL THREE TIMES A DAY Digoxin 0.25MG Oral Tablet 021585 0.25 MILLIGRAMS DAILY ORAL 10/13/2015 12:41 Prescription Detail 0.25 MILLIGRAMS ORAL DAILY [facility] Fiber Therapy 500 MG Oral Tablet 073914 500 MG DAILY ORAL 10/13/2015 12:41 Prescription Detail 500 MG ORAL DAILY Januvia 100MG Oral Tablet 659964 100 MILLIGRAMS DAILY ORAL 10/13/2015 12:41 Prescription Detail 100 MILLIGRAMS ORAL DAILY Levemir 100U/1ML Subcutaneous Solution 209731 10 UNIT DAILY SUBCUTANEOUS 10/13/2015 12:41 Prescription Detail 10 UNIT SUBCUTANEOUS DAILY Levothyroxine 25MCG Oral Tablet 088691 50 MCG DAILY ORAL 10/13/2015 12:41 Prescription Detail 50 MCG ORAL DAILY metFORMIN HCl 500MG Oral Tablet 158526 4191 MILLIGRAMS TWO TIMES A DAY ORAL 10/13/2015 12:41 Prescription Detail 1000 MILLIGRAMS ORAL TWO TIMES A DAY Mucinex 600MG Oral Tablet, Extended Release 193828 600 MILLIGRAMS TWO TIMES A DAY ORAL 10/13/2015 12:41 Prescription Detail 600 MILLIGRAMS ORAL TWO TIMES A DAY NovoLOG 100U/1ML Subcutaneous Solution 174943 1 EACH s..s. with meals SUBCUTANEOUS 10/13/2015 12:41 Prescription Detail 1 EACH SUBCUTANEOUS s..s. with meals Pepcid 20MG Oral Tablet 664115 20 MILLIGRAMS TWO TIMES A DAY ORAL 10/13/2015 12:41 Prescription Detail 20 MILLIGRAMS ORAL TWO TIMES A DAY Vitamin Oral Tablet 7749851 1 EACH DAILY ORAL 10/13/2015 12:41 Prescription Detail 1 EACH ORAL DAILY Senna 8.6MG Oral Tablet 654136 8.6 MILLIGRAMS TWO TIMES A DAY ORAL 10/13/2015 12:41 Prescription Detail 8.6 MILLIGRAMS ORAL TWO TIMES A DAY Xarelto 20MG Oral Tablet 8900543 20 MILLIGRAMS DAILY ORAL 10/13/2015 12:41 Prescription Detail 20 MILLIGRAMS ORAL DAILY Celexa 20MG Oral Tablet 425054 20 MILLIGRAMS DAILY ORAL 04/10/2014 13:46 Prescription Detail 20 MILLIGRAMS ORAL DAILY Medications Administered During Visit Medication Dose Units Frequency Route Date/ Time of Last Dose METOCLOPRAMIDE [REGLAN] INJ: 10MG/2ML 10 MG Q6H IVP 10/13/2015 08:58 NS 1000 ML IV [PREDEFINED] (7983) CONT IV IV 10/11/2015 06:55 PANTOPRAZOLE [PROTONIX] INJ VIAL: 40 MG 40 MG DAILY SIVP 10/13/2015 08:58 LEVOFLOXACIN [LEVAQUIN] IV BAMG Q24H IVPB 10/09/2015 19:47 POLYETHYLENE [MIRALAX] POWDER: 17 GM 17 GM BEDTIME PO 10/12/2015 22:32 METRONIDazole [FLAGYL] IV BAmg Q8H IVPB 10/12/2015 05:14 LEVOTHYROXINE (SYNTHROID)50 MCG 50 MCG DAILY PO 10/11/2015 06:20 CITALOPRAM [CELEXA] TABLET : 20 MG 20 MG DAILY PO 10/13/2015 08:58 BACLOFEN [LIORESAL] TABLET : 20 MG 20 MG TID PO 10/13/2015 12:42 ASPIRIN [CHEWABLE] TAB : 81MG 81 MG DAILYM PO 10/13/2015 08:58 DIGOXIN [LANOXIN] TAB : 0.25 MG (WHITE) 0.25 MG DAILY PO 10/13/2015 08:58 POTASSIUM CHL [K DUR] TABLET: 20 MEQ 20 MEQ X1 NG 10/10/2015 14:04 INSULIN [NOVOLOG] 100UNITS/ML (SQ) 10ML 4 Unit(s) PRN SUB Q 10/12/2015 17:59 ENOXAPARIN 40 MG/0.4ML YELLOW [LOVENOX] 40 MG Q24H SUB Q 10/11/2015 13:48 ROCEPHIN IV [PREDEFINED]: 1GM IV Q 24 HR Q24H IVPB 10/11/2015 15:16 LEVOTHYROXINE (SYNTHROID)50 MCG 75 MCG DAILY PO 10/12/2015 05:14 RIVAROXABAN [XARELTO] TABLET : 10MG 40 MG BID PO 10/12/2015 08:55 NS 1000 ML IV [PREDEFINED] (7983) CONT IV IV 10/12/2015 10:58 LEVOTHYROXINE (SYNTHROID)75 MCG 75 MCG DAILY PO 10/13/2015 05:29 MAG SULFATE IV [PREDEFINED] 2 GM/50ML X1 IVPB 10/12/2015 10:57 POTASSIUM CHL [K DUR] TABLET: 20 MEQ 40 MEQ X1 PO 10/12/2015 10:13 CEFAZOLIN [ANCEF] IV 1GM (PREDEFINED) Q8H IVPB 10/13/2015 08:58 RIVAROXABAN [XARELTO] TABLET : 10MG 20 MG DAILYM PO 10/13/2015 08:58 MAG SULFATE IV [PREDEFINED] 2 GM/50ML X1 IVPB 10/13/2015 09:55 POTASSIUM CHL [K DUR] TABLET: 20 MEQ 40 MEQ X1 PO 10/13/2015 09:54 Encounters Encounter Diagnosis Diagnosis Code Start Date Other diseases of stomach and duodenum [id number] 10/09/2015 Social History Smoking Status Code Start Date End Date Never smoker [id number] Patient Decision Aids Patient Decision Aid Blood culture PATIENT PORTAL ACCESS Discharge Instructions You were admitted to [facility] on 10/09/2015 with a principal diagnosis of Other diseases of stomach and duodenum. You had the following tests done: Hemoglobin A1c Estim. Avg Glu (eAG) You were discharged from [facility] on 10/13/2015. Should you have any questions prior to discharge, please contact a member of your healthcare team. If you have left the hospital and have any questions, please contact your primary care physician. HOME DIET: Regular. SCRIPTS WRITTEN BY DOCTOR GIVEN TO PATIENT? Yes, for what?,CIPRO 500MG TWICE A DAY, Take your home Reglan before meals ACTIVITY INSTRUCTIONS(list limitations): Activity as Tolerated. CONTACT PHYSICIAN IF YOU EXPERIENCE ANY: fever, Shortness of Breath, Nausea/Vomiting. PERSONAL ITEMS RETURNED : Yes. PATIENT PORTAL/OTHER INSTRUCTIONS: Provided education info on Patient Cristina. INSTRUCTIONS GIVEN AND DISCHARGE TO: Patient, Case Management Rn. VOICES UNDERSTANDING OF INSTRUCTIONS: Yes. INSTRUCTIONS GIVEN BY (TYPE IN NAME AND DATE) Shaniqua BATISTA RN. 10/13/15 CONDITION AT DISMISSAL Stable. FOLLOW UP CARE - SEE YOUR PHYSICIAN: -Keep your appointment with wound care on . -Dr. Shin will watch for results of your Blood Culture, and need for follow-up will be determined. PRIMARY CARE PHYSICIAN OR PRACTITIONER: Temi Callejas DO, , Sigifredo Shin MD, . CHIEF COMPLAINT: PATIENT PRESENTS TO ER VIA EMS WITH CAREGIVER C/O OF PATIENT WITH ABDOMINAL DISTENTION, N/V AND ABDOMINAL PAIN. Chief Complaint and Reason For Visit Chief Complaint Date of Onset ILEUS Function Status Unknown or Not Available. Plan of Care Unknown or Not Available. Referral/Transition of Care Unknown or Not Available.
--- OUTSIDE RECORDS SUMMARY | 2017-10-22 07:22 | XMS REPORT | CCD ---
Author Author JB KNIGHT Unknown Address [address] [facility] [place] [address] Care Team Providers Care Transferrer Name Role Phone PATTI ER, BURTON DO Attphys [place] ER, BURTON DO Prisurg Allergies Allergy Code Allergy Type Reaction Status MACROBID 429205 Drug allergy Active AMOXICILLIN 723 Drug allergy Active Active Medications Medication Code Dose Units Frequency Route Modification Start Date/Time Albuterol Sulfate 0.083% Inhalation Solution 214053 2.5 MILLIGRAMS EVERY 6 HOURS INHALATION 12/18/2016 11: 15 Prescription Detail 2.5 MILLIGRAMS INHALATION EVERY 6 HOURS Atorvastatin Calcium 20MG Oral Tablet 225379 20 MILLIGRAMS DAILY ORAL 12/18/2016 11:15 Prescription Detail 20 MILLIGRAMS ORAL DAILY Famotidine 20MG Oral Tablet 689172 20 MILLIGRAMS TWO TIMES A DAY ORAL 12/18/2016 11:15 Prescription Detail 20 MILLIGRAMS ORAL TWO TIMES A DAY HYDROcodone bitartrate-acetaminophen 5MG-325MG Oral Tablet 679237 1 EACH NEEDED ORAL 12/18/2016 11:15 Prescription Detail 1 EACH ORAL NEEDED Levemir 100U/1ML Subcutaneous Solution 253459 20 UNIT AT BEDTIME SUBCUTANEOUS 12/18/2016 11:15 Prescription Detail 20 UNIT SUBCUTANEOUS AT BEDTIME levoFLOXacin 500MG Oral Tablet 747701 500 MILLIGRAMS DAILY BY MOUTH 12/18/2016 11:14 Prescription Detail 500 MILLIGRAMS BY MOUTH DAILY Aspirin 81MG Oral Tablet, Enteric Coated 812771 81 MILLIGRAMS DAILY ORAL 10/13/2015 12:41 Prescription Detail 81 MILLIGRAMS ORAL DAILY Baclofen 20MG Oral Tablet 392988 20 MILLIGRAMS THREE TIMES A DAY ORAL 10/13/2015 12:41 Prescription Detail 20 MILLIGRAMS ORAL THREE TIMES A DAY [facility] Fiber Therapy 500 MG Oral Tablet 746266 500 MG DAILY ORAL 10/13/2015 12:41 Prescription Detail 500 MG ORAL DAILY Januvia 100MG Oral Tablet 389452 100 MILLIGRAMS DAILY ORAL 10/13/2015 12:41 Prescription Detail 100 MILLIGRAMS ORAL DAILY Vitamin Oral Tablet 5093330 1 EACH DAILY ORAL 10/13/2015 12:41 Prescription Detail 1 EACH ORAL DAILY Xarelto 20MG Oral Tablet 7874997 20 MILLIGRAMS DAILY ORAL 10/13/2015 12:41 Prescription Detail 20 MILLIGRAMS ORAL DAILY Celexa 20MG Oral Tablet 790629 20 MILLIGRAMS DAILY ORAL 04/10/2014 13:46 Prescription Detail 20 MILLIGRAMS ORAL DAILY Problems Problem Code Start Date Resolved Date Status UTI 09789215 06/12/2017 Active Sepsis 13136422 06/12/2017 Active Quadraplegia 11862240 12/15/2016 Resolved Septic shock 76899056 12/14/2016 Resolved Severe sepsis with septic shock 47231282 04/29/20162016 Resolved Severe sepsis with septic shock 20507126 12/14/20162016 Resolved Dehydrated 53153399 12/15/2016 06/11/2017 Resolved Acute nephritis 06876562 12/15/2016 06/11/2017 Resolved Procedures Procedure Code Procedure Type Date ^CULTURE AEROBIC ID [id number] SNOMED CT 12/01/2016 ^CULTURE URINE IDENTIFICATION 902941936 SNOMED CT 2016 ^UA WITH MICRO 948754073 SNOMED CT 12/01/2016 CULTURE URINE 463714568 SNOMED CT 12/01/2016 ^CBC W/AUTO DIFF 8762117 SNOMED CT 12/01/2016 COMPREHENSIVE METABOLIC PANEL 467162691 SNOMED CT 2016 UA ROUTINE C&S IF IND 231088767 SNOMED CT 12/01/2016 CBC W/ AUTO DIFF (RFLX MAN DIFF IF IND) 7509083 SNOMED CT 12/01/2016 Results COMPREHENSIVE METABOLIC PANEL - Collect Date/Time: 12/01/2016 14:30 Test Name Code Test Result Test Units Test Ref Range GLUCOSE 2345-7 84 MG/DL L=70 H=100 SODIUM 2951-2 133 MEQ/L L=135 H=148 POTASSIUM 2823-3 4.4 MEQ/L L=3.5 H=5.3 CHLORIDE 2075-0 97 MEQ/L L=96 H=110 CO2 2028-9 23 MEQ/L L=22 H=29 BUN 3094-0 12 MG/DL L=8 H=22 CREATININE 2160-0 0.6 MG/DL L=0.6 H=1.6 SGOT/AST 1920-8 22 IU/L L=10 H=40 SGPT/ALT 1742-6 18 IU/L L=8 H=54 ALK PHOS 6768-6 86 IU/L L=35 H=115 TOTAL PROTEIN 2885-2 7.9 G/DL L=5.5 H=8.5 ALBUMIN 1751-7 3.9 G/DL L=3.1 H=5.4 TOTAL BILI 1975-2 0.4 MG/DL L=0.0 H=1.5 CALCIUM 40682-5 9.9 MG/DL L=8.2 H=10.6 AGE 56 yrs GFR NonAA 138 GFR AA 167 eGFR >60 N/A eGFR AA* >60 N/A CBC W/ AUTO DIFF (RFLX MAN DIFF IF IND) - Collect Date/Time: 12/01/2016 14:30 Test Name Code Test Result Test Units Test Ref Range WBC 76945-7 6.8 TH/CMM L=4.5 H=10.8 RBC 789-8 4.28 ML/CMM L=4.70 H=6.10 HGB 718-7 12.2 G/DL L=14.0 H=18.0 HCT 4544-3 36.2 % L=42.0 H=52.0 MCV 85 FL L=81 H=99 MCH 28.5 PG L=27.0 H=33.0 MCHC 33.7 G/DL L=31.0 H=36.0 RDW SD 41 FL L=36 H=50 RDW CV 13.4 % L=0.0 H=14.8 MPV 8.7 FL L=9.3 H=12.5 PLT 777-3 225 TH/CMM L=130 H=440 NRBC# 0.00 TH/CMM L=0.00 H=0.00 NRBC% 0.0 /100WBC L=0.0 H=2.0 %NEUT 64.9 % %LYMP 23.3 % %MONO 8.8 % %EOS 1.6 % %BASO 0.7 % #NEUT 4.42 TH/CMM L=2.10 H=8.20 #LYMP 1.59 TH/CMM L=0.90 H=5.20 #MONO 0.60 TH/CMM L=0.16 H=1.00 #EOS 0.11 TH/CMM L=0.00 H=0.80 #BASO 0.05 TH/CMM L=0.00 H=0.20 MANUAL DIFF NOT IND N/A PT/PTT - Collect Date/Time: 12/01/2016 14:30 Test Name Code Test Result Test Units Test Ref Range PROTIME 5964-2 11.1 SEC L=9.9 H=11.9 INR 54789-4 1.0 PTT 3173-2 32.4 SEC L=22.2 H=37.2 UA ROUTINE C&S IF IND - Collect Date/Time: 12/01/2016 14:50 Test Name Code Test Result Test Units Test Ref Range COLOR YELLOW N/A NL: YELLOW APPEARANCE HAZY N/A NL: CLEAR SPEC GRAV 1.010 N/A NL: 1.002 - 1.022 pH 8.0 N/A NL: 5 - 9 PROTEIN NEGATIVE N/A NL: NEGATIVE mg/dl GLUCOSE NEGATIVE N/A NL: NEGATIVE mg/dl KETONE NEGATIVE N/A NL: NEGATIVE mg/dl BILIRUBIN NEGATIVE N/A NL: NEGATIVE BLOOD LARGE N/A NL: NEGATIVE NITRITE POSITIVE N/A NL: NEGATIVE LEUK SCREEN LARGE N/A NL: NEGATIVE MICRO INDICATED? SEE BELOW N/A WBC/HPF 10-20 N/A NL: NEGATIVE RBC/HPF 0-5 N/A NL: NEGATIVE CASTS/LPF NEGATIVE N/A NL: NEGATIVE CRYSTALS TRACE AMORPH N/A NL: NEGATIVE MUCOUS THRDS NEGATIVE N/A [...] Code Start Date End Date Never smoker [id number] Vital Signs Unknown or Not Available. Function Status Unknown or Not Available. Goals Unknown or Not Available. ASSESSMENTS Unknown or Not Available. Health Concerns Section Unknown or Not Available.
--- OUTSIDE RECORDS SUMMARY | 2017-10-22 07:22 | XMS REPORT ---
Author Author Shari Correia [facility] Address [address] [place], [place] [address] Care Team Providers Care Biometrics Analyst Name Role Phone Shari Correia PCP Unavailable Strides, Independent Unavailable Unavailable Allergies and Adverse Reactions Name Reaction Notes amoxicillin nitrofurantoin Plan of Treatment Planned Activity Comments Planned Date Planned Time Plan/Goal Hemoglobin A1C 12/23/2015 12:00 AM Vitamin B12 12/23/2015 12:00 AM TSH 12/23/2015 12:00 AM T4, Free 12/23/2015 12:00 AM CBC with Auto 03/13/2017 12:00 AM Urinalysis with C/S If Indicated 04/15/2017 12:00 AM Basic metabolic profile 03/16/2015 12:00 [...] 09/28" miscellaneous needle 2015 USE DIRECTED WITH RELEASEIFPEN baclofen 20 mg oral tablet 03/31/2016 TAKE [...] 1 TABLET BY MOUTH THREE TIMES DAILY Bactrim DS 800-160 mg oral tablet 04/13/2017 05/11/2017 Take one tablet PO BID x7 days and then one PO after supper x14 days Name Start Date Expiration Date SIG [...] HC BMI BSA BMI Percentile O2 Sat(%) 04/13/2017 10:20:00 AM 68 bpm 18 rpm 97.7 F 211 lbs 72 in 28.62 kg/m2 2.20 m2 98 % 03/22/2017 3:59:00 PM 211 lbs [...] Returned 03/22/2017 12:00 AM HEMOGLOBIN ELECTROPHORESIS Returned 11/05/2012 12:00 AM COMPLETE CBC W/AUTO [...] AM Flu Injection 3 Years And Above [facility]# [id number] RHC Reviewed 07/09/2013 12:00 AM THER/PROPH/DIAG INJ SC/IM Reviewed 07/09/2013 12:00 AM Toradol 30 Mg [facility]#[id number] Reviewed 12/26/2013 12:00 AM LIPID PANEL Reviewed [...] eGFR >60 mL/min/1.73meGFR AA* >60 TSH 4.550 uIU/mLProtein, Total, Serum 9.4 Albumin 4.0 Nwmpz-5-Gpdatsbn 0.4 Alpha -2-Globulin 1.1 Beta Globulin 1.7 Gamma Globulin 2.3 M-Tobi Not Observed Globulin, Total 5.4 A/G Ratio 0.7 Please note: COMMENT P E Interpretation, S Note: 04/10/2017 11:11 AM COLOR YELLOW APPEARANCE TURBID SPEC GRAV <=1.005 pH 7.5 PROTEIN 2000 mg/dl GLUCOSE NEGATIVE mg/dLKETONE NEGATIVE BILIRUBIN NEGATIVE BLOOD LARGE NITRITE NEGATIVE LEUK SCREEN LARGE WBC/HPF 50-100 RBC/HPF 5-10 CASTS /LPF FEW FINE GRAN /LPFCRYSTALS NEGATIVE MUCOUS THRDS NEGATIVE BACTERIA 2++ EPITH CELLS NEGATIVE /HPFTRICHOMONAS NEGATIVE YEAST NEGATIVE CULT ORDERED YES History Of Immunizations Name Date Admin Mfg Name Mf Code Trade Name Lot# Route Inj Vis Given Vis Pub CVX Influenza 07/03/2013 sanofi pasteur PMC Fluzone > 3 Years [id number] Intramuscular Right Deltoid 07/03/2013 04/19/2013 141 Pneumococcal [...] Neurogenic bladder disorder Apr 13 2017 10:22AM Payers Insurance Name Company Name Plan Name Plan Number Policy Number Policy Group Number Start Date Medicare RHC Medicare RHC [id number] N/A [facility] [id number] Tuesday, 2012 [facility] [id number] N/A Medicare Part A Medicare - Lab/Xray [id number] Sunday, June 25, 1989 Medicare Part B Medicare Of [place] [id number] May [place] Medical Assistance [facility] Medical Assistance Pro [id number] May Medicare Part A Medicare Part A [id number] Sunday, June 25, 1989 History of Encounters Visit Date Visit Type Provider 04/13/2017 Office visit Shari Correia MD 03/22/2017 Office visit Rhonda Tejada MD 12/21/2016 Office visit Rhonda Tejada MD 12/17/2016 [facility] Gonzalez Mattson MD 12/15/2016 [facility] Austin Reyez DO 12/09/2016 Office visit Shari Correia MD 08/31/2016 Office visit Rhonda Tejada MD 05/19/2016 Office visit Rhonda Tejada MD 05/11/2016 Hospital Carolyn Mercado MD 04/29/2016 Hospital Shahram Morrow DO 04/29/2016 [facility] Carolyn Mercado MD 04/29/2016 Hospital Carolyn Mercado MD 04/26/2016 Procedures Austin Reyez DO 03/29/2016 Office visit Rhonda Tejada MD 12/24/2015 Office visit Nicholas Bonilla APRN 12/18/2015 Office visit Nicholas Bonilla APRN 10/20/2015 Office visit Sidney Shin MD 10/10/2015 [facility] Yonny Rivera MD 10/05/2015 Office visit Rhonda Tejada MD 08/31/2015 Office visit Rhonda Tejada MD 06/09/2015 Hospital Austintracy Reyez DO 06/08/2015 Hospital Austin Reyez DO 06/08/2015 Hospital Austin Reyez DO 06/05/[address] Kev Shane MD 06/03/2015 Office visit Jasmyne Del Rosario [employer] 03/16/2015 Office visit Rhonda Tejada MD 12/23/2014 Office visit Shari Correia MD 12/11/2014 Office visit Rhonda Tejada MD 09/10/2014 Office visit Rhonda Tejada MD 06/25/2014 Office visit Rhonda Tejada MD 06/11/2014 Office visit Rhonda Tejada MD 04/10/2014 [facility] Sidney Shin MD 04/08/2014 [facility] [place] MD 03/18/2014 Office visit Nicholas Bonilla [employer] 12/26/2013 Office visit Rhonda Tejada MD 12/12/2013 [facility] Carolyn Mercado MD 12/08/2013 [facility] Joan Sherman MD 12/06/2013 [facility] [place] MD 10/08/2013 Office visit Rhonda Tejada MD 08/01/2013 Office visit Austin Reyez DO 08/01/2013 Office visit Jovanna Kapadia MD 07/13/2013 Hospital Austin Racheluman DO 07/10/2013 Hospital Austin Racheluman DO 07/09/2013 Office visit Jovanna Kapadia MD 07/09/2013 Hospital [place] Reyez DO 07/03/2013 Office visit Jovanna Kapadia MD 04/22/2013 Office visit Jasmyne Del Rosario [employer] UN[employer] 04/01/2013 Office visit Jovanna Kapadia MD 12/31/2012 Office visit Jovanna Kapadia MD 11/29/2012 Office visit Jovanna Kapadia MD 11/05/2012 Office visit Jasmyne Del Rosario [employer] 11/30/2011 Hospital Carolyn Mercado MD 08/12/2011 [facility] Carolyn Mercado MD 06/29/2011 [facility] Carolyn Mercado MD 03/20/2011 [facility] Carolyn Mercado MD 05/01/2010 Laboratory Jose Luis Stinson MD 04/28/2010 Laboratory Jose Luis Stinson MD 11/20/2009 [facility] Jose Luis Stinson MD 2009 [facility] Jose Luis Stinson MD 11/17/2009 [facility] Jose Luis Stinson MD 11/16/2009 [facility] Suha Ray MD 11/15/2009 [facility] Suha Ray MD 09/02/2009 Laboratory Richar [...]
--- OUTSIDE RECORDS SUMMARY | 2017-10-22 07:22 | XMS REPORT | CCD ---
Author Author JACKIE SANCHEZ Organization Unknown Address [address] [place], [place] [address] Care Team Providers Care Court Officer Name Role Phone SIXTO HYDE, SIGIFREDO Mcgovern Attphys SIGIFREDO HENSON MD Prisufrandy Vital Signs Unknown or Not Available. Allergies Allergy Code Allergy Type Reaction Status MACROBID 373787 Drug allergy Active AMOXICILLIN AND CLAVULANATE POTASSIUM 53994 Drug allergy HIVES Active Procedures Unknown or Not Available. History of Immunizations Immunization Code Date influenza, split (incl. purified surface antigen) 15 08/14/2006 pneumococcal polysaccharide PPV23 33 08/19/2011 Influenza, seasonal, injectable 141 06/25/2012 Problems Problem Code Start Date Resolved Date Status Septic shock 71248167 Active Quadraplegia 00609478 Active DIABETES MELLITUS 63377 12/29/2015 Resolved Results Unknown or Not Available. Active Medications Medication Code Dose Units Frequency Route Modification Start Date/Time Albuterol Sulfate 0.083% Inhalation Solution 420653 1 EACH EVERY 4 HOURS INHALATION 10/13/2015 12:41 Prescription Detail 1 EACH INHALATION EVERY 4 HOURS Aspirin 81MG Oral Tablet, Enteric Coated 194265 81 MILLIGRAMS DAILY ORAL 10/13/2015 12:41 Prescription Detail 81 MILLIGRAMS ORAL DAILY Baclofen 20MG Oral Tablet 574266 20 MILLIGRAMS THREE TIMES A DAY ORAL 10/13/2015 12:41 Prescription Detail 20 MILLIGRAMS ORAL THREE TIMES A DAY Digoxin 0.25MG Oral Tablet 0.25 MILLIGRAMS DAILY ORAL 10/13/2015 12:41 Prescription Detail 0.25 MILLIGRAMS ORAL DAILY [facility] Fiber Therapy 500 MG Oral Tablet 547933 500 MG DAILY ORAL 10/13/2015 12:41 Prescription Detail 500 MG ORAL DAILY Januvia 100MG Oral Tablet 139728 100 MILLIGRAMS DAILY ORAL 10/13/2015 12:41 Prescription Detail 100 MILLIGRAMS ORAL DAILY Levemir 100U/1ML Subcutaneous Solution 356564 10 UNIT DAILY SUBCUTANEOUS 10/13/2015 12:41 Prescription Detail 10 UNIT SUBCUTANEOUS DAILY Levothyroxine 25MCG Oral Tablet 528537 50 MCG DAILY ORAL 10/13/2015 12:41 Prescription Detail 50 MCG ORAL DAILY metFORMIN HCl 500MG Oral Tablet 563471 1982 MILLIGRAMS TWO TIMES A DAY ORAL 10/13/2015 12:41 Prescription Detail 1000 MILLIGRAMS ORAL TWO TIMES A DAY Mucinex 600MG Oral Tablet, Extended Release 189307 600 MILLIGRAMS TWO TIMES A DAY ORAL 10/13/2015 12:41 Prescription Detail 600 MILLIGRAMS ORAL TWO TIMES A DAY NovoLOG 100U/1ML Subcutaneous Solution 136463 1 EACH s..s. with meals SUBCUTANEOUS 10/13/2015 12:41 Prescription Detail 1 EACH SUBCUTANEOUS s..s. with meals Pepcid 20MG Oral Tablet 255149 20 MILLIGRAMS TWO TIMES A DAY ORAL 10/13/2015 12:41 Prescription Detail 20 MILLIGRAMS ORAL TWO TIMES A DAY Vitamin Oral Tablet 32042276978 1 EACH DAILY ORAL 10/13/2015 12:41 Prescription Detail 1 EACH ORAL DAILY Xarelto 20MG Oral Tablet 9848650 20 MILLIGRAMS DAILY ORAL 10/13/2015 12:41 Prescription Detail 20 MILLIGRAMS ORAL DAILY Celexa 20MG Oral Tablet 857266 20 MILLIGRAMS DAILY ORAL 04/10/2014 13:46 Prescription Detail 20 MILLIGRAMS ORAL DAILY Medications Administered During Visit Unknown or Not Available. Encounters Encounter Diagnosis Diagnosis Code Start Date Malfunction of tracheostomy stoma J9503 12/24/2015 Social History Smoking Status Code Start Date End Date Never smoker 609975474 Patient Decision Aids Unknown or Not Available. Discharge Instructions You were admitted to [facility] on 12/24/2015 10:44 with a principal diagnosis of Malfunction of tracheostomy stoma You were discharged from [facility] on 12/24/2015 10:57 Should you have any questions prior to discharge, please contact a member of your healthcare team. If you have left the hospital and have any questions, please contact your primary care physician. Chief Complaint and Reason For Visit Chief Complaint Date of Onset TRACH PROBLEM Function Status Unknown or Not Available. Referral/Transition of Care Unknown or Not Available.
--- OUTSIDE RECORDS SUMMARY | 2017-10-22 07:25 | XMS REPORT ---
Author Author Rhonda Tejada [facility] Address [address] [place], [place] [address] Care Team Providers Care Snow Remover Name Role Phone Rhonda Tejada PCP Strides, Independent Unavailable Unavailable Allergies and Adverse Reactions Name Reaction Notes amoxicillin nitrofurantoin Plan of Treatment Planned Activity Comments Planned Date Planned Time Plan/Goal Hemoglobin A1C 12/23/2015 12:00 AM Vitamin B12 12/23/2015 12:00 AM TSH 12/23/2015 12:00 AM T4, Free 12/23/2015 12:00 AM CBC with Auto 03/13/2017 12:00 AM Basic metabolic profile 03/16/2015 [...] 09/28" miscellaneous needle 2015 USE DIRECTED WITH [employer] Link FinancialPEN baclofen 20 mg oral tablet 03/31/2016 TAKE [...] tablet TID Triaoluance 06/05/2014 1 at on [facility] subqutaneous 20 units 06/05/2014 BID NovoFine [...] Returned 03/22/2017 12:00 AM HEMOGLOBIN ELECTROPHORESIS Returned 04/11/2017 12:00 AM Consult/Referral Reviewed 11/05/2012 12:00 AM COMPLETE CBC W/AUTO [...] Flu Injection 3 Years And Above [facility]# [id number] RHC Reviewed 07/09/2013 12:00 AM THER/PROPH/DIAG INJ SC/IM Reviewed 07/09/2013 12:00 AM Toradol 30 Mg [facility]#[id number] Reviewed 12/26/2013 12:00 AM LIPID PANEL Reviewed [...] 4.550 uIU/mLProtein, Total, Serum 9.4 Albumin 4.0 [place]-7-Cuinsium 0.4 Alpha -2-Globulin 1.1 Beta Globulin 1.7 [...] sanofi pasteur PMC Fluzone > 3 Years [id number] Intramuscular Right Deltoid 07/03/2013 04/19/2013 141 Pneumococcal [...] buttock, stage 1 Mar 22 2017 3:23PM Payers Insurance Name Company Name Plan Name Plan Number Policy Number Policy Group Number Start Date Medicare RHC Medicare RHC [id number] N/A [place] [id number] Tuesday, 2012 [facility] [id number] N/A Medicare Part A Medicare - Lab/Xray [id number] Sunday, June 25, 1989 Medicare Part B Medicare Of [place] [id number] May [place] Medical [place] Program [place] [facility] [place] Prog [id number] May Medicare Part A Medicare Part A [id number] Sunday, June 25, 1989 History of Encounters Visit Date Visit Type Provider 03/22/2017 Office visit Rhonda Tejada MD 12/21/2016 Office visit Rhonda Tejada MD 12/17/2016 [facility] Gonzalez Mattson MD 12/15/2016 Hospital Austin Bojosefa DO 12/09/2016 Office visit Shari Correia MD 08/31/2016 Office visit Rhonda Tejada MD 05/19/2016 Office visit Rhonda Tejada MD 05/11/2016 Hospital Carolyn Mercado MD 04/29/2016 [facility] Shahram Morrow DO 04/29/2016 Hospital Carolyn Mercado MD 04/29/2016 Hospital Carolyn Mercado MD 04/26/2016 [facility] 03/29/2016 Office visit Rhonda Tejada MD 12/24/2015 Office visit Nicholas Bonilla RN FAMILY PRACTICE 12/18/2015 Office visit Nicholas Bonilla RN FAMILY PRACTICE 10/20/2015 Office visit Sidney Shin MD 10/10/2015 [facility] Yonny Rivera MD 10/05/2015 Office visit Rhonda Tejada MD 08/31/2015 Office visit Rhonda Tejada MD 06/09/2015 [facility] DO 06/08/2015 [facility] 06/08/2015 [facility] 06/05/[address] Kev Shane MD 06/03/2015 Office visit Jasmyne Del Rosario RN FAMILY PRACTICE 03/16/2015 Office visit Rhonda Tejada MD 12/23/2014 Office visit Shari Correia MD 12/11/2014 Office visit Rhonda Tejada MD 09/10/2014 Office visit Rhonda Tejada MD 06/25/2014 Office visit Rhonda Tejada MD 06/11/2014 Office visit Rhonda Tejada MD 04/10/2014 [facility] Sidney Shin MD 04/08/2014 [facility] [place] MD 03/18/2014 Office visit Nicholas Bonilla APRN 12/26/2013 Office visit Rhonda Tejada MD 12/12/2013 [facility] Carolyn Mercado MD 12/08/2013 [facility] Joan Sherman MD 12/06/2013 [facility] [place] MD 10/08/2013 Office visit Rhonda Tejada MD 08/01/2013 Office visit Austin Reyez DO 08/01/2013 Office visit Jovanna Kapadia MD 07/13/2013 [facility] 07/10/2013 [facility] 07/09/2013 Office visit Jovanna Kapadia MD 07/09/2013 Hospital Austin Reyez DO 07/03/2013 Office visit Jovanna Kapadia MD 04/22/2013 Office visit Jasmyne Del Rosario RN FAMILY PRACTICE 04/01/2013 Office visit Jovanna Kapadia MD 12/31/2012 Office visit Jovanna Kapadia MD 11/29/2012 Office visit Jovanna Kapadia MD 11/05/2012 Office visit Jasmyne Del Rosario RN FAMILY PRACTICE 11/30/2011 Hospital Carolyn Mercado MD 08/12/2011 Hospital Carolyn Mercado MD 06/29/2011 [facility] Carolyn Mercado MD 03/20/2011 Hospital W Andrzej Mercado MD 05/01/2010 Laboratory Jose Luis Stinson MD 04/28/2010 Laboratory Jose Luis Stinson MD 11/20/2009 [facility] Jose Luis Stinson MD 2009 [facility] Jose Luis Stinson MD 11/17/2009 [facility] Jose Luis Stinson MD 11/16/2009 [facility] Suha Ray MD 11/15/2009 [facility] Suha Ray MD 09/02/2009 Laboratory Richar [...]
--- OUTSIDE RECORDS SUMMARY | 2017-10-22 07:26 | XMS REPORT | CCD ---
Author Author MAYRA MORALES Organization Unknown Address [address] [place], [place] [id number] Care Team Providers Care Foil Spooler Name Role Phone [facility] MD Attphys SHARA ZAPATA MD Prisurg B.CHRISTINE NASST L., GASPER Naylor NASST Vital Signs Vital Sign Value Unit Date/Time Recent/Initial? Heart Rate 87 bpm 12/28/2015 19:05 Initial VS O2 % BldC Oximetry 93 % 12/28/2015 19:05 Initial VS BP Systolic 73 mmHg 12/28/2015 19:07 Initial VS BP Diastolic 31 mmHg 12/28/2015 19:07 Initial VS Respiratory Rate 34 bpm 12/28/2015 19:15 Initial VS Body Temperature 102.1 degrees 12/28/2015 19:15 Initial VS Weight Measured 203 lbs 12/28/2015 19:28 Initial VS Height 72 in 12/28/2015 19:28 Initial VS BMI (Body Mass Index) 27.53 kg/m^2 12/28/2015 19:28 Initial VS BSA (Body Surface Area) 2.16 m^2 12/28/2015 19:28 Initial VS Weight Measured 212 lbs 12/29/2015 05:44 Most Recent VS Height 72 in 12/29/2015 05:44 Most Recent VS BMI (Body Mass Index) 28.75 kg/m^2 12/29/2015 05:44 Most Recent VS BSA (Body Surface Area) 2.21 m^2 12/29/2015 05:44 Most Recent VS Body Temperature 97.2 degrees 12/29/2015 16:29 Most Recent VS BP Systolic 144 mmHg 12/29/2015 17:20 Most Recent VS BP Diastolic 73 mmHg 12/29/2015 17:20 Most Recent VS Respiratory Rate 25 bpm 12/29/2015 17:22 Most Recent VS Heart Rate 90 bpm 12/29/2015 17:22 Most Recent VS O2 % BldC Oximetry 100 % 12/29/2015 17:22 Most Recent VS Allergies Allergy Code Allergy Type Reaction Status MACROBID 433364 Drug allergy Active AMOXICILLIN AND CLAVULANATE POTASSIUM 28871 Drug allergy HIVES Active Procedures Procedure Code Procedure Type Date Excision of Buttock Subcutaneous Tissue and Fascia, Open Approach [id number] ICD-10 PCS 12/29/2015 CT ABD AND PELVIS W/O CONTRAST 033778640 SNOMED CT 2015 CX CHEST [address] 12/28/2015 BEDSIDE GLUCOSE 69179303 SNOMED CT 12/29/2015 BEDSIDE GLUCOSE 77061349 SNOMED CT 12/29/2015 LACTIC ACID 1478906 SNOM[address] 12/29/2015 BEDSIDE GLUCOSE 00219997 SNOMED CT 12/28/2015 CULTURE WOUND 387013861 SNOMED CT 12/28/2015 GRAM STAIN 32785298 SNOMED CT 12/28/[address] 12/29/[address] 12/29/2015 .BB COMPATIBILITY 020140894 SNOMED CT 12/28/2015 IRON PANEL 822278188 SNOMED [address] 12/28/[address] 12/28/[address] 12/28/[address] 12/28/2015 TROPONIN-I ADV 454827835 SNOMED CT 12/28/2015 BASIC METABOLIC PANEL 896808985 SNOMED CT 12/28/2015 GRAM STAIN 77822379 SNOMED CT 12/28/2015 CULTURE SPUTUM 676799245 SNOMED CT 12/28/2015 TROPONIN-I ADV 568905473 SNOMED CT 12/29/[address] 12/29/2015 PATHOLOGY ORDER 689509879 SNOMED CT 12/28/2015 COMPREHENSIVE METABOLIC PANEL 520722880 SNOMED CT 2015 CBC W/ AUTO DIFF (RFLX MAN DIFF IF IND) 1152977 SNOMED CT 12/29/2015 TROPONIN-I ADV 477105226 SNOMED CT 12/28/2015 LACTIC ACID 5736780 SNOMED [address] 12/28/2015 CULTURE BLOOD 68015385 SNOMED CT 12/28/[address] 12/28/2015 LACTIC ACID 1718748 SNOM[address] 12/28/2015 BEDSIDE GLUCOSE 17063007 SNOMED CT 12/28/2015 CULTURE URINE 213620745 SNOMED CT 12/28/2015 CULTURE BLOOD 49265480 SNOMED CT 12/28/2015 CULTURE BLOOD 90285840 SNOMED CT 12/28/2015 UA ROUTINE C&S IF IND 592091419 SNOMED CT 12/28/2015 COMPREHENSIVE METABOLIC PANEL 807607350 SNOMED CT 2015 CBC W/ AUTO DIFF (RFLX MAN DIFF IF IND) 6563994 SNOMED CT 12/28/2015 BAN AERO ECLIPSE TREATMENT #[address] 2015 BAN AERO ECLIPSE TREATMENT #[address] 2015 ^CULTURE URINE IDENTIFICATION 553584079 SNOMED CT 2015 ^SENSITIVITY 378631206 SNOMED CT 12/28/2015 ^SENSITIVITY 496444873 SNOMED CT 12/28/2015 ^SENSITIVITY 412216254 SNOMED CT 12/28/2015 ^SENSITIVITY 104128274 SNOMED CT 12/28/2015 ^SENSITIVITY 083684277 SNOMED CT 12/28/2015 .BB PRC 872764949 SNOMED CT 12/29/2015 SMEAR TO PATHOLOGIST 011285458 SNOMED CT 12/28/2015 ^CBC W/ MANUAL DIFF 52589698 SNOMED CT 12/29/2015 .BB COMPAT EXM CHARGE ONLY 833616456 SNOMED CT 2015 ^RHO D 560682129 SNOMED CT 12/28/2015 ^ABO TYPE 960621213 SNOMED CT 12/28/2015 ^SHILPA SCREEN 956748241 SNOMED CT 12/28/2015 .BB PRC 730003433 SNOMED CT 12/28/2015 ^UA WITH MICRO 485228463 SNOMED CT 12/28/2015 ^CBC W/ MANUAL DIFF 75381409 SNOMED CT 12/28/2015 OXYGEN/HOUR 399420447 SNOMED CT 12/29/2015 BAN AERO ECLIPSE TREATMENT 90072621 SNOMED CT 12/29/2015 NUCLEOTIDASE 5' 1505581 SNOMED CT 12/28/2015 TYPE AND CROSS 60863671 SNOMED CT 12/28/[address] 12/28/2015 HGB A1C (SEND-OUT) 99087571 SNOMED CT 12/28/[address]AMIN B[address] 12/28/2015 BAN AERO ECLIPSE TREATMENT 71124616 SNOMED CT 12/29/2015 BAN AERO ECLIPSE TREATMENT 65428416 SNOMED CT 12/28/2015 History of Immunizations Immunization Code Date influenza, split (incl. purified surface antigen) 15 08/14/2006 pneumococcal polysaccharide PPV23 33 08/19/2011 pneumococcal, unspecified formulation 109 03/30/2016 Influenza, seasonal, injectable 141 06/25/2012 Problems Problem Code Start Date Resolved Date Status Septic shock 14380840 Active Quadraplegia 36882019 Active Severe sepsis with septic shock 13023496 04/29/2016 Active DIABETES MELLITUS 85466 12/29/2015 Resolved Results BASIC METABOLIC PANEL - Collect Date/Time: 12/28/2015 21:00 Test Name Code Test Result Test Units Test Ref Range GLUCOSE 2345-7 253 MG/DL L=70 H=100 SODIUM 2951-2 124 MEQ/L L=135 H=148 POTASSIUM 2823-3 3.9 MEQ/L L=3.5 H=5.3 CHLORIDE 2075-0 91 MEQ/L L=96 H=110 CO2 2028-9 20 MEQ/L L=22 H=29 BUN 3094-0 12 MG/DL L=8 H=22 CREATININE 2160-0 0.7 MG/DL L=0.6 H=1.6 CALCIUM 38179-3 8.7 MG/DL L=8.2 H=10.6 AGE 55 yrs GFR NonAA 116 GFR AA 141 eGFR >60 N/A eGFR AA* >60 N/A BEDSIDE GLUCOSE - Collect Date/Time: 12/29/2015 11:53 Test Name Code Test Result Test Units Test Ref Range GLUCOSE POCT 196 MG/DL L=70 H=100 BEDSIDE GLUCOSE - Collect Date/Time: 12/29/2015 05:29 Test Name Code Test Result Test Units Test Ref Range GLUCOSE POCT 152 MG/DL L=70 H=100 BEDSIDE GLUCOSE - Collect Date/Time: 12/28/2015 23:23 Test Name Code Test Result Test Units Test Ref Range GLUCOSE POCT 286 MG/DL L=70 H=100 BEDSIDE GLUCOSE - Collect Date/Time: 12/28/2015 17:05 Test Name Code Test Result Test Units Test Ref Range GLUCOSE POCT 186 MG/DL L=70 H=100 COMPREHENSIVE METABOLIC PANEL - Collect Date/Time: 12/29/2015 05:25 Test Name Code Test Result Test Units Test Ref Range GLUCOSE 2345-7 145 MG/DL L=70 H=100 SODIUM 2951-2 125 MEQ/L L=135 H=148 POTASSIUM 2823-3 3.5 MEQ/L L=3.5 H=5.3 CHLORIDE 2075-0 92 MEQ/L L=96 H=110 CO2 2028-9 22 MEQ/L L=22 H=29 BUN 3094-0 10 MG/DL L=8 H=22 CREATININE 2160-0 0.6 MG/DL L=0.6 H=1.6 SGOT/AST 1920-8 34 IU/L L=10 H=40 SGPT/ALT 1742-6 24 IU/L L=8 H=54 ALK PHOS 6768-6 143 IU/L L=35 H=115 TOTAL PROTEIN 2885-2 6.5 G/DL L=5.5 H=8.5 ALBUMIN 1751-7 2.8 G/DL L=3.1 H=5.4 TOTAL BILI 1975-2 1.0 MG/DL L=0.0 H=1.5 CALCIUM 20033-5 8.4 MG/DL L=8.2 H=10.6 AGE 55 yrs GFR NonAA 139 GFR AA 168 eGFR >60 N/A eGFR AA* >60 N/A COMPREHENSIVE METABOLIC PANEL - Collect Date/Time: 12/28/2015 15:25 Test Name Code Test Result Test Units Test Ref Range GLUCOSE 2345-7 210 MG/DL L=70 H=100 SODIUM 2951-2 127 MEQ/L L=135 H=148 POTASSIUM 2823-3 3.7 MEQ/L L=3.5 H=5.3 CHLORIDE 2075-0 89 MEQ/L L=96 H=110 CO2 2028-9 27 MEQ/L L=22 H=29 BUN 3094-0 11 MG/DL L=8 H=22 CREATININE 2160-0 0.6 MG/DL L=0.6 H=1.6 SGOT/AST 1920-8 20 IU/L L=10 H=40 SGPT/ALT 1742-6 22 IU/L L=8 H=54 ALK PHOS 6768-6 131 IU/L L=35 H=115 TOTAL PROTEIN 2885-2 7.3 G/DL L=5.5 H=8.5 ALBUMIN 1751-7 3.0 G/DL L=3.1 H=5.4 TOTAL BILI 1975-2 0.3 MG/DL L=0.0 H=1.5 CALCIUM 60904-3 9.4 MG/DL L=8.2 H=10.6 AGE 55 yrs GFR NonAA 139 GFR AA 168 eGFR >60 N/A eGFR AA* >60 N/A LIPASE - Collect Date/Time: 12/29/2015 05:25 Test Name Code Test Result Test Units Test Ref Range LIPASE 3040-3 13 U/L L=8 H=78 DIGOXIN - Collect Date/Time: 12/28/2015 17:25 Test Name Code Test Result Test Units Test Ref Range DIGOXIN 62475-6 1.1 NG/DL L=0.8 H=2.0 CBC W/ AUTO DIFF (RFLX MAN DIFF IF IND) - Collect Date/Time: 12/29/2015 05:25 Test Name Code Test Result Test Units Test Ref Range WBC 08973-9 13.9 TH/CMM L=4.5 H=10.8 RBC 789-8 3.83 ML/CMM L=4.70 H=6.10 HGB 718-7 8.1 G/DL L=14.0 H=18.0 HCT 4544-3 26.7 % L=42.0 H=52.0 MCV 70 FL L=81 H=99 MCH 21.1 PG L=27.0 H=33.0 MCHC 30.3 G/DL L=31.0 H=36.0 RDW SD 45 FL L=36 H=50 RDW CV 19.0 % L=0.0 H=14.8 MPV 8.3 FL L=9.3 H=12.5 PLT 777-3 392 TH/CMM L=130 H=440 NRBC# 0.00 TH/CMM L=0.00 H=0.00 NRBC% 0.0 /100WBC L=0.0 H=2.0 %NEUT 83.3 % %LYMP 5.7 % %MONO 9.8 % %EOS 0.0 % %BASO 0.2 % #NEUT 11.56 TH/CMM L=2.10 H=8.20 #LYMP 0.79 TH/CMM L=0.90 H=5.20 #MONO 1.36 TH/CMM L=0.16 H=1.00 #EOS 0.00 TH/CMM L=0.00 H=0.80 #BASO 0.03 TH/CMM L=0.00 H=0.20 SEGS 77 % BANDS 5 % LYMPHS 10 % MONOS 8 % MANUAL DIFF SEE BELOW N/A ANISO 1+ N/A POIK 1+ N/A HYPO 1+ N/A POLYCHROMASIA 1+ N/A CBC W/ AUTO DIFF (RFLX MAN DIFF IF IND) - Collect Date/Time: 12/28/2015 15:25 Test Name Code Test Result Test Units Test Ref Range WBC 26923-1 15.6 TH/CMM L=4.5 H=10.8 RBC 789-8 3.75 ML/CMM L=4.70 H=6.10 HGB 718-7 7.6 G/DL L=14.0 H=18.0 HCT 4544-3 25.3 % L=42.0 H=52.0 MCV 68 FL L=81 H=99 MCH 20.3 PG L=27.0 H=33.0 MCHC 30.0 G/DL L=31.0 H=36.0 RDW SD 41 FL L=36 H=50 RDW CV 16.7 % L=0.0 H=14.8 MPV 8.5 FL L=9.3 H=12.5 PLT 777-3 463 TH/CMM L=130 H=440 NRBC# 0.00 TH/CMM L=0.00 H=0.00 NRBC% 0.0 /100WBC L=0.0 H=2.0 %NEUT 83.2 % %LYMP 7.2 % %MONO 8.3 % %EOS 0.0 % %BASO 0.3 % #NEUT 12.98 TH/CMM L=2.10 H=8.20 #LYMP 1.12 TH/CMM L=0.90 H=5.20 #MONO 1.29 TH/CMM L=0.16 H=1.00 #EOS 0.00 TH/CMM L=0.00 H=0.80 #BASO 0.04 TH/CMM L=0.00 H=0.20 SEGS 74 % BANDS 6 % LYMPHS 13 % MONOS 7 % MANUAL DIFF SEE BELOW N/A MICRO 2+ N/A ANISO 2+ N/A POIK 1+ N/A HYPO 2+ N/A PT/PTT - Collect Date/Time: 12/29/2015 05:25 Test Name Code Test Result Test Units Test Ref Range PROTIME 40647-5 12.5 SEC L=9.9 H=11.9 INR 1.1 PTT 3173-2 35.6 SEC L=22.2 H=37.2 GRAM STAIN - Collect Date/Time: 12/28/2015 23:00 Test Name Code Test Result Test Units Test Ref Range SPECIMEN SOURCE: DECUBITUS ULCER N/A UA ROUTINE C&S IF IND - Collect Date/Time: 12/28/2015 16:30 Test Name Code Test Result Test Units Test Ref Range COLOR YELLOW N/A NL: YELLOW APPEARANCE CLEAR N/A NL: CLEAR SPEC GRAV <=1.005 N/A NL: 1.002 - 1.022 pH 6.0 N/A NL: 5 - 9 PROTEIN TRACE N/A NL: NEGATIVE mg/dl GLUCOSE 500 N/A NL: NEGATIVE mg/dl KETONE NEGATIVE N/A NL: NEGATIVE mg/dl BILIRUBIN NEGATIVE N/A NL: NEGATIVE BLOOD MODERATE N/A NL: NEGATIVE NITRITE NEGATIVE N/A NL: NEGATIVE LEUK SCREEN MODERATE N/A NL: NEGATIVE MICRO INDICATED? SEE BELOW N/A WBC/HPF 20-50 N/A NL: NEGATIVE RBC/HPF NEGATIVE N/A NL: NEGATIVE CASTS/LPF NEGATIVE N/A NL: NEGATIVE CRYSTALS NEGATIVE N/A NL: NEGATIVE MUCOUS THRDS NEGATIVE N/A NL: NEGATIVE BACTERIA FEW N/A NL: NEGATIVE EPITH CELLS NEGATIVE N/A NL: NEGATIVE TRICHOMONAS NEGATIVE N/A NL: NEGATIVE YEAST NEGATIVE N/A NL: NEGATIVE CULT SET UP? YES N/A .BB COMPATIBILITY - Collect Date/Time: 12/28/2015 21:40 Test Name Code Test Result Test Units Test Ref Range Cross Match Result Compatible N/A Unit Blood Type O Pos N/A Unit Number [id number] RBC -1 LR N/A Status Information Ready N/A Product Identification Red Blood Cells N/A TYPE AND CROSS - Collect Date/Time: 12/28/2015 21:00 Test Name Code Test Result Test Units Test Ref Range ABO/Rh Type O Positive N/A Antibody Screen-Gel Negative N/A Cross Match Result Compatible N/A Unit Blood Type O Pos N/A Unit Number [id number] RBC -1 LR N/A Status Information Ready N/A Product Identification Red Blood Cells N/A IRON PANEL - Collect Date/Time: 12/28/2015 21:00 Test Name Code Test Result Test Units Test Ref Range IRON TOTAL 2498-4 <5 MCG/DL L=50 H=212 Transferrin 3034-6 155 MG/DL L=175 H=375 TIBC Calculation 194 MG/DL L=250 H=450 %Saturation Calc 3 % L=15 H=55 TROPONIN-I ADV - Collect Date/Time: 12/29/2015 05:25 Test Name Code Test Result Test Units [place] [address]-9 0.05 ng/mL L=0.04 H=0.40 TROPONIN-I ADV - Collect Date/Time: 12/28/2015 21:00 Test Name Code Test Result Test Units [place] [address]-6 0.04 ng/mL L=0.04 H=0.40 TROPONIN-I ADV - Collect Date/Time: 12/28/2015 16:00 Test Name Code Test Result Test Units Test [place] [address]-9 0.05 ng/mL L=0.04 H=0.40 VITAMIN B12 - Collect Date/Time: 12/28/2015 21:00 Test Name Code Test Result Test Units Test Ref Range VITAMIN B12 2132-9 350 PG/ML L=213 H=816 TSH - Collect Date/Time: 12/28/2015 21:00 Test Name Code Test Result Test Units Test Ref Range TSH 73138-5 3.88 mIU/L L=0.35 H=4.94 AMYLASE - Collect Date/Time: 12/29/2015 05:25 Test Name Code Test Result Test Units Test Ref Range AMYLASE 1798-8 25 IU/L L=25 H=125 GGTP - Collect Date/Time: 12/28/2015 21:00 Test Name Code Test Result Test Units Test Ref Range GGTP 2324-2 149 IU/L L=8 H=37 HGB A1C (SEND-OUT) - Collect Date/Time: 12/28/2015 21:00 Test Name Code Test Result Test Units Test Ref Range Hemoglobin A1c 4548-4 6.6 % 4.8-5.6 Estim. Avg Glu (eAG) 94500-7 143 mg/dL LACTIC ACID - Collect Date/Time: 12/29/2015 02:00 Test Name Code Test Result Test Units Test Ref Range LACTIC ACID 2524-7 1.2 mmol/L L=0.5 H=1.6 LACTIC ACID - Collect Date/Time: 12/28/2015 21:00 Test Name Code Test Result Test Units Test Ref Range LACTIC ACID 2524-7 3.3 mmol/L L=0.5 H=1.6 LACTIC ACID - Collect Date/Time: 12/28/2015 17:25 Test Name Code Test Result Test Units Test Ref Range LACTIC ACID 2524-7 3.9 mmol/L L=0.5 H=1.6 MAGNESIUM - Collect Date/Time: 12/28/2015 21:00 Test Name Code Test Result Test Units Test Ref Range MAGNESIUM 31123-4 1.1 MG/DL L=1.7 H=2.8 PHOSPHORUS - Collect Date/Time: 12/29/2015 05:25 Test Name Code Test Result Test Units Test Ref Range PHOSPHORUS 2777-1 2.5 MG/DL L=2.5 H=4.5 PREALBUMIN - Collect Date/Time: 12/28/2015 21:00 Test Name Code Test Result Test Units Test Ref Range PREALBUMIN 31201-4 5 MG/DL L=17 H=34 Active Medications Medication Code Dose Units Frequency Route Modification Start Date/Time ERTAPENEM IV [PREDEFINED]: 1GM Q 24HRS 13871306852 Q24H IV 12/30/2015 16:00 ~~ ERTAPENEM NA 1 GM VIAL "INVANZ" 6934570 1 GM ~~ NACL 0.9% ADD-VANTAGE: 50 ML BAG 023200 50 ML VANCOMYCIN [PREDEFINED] IV : 1250-2000MG 752777 Q6H IVPB 12/29/2015 14:30 ~~ NACL 0.9% 500 ML IV BAG (7983-03) 032284 500 ML ~~ REFRIGERATE!!! 68582411059 1 EA ~~ VANCOMYCIN: 1 GM VIAL 407426 5530 MG LEVOFLOXACIN [LEVAQUIN] IV BAMG 1838664 Q24H IVPB 12/29/2015 02:30 ~~ LEVOFLOXACIN [LEVAQUIN] IV BAMG 9623416 750 MG CLINDAMYCIN IV [PREDEFINED]: 600 MG ADV 9591560 Q6H IVPB 12/29/2015 01:30 ~~ CLINDAMYCIN [CLEOCIN] 600MG ADV VIAL 5251246 600 MG ~~ NACL 0.9% ADD-VANTAGE: 50 ML BAG 314927 50 ML INSULIN [NOVOLOG] 100UNITS/ML (SQ) 10ML 239698 Unit(s) PRN SUBCUTANEOUS 12/28/2015 23:09 LORAZEPAM (ATIVAN) INJ : 2 MG/ML TUBEX 207967 1 MG PRN IVP 12/28/2015 21:52 CITALOPRAM [CELEXA] TABLET : 20 MG 068547 20 MG DAILY PO 12/28/2015 21:01 SIMVASTATIN [ZOCOR] TABLET: 10 MG 012164 10 MG HS PO 12/28/2015 21:01 BISACODYL [DULCOLAX] SUPP : 10 MG 217384 10 MG DAILY RECTALLY 12/28/2015 21:00 DIGOXIN [LANOXIN] TAB : 0.25 MG (WHITE) 613416 0.25 MG DAILY PO 12/28/2015 21:00 FERREX FORTE (NIFEREX FORTE) CAP:150 MG 540160 150 MG BID PO 12/28/2015 21:00 METOCLOPRAMIDE [REGLAN] TABLET: 10MG 982680 10 MG ACHS PO 12/28/2015 21:00 RIVAROXABAN [XARELTO] TABLET : 10MG 9791049 10 MG DAILY PO 12/28/2015 21:00 INSULIN [LEVEMIR] 100UNITS/ML 10ML VIAL 561079 10 UNIT HS SQ 12/28/2015 20:59 LEVOTHYROXINE (SYNTHROID)50 MCG 273551 50 MCG DAILY PO 12/28/2015 20:59 DUONEB [IPRATROPIUM/ALBUTEROL] 0.5/3 MG 6440728 1 EA QID (RT ONLY) INHALE 12/28/2015 20:31 BUDESONIDE [PULMICORT] RESP 0.5MG/2ML 945847 1 DOSE Q 12 HRS (RT ONLY) INHALE 12/28/2015 20:30 PANTOPRAZOLE [PROTONIX] INJ VIAL: 40 MG 643059 40 MG Q12H SIVP 12/28/2015 20:27 ACETAMINOPHEN [TYLENOL] TABS 325MG 891818 650 MG PRN PO 12/28/2015 20:14 NS + KCL 20MEQ 1000ML IV [PREDEFINED] 799827 CONT IV IV 12/28/2015 20:14 ~~ NACL 0.9%+ KCL 20MEQ (7115) 1000 ML BAG 659340 8845 ML LEVOPHED DRIP 8 MG/500 ML PREDEFINED CONT IV 12/28/2015 19:28 ~~ D5W 500ML IV PLASTIC BAG (7922-03) 910470 1 EA ~~ NOREPINEPHRINE [LEVOPHED]: 1 MG/ML 4 ML 307882 8 ML ~~ PROTECT FROM LIGHT 63097920490 1 EA ONDANSETRON [ZOFRAN] INJ 4 MG/2 ML VIAL 7472922 4 MG PRN Q 4 HRS SIVP 12/28/2015 17:26 Medications Administered During Visit Medication Dose Units Frequency Route Date/ Time of Last Dose LEVOPHED DRIP 8 MG/500 ML PREDEFINED CONT IV 12/28/2015 19:38 VANCOMYCIN [PREDEFINED] ADV IV : 1000MG Q24H IVPB 12/28/2015 23:26 LEVOFLOXACIN [LEVAQUIN] IV BAMG Q24H IVPB 12/29/2015 02:20 PANTOPRAZOLE [PROTONIX] INJ VIAL: 40 MG 40 MG Q12H SIVP 12/29/2015 08:24 BUDESONIDE [PULMICORT] RESP 0.5MG/2ML 1 DOSE Q 12 HRS (RT ONLY) INHALE 12/29/2015 09:35 DUONEB [IPRATROPIUM/ALBUTEROL] 0.5/3 MG 1 UD QID (RT ONLY ) INHALE 12/29/2015 14:15 RIVAROXABAN [XARELTO] TABLET : 10MG 10 MG DAILY PO 12/29/2015 08:24 METOCLOPRAMIDE [REGLAN] TABLET: 10MG 10 MG ACHS PO 12/29/2015 17:17 CITALOPRAM [CELEXA] TABLET : 20 MG 20 MG DAILY PO 12/29/2015 08:24 LEVOTHYROXINE (SYNTHROID)50 MCG 50 MCG DAILY PO 12/29/2015 05:56 INSULIN [LEVEMIR] 100UNITS/ML 10ML VIAL 10 UNIT HS SQ 12/28/2015 23:00 DIGOXIN [LANOXIN] TAB : 0.25 MG (WHITE) 0.25 MG DAILY PO 12/29/2015 08:24 FERREX FORTE (NIFEREX FORTE) CAP:150 MG 150 MG BID PO 12/29/2015 08:24 BISACODYL [DULCOLAX] SUPP : 10 MG 10 MG DAILY RECTALLY 12/29/2015 08:24 NS + KCL 20MEQ 1000ML IV [PREDEFINED] CONT IV IV 12/29/2015 10:53 NS 1000 ML IV [PREDEFINED] (7983) CONT IV IV 12/28/2015 21:26 MAG SULFATE 4GM/100ML PREMIX IV BAG X1 IVPB 12/29/2015 00:13 VENOFER 20 MG/ML 5 ML VIAL 100 MG X1 IVP 01/2016 00:43 INSULIN [NOVOLOG] 100UNITS/ML (SQ) 10ML 4 Unit(s) PRN SUBCUTANEOUS 12/29/2015 11:54 CLINDAMYCIN IV [PREDEFINED]: 600 MG ADV Q6H IVPB 12/29/2015 13:53 VANCOMYCIN [PREDEFINED] IV : 1250-2000MG Q6H IVPB 12/29/2015 14:29 ERTAPENEM IV [PREDEFINED]: 1GM Q 24HRS X1 IV 12/29/2015 16:58 Encounters Encounter Diagnosis Diagnosis Code Start Date Sepsis due to Escherichia coli [E. coli] A4151 12/28/2015 Social History Smoking Status Code Start Date End Date Never smoker [id number] Patient Decision Aids Unknown or Not Available. Discharge Instructions You were admitted to [facility] on 12/28/2015 17:35 with a principal diagnosis of Sepsis due to Escherichia coli [E. coli] You had the following procedures done: Excision of Buttock Subcutaneous Tissue and Fascia, Open Approach You had the following tests done: .BB COMPATIBILITY AMYLASE BASIC METABOLIC PANEL BEDSIDE GLUCOSE BEDSIDE GLUCOSE BEDSIDE GLUCOSE BEDSIDE GLUCOSE CBC W / AUTO DIFF (RFLX MAN DIFF IF IND) CBC W/ AUTO DIFF (RFLX MAN DIFF IF IND) COMPREHENSIVE METABOLIC PANEL COMPREHENSIVE METABOLIC PANEL DIGOXIN GGTP GRAM STAIN HGB A1C (SEND- OUT) IRON PANEL LACTIC ACID LACTIC ACID LACTIC ACID LIPASE MAGNESIUM PHOSPHORUS PREALBUMIN PT/PTT TROPONIN-I ADV TROPONIN-I ADV TROPONIN-I ADV TSH TYPE AND CROSS UA ROUTINE C& S IF IND VITAMIN B12 You were discharged from [facility] on 12/29/2015 17:58 Should you have any questions prior to discharge, please contact a member of your healthcare team. If you have left the hospital and have any questions, please contact your primary care physician. CHIEF COMPLAINT: UTI Chief Complaint and Reason For Visit Chief Complaint Date of Onset SEPTICK SHOCK Function Status Unknown or Not Available. Plan of Care Unknown or Not Available. Referral/Transition of Care Unknown or Not Available.
--- OUTSIDE RECORDS SUMMARY | 2017-10-22 07:29 | XMS REPORT ---
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# [id number] RHC Reviewed 07/09/2013 12:00 AM THER/PROPH/DIAG INJ SC/IM Reviewed 07/09/2013 12:00 AM Toradol [address] [facility]#[id number] Reviewed 12/26/2013 12:00 AM LIPID PANEL Reviewed [...] [employer] PMC Fluzone > 3 Years [id number] Intramuscular Right Deltoid 07/03/2013 04/19/2013 141 History [...] Bowel habit changes May 19 2016 4:32PM Payers Insurance Name Company Name Plan Name Plan Number Policy Number Policy Group Number Start Date Medicare Part A Medicare [facility] [id number] N/A [facility] [id number] N/A Medicare Part A Medicare - Lab/Xray [id number] Sunday, June 25, 1989 Medicare Part B Medicare Of [place] [id number] May [place] [facility] Medical Assistance Pro [id number] May Medicare Part A Medicare Part A [id number] Sunday, June 25, 1989 [facility] - [facility] [id number] Tuesday, September 25, 2012 History of Encounters Visit Date Visit Type Provider 05/19/2016 Office visit Rhonda Tejada MD 05/11/2016 [facility] Carolyn Mercado MD 04/29/2016 [facility] Shahram Morrow DO 04/29/2016 [facility] Carolyn Mercado MD 04/29/2016 [facility] Carolyn Mercado MD 04/26/2016 Procedures Austin Reyez DO 03/29/2016 Office visit Rhonda Tejada MD 12/24/2015 Office visit Nicholas Bonilla APRN 12/18/2015 Office visit Nicholas Bonilla APRN 10/20/2015 Office visit Sidney Shin MD 10/10/2015 [facility] Yonny Rivera MD 10/05/2015 Office visit Rhonda Tejada MD 08/31/2015 Office visit Rhonda Tejada MD 06/09/2015 [facility] Aissatou VELÁSQUEZ 06/08/2015 [facility] Austin Aissatou VELÁSQUEZ 06/08/2015 [facility] 06/05/[address] Kev Shane MD 06/03/2015 Office visit Jasmyne Del Rosario APRN 03/16/2015 Office visit Rhonda Tejada MD 12/23/2014 Office visit Shari Correia MD 12/11/2014 Office visit Rhonda Tejada MD 09/10/2014 Office visit Rhonda Tejada MD 06/25/2014 Office visit Rhonda Tejada MD 06/11/2014 Office visit Rhonda Tejada MD 04/10/2014 [facility] Sidney Shin MD 04/08/2014 [facility] Jamaica Martin MD 03/18/2014 Office visit Nicholas Bonilla COMPLIANCE DIRECTOR 12/26/2013 Office visit Rhonda Tejada MD 12/12/2013 Hospital Carolyn Mercado MD 12/08/2013 [facility] Joan Sherman MD 12/06/2013 [facility] Jamaica Martin MD 10/08/2013 Office visit Rhonda Tejada MD 08/01/2013 Office visit Austin Reyez DO 08/01/2013 Office visit Jovanna Kapadia MD 07/13/2013 Hospital [place] Racheljosefa DO 07/10/2013 Hospital Austin Reyez DO 07/09/2013 Office visit Jovanna Kapadia MD 07/09/2013 Hospital [place] Reyez DO 07/03/2013 Office visit Jovanna Kapadia MD 04/22/2013 Office visit Jasmyne Del Rosario COMPLIANCE DIRECTOR 04/01/2013 Office visit Jovanna Kapadia MD 12/31/2012 Office visit Jovanna Kapadia MD 11/29/2012 Office visit Jovanna Kapadia MD 11/05/2012 Office visit Jasmyne Del Rosario COMPLIANCE DIRECTOR 11/30/2011 [facility] Carolyn Mercado MD 08/12/2011 [facility] Carolyn Mercado MD 06/29/2011 [facility] Carolyn Mercado MD 03/20/2011 [facility] Carolyn Mercado MD 05/01/2010 Laboratory Jose Luis Stinson MD 04/28/2010 Laboratory Jose Luis Stinson MD 11/20/2009 [facility] Jose Luis Stinson MD 2009 [facility] Jose Luis Stinson MD 11/17/2009 [facility] Jose Luis Stinson MD 11/16/2009 [facility] Suha Ray MD 11/15/2009 [facility] Suha Ray MD 09/02/2009 Laboratory [...]
--- OUTSIDE RECORDS SUMMARY | 2017-10-22 07:30 | XMS REPORT ---
Author Author Kev Shane [facility] Address [address] [place], [place] [address] Care Team Providers Care Donor Processor Name Role Phone Kev Shane PCP Unavailable Strides, Independent Unavailable Unavailable Allergies and Adverse Reactions Name Reaction Notes amoxicillin Plan of Treatment Planned Activity Comments Planned Date Planned Time Plan/Goal METABOLIC PANEL TOTAL CA 03/16/2015 12:00 AM COMPLETE CBC W/AUTO DIFF WBC 03/16/2015 12:00 AM LIPID PANEL 03/16/2015 12:00 [...] DAILY metoclopramide HCl 10 mg oral tablet 08/01/2014 TAKE 1 TABLET BY MOUTH TWICE DAILY metformin 500 mg oral tablet 08/01/2014 TAKE 1 TABLET BY MOUTH THREE TIMES DAILY fenofibrate 54 mg oral tablet 09/10/2014 09/05/2015 take 1 tablet (54 mg) by oral route once daily for 90 days Coumadin 1 mg oral tablet 09/10/2014 09/05/2015 take 1 tablet (1 mg) by oral route once daily for 90 days Replaced/Retired Drug 27-1 mg oral tablet 10/10/2014 10/05/2015 take 1 tablet by oral route daily for 30 days Unifine Pentips 31 gauge X 1/4 " miscellaneous needle 10/10/2014 10/05/2015 USE DIRECTED WITH NOVOLOG FLEXPEN citalopram 20 mg oral tablet 10/21/2014 take [...] pen 03/05/20152014 INJECT 20 UNITS TWICE DAILY levothyroxine 75 mcg oral tablet 03/05/2015 08/26/2016 take 1 tablet (75 mcg) by oral route once daily for 90 days Novolog Flexpen 100 unit/mL subcutaneous insulin pen 03/05/2015 09/01/2015 INJECT 12 UNITS SUBCUTANEOUSLY 15 MINUTES BEFORE EACH MEAL nystatin 100,000 unit/gram topical powder 03/30/2015 APPLY [...] APPLY TO AFFECTED AREA TWO TIMES DAILY albuterol sulfate 2.5 mg /3 mL (0.083 %) inhalation solution for nebulization 06/03/2015 inhale 3 milliliters (2.5 mg) by nebulization route 3 times per day as needed Levaquin 500 mg oral tablet 06/03/2015 06/10/2015 take 1 tablet (500 mg) by oral route once daily for 7 days Name Start Date Expiration [...] route every 12 hours for 30 days warfarin 2.5 mg oral tablet 09/30/2014 03/29/2015 take 1 tablet (2.5 mg) by oral route once daily for 30 days baclofen 20 mg oral tablet 01/15/2015 [...] for a total of 75 mcg. hydrocodone-acetaminophen 5-325 mg oral tablet 03/30/2015 04/29/2015 [...] 1 tab PO BID for 10 days Discontinued Name Start Date [...] 1 tablet TID Triaoluance 06/05/2014 1 at [facility] subqutaneous 20 units 06/05/2014 BID NovoFine 30 30 x 09/27 " miscellaneous needle 06/05/2014 use as directed metronidazole [...] HC BMI BSA BMI Percentile O2 Sat(%) 06/05/2015 11:34:00 AM 110 mmHg 70 mmHg 92 bpm 24 rpm 97.7 F 235 lbs 72 in 31.87 kg/m2 2.33 m2 88 % 06/03/2015 10:01:00 AM 118 mmHg 76 mmHg 89 bpm 18 rpm 96.8 F 99 % 03/16/2015 2:21:00 PM 73 bpm 99.4 F 234 lbs 72 in 31.7358 kg/m 2.32 m2 98 % 12/23/2014 9:10:00 AM 230 lbs 72 in 31.19 kg/m2 2.3021 m 12/11/2014 2:45:00 PM 116 mmHg 72 mmHg 91 bpm 18 rpm 99 F 229.312 lbs 72 in 31.1 kg/m 2.30 m2 98 % 09/10/2014 3:54:00 PM 124 mmHg 68 mmHg 58 bpm 16 rpm 98 F 225 lbs 72 in 30.52 kg/m2 2.277 m 99 % 06/25/2014 2:58:00 PM 118 mmHg 70 mmHg 96 bpm 18 rpm 99.5 F 230 lbs 72 in 31.1933 kg/m 2.30 m2 97 % 06/11/2014 2:17:00 PM [...] F 212 lbs 72 in 28.7521 kg/m 2.21 m2 97 % 08/01/2013 2:05:00 PM 116 mmHg 72 mmHg 76 bpm 16 rpm 97.6 F 205 lbs 72 in 27.80 kg/m2 2.1734 m 08/01/2013 10:20:00 AM 122 mmHg [...] F 208 lbs 72 in 28.21 kg/m2 2.1893 m 04/01/2013 1:54:00 PM 110 mmHg [...] AM Flu Injection 3 Years And Above [facility]# [id number] RHC Reviewed 07/09/2013 12:00 AM THER/PROPH/DIAG INJ SC/IM Reviewed 07/09/2013 12:00 AM Toradol 30 Mg [facility]#[id number] Reviewed 12/26/2013 12:00 AM LIPID PANEL Reviewed [...] g/dLRDW CV 15.90 %MPV 8.70 fLPLT 259 History Of Immunizations Name Date Admin Mfg Name Mfg Code Trade Name Lot# Route Inj Vis Given Vis Pub CVX Influenza 07/03/2013 sanofi pasteur PMC Fluzone > 3 Years [id number] Intramuscular Right Deltoid 07/03/2013 04/19/2013 141 History [...] to infectious organism Jun 05 2015 11:37AM Payers Insurance Name Company Name Plan Name Plan Number Policy Number Policy Group Number Start Date Medicare Part A Medicare Part A [id number] Sunday, 1989 [facility] [id number] Tuesday, 2012 [facility] [id number] N/A Medicare Part B Medicare Of [place] [id number] May [place] Medical Assistance [facility] Medical Assistance Pro [id number] May History of Encounters Visit Date Visit Type Provider 06/05/[address] Kev Shane MD 06/03/2015 Office visit Jasmyne Del Rosario TANK TRUCK ENGINE MECHANIC 03/16/2015 Office visit Rhonda Tejada MD 12/23/2014 Office visit Shari Correia MD 12/11/2014 Office visit Rhonda Tejada MD 09/10/2014 Office visit Rhonda Tejada MD 06/25/2014 Office visit Rhonda Tejada MD 06/11/2014 Office visit Rhonda Tejada MD 04/10/2014 [facility] Sidney Shin MD 04/08/2014 [facility] Jamaica Martin MD 03/18/2014 Office visit Nicholas Bonilla TANK TRUCK ENGINE MECHANIC 12/26/2013 Office visit Rhonda Tejada MD 12/12/2013 [facility] Carolyn Mercado MD 12/08/2013 [facility] Joan Sherman MD 12/06/2013 [facility] Jamaica Martin MD 10/08/2013 Office visit Rhonda Tejada MD 08/01/2013 Office visit Austin Reyez DO 08/01/2013 Office visit Jovanna Kapadia MD 07/13/2013 Hospital Austin Reyez DO 07/10/2013 Hospital Austin Reyez DO 07/09/2013 Office visit Jovanna Kapadia MD 07/09/2013 Hospital Austin Reyez DO 07/03/2013 Office visit Jovanna Kapadia MD 04/22/2013 Office visit Jasmyne Del Rosario TANK TRUCK ENGINE MECHANIC 04/01/2013 Office visit Jovanna Kapadia MD 12/31/2012 Office visit Jovanna Kapadia MD 11/29/2012 Office visit Jovanna Kapadia MD 11/05/2012 Office visit Jasmyne Del Rosario TANK TRUCK ENGINE MECHANIC 11/30/2011 Hospital Carolyn Mercado MD 08/12/2011 [facility] Carolyn Mercado MD 06/29/2011 [facility] Carolyn Mercado MD 03/20/2011 [facility] Carolyn Mercado MD 05/01/2010 Laboratory Jose Luis Stinson MD 04/28/2010 Laboratory Jose Luis Stinson MD 11/20/2009 [facility] Jose Luis Stinson MD 2009 [facility] Jose Luis Stinson MD 11/17/2009 [facility] Jose Luis Stinson MD 11/16/2009 [facility] Suha Ray MD 11/15/2009 [facility] Suha Ray MD 09/02/2009 Laboratory Richar Jeong MD 08/14/2009 Laboratory Richar Jeong MD 07/21/2009 Laboratory Richar Jeong MD 07/20/2009 Office visit Richar Jeong MD 07/17/2009 Laboratory Richar Jeong MD 06/26/2009 Laboratory Richar Jeong MD 06/19/2009 Laboratory Richar Jeong MD 06/04/2009 Laboratory Richar Jeong MD 05/18/2009 Laboratory Jose Luis Stinson MD 05/18/2009 Voided Jose Luis Stinson MD
--- OUTSIDE RECORDS SUMMARY | 2017-10-22 07:33 | XMS REPORT ---
Author Author Sidney Shin [facility] Address [address] [place], [place] [address] Care Team Providers Care Metal Polisher And Buffer Apprentice Name Role Phone Sidney Shin PCP Unavailable Strides, Independent Unavailable Unavailable Allergies [...] by oral route daily for 30 days Laamyc 100,000 unit/gram topical powder 11/19/2014 apply to [...] 1/4" miscellaneous needle 2015 USE DIRECTED WITH Adeze FLEXPEN Ceftin 250 mg oral tablet 12/09/2015 12/16/2015 take 1 tablet (250 mg) by oral [...] tablet TID Triaoluance 06/05/2014 1 at noon [facility] subqutaneous 20 units 06/05/2014 [...] HC BMI BSA BMI Percentile O2 Sat(%) 10/05/2015 3:38:00 PM 62 bpm 97.1 F [...] And Above [facility]# [id number] RHC Reviewed 07/09/2013 12:00 AM THER/PROPH/DIAG INJ SC/IM Reviewed 07/09/2013 12:00 AM Toradol [address] [facility]#[id number] Reviewed 12/26/2013 12:00 AM LIPID PANEL Reviewed [...] 4.00 HGB 8.40 g/dLHCT 29.40 %MCV 74.0 fLH 20.80 pgMCHC 28.20 g/dLRDW CV 17.40 %MPV [...] EPITH CELLS NEGATIVE /HPFTRICHOMONAS NEGATIVE YEAST NEGATIVE History Of Immunizations Name Date Admin Mfg Name Mfg Code Trade Name Lot# Route Inj Vis Given Vis Pub CVX Influenza 07/03/2013 sanofi pasteur PMC Fluzone > 3 Years [id number] Intramuscular Right Deltoid 07/03/2013 04/19/2013 141 History [...] Anticoagulant long-term use Aug 31 2015 3:08PM Payers Insurance Name Company Name Plan Name Plan Number Policy Number Policy Group Number Start Date Medicare Part B Medicare [facility] [id number] May [facility] [id number] N/A [place] Medical [place] Program [place] Medical [place] Prog [id number] May Medicare Part A Medicare Part A [id number] Sunday, 1989 [facility] [id number] Tuesday, 2012 History of Encounters Visit Date Visit Type Provider 10/20/2015 Office visit Sidney Shin MD 10/10/2015 [facility] Yonny Rivera MD 10/05/2015 Office visit Rhonda Tejada MD 08/31/2015 Office visit Rhonda Tejada MD 06/09/2015 Hospital [facility] DO 06/08/2015 [facility] DO 06/08/2015 [facility] DO 06/05/[address] Kev Shane MD 06/03/2015 Office visit Jasmyne Del Rosario TECHNOLOGY SPECIALIST 03/16/2015 Office visit Rhonda Tejada MD 12/23/2014 Office visit Shari Correia MD 12/11/2014 Office visit Rhonda Tejada MD 09/10/2014 Office visit Rhonda Tejada MD 06/25/2014 Office visit Rhonda Tejada MD 06/11/2014 Office visit Rhonda Tejada MD 04/10/2014 [facility] Sidney Shin MD 04/08/2014 [facility] Veronica HYDE 03/18/2014 Office visit Nicholas Bonilla TECHNOLOGY SPECIALIST 12/26/2013 Office visit Rhonda Tejada MD 12/12/2013 [facility] Carolyn Mercado MD 12/08/2013 [facility] Joan Sherman [facility] Office visit Rhonda Tejada MD 08/01/2013 Office visit [facility] DO 08/01/2013 Office visit Jovanna Kapadia MD 07/13/2013 [facility] DO 07/10/2013 [facility] DO 07/09/2013 Office visit Jovanna Kapadia MD 07/09/2013 [facility] DO 07/03/2013 Office visit Jovanna Kapadia MD 04/22/2013 Office visit Jasmyne Del Rosario TECHNOLOGY SPECIALIST 04/01/2013 Office visit Jovanna Kapadia MD 12/31/2012 Office visit Jovanna Kapadia MD 11/29/2012 Office visit Jovanna Kapadia MD 11/05/2012 Office visit Jasmyne Del Rosario TECHNOLOGY SPECIALIST 11/30/2011 Hospital Carolyn Mercado MD 08/12/2011 Hospital [...]
--- OUTSIDE RECORDS SUMMARY | 2017-10-22 07:35 | XMS REPORT ---
Author Author Sidney Shin [facility] Address [address] [place], [place] [address] Care Team Providers Care Marketing And Promotions Manager Name Role Phone Sidney Shin PCP Unavailable [...] by oral route daily for 30 days Hiamy 100,000 unit/gram topical powder 11/19/2014 apply to [...] 1/4" miscellaneous needle 2015 USE DIRECTED WITH [employer] FLEXPEN Ceftin 250 mg oral tablet 12/09/2015 [...] tablet TID Triaoluance 06/05/2014 1 at noon [facility] subqutaneous 20 units 06/05/2014 BID NovoFine [...] AM Flu Injection 3 Years And Above [facility]# [id number] RHC Reviewed 07/09/2013 12:00 AM THER/PROPH/DIAG INJ SC/IM Reviewed 07/09/2013 12:00 AM Toradol 30 Mg [facility]#[id number] Reviewed 12/26/2013 12:00 AM LIPID PANEL Reviewed [...] sanofi pasteur PMC Fluzone > 3 Years [id number] Intramuscular Right Deltoid 07/03/2013 04/19/2013 141 History [...] Number Start Date Medicare Part B Medicare [facility] [id number] May [facility] [id number] N/A [place] Medical Assistance Program [place] Medical Assistance Prog [id number] May Medicare Part A Medicare Part A [id number] Sunday, 1991 [facility] [id number] Tuesday, 2012 History of Encounters Visit Date Visit Type Provider 10/20/2015 Office visit Sidney Shin MD 10/10/2015 [facility] Yonny Rivera MD 10/05/2015 Office visit Rhonda Tejada MD 08/31/2015 Office visit Rhonda Tejada MD 06/09/2015 Hospital [facility] DO 06/08/2015 Hospital [facility] DO 06/08/2015 [facility] DO 06/05/[address] Kev Shane MD 06/03/2015 Office visit Jasmyne Del Rosario MENDER HAND 03/16/2015 Office visit Rhonda Tejada MD 12/23/2014 Office visit Shari Correia MD 12/11/2014 Office visit Rhonda Tejada MD 09/10/2014 Office visit Rhonda Tejada MD 06/25/2014 Office visit Rhonda Tejada MD 06/11/2014 Office visit Rhonda Tejada MD 04/10/2014 [facility] Sidney Shin MD 04/08/2014 [facility] Veronica HYDE 03/18/2014 Office visit Nicholas Bonilla MENDER HAND 12/26/2013 Office visit Rhonda Tejada MD 12/12/2013 [facility] Carolyn Mercado MD 12/08/2013 [facility] Joan Sherman MD 12/06/2013 [facility] Office visit Rhonda Tejada MD 08/01/2013 Office visit [facility] DO 08/01/2013 Office visit Jovanna Kapadia MD 07/13/2013 [facility] DO 07/10/2013 [facility] DO 07/09/2013 Office visit Jovanna Kapadia MD 07/09/2013 [facility] DO 07/03/2013 Office visit Jovanna Kapadia MD 04/22/2013 Office visit Jasmyne Del Rosario MENDER HAND 04/01/2013 Office visit Jovanna Kapadia MD 12/31/2012 Office visit Jovanna Kapadia MD 11/29/2012 Office visit Jovanna Kapadia MD 11/05/2012 Office visit Jasmyne Del Rosario MENDER HAND 11/30/2011 Hospital Carolyn Mercado MD 08/12/2011 Hospital Carolyn Mercado MD 06/29/2011 Hospital Carolyn Mercado MD 03/20/2011 Hospital Carolyn Mercado MD 05/01/2010 Laboratory Jose Luis Stinson MD 04/28/2010 Laboratory Jose Luis Stinson MD 11/20/2009 [facility] Jose Luis Stinson MD 2009 [facility] Jose Luis Stinson MD 11/17/2009 [facility] Jose Luis Stinson MD 11/16/2009 [facility] Suha Ray MD 11/15/2009 [facility] Suha Ray MD 09/02/2009 Laboratory Richar [...]
--- OUTSIDE RECORDS SUMMARY | 2017-10-22 07:38 | XMS REPORT | CCD ---
Author Author JB KNIGHT Unknown Address [address] [place] [address] Care Team Providers Care School Admissions Representative Name Role Phone PATTI ER, BURTON DO Attphys [place] ER, BURTON DO Prisurg Allergies Allergy Code Allergy Type Reaction Status MACROBID 001235 Drug allergy Active Active Medications Medication Code Dose Units Frequency Route Modification Start Date/Time Albuterol Sulfate 0.083% Inhalation Solution 381508 2.5 MILLIGRAMS EVERY 6 HOURS INHALATION 12/18/2016 11: 15 Prescription Detail 2.5 MILLIGRAMS INHALATION EVERY 6 HOURS Atorvastatin Calcium 20MG Oral Tablet 093598 20 MILLIGRAMS DAILY ORAL 12/18/2016 11:15 Prescription Detail 20 MILLIGRAMS ORAL DAILY Famotidine 20MG Oral Tablet 723064 20 MILLIGRAMS TWO TIMES A DAY ORAL 12/18/2016 11:15 Prescription Detail 20 MILLIGRAMS ORAL TWO TIMES A DAY HYDROcodone bitartrate-acetaminophen 5MG-325MG Oral Tablet 635122 1 EACH NEEDED ORAL 12/18/2016 11:15 Prescription Detail 1 EACH ORAL NEEDED Levemir 100U/1ML Subcutaneous Solution 376373 20 UNIT AT BEDTIME SUBCUTANEOUS 12/18/2016 11:15 Prescription Detail 20 UNIT SUBCUTANEOUS AT BEDTIME levoFLOXacin 500MG Oral Tablet 488830 500 MILLIGRAMS DAILY BY MOUTH 12/18/2016 11:14 Prescription Detail 500 MILLIGRAMS BY MOUTH DAILY Aspirin 81MG Oral Tablet, Enteric Coated 801317 81 MILLIGRAMS DAILY ORAL 10/13/2015 12:41 Prescription Detail 81 MILLIGRAMS ORAL DAILY Baclofen 20MG Oral Tablet 715687 20 MILLIGRAMS THREE TIMES A DAY ORAL 10/13/2015 12:41 Prescription Detail 20 MILLIGRAMS ORAL THREE TIMES A DAY [facility] Fiber Therapy 500 MG Oral Tablet 875249 500 MG DAILY ORAL 10/13/2015 12:41 Prescription Detail 500 MG ORAL DAILY Januvia 100MG Oral Tablet 915601 100 MILLIGRAMS DAILY ORAL 10/13/2015 12:41 Prescription Detail 100 MILLIGRAMS ORAL DAILY Vitamin Oral Tablet 8067916 1 EACH DAILY ORAL 10/13/2015 12:41 Prescription Detail 1 EACH ORAL DAILY Xarelto 20MG Oral Tablet 5470247 20 MILLIGRAMS DAILY ORAL 10/13/2015 12:41 Prescription Detail 20 MILLIGRAMS ORAL DAILY Celexa 20MG Oral Tablet 903487 20 MILLIGRAMS DAILY ORAL 04/10/2014 13:46 Prescription Detail 20 MILLIGRAMS ORAL DAILY Problems Problem Code Start Date Resolved Date Status UTI 18891583 06/12/2017 Active Sepsis 58309954 06/12/2017 Active Quadraplegia 76681261 12/15/2016 Resolved Septic shock 97063103 12/14/2016 Resolved Severe sepsis with septic shock 15940244 04/29/20162016 Resolved Severe sepsis with septic shock 53655140 12/14/20162016 Resolved Dehydrated 75056414 12/15/2016 06/11/2017 Resolved Acute nephritis 85984068 12/15/2016 06/11/2017 Resolved Procedures Procedure Code Procedure Type Date ^CBC W/AUTO DIFF 9611285 SNOMED CT 11/25/2016 COMPREHENSIVE METABOLIC PANEL 107645031 SNOMED CT 2016 CBC W/ AUTO DIFF (RFLX MAN DIFF IF IND) 8068133 SNOMED CT 11/25/2016 Results COMPREHENSIVE METABOLIC PANEL - Collect Date/Time: 11/25/2016 23:40 Test Name Code Test Result Test Units Test Ref Range GLUCOSE 2345-7 113 MG/DL L=70 H=100 SODIUM 2951-2 127 MEQ/L L=135 H=148 POTASSIUM 2823-3 4.3 MEQ/L L=3.5 H=5.3 CHLORIDE 2075-0 93 MEQ/L L=96 H=110 CO2 2028-9 21 MEQ/L L=22 H=29 BUN 3094-0 13 MG/DL L=8 H=22 CREATININE 2160-0 0.6 MG/DL L=0.6 H=1.6 SGOT/AST 1920-8 19 IU/L L=10 H=40 SGPT/ALT 1742-6 20 IU/L L=8 H=54 ALK PHOS 6768-6 86 IU/L L=35 H=115 TOTAL PROTEIN 2885-2 7.3 G/DL L=5.5 H=8.5 ALBUMIN 1751-7 3.8 G/DL L=3.1 H=5.4 TOTAL BILI 1975-2 0.5 MG/DL L=0.0 H=1.5 CALCIUM 73189-4 9.5 MG/DL L=8.2 H=10.6 AGE 56 yrs GFR NonAA 138 GFR AA 167 eGFR >60 N/A eGFR AA* >60 N/A CBC W/ AUTO DIFF (RFLX MAN DIFF IF IND) - Collect Date/Time: 11/25/2016 23:40 Test Name Code Test Result Test Units Test Ref Range WBC 09587-3 11.5 TH/CMM L=4.5 H=10.8 RBC 789-8 4.95 ML/CMM L=4.70 H=6.10 HGB 718-7 13.6 G/DL L=14.0 H=18.0 HCT 4544-3 41.2 % L=42.0 H=52.0 MCV 83 FL L=81 H=99 MCH 27.5 PG L=27.0 H=33.0 MCHC 33.0 G/DL L=31.0 H=36.0 RDW SD 41 FL L=36 H=50 RDW CV 13.3 % L=0.0 H=14.8 MPV 8.7 FL L=9.3 H=12.5 PLT 777-3 231 TH/CMM L=130 H=440 NRBC# 0.00 TH/CMM L=0.00 H=0.00 NRBC% 0.0 /100WBC L=0.0 H=2.0 %NEUT 76.1 % %LYMP 14.2 % %MONO 8.0 % %EOS 1.1 % %BASO 0.3 % #NEUT 8.74 TH/CMM L=2.10 H=8.20 #LYMP 1.64 TH/CMM L=0.90 H=5.20 #MONO 0.92 TH/CMM L=0.16 H=1.00 #EOS 0.13 TH/CMM L=0.00 H=0.80 #BASO 0.04 TH/CMM L=0.00 H=0.20 MANUAL DIFF NOT IND N/A PT/PTT - Collect Date/Time: 11/25/2016 23:40 Test Name Code Test Result Test Units Test Ref Range PROTIME 5964-2 12.5 SEC L=9.9 H=11.9 INR 31091-8 1.1 PTT 3173-2 32.5 SEC L=22.2 H=37.2 Function Status Unknown or Not Available. History of Immunizations Immunization Code Date influenza, split (incl. purified surface antigen) 15 08/14/2006 pneumococcal polysaccharide PPV23 33 08/19/2011 pneumococcal, unspecified formulation 109 03/30/2016 Influenza, seasonal, injectable 141 06/25/2012 Plan of Treatment Unknown or Not Available. Social History Smoking Status Code Start Date End Date Never smoker [id number] Vital Signs Unknown or Not Available. Function Status Unknown or Not Available. Goals Unknown or Not Available. ASSESSMENTS Unknown or Not Available. Health Concerns Section Unknown or Not Available.
--- OUTSIDE RECORDS SUMMARY | 2017-10-22 07:38 | XMS REPORT ---
Author Author Rhonda Tejada [facility] Address [address] [place], [place] [address] Care Team Providers Care Combo Welder Name Role Phone Rhonda Tejada PCP Strides, [...] 09/28" miscellaneous needle 2015 USE DIRECTED WITH TabbedOut FLEXPEN baclofen 20 mg oral tablet 03/31/2016 [...] AM Flu Injection 3 Years And Above [facility]# [address]-25 RHC Reviewed 07/09/2013 12:00 AM THER/PROPH/DIAG INJ SC/IM Reviewed 07/09/2013 12:00 AM Toradol 30 Mg [facility]#3532-4504-19 Reviewed 12/26/2013 12:00 AM LIPID PANEL Reviewed [...] sanofi pasteur PMC Fluzone > 3 Years [id number] Intramuscular Right Deltoid 07/03/2013 04/19/2013 141 Pneumococcal [...] Number Start Date Medicare RHC Medicare RHC [id number] N/A [facility] [id number] Tuesday, 2012 [facility] [id number] N/A Medicare Part A Medicare - Lab/Xray [id number] Sunday, [birth year] 1989 Medicare Part B Medicare Of [place] [id number] May [place] Medical Assistance [facility] Medical Assistance Prog [id number] May Medicare Part A Medicare Part A [id number] Sunday, June 25, 1991 History of Encounters Visit Date Visit Type Provider 12/21/2016 Office visit Rhonda Tejada MD 12/17/2016 [facility] Gonzalez Mattson MD 12/15/2016 [facility] Austin Reyez DO 12/09/2016 Office visit Shari Correia MD 08/31/2016 Office visit Rhonda Tejada MD 05/19/2016 Office visit Rhonda Tejada MD 05/11/2016 Hospital Carolyn Mercado MD 04/29/2016 [facility] Shahram Morrow DO 04/29/2016 Hospital Carolyn Mercado MD 04/29/2016 [facility] Carolyn Mercado MD 04/26/2016 Procedures Austin Reyez DO 03/29/2016 Office visit Rhonda Tejada MD 12/24/2015 Office visit Nicholas Bonilla VARIETY LATHE OPERATOR 12/18/2015 Office visit Nicholas Bonilla VARIETY LATHE OPERATOR 10/20/2015 Office visit Sidney Shin MD 10/10/2015 [facility] Yonny Rivera MD 10/05/2015 Office visit Rhonda Tejada MD 08/31/2015 Office visit Rhonda Tejada MD 06/09/2015 Hospital Austin Bouman DO 06/08/2015 Hospital Austin Bouman DO 06/08/2015 [facility] Kev Shane MD 06/03/2015 Office visit Jasmyne Del Rosario VARIETY LATHE OPERATOR 03/16/2015 Office visit Rhonda Tejada MD 12/23/2014 Office visit Shari Correia MD 12/11/2014 Office visit Rhonda Tejada MD 09/10/2014 Office visit Rhonda Tejada MD 06/25/2014 Office visit Rhonda Tejada MD 06/11/2014 Office visit Rhonda Tejada MD 04/10/2014 [facility] Sidney [facility] Office visit Nicholas Bonilla VARIETY LATHE OPERATOR 12/26/2013 Office visit Rhonda Tejada MD 12/12/2013 [facility] Carolyn Mercado MD 12/08/2013 [facility] Joan Sherman [facility] 12/06[facility]2013 [facility] Office visit Rhonda Tejada MD 08/01/2013 [facility]2013 Office visit Jovanna Kapadia MD 07/13/2013 [facility] Office visit Jovanna Kapadia MD 07/09/2013 [facility] DO 07/03/2013 Office visit Jovanna Kapadia MD 04/22/2013 Office visit Jasmyne Del Rosario VARIETY LATHE OPERATOR 04/01/2013 Office visit Jovanna Kapadia MD 12/31/2012 Office visit Jovanna Kapadia MD 11/29/2012 Office visit oJvanna Kapadia MD 11/05/2012 Office visit Jasmyne Del Rosario VARIETY LATHE OPERATOR 11/30/2011 Hospital Carolyn Mercado MD 08/12/2011 Hospital Carolyn Mercado MD 06/29/2011 [facility] Carolyn Mercado MD 03/20/2011 [facility] Carolyn Mercado MD 05/01/2010 Laboratory Jose Luis Stinson MD 04/28/2010 Laboratory Jose Luis Stinson MD 11/20/2009 [facility] Jose Luis Stinson MD 2009 [facility] Jose Luis Stinson MD 11/17/2009 [facility] Jose Luis Stinson MD 11/16/2009 [facility] Suha Ray MD 11/15/2009 [facility] Suha Ray MD 09/02/2009 Laboratory Richar [...]
--- OUTSIDE RECORDS SUMMARY | 2017-10-22 07:40 | XMS REPORT ---
Author Author Nicholas Bonilla [facility] Address [address] [place], [place] [id number] Care Team Providers Care Hydrodynamics Professor Name Role Phone Nicholas Bonilla PCP Strides, [...] 09/28" miscellaneous needle 2015 USE DIRECTED WITH UpDroid[employer] FLEXPEN Ceftin 250 mg oral tablet 12/25/2015 [...] 1 tablet TID Triaoluance 06/05/2014 1 at [facility] subqutaneous 20 units 06/05/2014 [...] Years And Above [facility]# [address]-53 RHC Reviewed 07/09/2013 12:00 AM THER/PROPH/DIAG INJ SC/IM Reviewed 07/09/2013 12:00 AM Toradol 30 Mg [facility]#1544-1925-65 Reviewed 12/26/2013 12:00 AM LIPID PANEL Reviewed [...] sanofi pasteur PMC Fluzone > 3 Years [id number] Intramuscular Right Deltoid 07/03/2013 04/19/2013 141 History [...] Date Medicare Part A Medicare Part A [id number] Sunday, 1989 [facility] [id number] N/A [facility] [id number] Tuesday, 2012 Medicare Part B Medicare [facility] [id number] May [place] Medical Assistance [facility] Medical Assistance Pro [id number] May History of Encounters Visit Date Visit Type Provider 12/24/2015 Office visit Nicholas Bonilla APRN 12/18/2015 Office visit Nicholas Bonilla APRN 10/20/2015 Office visit Sidney Shin MD 10/10/2015 [facility] Yonny Rivera MD 10/05/2015 Office visit Rhonda Tejada MD 08/31/2015 Office visit [facility]2015 [facility] Austin Aissatou VELÁSQUEZ 06/08/2015 [facility] 06/05/[address] Kev Shane MD 06/03/2015 Office visit Jasmyne Del Rosario APRN 03/16/2015 Office visit Rhonda Tejada MD 12/23/2014 Office visit Shari Correia MD 12/11/2014 Office visit Rhonda Tejada MD 09/10/2014 Office visit Rhonda Tejada MD 06/25/2014 Office visit Rhonda Tejada MD 06/11/2014 Office visit Rhonda Tejada MD 04/10/2014 [facility] Sidney Shin MD 04/08/2014 [facility] Jamaica Martin MD 03/18/2014 Office visit Nicholas Bonilla APRN 12/26/2013 Office visit Rhonda Tejada MD 12/12/2013 [facility] Carolyn Mercado MD 12/08/2013 [facility] Joan Sherman MD 12/06/2013 [facility] Jamaica WallerPriscilla HYDE 10/08/2013 Office visit Rhonda Tejada MD 08/01/2013 Office visit Austin Reyez DO 08/01/2013 Office visit Jovanna Kapadia MD 07/13/2013 Hospital Austin Reyez DO 07/10/2013 Hospital Austin Reyez DO 07/09/2013 Office visit Jovanna Kapadia MD 07/09/2013 Hospital [place] Reyez DO 07/03/2013 Office visit Jovanna Kapadia MD 04/22/2013 Office visit Jasmyne Del Rosario INSPECTOR CHIEF 04/01/2013 Office visit Jovanna Kapadia MD 12/31/2012 Office visit Jovanna Kapadia MD 11/29/2012 Office visit Jovanna Kapadia MD 11/05/2012 Office visit Jasmyne Del Rosario INSPECTOR CHIEF 11/30/2011 [facility] Carolyn Mercado MD 08/12/2011 [facility] Carolyn Mercado MD 06/29/2011 [facility] Carolyn Mercado MD 03/20/2011 [facility] Carolyn Mercado MD 05/01/2010 Laboratory Jose Luis Stinson MD 04/28/2010 Laboratory Jose Luis Stinson MD 11/20/2009 [facility] Jose Luis Stinson MD 2009 [facility] Jose Luis Stinson MD 11/17/2009 [facility] Jose Luis Stinson MD 11/16/2009 [facility] Suha Ray MD 11/15/2009 [facility] Suha Ray MD 09/02/2009 Laboratory [...]
--- OUTSIDE RECORDS SUMMARY | 2017-10-22 07:43 | XMS REPORT ---
Author Author Shari Correia [facility] Address [address] [place], [place] [address] Care Team Providers Care Tool And Die Maker/Designer Name Role Phone Shari Correia PCP Unavailable [...] 09/28" miscellaneous needle 2015 USE DIRECTED WITH [employer] FLEXPEN baclofen 20 mg oral tablet 03/31/2016 [...] tablet TID Triaoluance 06/05/2014 1 at [facility] subqutaneous 20 units 06/05/2014 BID [...] Flu Injection 3 Years And Above [facility]# [address]-98 RHC Reviewed 07/09/2013 12:00 AM THER/PROPH/DIAG INJ SC/IM Reviewed 07/09/2013 12:00 AM Toradol 30 Mg [facility]#3443-3830-25 Reviewed 12/26/2013 12:00 AM LIPID PANEL Reviewed [...] 4.550 uIU/mLProtein, Total, Serum 9.4 Albumin 4.0 Vmvit-8-[id number] 0.4 Alpha -2-Globulin 1.1 Beta Globulin 1.7 [...] sanofi pasteur PMC Fluzone > 3 Years [id number] Intramuscular Right Deltoid 07/03/2013 04/19/2013 141 Pneumococcal [...] Group Number Start Date Medicare RHC Medicare [facility] [id number] N/A [facility] [id number] Tuesday, 2012 [facility] [id number] N/A Medicare Part A Medicare - Lab/Xray [id number] Sunday, June 25, 1989 Medicare Part B Medicare Of [place] [id number] May [place] Medical Assistance [facility] Medical Assistance Pro [id number] May Medicare Part A Medicare Part A [id number] Sunday, June 25, 1989 History of Encounters Visit Date Visit Type Provider 04/13/2017 Office visit Shari Correia MD 03/22/2017 Office visit Rhonda Tejada MD 12/21/2016 Office visit Rhonda Tejada MD 12/17/2016 [facility] Gonzalez Mattson MD 12/15/2016 [facility] Austin Reyez DO 12/09/2016 Office visit Shari Correia MD 08/31/2016 Office visit Rhonda Tejada MD 05/19/2016 Office visit Rhonda Tejada MD 05/11/2016 [facility] Carolyn Mercado MD 04/29/2016 [facility] Shahram Morrow DO 04/29/2016 [facility] Carolyn Mercado MD 04/29/2016 [facility] Carolyn Mercado MD 04/26/2016 Procedures Austin Reyez DO 03/29/2016 Office visit Rhonda Tejada MD 12/24/2015 Office visit Nicholas Bonilla APRN 12/18/2015 Office visit Nicholas Bonilla APRN 10/20/2015 Office visit Sidney Shin MD 10/10/2015 [facility] Yonny Rivera MD 10/05/2015 Office visit Rhonda Tejada MD 08/31/2015 Office visit Rhonda Tejada MD 06/09/2015 [facility] Austin Reyez DO 06/08/2015 [facility] Austin Reyez DO 06/08/2015 [facility] [place] 06/05/[address] Kev Shane MD [...] Martin MD 03/18/2014 Office visit Nicholas Bonilla SUPERVISOR LIQUEFACTION 12/26/2013 Office visit Rhonda Tejada MD 12/12/2013 Hospital Carolyn Mercado MD 12/08/2013 [facility] Joan Sherman MD 12/06/2013 [facility] Jamaica Martin MD 10/08/2013 Office visit Rhonda Tejada MD 08/01/2013 Office visit Austin Reyez DO 08/01/2013 Office visit Jovanna Kapadia MD 07/13/2013 Hospital Austin Bouman DO 07/10/2013 Hospital Austin Bouman DO 07/09/2013 Office visit Jovanna Kapadia MD 07/09/2013 Hospital [place] Reyez DO 07/03/2013 Office visit Jovanna Kapadia MD 04/22/2013 Office visit Jasmyne Del Rosario SUPERVISOR LIQUEFACTION 04/01/2013 Office visit Jovanna Kapadia MD 12/31/2012 Office visit Jovanna Kapadia MD 11/29/2012 Office visit Jovanna Kapadia MD 11/05/2012 Office visit Jasmyne Del Rosario SUPERVISOR LIQUEFACTION 11/30/2011 [facility] Carolyn Mercado MD [...]
--- OUTSIDE RECORDS SUMMARY | 2017-10-22 07:45 | XMS REPORT ---
Author Author Rhonda Tejada [facility] Address [address] [place], [place] [address] Care Team Providers Care Laborer [employer]er [employer] Name Role Phone Rhonda Tejada PCP Strides, [...] (CBC) with differential count 05/22/2017 12:00 AM Basic metabolic profile 03/16/2015 [...] 09/28" miscellaneous needle 2015 USE DIRECTED WITH [employer] baclofen 20 mg oral tablet 03/31/2016 TAKE [...] 1 tablet TID Triaoluance 06/05/2014 1 at [facility] subqutaneous 20 units 06/05/2014 BID [...] 12:00 AM ASSAY THYROID STIM HORMONE Returned 05/22/2017 12:00 AM URINALYSIS AUTO W/SCOPE Returned 05/24/2017 12:00 AM Consult/Referral Reviewed 11/05/2012 12:00 AM [...] AM Flu Injection 3 Years And Above [facility]# [address]-03 RHC Reviewed 07/09/2013 12:00 AM THER/PROPH/DIAG INJ SC/IM Reviewed 07/09/2013 12:00 AM Toradol 30 Mg [facility]#1276-3366-36 Reviewed 12/26/2013 12:00 AM LIPID PANEL Reviewed [...] sanofi pasteur PMC Fluzone > 3 Years [id number] Intramuscular Right Deltoid 07/03/2013 04/19/2013 141 Pneumococcal [...] Number Start Date Medicare RHC Medicare RHC [id number] N/A [facility] [id number] Tuesday, 2012 [facility] [id number] N/A Medicare Part A Medicare - Lab/Xray [id number] Sunday, June 25, 1989 Medicare Part B Medicare [place] [id number] May [place] Medical [place] Program [place] Medical [place] Prog [id number] May Medicare Part A Medicare Part A [id number] Sunday, June 25, 1989 History of Encounters Visit Date Visit Type Provider 05/22/2017 Office visit Rhonda Tejada MD 05/01/2017 Surgery Shari Correia MD 04/13/2017 Office visit Shari Correia MD 03/22/2017 Office visit Rhonda Tejada MD 12/21/2016 Office visit Rhonda Tejada MD 12/17/2016 [facility] Gonzalez Mattson MD 12/15/2016 [facility] Austin Reyez DO 12/09/2016 Office visit Shari Correia MD 08/31/2016 Office visit Rhonda Tejada MD 05/19/2016 Office visit Rhonda Tejada MD 05/11/2016 Hospital Carolyn Mercado MD 04/29/2016 [facility] Shahram Morrow DO 04/29/2016 Hospital Carolyn Mercado MD 04/29/2016 Hospital Carolyn Mercado MD 04/26/2016 Procedures Austin Reyez DO 03/29/2016 Office visit Rhonda Tejada MD 12/24/2015 Office visit Nicholas Bonilla COUNTY LIBRARY DIRECTOR 12/18/2015 Office visit Nicholas Bonilla COUNTY LIBRARY DIRECTOR 10/20/2015 Office visit Sidney Shin MD 10/10/2015 [facility] Yonny Rivera MD 10/05/2015 Office visit Rhonda Tejada MD 08/31/2015 Office visit Rhonda Tejada MD 06/09/2015 [facility] Austin Bouman DO 06/08/2015 [facility] Austin Bouman DO 06/08/2015 [facility] Kev Shane MD 06/03/2015 Office visit Jasmyne Del Rosario COUNTY LIBRARY DIRECTOR 03/16/2015 Office visit Rhonda Tejada MD 12/23/2014 [...] MD 04/22/2013 Office visit Jasmyne Del Rosario COUNTY LIBRARY DIRECTOR 04/01/2013 Office visit Jovanna Kapadia MD 12/31/2012 Office visit Jovanna Kapadia MD 11/29/2012 Office visit Jovanna Kapadia MD 11/05/2012 Office visit Jasmyne Del Rosario COUNTY LIBRARY DIRECTOR 11/30/2011 Hospital Carolyn Mercado MD 08/12/2011 [facility] [...]
--- OUTSIDE RECORDS SUMMARY | 2017-10-22 07:47 | XMS REPORT ---
Author Author Rhonda Tejada Organization [facility] Address [address] [place], [place] [address] Care Team Providers Care Corporate Recruiter Name Role Phone Rhonda Tejada PCP Strides, [...] DAILY Replaced/Retired Drug 27-1 mg oral tablet 10/10/2014 [...] route 3 times per day as needed Name Start Date Expiration Date SIG Comments [...] oral route once daily for 7 days Discontinued Name Start Date Discontinued Date [...] HC BMI BSA BMI Percentile O2 Sat(%) 08/31/2015 3:02:00 PM 124 mmHg 74 mmHg [...] F 229.312 lbs 72 in 31.10 kg/m2 2.2987 m 98 % 09/10/2014 3:54:00 PM 124 mmHg 68 mmHg 58 bpm 16 rpm 98 F 225 lbs 72 in 30.5152 kg/m 2.28 m2 99 % 06/25/2014 2:58:00 PM 118 mmHg 70 mmHg 96 bpm 18 rpm 99.5 F 230 lbs 72 in 31.19 kg/m2 2.3021 m 97 % 06/11/2014 2:17:00 PM [...] 3 Years And Above [facility]# [address]-93 RHC Reviewed 07/09/2013 12:00 AM THER/PROPH/DIAG INJ SC/IM Reviewed 07/09/2013 12:00 AM Toradol 30 Mg [facility]#1180-3949-17 Reviewed 12/26/2013 12:00 AM LIPID PANEL Reviewed [...] BILI 0.30 mg/dLCALCIUM 9.20 mg/dLeGFR >60 mL/min/1.73m History Of Immunizations Name Date Admin Mfg Name Mfg Code Trade Name Lot# Route Inj Vis Given Vis Pub CVX Influenza 07/03/2013 [facility] PMC Fluzone > 3 Years [id number] Intramuscular Right Deltoid 07/03/2013 04/19/2013 141 History [...] Date Medicare Part A Medicare Part A [id number] Sunday, 1989 [facility] [id number] Tuesday, 2012 [facility] [id number] N/A Medicare Part B Medicare Of [place] [id number] May [place] Medical Assistance [facility] Medical Assistance Pro [id number] May History of Encounters Visit Date Visit Type Provider 08/31/2015 Office visit Rhonda Tejada MD 06/09/2015 [facility] Austin Reyez DO 06/08/2015 [facility] Austin Reyez DO 06/08/2015 [facility] Austin Reyez DO 06/05/[address] Kev Shane MD 06/03/2015 Office visit Jasmyne Del Rosario APRN 03/16/2015 Office visit Rhonda Tejada MD 12/23/2014 Office visit Shari Correia MD 12/11/2014 Office visit Rhonda Tejada MD 09/10/2014 Office visit Rhonda Tejada MD 06/25/2014 Office visit Rhonda Tejada MD 06/11/2014 Office visit Rhonda Tejada MD 04/10/2014 [facility] Sidney Shin MD 04/08/2014 [facility] Jamaica Martin MD 03/18/2014 Office visit Nicholas Bonilla APRN 12/26/2013 Office visit Rhonda Tejada MD 12/12/2013 [facility] Carolyn Mercado MD 12/08/2013 [facility] Joan Sherman MD 12/06/2013 [facility] Jamaica Martin MD 10/08/2013 Office visit Rhonda Tejada MD 08/01/2013 Office visit Austin Reyez DO 08/01/2013 Office visit Jovanna Kapadia MD 07/13/2013 Hospital Austin Reyez DO 07/10/2013 Hospital Austin Reyez DO 07/09/2013 Office visit Jovanna Kapadia MD 07/09/2013 Hospital Austin Reyez DO 07/03/2013 Office visit Jovanna Kapadia MD 04/22/2013 Office visit Jasmyne Del Rosario PHP PROGRAMMER 04/01/2013 Office visit Jovanna Kapadia MD 12/31/2012 Office visit Jovanna Kapadia MD 11/29/2012 Office visit Jovanna Kapadia MD 11/05/2012 Office visit Jasmyne Del Rosario PHP PROGRAMMER 11/30/2011 Hospital Carolyn Mercado MD 08/12/2011 [facility] Carolyn Mercado MD 06/29/2011 [facility] Carolyn Mercado MD 03/20/2011 [facility] Carolyn Mercado MD 05/01/2010 Laboratory Jose Luis Stinson MD 04/28/2010 Laboratory Jose Luis Stinson MD 11/20/2009 [facility] Jose Luis Stinson MD 2009 [facility] Jose Luis Stinson MD 11/17/2009 [facility] Jose Luis Stinson MD 11/16/2009 [facility] Suha Ray MD 11/15/2009 [facility] Suha Ray MD 09/02/2009 Laboratory Richar [...]
--- OUTSIDE RECORDS SUMMARY | 2017-10-22 07:49 | XMS REPORT ---
Author Author Nicholas Bonilla [facility] Address [address] [place], [place] [address] Care Team Providers Care Stacker Name Role Phone Nicholas Bonilla PCP Strides, [...] 1/4" miscellaneous needle 2015 USE DIRECTED WITH [employer] FLEXPEN Ceftin 250 mg oral tablet 12/18/2015 [...] 1 tablet TID Triaoluance 06/05/2014 1 at [facility] subqutaneous 20 units 06/05/2014 BID NovoFine [...] AM Flu Injection 3 Years And Above [facility]# [address]-41 RHC Reviewed 07/09/2013 12:00 AM THER/PROPH/DIAG INJ SC/IM Reviewed 07/09/2013 12:00 AM Toradol 30 Mg [facility]#3835-0221-20 Reviewed 12/26/2013 12:00 AM LIPID PANEL Reviewed [...] sanofi pasteur PMC Fluzone > 3 Years [id number] Intramuscular Right Deltoid 07/03/2013 04/19/2013 141 History [...] Date Medicare Part B Medicare [place] [id number] May [facility] [id number] N/A [place] Medical Assistance [facility] Medical Assistance Pro [id number] May Medicare Part A Medicare Part A [id number] Sunday, 1989 [facility] [id number] Tuesday, 2012 History of Encounters Visit Date Visit Type Provider 12/18/2015 Office visit Nicholas Bonilla ICT SYSTEMS TEST ENGINEER 10/20/2015 Office visit Sidney Shin MD 10/10/2015 [facility] Yonny Rivera MD 10/05/2015 Office visit Rhonda Tejada MD 08/31/2015 Office visit Rhonda Tejada MD 06/09/2015 [facility] Austin Aissatou VELÁSQUEZ 06/08/2015 [facility] Austin Reyez DO 06/08/2015 [facility] 06/05/[address] Kev Shane MD 06/03/2015 Office visit Jasmyne Del Rosario ICT SYSTEMS TEST ENGINEER 03/16/2015 Office visit Rhonda Tejada MD [...] 12/08/2013 [facility] Joan Sheramn MD 12/06/2013 [facility] Jamaica WallerPriscilla HYDE 10/08/2013 Office visit Rhonda Tejada MD 08/01/2013 Office visit Austin Reyez DO 08/01/2013 Office visit Jovanna Kapadia MD 07/13/2013 Hospital [place] Reyez DO 07/10/2013 Hospital Austin Reyez DO 07/09/2013 Office visit Jovanna Kapadia MD 07/09/2013 Hospital [place] Reyez DO 07/03/2013 Office visit Jovanna Kapadia MD 04/22/2013 Office visit Jasmyne Del Rosario ICT SYSTEMS TEST ENGINEER 04/01/2013 Office visit Jovanna Kapadia MD 12/31/2012 Office visit Jovanna Kaapdia MD 11/29/2012 Office visit Jovanna Kapadia MD 11/05/2012 Office visit Jasmyne Del Rosario ICT SYSTEMS TEST ENGINEER 11/30/2011 [facility] Carolyn Mercado MD 08/12/2011 [facility] Carolyn Mercado MD 06/29/2011 [facility] Carolyn Mercado MD 03/20/2011 [facility] Carolyn Mercado MD 05/01/2010 Laboratory Jose [...]
--- OUTSIDE RECORDS SUMMARY | 2017-10-22 07:52 | XMS REPORT ---
Author Author Rhonda Tejada Organization [facility] Address [address] [place], [place] [address] Care Team Providers Care Instrument Repairer Name Role Phone Rhonda Tejada PCP Strides, [...] by oral route daily for 30 days Inamyc 100,000 unit/gram topical powder 11/19/2014 apply to [...] 1 VIAL VIA NEBULIZER EVERY FOUR HOURS Unifine Pentips 31 gauge x 1/4" miscellaneous needle 2015 USE DIRECTED WITH [employer]ide[employer] pravastatin 20 mg oral tablet 12/28/2015 09/23/2016 TAKE 1 TABLET BY MOUTH ONCE DAILY AT BEDTIME for 90 days baclofen 20 mg oral tablet 03/31/2016 TAKE 1 TABLET BY MOUTH THREE TIMES DAILY FOR 30 DAYS Name Start Date Expiration Date SIG Comments [...] route every 12 hours for 7 days Discontinued Name Start Date [...] 1 tablet TID Triaoluance 06/05/2014 1 at [facility] subqutaneous 20 units 06/05/2014 BID NovoFine 30 [...] AM Flu Injection 3 Years And Above [facility]# [address]-03 RHC Reviewed 07/09/2013 12:00 AM THER/PROPH/DIAG INJ SC/IM Reviewed 07/09/2013 12:00 AM Toradol 30 Mg [facility]#8799-9720-81 Reviewed 12/26/2013 12:00 AM LIPID PANEL Reviewed [...] 451 History Of Immunizations Name Date Admin [facility] Name Mf Code Trade Name Lot# Route Inj Vis Given Vis Pub CVX Influenza 07/03/2013 sanofi pasteur PMC Fluzone > 3 Years [id number] Intramuscular Right Deltoid 07/03/2013 04/19/2013 141 History [...] 2016 4:07PM Quadriplegia Mar 29 2016 4:07PM Payers Insurance Name Company Name Plan Name Plan Number Policy Number Policy Group Number Start Date Medicare Part A Medicare RHC [id number] N/A [facility] [id number] N/A Medicare Part A Medicare - Lab/Xray [id number] Sunday, June 25, 1989 Medicare Part B Medicare Of [place] [id number] May [place] Medical Assistance [facility] Medical Assistance Pro [id number] May Medicare Part A Medicare Part A [id number] Sunday, June 25, 1989 [facility] [id number] Tuesday, September 25, 2012 History of Encounters Visit Date Visit Type Provider 03/29/2016 Office visit Rhonda Tejada MD 12/24/2015 Office visit Nicholas Bonilla BUS BOY 12/18/2015 Office visit Nicholas Bonilla BUS BOY 10/20/2015 Office visit Sidney Shin MD 10/10/2015 Hospital Yonny Rivera MD 10/05/2015 Office visit Rhonda Tejada MD 08/31/2015 Office visit Rhonda Tejada MD 06/09/2015 Hospital Austin Reyez DO 06/08/2015 [facility] Austin Reyez DO 06/08/2015 [facility] Austin Reyez DO 06/05/[address] Kev Shane MD 06/03/2015 Office visit Jasmyne Del Rosario APRN 03/16/2015 Office visit Rhonda Tejada MD 12/23/2014 Office visit Shari Correia MD 12/11/2014 Office visit Rhonda Tejada MD 09/10/2014 Office visit Rhonda Tejada MD 06/25/2014 Office visit Rhonda Tejada MD 06/11/2014 Office visit Rhonda Tejada MD 04/10/2014 [facility] Sidney Shin MD 04/08/2014 [facility] Jamaica Martin MD 03/18/2014 Office visit Nicholas Bonilla APRN 12/26/2013 Office visit Rhonda Tejada MD 12/12/2013 [facility] Carolyn Mercado MD 12/08/2013 [facility] Joan Sherman MD 12/06/2013 [facility] Jamaica Martin MD 10/08/2013 Office visit Rhonda Tejada MD 08/01/2013 Office visit Austin Reyez DO 08/01/2013 Office visit Jovanna Kapadia MD 07/13/2013 [facility] DO 07/10/2013 [facility] DO 07/09/2013 Office visit Jovanna Kapadia MD 07/09/2013 [facility] Office visit Jovanna Kapadia MD 04/22/2013 Office visit Jasmyne Del Rosario BUS BOY 04/01/2013 Office visit Jovanna Kapadia MD 12/31/2012 Office visit Jovanna Kapadia MD 11/29/2012 Office visit Jovanna Kapadia MD 11/05/2012 Office visit Jasmyne Del Rosario BUS BOY 11/30/2011 [facility] Carolyn Mercado MD 08/12/2011 [facility] Carolyn Mercado MD 06/29/2011 [facility] Carolyn Mercado MD 03/20/2011 [facility] Carolyn Mercado MD 05/01/2010 Laboratory Jose Luis Stinson MD 04/28/2010 Laboratory Jose Luis Stinson MD 11/20/2009 [facility] Jose Luis Stinson MD 2009 [facility] Jose Luis Stinson MD 11/17/2009 [facility] Jose Luis Stinson MD 11/16/2009 [facility] Suha Ray MD 11/15/2009 [facility] Suha Ray MD 09/02/2009 Laboratory Richar [...]
--- OUTSIDE RECORDS SUMMARY | 2017-10-22 07:53 | XMS REPORT ---
Author Author [facility] Organization [facility] Address [address] [place], [place] [id number] Care Team Providers Care Dietary Clerk Name Role Phone PCP Unavailable Strides, Independent [...] by oral route daily for 30 days [facility] topical powder 100,000 unit/gram 11/19/2014 [...] MOUTH THREE TIMES DAILY for 30 days Name Start Date Expiration Date SIG [...] intramuscular route once daily for 1 day Discontinued Name Start Date Discontinued Date SIG Comments Bisacodyl Rectal Suppository 10 mg 08/24/2009 11/05/2012 insert 1 suppository (10 mg) by rectal route once daily Cipro Oral Tablet 500 mg 11/05/2012 take 1 tablet (500 mg) by oral route 2 times per day for 7 days baclofen Oral tablet 20 mg 11/05/2012 11/05/2012 Take 1 tablet TID Triaoluance 06/05/2014 1 [facility] subqutaneous 20 units 06/05/2014 BID [...] sanofi pasteur PMC Fluzone > 3 Years [id number] Intramuscular Right Deltoid 07/03/2013 04/19/2013 141 History [...] 2:46PM Kidney Stones Dec 11 2014 2:46PM Payers Insurance Name Company Name Plan Name Plan Number Policy Number Policy Group Number Start Date Medicare Part B Medicare Of [place] [id number] May [facility] [id number] Tuesday, 2012 [facility] [id number] N/A [place] [facility] [place] [facility] [place] [facility] [id number] May Medicare Part A Medicare Part A [id number] Sunday, 1989 History of Encounters Visit Date Visit Type Provider 12/23/2014 Office visit Shari Correia MD 12/11/2014 Office visit Rhonda Tejada MD 09/10/2014 Office visit Rhonda Tejada MD 06/25/2014 Office visit Rhonda Tejada MD 06/11/2014 Office visit Rhonda Tejada MD 04/10/2014 [facility] Sidney Shin MD 04/08/2014 [facility] Jamaica Martin MD 03/18/2014 Office visit Nicholas Bonilla APRN 12/26/2013 Office visit Rhonda Tejada MD 12/12/2013 [facility] Carolyn Mercado MD 12/08/2013 [facility] Joan Sherman MD 12/06/2013 [facility] Jamaica Martin MD 10/08/2013 Office visit Rhonda Tejada MD 08/01/2013 Office visit Jovanna Kapadia MD 08/01/2013 Office visit Austin Reyez DO 07/13/2013 Hospital Austin Reyez DO 07/10/2013 Hospital Austin Reyez DO 07/09/2013 Office visit Jovanna Kapadia MD 07/09/2013 Hospital Austin Reyez DO 07/03/2013 Office visit Jovanna Kapadia MD 04/22/2013 Office visit Jasmyne Del Rosario ELECTRONIC DATA INTERCHANGE SPECIALIST 04/01/2013 Office visit Jovanna Kapadia MD 12/31/2012 Office visit Jovanna Kapadia MD 11/29/2012 Office visit Jovanna Kapadia MD 11/05/2012 Office visit Jasmyne Del Rosario ELECTRONIC DATA INTERCHANGE SPECIALIST 11/30/2011 Hospital Carolyn Meracdo MD 08/12/2011 [facility] Carolyn Mercado MD 06/29/2011 [facility] Carolyn Mercado MD 03/20/2011 [facility] Carolyn Mercado MD 05/01/2010 Laboratory Jose Luis Stinson MD 04/28/2010 Laboratory Jose Luis Stinson MD 11/20/2009 [facility] Jose Luis Stinson MD 2009 [facility] Jose Luis Stinson MD 11/17/2009 [facility] Jose Luis Stinson MD 11/16/2009 [facility] Suha Ray MD 11/15/2009 [facility] Suha Ray MD 09/02/2009 Laboratory [...]
--- OUTSIDE RECORDS SUMMARY | 2017-10-22 07:56 | XMS REPORT ---
Author Author Shari Correia [facility] Address [address] [place], [place] [id number] Care Team Providers Care Tmd Teacher Name Role Phone Shari Correia PCP Unavailable [...] 09/28" miscellaneous needle 2015 USE DIRECTED WITH [employer] FLEXPEN baclofen 20 mg oral tablet 03/31/2016 [...] Above [facility]# [address]-77 RHC Reviewed 07/09/2013 12:00 AM THER/PROPH/DIAG INJ SC/IM Reviewed 07/09/2013 12:00 AM Toradol 30 Mg [facility]#[id number] Reviewed 12/26/2013 12:00 AM LIPID PANEL Reviewed [...] sanofi pasteur PMC Fluzone > 3 Years [id number] Intramuscular Right Deltoid 07/03/2013 04/19/2013 141 Pneumococcal [...] Number Start Date Medicare RHC Medicare RHC [id number] N/A [facility] [id number] Tuesday, 2012 [facility] [id number] N/A Medicare Part A Medicare - Lab/Xray [id number] Sunday, June 25, 1991 Medicare Part B Medicare Of [place] [id number] May [facility] Prog [id number] May Medicare Part A Medicare Part A [id number] Sunday, June 25, 1991 History of Encounters Visit Date Visit Type Provider 12/09/2016 Office visit Shari Correia MD 08/31/2016 Office visit Rhonda Tejada MD 05/19/2016 Office visit Rhonda Tejada MD 05/11/2016 [facility] Carolyn Mercado MD 04/29/2016 [facility] Shahram Morrow DO 04/29/2016 [facility] Carolyn Mercado MD 04/29/2016 [facility] Carolyn Mercado MD 04/26/2016 Procedures Austin Reyez DO 03/29/2016 Office visit Rhonda Tejada MD 12/24/2015 Office visit Nicholas Bonilla APRN 12/18/2015 Office visit Nicholas Bonilla APRN 10/20/2015 Office visit Sidney Shin MD 10/10/2015 [facility] Yonny Rivera MD 10/05/2015 Office visit Rhonda Tejada MD 08/31/2015 Office visit Rhonda eTjada MD 06/09/2015 Hospital Austin Reyez DO 06/08/2015 Hospital Austin Reyez DO 06/08/2015 Hospital Austin Reyez DO 06/05/[address] Kev Shane MD 06/03/2015 Office visit Jasmyne Del Rosario PRESIDENT EDUCATIONAL INSTITUTION 03/16/2015 Office visit Rhonda Tejada MD 12/23/2014 Office visit Shari Correia MD 12/11/2014 Office visit Rhonda Tejada MD 09/10/2014 Office visit Rhonda Tejada MD 06/25/2014 Office visit Rhonda Tejada MD 06/11/2014 Office visit Rhonda Tejada MD 04/10/2014 [facility] Sidney Shin MD 04/08/2014 [facility] Jamaica Martin MD 03/18/2014 Office visit Nicholas Bonilla PRESIDENT EDUCATIONAL INSTITUTION 12/26/2013 Office visit Rhonda Tejada MD 12/12/2013 [facility] Carolyn Mercado MD 12/08/2013 [facility] Joan Sherman MD 12/06/2013 [facility] Jamaica Martin MD 10/08/2013 Office visit Rhonda Tejada MD 08/01/2013 Office visit Austin Reyez DO 08/01/2013 Office visit Jovanna Kapadia MD 07/13/2013 [facility] DO 07/10/2013 [facility] DO 07/09/2013 Office visit Jovanna Kapadia MD 07/09/2013 [facility] DO 07/03/2013 Office visit Jovanna Kapadia MD 04/22/2013 Office visit Jasmyne Del Rosario PRESIDENT EDUCATIONAL INSTITUTION 04/01/2013 Office visit Jovanna Kapadia MD 12/31/2012 Office visit Jovanna Kapadia MD 11/29/2012 Office visit Jovanna Kapadia MD 11/05/2012 Office visit Jasmyne Del Rosario PRESIDENT EDUCATIONAL INSTITUTION 11/30/2011 [facility] Carolyn Mercado MD [...]
--- OUTSIDE RECORDS SUMMARY | 2017-10-22 07:59 | XMS REPORT ---
Author Author Rhonda Tejada [facility] Address [address] [place], [place] [address] Care Team Providers Care Spud Grader Name Role Phone Rhonda Tejada PCP Strides, [...] 09/28" miscellaneous needle 2015 USE DIRECTED WITH [employer] FLEXPEN baclofen 20 mg oral tablet 03/31/2016 [...] TAKE 1 TABLET BY MOUTH TWICE DAILY Name Start Date Expiration Date SIG [...] 1 tablet TID Triaoluance 06/05/2014 1 at [facility] subqutaneous 20 units 06/05/2014 BID [...] Flu Injection 3 Years And Above [facility]# [id number] RHC Reviewed 07/09/2013 12:00 AM THER/PROPH/DIAG INJ SC/IM Reviewed 07/09/2013 12:00 AM Toradol 30 Mg [facility]#[id number] Reviewed 12/26/2013 12:00 AM LIPID PANEL Reviewed [...] AA 168 eGFR >60 mL/min/1.73meGFR AA* >60 History Of Immunizations Name Date Admin Mfg Name Mfg Code Trade Name Lot# Route Inj Vis Given Vis Pub CVX Influenza 07/03/2013 sanofi pasteur PMC Fluzone > 3 Years [id number] Intramuscular Right Deltoid 07/03/2013 04/19/2013 141 History [...] 2016 4:32PM Ileus Aug 05 2016 1:14PM Payers Insurance Name Company Name Plan Name Plan Number Policy Number Policy Group Number Start Date Medicare Part A Medicare [facility] [id number] N/A [facility] [id number] N/A Medicare Part A Medicare - Lab/Xray [id number] Sunday, June [birth year] 1989 Medicare Part B Medicare Of [place] [id number] May [place] Medical Assistance [facility] Medical Assistance Pro [id number] May Medicare Part A Medicare Part A [id number] Sunday, June 25, 1989 [facility] [id number] Tuesday, September 25, 2012 History of Encounters Visit Date Visit Type Provider 05/19/2016 Office visit Rhonda Tejada MD 05/11/2016 [facility] Carolyn Mercado MD 04/29/2016 [facility] Shahram Morrow DO 04/29/2016 [facility] Carolyn Mercado MD 04/29/2016 [facility] Carolyn Mercado MD 04/26/2016 Procedures Austin Reyez DO 03/29/2016 Office visit Rhonda Tejada MD 12/24/2015 Office visit Nicholas Bonilla APRN 12/18/2015 Office visit Nicholas Bonilla APRN 10/20/2015 Office visit Sidney Shin MD 10/10/2015 [facility] Yonny Rivera MD 10/05/2015 Office visit Rhonda Tejada MD 08/31/2015 Office visit Rhonda Tejada MD 06/09/2015 [facility] Austin Reyez DO 06/08/2015 [facility] Austin Reyez DO 06/08/2015 [facility] DO 06/05/[address] Kev Shane MD 06/03/2015 Office visit Jasmyne Del Rosario STACKER AND SORTER OPERATOR 03/16/2015 Office visit Rhonda Tejada MD 12/23/2014 Office visit Shari Correia MD 12/11/2014 Office visit Rhonda Tejada MD 09/10/2014 Office visit Rhonda Tejada MD 06/25/2014 Office visit Rhonda Tejada MD 06/11/2014 Office visit Rhonda Tejada MD 04/10/2014 [facility] Sidney Shin MD 04/08/2014 [facility] Jamaica Martin MD 03/18/2014 Office visit Nicholas Bonilla APRN 12/26/2013 Office visit Rhonda Tejada MD 12/12/2013 [facility] Carolyn Mercado MD 12/08/2013 [facility] Joan Sherman MD 12/06/2013 [facility] Jamaica Martin MD 10/08/2013 Office visit Rhonda Tejada MD 08/01/2013 Office visit [facility] DO 08/01/2013 Office visit Jovanna Kapadia MD 07/13/2013 [facility] DO 07/10/2013 [facility] DO 07/09/2013 Office visit Jovanna Kapadia MD 07/09/2013 [facility] DO 07/03/2013 Office visit Jovanna Kapadia MD 04/22/2013 Office visit Jasmyne Del Rosario STACKER AND SORTER OPERATOR 04/01/2013 Office visit Jovanna Kapadia MD 12/31/2012 Office visit Jovanna Kapadia MD 11/29/2012 Office visit Jovanna Kapadia MD 11/05/2012 Office visit Jasmyne Del Rosario STACKER AND SORTER OPERATOR 11/30/2011 [facility] Carolyn Mercado MD 08/12/2011 [facility] Carolyn Mercado MD 06/29/2011 Hospital Carolyn Mercado MD 03/20/2011 Hospital Carolyn Mercado MD 05/01/2010 Laboratory Jose Luis Stinson MD 04/28/2010 Laboratory Jose Luis Stinson MD 11/20/2009 [facility] Jose Luis Stinson MD 2009 [facility] Jose Luis Stinson MD 11/17/2009 [facility] Jose Luis Stinson MD 11/16/2009 [facility] Suha Ray MD 11/15/2009 Hospital Suha Ray MD 09/02/2009 Laboratory Richar [...]
--- OUTSIDE RECORDS SUMMARY | 2017-10-22 07:59 | XMS REPORT | Continuity of Care Document ---
Author Author [facility] Organization [facility] Address Unknown Phone Unavailable Allergies Active Description Code Type Severity Reaction Onset Reported/Identified Relationship to Patient Clinical Status Yes No Known Drug Intolerances No Known Drug Intolerances Drug Allergy Unknown N/A 08/11/2009 Medications There is no data. Problems There is no data. Procedures There is no data. Results There is no data. Encounters ACCT No. Visit Date/Time Discharge Status Pt. Type Provider Facility Loc./Unit Complaint [id number] 11/09/2015 13:03:00 12/09/2015 07:56:00 DIS Outpatient Brice HYDE, Minal Rodriguez [facility] [id number] 06/21/2017 15:40:45 06/21/2017 23:59:59 CLS Outpatient Thanh Villeda [id number] 05/22/2017 15:27:33 05/22/2017 23:59:59 CLS Outpatient Rhonda Tejada [id number] 05/04/2017 08:43:51 05/04/2017 23:59:59 CLS Outpatient Bren, V S [id number] 04/13/2017 11:16:30 04/13/2017 23:59:59 CLS Outpatient Bren, V S [id number] 03/22/2017 16:14:07 03/22/2017 23:59:59 CLS Outpatient Rhonda Tejada [id number] 12/23/2016 17:13:30 12/23/2016 23:59:59 CLS Outpatient Trever Garcia [id number] 12/22/2016 17:08:37 12/22/2016 23:59:59 CLS Outpatient Austin Reyez [id number] 12/21/2016 14:57:41 12/21/2016 23:59:59 CLS Outpatient Rhonda Tejada [id number] 12/09/2016 09:30:39 12/09/2016 23:59:59 CLS Outpatient Bren, V S [id number] 08/31/2016 15:19:03 08/31/2016 23:59:59 CLS Outpatient Rhonda Tejada [id number] 06/02/2016 12:54:57 06/02/2016 23:59:59 CLS Outpatient Carolyn Mercado [id number] 06/02/2016 12:52:13 06/02/2016 23:59:59 CLS Outpatient Carolyn Mercado [id number] 05/25/2016 09:29:04 05/25/2016 23:59:59 CLS Outpatient Carolyn Mercado [id number] 05/19/2016 17:12:05 05/19/2016 23:59:59 CLS Outpatient Rhonda Tejada [id number] 05/18/2016 15:56:38 05/18/2016 23:59:59 CLS Outpatient Princess Walker [id number] 04/26/2016 14:23:56 04/26/2016 23:59:59 CLS Outpatient Austin Reyez [id number] 04/05/2016 11:48:29 04/05/2016 23:59:59 CLS Outpatient Puja Hernandez [id number] 03/29/2016 14:44:31 03/29/2016 23:59:59 CLS Outpatient Rhonda Tejada [id number] 12/18/2015 11:43:50 12/18/2015 23:59:59 CLS Outpatient Nicholas Bonilla [id number] 10/24/2015 22:24:49 10/24/2015 23:59:59 CLS Outpatient AlfiemarlenePrincess reyes [id number] 10/20/2015 12:09:40 10/20/2015 23:59:59 CLS Outpatient Sidney Shin [id number] 10/05/2015 16:24:40 10/05/2015 23:59:59 CLS Outpatient Rhonda Tejada [id number] 08/31/2015 15:47:34 08/31/2015 23:59:59 CLS Outpatient RiddelRhonda [id number] 06/22/2015 10:49:46 06/22/2015 23:59:59 CLS Outpatient Austin Reyez [id number] 06/12/2015 08:37:57 06/12/2015 23:59:59 CLS Outpatient Austin Reyez [id number] 06/10/2015 06:32:10 06/10/2015 23:59:59 CLS Outpatient Austin Reyez [id number] 06/05/2015 12:24:13 06/05/2015 23:59:59 CLS Outpatient Kev Shane [id number] 06/03/2015 10:38:10 06/03/2015 23:59:59 CLS Outpatient Jasmyne Del Rosario [id number] 05/04/2015 22:00:55 05/04/2015 23:59:59 CLS Outpatient Malikajimmie Rhonda [id number] 12/23/2014 09:54:39 12/23/2014 23:59:59 CLS Outpatient Shari Correia [id number] 09/10/2014 15:51:48 09/10/2014 23:59:59 CLS Outpatient Rhonda Tejada [id number] 06/25/2014 15:31:30 06/25/2014 23:59:59 CLS Outpatient Rhonda Tejada [id number] 06/11/2014 15:03:47 06/11/2014 23:59:59 CLS Outpatient Rhonda Tejada [id number] 05/16/2014 15:49:10 05/16/2014 23:59:59 CLS Outpatient Sidney Shin [id number] 04/30/2014 17:06:48 04/30/2014 23:59:59 CLS Outpatient [place] Orozco [id number] 04/21/2014 18:13:13 04/21/2014 23:59:59 CLS Outpatient [place] Orozco [id number] 03/18/2014 14:18:53 03/18/2014 23:59:59 CLS Outpatient Nicholas Bonilla [id number] 12/26/2013 15:40:53 12/26/2013 23:59:59 CLS Outpatient Rhonda Tejada [id number] 12/26/2013 06:45:20 12/26/2013 23:59:59 CLS Outpatient Princess Walker [id number] 12/24/2013 23:56:05 12/24/2013 23:59:59 CLS Outpatient Carolyn Mercado [id number] 10/08/2013 15:08:14 10/08/2013 23:59:59 CLS Outpatient Rhonda Tejada
--- OUTSIDE RECORDS SUMMARY | 2017-10-22 09:20 | XMS REPORT | Continuity of Care Document ---
Author Author [facility] Organization [facility] Address Unknown Phone Unavailable Allergies Active [...] Status Pt. Type Provider Facility Loc./Unit Complaint [id number] 11/09/2015 13:03:00 12/09/2015 07:56:00 DIS Outpatient Brice HYDE, Minal Rodriguez [facility] [id number] 06/21/2017 15:40:45 06/21/2017 23:59:59 CLS Outpatient Thanh Villeda [id number] 05/22/2017 15:27:33 05/22/2017 23:59:59 CLS Outpatient Rhonda Tejada [id number] 05/04/2017 08:43:51 05/04/2017 23:59:59 CLS Outpatient Bren, V S [id number] 04/13/2017 11:16:30 04/13/2017 23:59:59 CLS Outpatient Bren, V S [id number] 03/22/2017 16:14:07 03/22/2017 23:59:59 CLS Outpatient Rhonda Tejada [id number] 12/23/2016 17:13:30 12/23/2016 23:59:59 CLS Outpatient Trever Garcia [id number] 12/22/2016 17:08:37 12/22/2016 23:59:59 CLS Outpatient Austin Reyez [id number] 12/21/2016 14:57:41 12/21/2016 23:59:59 CLS Outpatient Rhonda Tejada [id number] 12/09/2016 09:30:39 12/09/2016 23:59:59 CLS Outpatient Bren, V S [id number] 08/31/2016 15:19:03 08/31/2016 23:59:59 CLS Outpatient Rhonda Tejada [id number] 06/02/2016 12:54:57 06/02/2016 23:59:59 CLS Outpatient Carolyn Mercado [id number] 06/02/2016 12:52:13 06/02/2016 23:59:59 CLS Outpatient Carolyn Mercado [id number] 05/25/2016 09:29:04 05/25/2016 23:59:59 CLS Outpatient Carolyn Mercado [id number] 05/19/2016 17:12:05 05/19/2016 23:59:59 CLS Outpatient Rhonda Tejada [id number] 05/18/2016 15:56:38 05/18/2016 23:59:59 CLS Outpatient Princess Walker [id number] 04/26/2016 14:23:56 04/26/2016 23:59:59 CLS Outpatient Austin Reyez [id number] 04/05/2016 11:48:29 04/05/2016 23:59:59 CLS Outpatient Puja Hernandez [id number] 03/29/2016 14:44:31 03/29/2016 23:59:59 CLS Outpatient Rhonda Tejada [id number] 12/18/2015 11:43:50 12/18/2015 23:59:59 CLS Outpatient Nicholas Bonilla [id number] 10/24/2015 22:24:49 10/24/2015 23:59:59 CLS Outpatient AlfiemarlenePrincess reyes [id number] 10/20/2015 12:09:40 10/20/2015 23:59:59 CLS Outpatient Sidney Shin [id number] 10/05/2015 16:24:40 10/05/2015 23:59:59 CLS Outpatient Rhonda Tejada [id number] 08/31/2015 15:47:34 08/31/2015 23:59:59 CLS Outpatient RiddelRhonda [id number] 06/22/2015 10:49:46 06/22/2015 23:59:59 CLS Outpatient Austin Reyez [id number] 06/12/2015 08:37:57 06/12/2015 23:59:59 CLS Outpatient Austin Reyez [id number] 06/10/2015 06:32:10 06/10/2015 23:59:59 CLS Outpatient Austin Reyez [id number] 06/05/2015 12:24:13 06/05/2015 23:59:59 CLS Outpatient Kev Shane [id number] 06/03/2015 10:38:10 06/03/2015 23:59:59 CLS Outpatient Jasmyne Del Rosario [id number] 05/04/2015 22:00:55 05/04/2015 23:59:59 CLS Outpatient Malikajimmie Rhonda [id number] 12/23/2014 09:54:39 12/23/2014 23:59:59 CLS Outpatient Shari Correia [id number] 09/10/2014 15:51:48 09/10/2014 23:59:59 CLS Outpatient Rhonda Tejada [id number] 06/25/2014 15:31:30 06/25/2014 23:59:59 CLS Outpatient Rhonda Tejada [id number] 06/11/2014 15:03:47 06/11/2014 23:59:59 CLS Outpatient Rhonda Tejada [id number] 05/16/2014 15:49:10 05/16/2014 23:59:59 CLS Outpatient Sidney Shin [id number] 04/30/2014 17:06:48 04/30/2014 23:59:59 CLS Outpatient [place] Orozco [id number] 04/21/2014 18:13:13 04/21/2014 23:59:59 CLS Outpatient [place] Orozco [id number] 03/18/2014 14:18:53 03/18/2014 23:59:59 CLS Outpatient Nicholas Bonilla [id number] 12/26/2013 15:40:53 12/26/2013 23:59:59 CLS Outpatient Rhonda Tejada [id number] 12/26/2013 06:45:20 12/26/2013 23:59:59 CLS Outpatient Princess Walker [id number] 12/24/2013 23:56:05 12/24/2013 23:59:59 CLS Outpatient Carolyn Mercado [id number] 10/08/2013 15:08:14 10/08/2013 23:59:59 CLS Outpatient Rhonda Tejada
[2017-10-22] MEDS: DAKIN'S 1/2 STRENGTH (0.25%) 473 ML BTL TOP SCH (09:30)
[2017-10-22] MEDS: inSUlin DETERMIR 1 UNIT/0.01 ML (LEVEMIR) CHARGE PER UNIT SQ SCH ×2 (09:30→20:47)
--- NOTE | 2017-10-22 09:41 | Diagnostic Imaging Report ---
INDICATION: Pneumonia. COMPARISON: 10/21/2017 FINDINGS: A single view of the chest demonstrates stable tracheostomy tube. There is slightly increased infiltrate in the left upper lobe. Stable infiltrates are seen in the right base. The heart remains prominent. There is no pneumothorax. Trace effusions are present IMPRESSION: 1. Increasing infiltrate in the left upper lobe. 2. Stable infiltrate, right base. 3. Trace effusions. Dictated by: Dictated on workstation # [id number]
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
[2017-10-22] MEDS ORDERED: meTOprolol TARTRATE 25 MG (LOPRESSOR) TABLET PO ONE (14:00)
[2017-10-22] MEDS ORDERED: meTOprolol TARTRATE 25 MG (LOPRESSOR) TABLET GT NR (14:15)
[2017-10-22] MEDS ORDERED: meTOprolol 5 MG/5 ML (LOPRESSOR) VIAL ONE (15:45)
[2017-10-22] MEDS: meTOprolol 5 MG/5 ML (LOPRESSOR) VIAL IV PRN (15:54)
[2017-10-22] MEDS ORDERED: INSU100V3 SQ (17:53)
[2017-10-22] MEDS ORDERED: NUT.237L23 PEG (17:53)
[2017-10-22] MEDS ORDERED: MICO85PO2 TP (17:53)
[2017-10-22] MEDS ORDERED: DEXT37.5 PEG (17:53)
[2017-10-22] MEDS ORDERED: METF500T4 PEG (17:53)
[2017-10-22] MEDS: meTOprolol TARTRATE 25 MG (LOPRESSOR) TABLET GT SCH (20:47)
[2017-10-22] MEDS ORDERED: meTOprolol TARTRATE 25 MG (LOPRESSOR) TABLET PO SCH (21:00)
[2017-10-23] VITALS (49 sets, daily range): BP systolic 91–211; BP diastolic 42–108
[2017-10-23] MEDS: RT-ALBUTEROL/IPRATROPIUM 3 ML (DUONEB) VIAL INH SCH ×13 (00:25→22:53)
[2017-10-23] MEDS: aCETylcysteine 20% (MUCOMYST) 30ML SOLN VIAL INH SCH ×7 (02:50→22:53)
[2017-10-23] MEDS: LACTATED RINGERS 1,000 ML IV SCH ×3 (03:00→23:22)
[2017-10-23] MEDS: meTOprolol 5 MG/5 ML (LOPRESSOR) VIAL IV PRN ×3 (03:34→13:18)
[2017-10-23 04:23] LABS: ABG BASE EXCESS 0.9 MMOL/L (-2.5-2.5); ABG OXYGEN SATURATION 98 % (94-100); ABG PCO2 42 MMHG (35-45); ABG PO2 81 MMHG (79-93); ABG TCO2 26.6 MMOL/L (21.0-31.0)
[2017-10-23 04:24] LABS: ALLENS TEST YES-POS; INSPIRED O2 50%; PATIENT TEMP 97.8; VENTILATOR YES
[2017-10-23 04:33] LABS: BASOPHILS % (AUTO) 0 % (0-10); EOSINOPHILS # (AUTO) 0.1 10^3/uL (0.0-0.3); EOSINOPHILS % (AUTO) 1 % (0-10); HEMATOCRIT 27 % (40-54); LYMPHOCYTES # (AUTO) 0.8 X 10^3 (1.0-4.0); LYMPHOCYTES % (AUTO) 8 % (12-44); MEAN CORPUSCULAR HEMOGLOBIN 25 PG (25-34); MEAN CORPUSCULAR HGB CONC 30 G/DL (32-36); MEAN CORPUSCULAR VOLUME 83 FL (80-99); MEAN PLATELET VOLUME 10.6 FL (7.4-10.4); MONOCYTES # (AUTO) 0.8 X 10^3 (0.0-1.0); MONOCYTES % (AUTO) 9 % (0-12); NEUTROPHILS # (AUTO) 7.6 X 10^3 (1.8-7.8); NEUTROPHILS % (AUTO) 81 % (42-75); PLATELET COUNT 192 10^3/uL (130-400); RED BLOOD COUNT 3.26 10^6/uL (4.35-5.85); RED CELL DISTRIBUTION WIDTH 16.6 % (10.0-14.5); WHITE BLOOD COUNT 9.4 10^3/uL (4.3-11.0)
[2017-10-23 04:52] LABS: BUN/CREATININE RATIO 33; CALCIUM 8.6 MG/DL (8.5-10.1); CARBON DIOXIDE 24 MMOL/L (21-32); CHLORIDE 110 MMOL/L (98-107); CREATININE SERUM 0.45 MG/DL (0.60-1.30); GFR ESTIMATED > 60; GLUCOSE 92 MG/DL (70-105); MAGNESIUM 1.4 MG/DL (1.8-2.4); PHOSPHORUS 2.6 MG/DL (2.3-4.7); POTASSIUM 3.3 MMOL/L (3.6-5.0); SODIUM 145 MMOL/L (135-145)
[2017-10-23] MEDS: POTASSIUM CL 10MEQ/50ML IVPB 50 ML IV SCH ×5 (05:23→08:31)
[2017-10-23] MEDS: MAGNESIUM 1 GM/100 ML IVPB 100 ML IV SCH ×3 (05:23→06:21)
[2017-10-23] MEDS ORDERED: TROUGH ORDER-PHARMACY XX NR (06:00)
[2017-10-23] MEDS: inSUlin (REGULAR) HUMAN 1 UNIT/0.01 ML (CHARGE PER UNIT) SC SCH ×5 (06:00→23:22)
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
[2017-10-23] MEDS: CEFEPIME 2 GM/D5W 50 ML IVPB IV SCH ×2 (06:12)
[2017-10-23] MEDS: LEVOTHYROXINE 100 MCG (LEVOTHROID) TAB PO SCH (06:18)
[2017-10-23] MEDS: KCL 10 MEQ TAB (MICRO K) PO SCH (06:22)
[2017-10-23] MEDS ORDERED: DIAZEPAM INJ 10 MG/2 ML (VALIUM) SYR ONE (06:33)
[2017-10-23] MEDS ORDERED: PROPOFOL DRIP (ICU) 100 ML IV ONE (06:34)
[2017-10-23] MEDS ORDERED: DIAZEPAM INJ 10 MG/2 ML (VALIUM) SYR IV NR (06:45)
[2017-10-23] MEDS: PROPOFOL DRIP (ICU) 100 ML IV SCH ×2 (06:46→15:30)
--- NOTE | 2017-10-23 07:07 | Pulmonary Procedures ---
Pulmonary Procedures Date of Procedure Date of Service: Oct 23, 2017 Time of Intubation: 07:04 Procedure: Trach tube exchange with size 5.0 cuffed DX: respiratory distress Complications: none Trach tube was changed to cuffed 5.0 tube. Secondary to patient requiring ventilator and not obtained adequate ventilation with uncuffed tube. Pt tolerated procedure well. PT was given 4mg of versed and started on propofol gtt for sedation. Will continue propofol gtt secondary to respiratory distress. ARRON RAMIREZ DO Oct 23, 2017 07:07
--- NOTE | 2017-10-23 07:55 | Diagnostic Imaging Report ---
CHEST 1 VIEW, AP/PA ONLY INDICATION: Shortness of breath. COMPARISON: 10/23/2017 at 5:03 a.m. FINDINGS: Stable tracheostomy tube position. Right basilar heterogeneous consolidations are unchanged. Stable small right pleural effusion. No pneumothorax. Stable cardiomediastinal silhouette. IMPRESSION: 1. Stable position of tracheostomy tube. 2. No adverse development. Right basilar consolidations and small pleural effusions are unchanged. Dictated by: Dictated on workstation # [id number]
--- NOTE | 2017-10-23 08:01 | Diagnostic Imaging Report ---
CHEST 1 VIEW, AP/PA ONLY INDICATION: Intubation. COMPARISON: 10/22/2017 FINDINGS: Support Devices: Stable tracheostomy tube. Chest: Right basilar heterogeneous opacities have increased. Small right pleural effusion is unchanged. No pneumothorax. Stable cardiomegaly. IMPRESSION: 1. Stable support devices. 2. Increasing right basilar opacities which could represent pneumonia or atelectasis. 3. Stable small right pleural effusion. Dictated by: Dictated on workstation # [id number]
[2017-10-23] MEDS: meTOprolol TARTRATE 25 MG (LOPRESSOR) TABLET GT SCH ×2 (09:15→20:46)
[2017-10-23] MEDS: inSUlin DETERMIR 1 UNIT/0.01 ML (LEVEMIR) CHARGE PER UNIT SQ SCH ×2 (09:15→20:45)
[2017-10-23] MEDS: DAKIN'S 1/2 STRENGTH (0.25%) 473 ML BTL TOP SCH (09:15)
--- NOTE | 2017-10-23 12:45 | Diagnostic Imaging Report ---
INDICATION: Evaluate PICC line placement. Comparison made with prior examination from 10/23/2017. FINDINGS: There is a left upper extremity PICC line which has the tip in the superior vena cava. There is a right base infiltrate and right pleural effusion. There is cardiomegaly. There is no pneumothorax. IMPRESSION: The left upper extremity PICC line has its tip in superior vena cava. Persistent right base infiltrate and right pleural effusion. Cardiomegaly. Dictated by: Dictated on workstation # [id number]
[2017-10-23] MEDS ORDERED: fentaNYL INJECTION 1,250 MCG in NS (IVPB) 225 ML IV SCH (15:00)
[2017-10-23] MEDS: morphine INJ 4 MG/ML 1 ML (VIAL/SYRINGE) IVP PRN (15:07)
--- NOTE | 2017-10-23 16:17 | Progress Note-Hospitalist ---
Standard Progress Note Progress Notes/Assess & Plan Date Seen 10/23/17 Time Seen by Provider: 16:13 Assess & Plan/Chief Complaint The patient is somnolent and on the ventilator. The monitor shows atrial fibrillation with a rapid ventricular response he has not responded to metoprolol as a control agent. Physical exam: Skin is dry. Lungs show rales throughout. CV is irregular and rapid with the monitor showing 150-165. Impression: Quadriplegia. 2.chronic tracheostomy. A cuffed endotracheal tube has been placed today. 3.respiratory failure. 4.presacral decubitus. 5.chronic atrial fibrillation with RVR today. Plan: Cardiology consultation. Labs Laboratory Tests 10/22/17 05:25 10/23/17 04:25 CUAUHTEMOC MANLEY MD Oct 23, 2017 16:17
[2017-10-23] MEDS: fentaNYL INJECTION 1,250 MCG in NS (IVPB) 250 ML IV SCH (16:30)
[2017-10-23] MEDS ORDERED: DILTIAZEM IV FOR DRIP 125 MG in D5W 100 ML IVPB 100 ML IV SCH (17:00)
[2017-10-23] MEDS ORDERED: DILTIAZEM 25 MG/5 ML INJ (CARDIZEM) VIAL IVP NR (17:00)
[2017-10-23] MEDS: DILTIAZEM IV FOR DRIP 125 MG in D5W 100 ML IVPB 100 ML IV SCH (17:11)
[2017-10-23] MEDS ORDERED: DIGOXIN 0.125 MG (LANOXIN) TAB ONE (17:58)
[2017-10-23] MEDS: DIGOXIN 0.125 MG (LANOXIN) TAB PEG SCH (18:06)
[2017-10-23] MEDS: CEFEPIME 2 GM/NS 50 ML IVPB IV SCH ×2 (18:07)
--- NOTE | 2017-10-23 19:05 | Wound Care Progress Note ---
Subjective Subjective Subjective/Events-last exam 56 year old male with severe pressure ulcer of R buttock in setting of respiratory distress, pneumonia and quadriplegia Objective Exam Last Set of Vital Signs Vital Signs Date Time Temp Pulse Resp B/P (MAP) Pulse Ox O2 Delivery O2 Flow Rate FiO2 10/23/17 18:00 109 24 136/92 (107) 96 Mechanical Ventilator 75.00 10/23/17 16:09 75 10/23/17 16:00 97.6 Capillary Refill : Less Than 3 Seconds I&O Intake and Output 10/23/17 00:00 Intake Total 2852.5 ml Output Total 1825 ml Balance 1027.5 ml Intake Oral 0 ml IV Total 1712.5 ml Other 1140 ml Output Urine Total 1400 ml Stool Total 425 ml Results Lab Laboratory Tests 10/22/17 20:52: Glucometer 122H 10/23/17 00:01: Glucometer 107 10/23/17 04:17: Blood Gas Puncture Site LEFT RADIAL, Blood Gas Patient Temperature 97.8, Arterial Blood pH 7.40, Arterial Blood Partial Pressure CO2 42, Arterial Blood Partial Pressure O2 81, Arterial Blood HCO3 25, Arterial Blood Total CO2 26.6, Arterial Blood Oxygen Saturation 98, Arterial Blood Base Excess 0.9, Moy Test YES-POS, Blood Gas Ventilator Setting YES, Blood Gas Inspired Oxygen 50% 10/23/17 04:25: White Blood Count 9.4, Red Blood Count 3.26L, Hemoglobin 8.0L, Hematocrit 27L, Mean Corpuscular Volume 83, Mean Corpuscular Hemoglobin 25, Mean Corpuscular Hemoglobin Concent 30L, Red Cell Distribution Width 16.6H, Platelet Count 192, Mean Platelet Volume 10.6H, Neutrophils (%) (Auto) 81H, Lymphocytes (%) (Auto) 8L, Monocytes (%) (Auto) 9, Eosinophils (%) (Auto) 1, Basophils (%) (Auto) 0, Neutrophils # (Auto) 7.6, Lymphocytes # (Auto) 0.8L, Monocytes # (Auto) 0.8, Eosinophils # (Auto) 0.1, Basophils # (Auto) 0.0, Sodium Level 145, Potassium Level 3.3L, Chloride Level 110H, Carbon Dioxide Level 24, Anion Gap 11, Blood Urea Nitrogen 15, Creatinine 0.45L, Estimat Glomerular Filtration Rate > 60, BUN /Creatinine Ratio 33, Glucose Level 92, Calcium Level 8.6, Phosphorus Level 2.6 , Magnesium Level 1.4L, Vancomycin Level Trough 23.0H 10/23/17 12:54: Glucometer 116H 10/23/17 18:05: Glucometer 97 10/23/17 18:40: Microbiology 10/20/17 Blood Culture - Preliminary, Resulted No growth 10/20/17 Influenza Types A,B Antigen (JOSEFA) - Final, Complete 10/20/17 Urine Culture - Final, Complete NO GROWTH SIGIFREDO JARAMILLO MD Oct 23, 2017 19:05
[2017-10-23] MEDS: ZINC OXIDE 16% OINT (BUTT PASTE) 113 GM TUBE TOP PRN (23:22)
[2017-10-24] VITALS (60 sets, daily range): BP systolic 82–143; BP diastolic 38–120
[2017-10-24] MEDS: RT-ALBUTEROL/IPRATROPIUM 3 ML (DUONEB) VIAL INH SCH ×12 (00:09→22:48)
[2017-10-24] MEDS: PROPOFOL DRIP (ICU) 100 ML IV SCH ×3 (01:42→22:26)
[2017-10-24] MEDS: DAKIN'S 1/4 STRENGTH (0.125%) 473 ML BTL TOP SCH (02:07)
[2017-10-24] MEDS: ZINC OXIDE 16% OINT (BUTT PASTE) 113 GM TUBE TOP PRN (02:07)
[2017-10-24] MEDS: DILTIAZEM IV FOR DRIP 125 MG in D5W 100 ML IVPB 100 ML IV SCH (02:07)
[2017-10-24] MEDS: aCETylcysteine 20% (MUCOMYST) 30ML SOLN VIAL INH SCH ×6 (02:27→22:48)
[2017-10-24 04:33] LABS: BASOPHILS % (AUTO) 0 % (0-10); EOSINOPHILS % (AUTO) 0 % (0-10); HEMATOCRIT 25 % (40-54); HEMOGLOBIN 7.6 G/DL (13.3-17.7); LYMPHOCYTES % (AUTO) 8 % (12-44); MEAN CORPUSCULAR HEMOGLOBIN 25 PG (25-34); MEAN CORPUSCULAR HGB CONC 30 G/DL (32-36); MEAN CORPUSCULAR VOLUME 82 FL (80-99); MEAN PLATELET VOLUME 10.5 FL (7.4-10.4); MONOCYTES # (AUTO) 0.9 X 10^3 (0.0-1.0); MONOCYTES % (AUTO) 7 % (0-12); NEUTROPHILS # (AUTO) 10.7 X 10^3 (1.8-7.8); NEUTROPHILS % (AUTO) 85 % (42-75); PLATELET COUNT 208 10^3/uL (130-400); RED CELL DISTRIBUTION WIDTH 16.6 % (10.0-14.5); WHITE BLOOD COUNT 12.7 10^3/uL (4.3-11.0)
[2017-10-24 04:44] LABS: ABG BASE EXCESS -1.1 MMOL/L (-2.5-2.5); ABG OXYGEN SATURATION 94 % (94-100); ABG PCO2 36 MMHG (35-45); ABG PH 7.42 (7.37-7.43); ABG PO2 62 MMHG (79-93); ABG TCO2 24.2 MMOL/L (21.0-31.0); ALLENS TEST YES-POS; INSPIRED O2 75%; PATIENT TEMP 96.8; VENTILATOR YES
[2017-10-24 04:48] LABS: BUN/CREATININE RATIO 29; CALCIUM 8.4 MG/DL (8.5-10.1); CARBON DIOXIDE 22 MMOL/L (21-32); CHLORIDE 109 MMOL/L (98-107); CREATININE SERUM 0.48 MG/DL (0.60-1.30); GFR ESTIMATED > 60; GLUCOSE 80 MG/DL (70-105); MAGNESIUM 1.6 MG/DL (1.8-2.4); PHOSPHORUS 2.5 MG/DL (2.3-4.7); POTASSIUM 3.6 MMOL/L (3.6-5.0); SODIUM 142 MMOL/L (135-145)
[2017-10-24] MEDS: inSUlin (REGULAR) HUMAN 1 UNIT/0.01 ML (CHARGE PER UNIT) SC SCH ×3 (05:16→17:17)
[2017-10-24] MEDS: MAGNESIUM 1 GM/100 ML IVPB 100 ML IV SCH ×3 (05:16→06:47)
[2017-10-24] MEDS: POTASSIUM CL 10MEQ/50ML IVPB 50 ML IV SCH ×3 (05:16→06:47)
[2017-10-24] MEDS: LEVOTHYROXINE 100 MCG (LEVOTHROID) TAB PO SCH (05:48)
[2017-10-24] MEDS: CEFEPIME 2 GM/NS 50 ML IVPB IV SCH ×4 (05:49→17:34)
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
[2017-10-24] MEDS ORDERED: LACTATED RINGERS 1,000 ML IV ONE (07:00)
[2017-10-24] MEDS ORDERED: VITAMIN K 1 MG/ML ORAL SOLN 1 ML SYRINGE PO NR (07:00)
[2017-10-24] MEDS: KCL 10 MEQ TAB (MICRO K) PO SCH (07:44)
--- NOTE | 2017-10-24 08:16 | Diagnostic Imaging Report ---
INDICATION: Pneumonia. TIME OF EXAM: 4:46 AM Correlation is made with prior study one day earlier. FINDINGS: Heart is enlarged, but stable. There continues to be consolidation in the right base and small right effusion. Left lung is clear. There is no pneumothorax. Tracheostomy tube remains in place. The left upper extremity PICC line remains in place. IMPRESSION: Continued consolidation in the right lower lobe, similar to one day earlier. Dictated by: Dictated on workstation # [id number]
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
[2017-10-24 08:46] LABS: PROTHROMBIN TIME PATIENT 52.5 SEC (12.2-14.7)
[2017-10-24] MEDS: VANCOMYCIN 1250 MG/NS 250 ML IVPB IV SCH ×2 (08:52)
[2017-10-24] MEDS: DIGOXIN 0.125 MG (LANOXIN) TAB PEG SCH (08:53)
[2017-10-24] MEDS: meTOprolol TARTRATE 25 MG (LOPRESSOR) TABLET GT SCH ×2 (08:53→20:23)
[2017-10-24] MEDS: inSUlin DETERMIR 1 UNIT/0.01 ML (LEVEMIR) CHARGE PER UNIT SQ SCH ×3 (10:39→22:30)
[2017-10-24] MEDS ORDERED: CATHETER FLUSH 10 ML SYR IV PRN (10:45)
[2017-10-24] MEDS ORDERED: IOHEXOL 350 MG/ML 150 ML (OMNIPAQUE 350) VIAL IV ONE (10:45)
[2017-10-24] MEDS: LACTATED RINGERS 1,000 ML IV SCH ×2 (11:55→22:48)
--- NOTE | 2017-10-24 15:12 | Diagnostic Imaging Report ---
PROCEDURE: CT angiography of the chest with contrast. TECHNIQUE: Multiple contiguous axial images were obtained through the chest after uneventful bolus administration of intravenous contrast. Reconstructed CTA MIP acquisitions were also performed. INDICATION: Respiratory failure. COMPARISON: No prior CT studies are available for comparison. FINDINGS: Tracheostomy tube has the tip above the dolores. A left upper extremity PICC line has a tip in the SVC. Evaluation of the pulmonary arterial system is without evidence of thromboembolism. No filling defects are identified within the central, lobar, or segmental pulmonary arteries. The thoracic aorta is without evidence of dissection. The heart is enlarged. No pericardial fluid is seen. There are small bilateral pleural effusions noted. No definite axillary lymphadenopathy is seen. There are multiple prominent lymph nodes in the mediastinum. Right paratracheal node measures 16 mm. There appear to be enlarged lymph nodes in the penelope bilaterally. Right hilar node is 2.0 cm. Left hilar soft tissue is 1.8 cm. The upper abdomen is unremarkable. IMPRESSION: 1. No evidence of pulmonary embolism or thoracic aortic dissection. 2. Bilateral pleural effusions with marked bibasilar consolidation suggestive of pneumonia. 3. Mediastinal and bilateral hilar lymphadenopathy, indeterminate between reactive versus neoplastic. Infiltrates are identified bilaterally. There are patchy airspace infiltrates in the left upper lobe. There is marked parenchymal consolidation with air bronchograms identified in bilateral lower lobes. Dictated by: Dictated on workstation # [id number]
[2017-10-24] MEDS: fentaNYL INJECTION 1,250 MCG in NS (IVPB) 250 ML IV SCH (15:30)
[2017-10-25] VITALS (38 sets, daily range): BP systolic 81–134; BP diastolic 49–80
[2017-10-25] MEDS: RT-ALBUTEROL/IPRATROPIUM 3 ML (DUONEB) VIAL INH SCH ×12 (00:17→21:36)
[2017-10-25] MEDS: aCETylcysteine 20% (MUCOMYST) 30ML SOLN VIAL INH SCH ×6 (02:31→21:36)
[2017-10-25 04:22] LABS: BASOPHILS % (AUTO) 0 % (0-10); EOSINOPHILS % (AUTO) 0 % (0-10); HEMATOCRIT 24 % (40-54); HEMOGLOBIN 7.2 G/DL (13.3-17.7); LYMPHOCYTES # (AUTO) 1.7 X 10^3 (1.0-4.0); LYMPHOCYTES % (AUTO) 20 % (12-44); MEAN CORPUSCULAR HEMOGLOBIN 25 PG (25-34); MEAN CORPUSCULAR HGB CONC 30 G/DL (32-36); MEAN CORPUSCULAR VOLUME 81 FL (80-99); MEAN PLATELET VOLUME 10.2 FL (7.4-10.4); MONOCYTES # (AUTO) 0.6 X 10^3 (0.0-1.0); MONOCYTES % (AUTO) 7 % (0-12); NEUTROPHILS # (AUTO) 6.3 X 10^3 (1.8-7.8); NEUTROPHILS % (AUTO) 72 % (42-75); PLATELET COUNT 180 10^3/uL (130-400); RED BLOOD COUNT 2.94 10^6/uL (4.35-5.85); RED CELL DISTRIBUTION WIDTH 16.4 % (10.0-14.5); WHITE BLOOD COUNT 8.7 10^3/uL (4.3-11.0)
[2017-10-25 04:44] LABS: BUN/CREATININE RATIO 22; CALCIUM 8.2 MG/DL (8.5-10.1); CARBON DIOXIDE 24 MMOL/L (21-32); CHLORIDE 107 MMOL/L (98-107); CREATININE SERUM 0.46 MG/DL (0.60-1.30); GFR ESTIMATED > 60; GLUCOSE 124 MG/DL (70-105); MAGNESIUM 1.4 MG/DL (1.8-2.4); PHOSPHORUS 2.1 MG/DL (2.3-4.7); POTASSIUM 3.4 MMOL/L (3.6-5.0); SODIUM 140 MMOL/L (135-145)
[2017-10-25] MEDS: inSUlin (REGULAR) HUMAN 1 UNIT/0.01 ML (CHARGE PER UNIT) SC SCH ×5 (06:16→23:42)
[2017-10-25] MEDS: MAGNESIUM 1 GM/100 ML IVPB 100 ML IV SCH ×4 (06:16→08:00)
[2017-10-25] MEDS: CEFEPIME 2 GM/NS 50 ML IVPB IV SCH ×4 (06:21→17:29)
[2017-10-25] MEDS: LEVOTHYROXINE 100 MCG (LEVOTHROID) TAB PO SCH (06:22)
[2017-10-25] MEDS: KCL 10 MEQ TAB (MICRO K) PO SCH (06:22)
[2017-10-25] MEDS: POTASSIUM CL 10MEQ/50ML IVPB 50 ML IV SCH (06:33)
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
[2017-10-25] MEDS ORDERED: POTASSIUM PHOSPHATE INJ 30 MM in NS (IVPB) 250 ML IV ONE (06:45)
[2017-10-25 07:16] LABS: INR 1.6 (0.8-1.4); PROTHROMBIN TIME PATIENT 18.9 SEC (12.2-14.7)
[2017-10-25] MEDS: meTOprolol TARTRATE 25 MG (LOPRESSOR) TABLET GT SCH ×2 (08:00→20:27)
[2017-10-25] MEDS: DIGOXIN 0.125 MG (LANOXIN) TAB PEG SCH (08:00)
[2017-10-25] MEDS: PROPOFOL DRIP (ICU) 100 ML IV SCH ×2 (08:07→18:00)
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
--- NOTE | 2017-10-25 08:42 | Diagnostic Imaging Report ---
INDICATION: Pneumonia. COMPARISON: Exam compared with study one day prior. FINDINGS: There has been interval migration of the left PICC catheter, previously was oriented inferiorly in the SVC now distally oriented retrograde cephalad. ET tube is above the dolores. Lower lobe consolidations greater right than left and right-sided pleural fluid unchanged. IMPRESSION: Bibasilar infiltrates, pleural fluid and cardiomegaly unchanged. Left PICC has become malpositioned in the interim now directed cephalad at its distal aspect. Dictated by: Dictated on workstation # [id number]
[2017-10-25 08:52] LABS: ABG OXYGEN SATURATION 94 % (94-100); ABG PCO2 39 MMHG (35-45); ABG PH 7.43 (7.37-7.43); ABG PO2 63 MMHG (79-93); ABG TCO2 27.2 MMOL/L (21.0-31.0)
[2017-10-25 08:53] LABS: ALLENS TEST YES-POS; PATIENT TEMP 97.9; VENTILATOR YES
[2017-10-25] MEDS: LACTATED RINGERS 1,000 ML IV SCH ×2 (09:13→17:53)
[2017-10-25] MEDS: inSUlin DETERMIR 1 UNIT/0.01 ML (LEVEMIR) CHARGE PER UNIT SQ SCH ×2 (09:13→20:27)
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
[2017-10-25] MEDS: fentaNYL INJECTION 1,250 MCG in NS (IVPB) 250 ML IV SCH (15:30)
[2017-10-25] MEDS: DILTIAZEM IV FOR DRIP 125 MG in D5W 100 ML IVPB 100 ML IV SCH (16:17)
--- NOTE | 2017-10-25 17:03 | Cardiology Progress Note ---
Subjective Date Seen by Provider: Oct 25, 2017 Time Seen by Provider: 17:01 Subjective/Events-last exam patient is in bed, tachycardic at this time, borderline hypotensive. Review of Systems General: Fatigue, Malaise HEENT: No Head Aches, No Visual Changes, No Eye Pain, No Ear Pain, No Dysphasia , No Sinus Congestion, No Post Nasal Drip, No Sore Throat, No Other Pulmonary: Dyspnea, Cough Cardiovascular: Edema Objective-Cardiology Exam Last Set of Vital Signs Vital Signs 10/25/17 10/25/17 10/25/17 10/25/17 10/25/17 14:00 16:00 16:03 16:31 16:36 Temp 99.0 Pulse 100 Resp 23 B/P (MAP) 120/71 (87) Pulse Ox 95 O2 Delivery Mechanical Ventilator O2 Flow Rate 65.00 FiO2 65 Capillary Refill : Less Than 3 Seconds I&O Intake and Output 10/25/17 00:00 Intake Total 4613.5 ml Output Total 1315 ml Balance 3298.5 ml Intake Oral 0 ml IV Total 3637.5 ml Tube Feeding 136 ml Other 840 ml Output Urine Total 1240 ml Stool Total 50 ml Urine/Stool Mix 25 ml General: Moderate Distress HEENT: Atraumatic Neck: Supple, No JVD Lungs: Other (Rhonchi thoughout) Heart: No Murmurs, Other (irregularly irregular, tachycardic) Abdomen: Soft Extremities: No Cyanosis, Other (+1 edema BLE) Skin: No Rashes Results Lab Laboratory Tests 10/25/17 04:15 A/P-Cardiology Admission Diagnosis Afib with RVR Acute respiratory failure Pneumonia Sepsis Chronic debility Assessment/Plan Chronic afib- had episode of Afib with RVR , started on Cardizem gtt, maintained on PO Lopressor. Digoxin restarted yesterday. currently back tachycardic and hypotensive, I will give him IV fluid bolus and monitor his tolerance and response. Supra-therapeutic INR- improved after receiving vitamin K. restart Coumadin and monitor INR closely Anemia, drop in H&H, persistently decreasing, consider transfusion, monitor H&H closely, hold Coumadin. Acute on chronic Respiratory failure- Dr. Booker managing. Pneumonia with severe sepsis- continue IV antibiotics and continue to monitor. Chronic debility with quadriplegia Hypernatremia- improved. Continue to monitor. Hypokalemia- replace, continue to monitor. 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 Mistry managing. of [facility] Clinical Quality Measures DVT/VTE Risk/Contraindication: Risk Factor Score Per Nursin RFS Level Per Nursing on Admit: 4+=Very High BEBE GREEN MD Oct 25, 2017 17:03
--- NOTE | 2017-10-25 20:42 | Wound Care Progress Note ---
Subjective Subjective Subjective/Events-last exam 56 year old male with large Stage 4 pressure ulcer of R buttock. the base of th e wound appears improved from 48 hours ago. The lateral full thickness eschar remains intact. Objective Exam Last Set of Vital Signs Vital Signs Date Time Temp Pulse Resp B/P (MAP) Pulse Ox O2 Delivery O2 Flow Rate FiO2 10/25/17 19:00 98 10/25/17 19:00 106/53 (70) 10/25/17 18:48 Mechanical Ventilator 60 10/25/17 18:43 22 98 10/25/17 18:00 65.00 10/25/17 16:36 99.0 Capillary Refill : Less Than 3 Seconds I&O Intake and Output 10/25/17 00:00 Intake Total 4613.5 ml Output Total 1315 ml Balance 3298.5 ml Intake Oral 0 ml IV Total 3637.5 ml Tube Feeding 136 ml Other 840 ml Output Urine Total 1240 ml Stool Total 50 ml Urine/Stool Mix 25 ml Results Lab Laboratory Tests 10/24/17 21:22: Glucometer 69L 10/25/17 00:03: Glucometer 172H 10/25/17 04:15: White Blood Count 8.7, Red Blood Count 2.94L, Hemoglobin 7.2L, Hematocrit 24L, Mean Corpuscular Volume 81, Mean Corpuscular Hemoglobin 25, Mean Corpuscular Hemoglobin Concent 30L, Red Cell Distribution Width 16.4H, Platelet Count 180, Mean Platelet Volume 10.2, Neutrophils (%) (Auto) 72, Lymphocytes (%) (Auto) 20 , Monocytes (%) (Auto) 7, Eosinophils (%) (Auto) 0, Basophils (%) (Auto) 0, Neutrophils # (Auto) 6.3, Lymphocytes # (Auto) 1.7, Monocytes # (Auto) 0.6, Eosinophils # (Auto) 0.0, Basophils # (Auto) 0.0, Sodium Level 140, Potassium Level 3.4L, Chloride Level 107, Carbon Dioxide Level 24, Anion Gap 9, Blood Urea Nitrogen 10, Creatinine 0.46L, Estimat Glomerular Filtration Rate > 60, BUN /Creatinine Ratio 22, Glucose Level 124H, Calcium Level 8.2L, Phosphorus Level 2.1L, Magnesium Level 1.4L 10/25/17 07:00: Prothrombin Time 18.9H, INR Comment 1.6H 10/25/17 08:41: Blood Gas Puncture Site L RAD, Blood Gas Patient Temperature 97.9, Arterial Blood pH 7.43, Arterial Blood Partial Pressure CO2 39, Arterial Blood Partial Pressure O2 63L, Arterial Blood HCO3 26, Arterial Blood Total CO2 27.2, Arterial Blood Oxygen Saturation 94, Arterial Blood Base Excess 2.0, Moy Test YES-POS, Blood Gas Ventilator Setting YES, Blood Gas Inspired Oxygen NA 10/25/17 11:48: Glucometer 201H 10/25/17 17:18: Glucometer 210H Microbiology 10/20/17 Blood Culture - Preliminary, Resulted No growth 10/20/17 Influenza Types A,B Antigen (JOSEFA) - Final, Complete 10/20/17 Urine Culture - Final, Complete NO GROWTH SIGIFREDO JARAMILLO MD Oct 25, 2017 20:42
[2017-10-26] VITALS (39 sets, daily range): BP systolic 72–155; BP diastolic 47–105
[2017-10-26] MEDS: RT-ALBUTEROL/IPRATROPIUM 3 ML (DUONEB) VIAL INH SCH ×12 (00:03→21:27)
[2017-10-26] MEDS: LACTATED RINGERS 1,000 ML IV SCH ×2 (01:43→11:26)
[2017-10-26] MEDS: aCETylcysteine 20% (MUCOMYST) 30ML SOLN VIAL INH SCH ×6 (01:53→21:27)
[2017-10-26] MEDS: PROPOFOL DRIP (ICU) 100 ML IV SCH ×3 (03:56→22:29)
[2017-10-26 04:40] LABS: ABG BASE EXCESS 4.9 MMOL/L (-2.5-2.5); ABG OXYGEN SATURATION 98 % (94-100); ABG PCO2 38 MMHG (35-45); ABG PH 7.49 (7.37-7.43); ABG PO2 87 MMHG (79-93); ABG TCO2 29.3 MMOL/L (21.0-31.0)
[2017-10-26 04:44] LABS: ALLENS TEST YES-POS; INSPIRED O2 45% FIO2; PATIENT TEMP 100.7; VENTILATOR YES
[2017-10-26 05:02] LABS: BASOPHILS % (AUTO) 0 % (0-10); EOSINOPHILS # (AUTO) 0.1 10^3/uL (0.0-0.3); EOSINOPHILS % (AUTO) 1 % (0-10); HEMATOCRIT 26 % (40-54); HEMOGLOBIN 7.7 G/DL (13.3-17.7); LYMPHOCYTES # (AUTO) 1.2 X 10^3 (1.0-4.0); LYMPHOCYTES % (AUTO) 16 % (12-44); MEAN CORPUSCULAR HEMOGLOBIN 24 PG (25-34); MEAN CORPUSCULAR HGB CONC 30 G/DL (32-36); MEAN CORPUSCULAR VOLUME 81 FL (80-99); MEAN PLATELET VOLUME 10.3 FL (7.4-10.4); MONOCYTES # (AUTO) 0.4 X 10^3 (0.0-1.0); MONOCYTES % (AUTO) 5 % (0-12); NEUTROPHILS # (AUTO) 5.9 X 10^3 (1.8-7.8); NEUTROPHILS % (AUTO) 77 % (42-75); PLATELET COUNT 224 10^3/uL (130-400); RED BLOOD COUNT 3.19 10^6/uL (4.35-5.85); RED CELL DISTRIBUTION WIDTH 16.5 % (10.0-14.5); WHITE BLOOD COUNT 7.7 10^3/uL (4.3-11.0)
[2017-10-26 05:07] LABS: INR 1.3 (0.8-1.4); PROTHROMBIN TIME PATIENT 16.3 SEC (12.2-14.7)
[2017-10-26 05:23] LABS: BUN/CREATININE RATIO 16; CALCIUM 8.4 MG/DL (8.5-10.1); CARBON DIOXIDE 25 MMOL/L (21-32); CHLORIDE 103 MMOL/L (98-107); CREATININE SERUM 0.43 MG/DL (0.60-1.30); GFR ESTIMATED > 60; GLUCOSE 124 MG/DL (70-105); MAGNESIUM 1.2 MG/DL (1.8-2.4); PHOSPHORUS 2.2 MG/DL (2.3-4.7); POTASSIUM 3.8 MMOL/L (3.6-5.0); SODIUM 139 MMOL/L (135-145)
[2017-10-26] MEDS ORDERED: proPOfol 200 MG/20 ML (DIPRIVAN) VIAL IV ONE ×2 (06:04→08:00)
[2017-10-26] MEDS ORDERED: MIDAZOLAM 5 MG/5 ML (VERSED) VIAL ONE (06:04)
[2017-10-26] MEDS: inSUlin (REGULAR) HUMAN 1 UNIT/0.01 ML (CHARGE PER UNIT) SC SCH ×4 (06:23→23:56)
[2017-10-26] MEDS: POTASSIUM CL 10MEQ/50ML IVPB 50 ML IV SCH (06:23)
[2017-10-26] MEDS: KCL 10 MEQ TAB (MICRO K) PO SCH (06:24)
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
--- NOTE | 2017-10-26 06:31 | Pre-Op Note & Conscious Sedat ---
Pre-Operative Progress Note H&P Reviewed The H&P was reviewed, patient examined and no changes noted. Date H&P Reviewed: Oct 26, 2017 Time H&P Reviewed: 06:31 Conscious Sedation Pre-Proced Time Reviewed: : ASA Class: 3 Airway Mallampati Classification: ([place] appropriate class) I. II. III, IV Lungs Heart ASA score ASA 1: a normal healthy patient ASA 2: a patient with a mild systemic disease (mid diabetes, controlled hypertension, obesity ASA 3: a patient with a severe systemic disease that limits activity (angina , COPD, prior Myocardial infarction) ASA 4: a patient with an incapacitating disease that is a constant threat to life (CHF, renal failure) ASA 5: a moribund patient not expected to survive 24 hrs. (ruptured aneurysm) ASA 6: a declared brain patient whose organs are being harvested. For emergent operations, add the letter E after the classification Grade 3 Sedation Plan: Analgesia, Amnesia, Plan communicated to team members, Discussed options with patient/fam Note The patient is an appropriate candidate to undergo the planned procedure, sedation, and anesthesia. The patient immediately re-assessed prior to indication. ARRON RAMIREZ DO Oct 26, 2017 06:31
--- NOTE | 2017-10-26 06:31 | Pulmonary Procedures ---
Pulmonary Procedures Date of Procedure Date of Service: Oct 26, 2017 Bronch Bronchoscopy with bronchoalveolar lavage (BAL), transbronchial washes Preop DX mucous plugging , copious sputum Postop DX: same Complications: none After informed consent obtained and formal time out pt was sedated using Fentanyl and Versed. Bronchoscope was advanced through the nare and vocal cords. 1% lidocaine was used to anesthetize vocal cords, epiglottis, dolores, and left/right main stem bronchus. An anatomical tour was undertaken down to the segmental bronchi bilaterally. No endobronchial lesions noted. bilateral bronchoalveolar lavage (BAL), transbronchial washes performed. Pt tolerated procedure well. No complications noted. Stat CXR is pending. ARRON RAMIREZ DO Oct 26, 2017 06:30
[2017-10-26] MEDS: MAGNESIUM 1 GM/100 ML IVPB 100 ML IV SCH ×5 (06:47→09:56)
[2017-10-26] MEDS ORDERED: LIDOCAINE 4% INJ (XYLOCAINE) 5ML AMP INJ ONE (06:51)
[2017-10-26] MEDS: LEVOTHYROXINE 100 MCG (LEVOTHROID) TAB PO SCH (06:57)
[2017-10-26] MEDS: ENOXAPARIN 80 MG/0.8 ML (LOVENOX) SYR SC SCH ×2 (06:57→18:44)
[2017-10-26] MEDS: CEFEPIME 2 GM/NS 50 ML IVPB IV SCH ×4 (06:57→17:01)
--- NOTE | 2017-10-26 07:00 | Diagnostic Imaging Report ---
INDICATION: Recent bronchoscopy Portable semiupright view of the chest is obtained with comparison made to study of 10/26/2017. There is generalized cardiomegaly. There is significant increase in central pulmonary densities with blunting of the costophrenic sulci, greater on the right. There is tracheostomy tube in place with tip just below the thoracic inlet. Left upper extremity PICC is in stable position. There is no pneumothorax. IMPRESSION: Central pulmonary density likely related to pulmonary edema although superimposed pneumonia is not excluded. There is also moderate pleural fluid, greater on the right similar to previous study. Dictated by: Dictated on workstation # [id number]
--- NOTE | 2017-10-26 07:29 | Diagnostic Imaging Report ---
INDICATION: Pneumonia. COMPARISON: . FINDINGS: Single frontal radiographic view of the chest was obtained and demonstrates indwelling tracheostomy with tip just below the clavicular heads. Lungs continue to show bilateral effusions and associated infiltrates. There may be some interval progression versus dependent positioning of the effusion on the right. No pneumothorax is seen on the either side. There is moderate cardiomegaly and mild pulmonary vascular congestion, left-sided PICC line is noted with tip in the SVC. IMPRESSION: 1. Persistent bilateral effusions and infiltrates. Again, there may be interval increase in right-sided effusion versus dependent positioning. 2. Cardiomegaly with pulmonary vascular congestion. 3. Lines and tubes as above. Dictated by: Dictated on workstation # [id number]
[2017-10-26] MEDS: fentaNYL INJECTION 1,250 MCG in NS (IVPB) 250 ML IV SCH (07:46)
[2017-10-26] MEDS: meTOprolol TARTRATE 25 MG (LOPRESSOR) TABLET GT SCH ×2 (07:55→21:20)
[2017-10-26] MEDS: DIGOXIN 0.125 MG (LANOXIN) TAB PEG SCH (07:55)
[2017-10-26] MEDS ORDERED: MIDAZOLAM 5 MG/5 ML (VERSED) VIAL IVP ONE (08:00)
[2017-10-26] MEDS: inSUlin DETERMIR 1 UNIT/0.01 ML (LEVEMIR) CHARGE PER UNIT SQ SCH ×2 (08:02→21:20)
--- NOTE | 2017-10-26 08:27 | Cardiology Progress Note ---
Subjective Date Seen by Provider: Oct 26, 2017 Time Seen by Provider: 08:23 Subjective/Events-last exam Patient is awake and alert. No apparent distress. Denies any pain at this time. Review of Systems General: No Night Sweats, No Fatigue Pulmonary: Dyspnea Cardiovascular: Edema, No: Chest Pain, Palpitations Gastrointestinal: No: Abdominal Pain Musculoskeletal: No: back pain Unable to obtain ROS Objective-Cardiology Exam Last Set of Vital Signs Vital Signs 10/26/17 10/26/17 10/26/17 06:32 07:38 08:00 Temp 99.4 Pulse 112 Resp 25 B/P (MAP) 127/73 (91) Pulse Ox 99 O2 Delivery Mechanical Ventilator O2 Flow Rate 45.00 FiO2 45 Capillary Refill : Less Than 3 Seconds I&O Intake and Output 10/26/17 00:00 Intake Total 5094 ml Output Total 1380 ml Balance 3714 ml Intake Oral 0 ml IV Total 2050 ml Tube Feeding 2004 ml Other 1040 ml Output Urine Total 1225 ml Stool Total 150 ml Gastric Drainage Total 5 ml General: Mild Distress HEENT: Atraumatic Neck: Supple, No JVD Lungs: Other (Rhonchi thoughout) Heart: No Murmurs, Other (irregularly irregular, tachycardic) Abdomen: Soft Extremities: No Cyanosis, Other (+1 edema BLE) Skin: No Rashes Results Lab Laboratory Tests 10/26/17 04:25 A/P-Cardiology Admission Diagnosis Afib with RVR Acute respiratory failure Pneumonia Sepsis Chronic debility Assessment/Plan Chronic afib- had episode of Afib with RVR , started on Cardizem gtt, maintained on PO Lopressor, digoxin. Currently borderline tachycardic. I will increase lopressor and continue to monitor. Supra-therapeutic INR- improved after receiving vitamin K. restart Coumadin and monitor INR closely Anemia, H/H stable. Continue to monitor closely after restarting Coumadin. Acute on chronic Respiratory failure- Dr. Booker managing. Pneumonia with severe sepsis- continue IV antibiotics and continue to monitor. Chronic debility with quadriplegia Hypernatremia- improved. Continue to monitor. Hypokalemia- replace, continue to monitor. Hypomagnesemia- replace, continue to monitor. 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 Mistry managing. of [facility] Clinical Quality Measures DVT/VTE Risk/Contraindication: Risk Factor Score Per Nursin RFS Level Per Nursing on Admit: 4+=Very High JOSHUA CARRION Oct 26, 2017 08:27
[2017-10-26] MEDS: VANCOMYCIN 1250 MG/NS 250 ML IVPB IV SCH ×2 (08:56)
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
[2017-10-26] MEDS: APAP 325 MG/10.15 ML LIQ (TYLENOL) UDC PEG PRN (11:26)
[2017-10-26] MEDS ORDERED: NS IV 500 ML 500 ML IV ONE (14:45)
--- NOTE | 2017-10-26 15:43 | Cardiology Progress Note ---
Subjective Date Seen by Provider: Oct 26, 2017 Time Seen by Provider: 15:40 Subjective/Events-last exam patient is ventilator dependent, became more tachycardic and hypotensive during the day, has been severely anemic. Given fluid resuscitation with some improvement. Review of Systems General: Fatigue, Malaise Pulmonary: Dyspnea Cardiovascular: Edema, No: Chest Pain, Palpitations, Orthopnea, Paroxysmal Noc. Dyspnea, Lt Headedness, Other Objective-Cardiology Exam Last Set of Vital Signs Vital Signs 10/26/17 10/26/17 15:12 15:13 Temp 98.6 Pulse 125 Resp 23 B/P (MAP) 109/68 (82) Pulse Ox 100 O2 Delivery Mechanical Ventilator O2 Flow Rate 45.00 FiO2 45 Capillary Refill : Less Than 3 Seconds I&O Intake and Output 10/26/17 00:00 Intake Total 5094 ml Output Total 1380 ml Balance 3714 ml Intake Oral 0 ml IV Total 2050 ml Tube Feeding 2004 ml Other 1040 ml Output Urine Total 1225 ml Stool Total 150 ml Gastric Drainage Total 5 ml General: Moderate Distress HEENT: Atraumatic Neck: Supple, No JVD Lungs: Other ([place] thoughout) Heart: Normal S1, No Murmurs, Other (irregularly irregular, tachycardic) Abdomen: Normal Bowel Sounds, Soft Extremities: No Cyanosis, Other (+1 edema BLE) Skin: No Rashes Results Lab Laboratory Tests 10/26/17 04:25 A/P-Cardiology Admission Diagnosis Afib with RVR Acute respiratory failure Pneumonia Sepsis Chronic debility Assessment/Plan Persistent atrial fibrillation, had an episode of tachycardia responded to Cardizem drip then turned to oral Cardizem, currently tachycardic again and had episode of hypotension, severe anemia that appeared to be significantly worse, I will transfuse him one unit of packed RBCs, continue with IV fluid resuscitation and monitor closely. Continue on digoxin Coumadin toxicity, received vitamin K, INR is better, maintained on Lovenox therapeutic dose, monitor H&H closely. Planning to transfuse today. Next Anemia, significant drop in H&H. Tachycardic and was hypotensive earlier, responded to IV fluid, I will reevaluate H&H and transfuse Acute on chronic Respiratory failure- Dr. Booker managing. Pneumonia with severe sepsis- continue IV antibiotics and continue to monitor. Chronic debility with quadriplegia Hypomagnesemia- replace, continue to monitor. 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 Mistry managing. of [facility] Clinical Quality Measures DVT/VTE Risk/Contraindication: Risk Factor Score Per Nursin RFS Level Per Nursing on Admit: 4+=Very High BEBE GREEN MD Oct 26, 2017 15:43
[2017-10-26] MEDS: NS IV 1000 ML 1,000 ML IV SCH (15:47)
[2017-10-26 16:08] LABS: HEMOGLOBIN 7.3 G/DL (13.3-17.7)
[2017-10-26] MEDS: DILTIAZEM IV FOR DRIP 125 MG in D5W 100 ML IVPB 100 ML IV SCH (16:18)
[2017-10-26] MEDS: DAKIN'S 1/4 STRENGTH (0.125%) 473 ML BTL TOP SCH (21:20)
[2017-10-27] VITALS (26 sets, daily range): BP systolic 92–155; BP diastolic 44–99
[2017-10-27] MEDS: aCETylcysteine 20% (MUCOMYST) 30ML SOLN VIAL INH SCH ×6 (02:01→22:35)
[2017-10-27] MEDS: RT-ALBUTEROL/IPRATROPIUM 3 ML (DUONEB) VIAL INH SCH ×12 (02:01→22:35)
[2017-10-27] MEDS: APAP 325 MG/10.15 ML LIQ (TYLENOL) UDC PEG PRN ×2 (02:33→05:45)
[2017-10-27] MEDS: NS IV 1000 ML 1,000 ML IV SCH ×3 (04:09→16:01)
[2017-10-27 04:49] LABS: BASOPHILS % (AUTO) 1 % (0-10); EOSINOPHILS # (AUTO) 0.2 10^3/uL (0.0-0.3); EOSINOPHILS % (AUTO) 2 % (0-10); HEMATOCRIT 27 % (40-54); HEMOGLOBIN 8.4 G/DL (13.3-17.7); LYMPHOCYTES % (AUTO) 15 % (12-44); MEAN CORPUSCULAR HEMOGLOBIN 25 PG (25-34); MEAN CORPUSCULAR HGB CONC 31 G/DL (32-36); MEAN CORPUSCULAR VOLUME 81 FL (80-99); MEAN PLATELET VOLUME 9.7 FL (7.4-10.4); MONOCYTES # (AUTO) 0.4 X 10^3 (0.0-1.0); MONOCYTES % (AUTO) 7 % (0-12); NEUTROPHILS # (AUTO) 4.7 X 10^3 (1.8-7.8); NEUTROPHILS % (AUTO) 75 % (42-75); PLATELET COUNT 218 10^3/uL (130-400); RED BLOOD COUNT 3.38 10^6/uL (4.35-5.85); RED CELL DISTRIBUTION WIDTH 16.1 % (10.0-14.5); WHITE BLOOD COUNT 6.3 10^3/uL (4.3-11.0)
[2017-10-27 04:49] LABS: ABG BASE EXCESS 7.3 MMOL/L (-2.5-2.5); ABG OXYGEN SATURATION 100 % (94-100); ABG PCO2 38 MMHG (35-45); ABG PH 7.52 (7.37-7.43); ABG PO2 130 MMHG (79-93); ABG TCO2 31.9 MMOL/L (21.0-31.0)
[2017-10-27 04:51] LABS: ALLENS TEST YES-POS; INSPIRED O2 45%; VENTILATOR YES
[2017-10-27 04:52] LABS: PATIENT TEMP 98.2
[2017-10-27 05:12] LABS: INR 1.3 (0.8-1.4); PROTHROMBIN TIME PATIENT 15.9 SEC (12.2-14.7)
[2017-10-27 05:25] LABS: BUN/CREATININE RATIO 15; CALCIUM 7.9 MG/DL (8.5-10.1); CARBON DIOXIDE 30 MMOL/L (21-32); CHLORIDE 100 MMOL/L (98-107); CREATININE SERUM 0.41 MG/DL (0.60-1.30); GFR ESTIMATED > 60; GLUCOSE 129 MG/DL (70-105); MAGNESIUM 1.3 MG/DL (1.8-2.4); PHOSPHORUS 1.8 MG/DL (2.3-4.7); POTASSIUM 3.3 MMOL/L (3.6-5.0); SODIUM 139 MMOL/L (135-145)
[2017-10-27] MEDS: inSUlin (REGULAR) HUMAN 1 UNIT/0.01 ML (CHARGE PER UNIT) SC SCH ×4 (05:30→23:55)
[2017-10-27] MEDS: MAGNESIUM 1 GM/100 ML IVPB 100 ML IV SCH ×5 (05:31→09:14)
[2017-10-27] MEDS: CEFEPIME 2 GM/NS 50 ML IVPB IV SCH ×2 (05:37)
[2017-10-27] MEDS: LEVOTHYROXINE 100 MCG (LEVOTHROID) TAB PO SCH (05:37)
[2017-10-27] MEDS: KCL 10 MEQ TAB (MICRO K) PO SCH (06:22)
[2017-10-27] MEDS: ENOXAPARIN 80 MG/0.8 ML (LOVENOX) SYR SC SCH ×2 (06:22→18:54)
[2017-10-27] MEDS ORDERED: POTASSIUM PHOSPHATE INJ 30 MM in NS (IVPB) 250 ML IV ONE (06:30)
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
[2017-10-27] MEDS: POTASSIUM CL 10MEQ/50ML IVPB 50 ML IV SCH (06:42)
--- NOTE | 2017-10-27 07:18 | Diagnostic Imaging Report ---
INDICATION: Respiratory distress. Comparison made with prior examination 10/26/17. FINDINGS: There is cardiomegaly. There is venous congestion. There are bibasilar infiltrates. There is left pleural effusion. There is no pneumothorax. IMPRESSION: Bibasilar infiltrates slightly prominent in the right perihilar distribution. Cardiomegaly and some central pulmonary venous congestion. Dictated by: Dictated on workstation # [id number]
[2017-10-27] MEDS: PROPOFOL DRIP (ICU) 100 ML IV SCH (08:02)
--- NOTE | 2017-10-27 08:17 | Cardiology Progress Note ---
Subjective Date Seen by Provider: Oct 27, 2017 Time Seen by Provider: 08:15 Subjective/Events-last exam patient is laying down in bed, ventilator dependent, responding appropriately. No change in status. Review of Systems General: Fatigue, Malaise HEENT: No Head Aches, No Visual Changes, No Eye Pain, No Ear Pain, No Dysphasia , No Sinus Congestion, No Post Nasal Drip, No Sore Throat, No Other Pulmonary: Dyspnea Cardiovascular: No: Chest Pain, Palpitations, Orthopnea, Paroxysmal Noc. Dyspnea, Edema, Lt Headedness, Other Objective-Cardiology Exam Last Set of Vital Signs Vital Signs 10/27/17 10/27/17 06:25 08:00 Temp 98.6 Pulse 98 Resp 32 B/P (MAP) 129/89 (102) Pulse Ox 94 O2 Delivery Mechanical Ventilator O2 Flow Rate 45.00 FiO2 45 Capillary Refill : Less Than 3 Seconds I&O Intake and Output 10/27/17 00:00 Intake Total 4637 ml Output Total 3400 ml Balance 1237 ml Intake Oral 0 ml IV Total 1000 ml Tube Feeding 2272 ml Other 1365 ml Output Urine Total 3400 ml Gastric Drainage Total 0 ml # Bowel Movements 1 General: Moderate Distress HEENT: Atraumatic Neck: Supple, No JVD Lungs: Other (Rhonchi thoughout) Heart: Normal S1, No Murmurs, Other (irregularly irregular, tachycardic) Abdomen: Normal Bowel Sounds, Soft Extremities: No Cyanosis, Other (+1 edema BLE) Skin: No Rashes Results Lab Laboratory Tests 10/26/17 16:00 10/27/17 04:30 A/P-Cardiology Admission Diagnosis Afib with RVR Acute respiratory failure Pneumonia Sepsis Chronic debility Assessment/Plan Persistent atrial fibrillation, rate is better controlled today. Continue current medications and monitor. Coumadin toxicity, received vitamin K, INR is better, maintained on Lovenox therapeutic dose, continue to monitor H&H Anemia, status post transfusion for 1 unit packed RBCs, slight improvement in H& H, continue to monitor closely. Acute on chronic Respiratory failure- Dr. Booker managing. Pneumonia with severe sepsis- continue IV antibiotics and continue to monitor. Chronic debility with quadriplegia Hypomagnesemia- replace, continue to monitor. 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 Mistry managing. of [facility] Clinical Quality Measures DVT/VTE Risk/Contraindication: Risk Factor Score Per Nursin RFS Level Per Nursing on Admit: 4+=Very High BEBE GREEN MD Oct 27, 2017 08:17
[2017-10-27] MEDS: meTOprolol TARTRATE 25 MG (LOPRESSOR) TABLET GT SCH ×2 (09:14→20:19)
[2017-10-27] MEDS: DIGOXIN 0.125 MG (LANOXIN) TAB PEG SCH (09:14)
[2017-10-27] MEDS: inSUlin DETERMIR 1 UNIT/0.01 ML (LEVEMIR) CHARGE PER UNIT SQ SCH ×2 (09:15→20:19)
[2017-10-27] MEDS: MEROPENEM 2,000 MG in NS (IVPB) 100 ML IV SCH ×3 (11:27→21:53)
[2017-10-27] MEDS: morphine INJ 4 MG/ML 1 ML (VIAL/SYRINGE) IVP PRN (11:56)
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
[2017-10-27] MEDS: fentaNYL INJECTION 1,250 MCG in NS (IVPB) 250 ML IV SCH (15:48)
[2017-10-27] MEDS: DAKIN'S 1/4 STRENGTH (0.125%) 473 ML BTL TOP SCH (22:37)
[2017-10-27] MEDS: ZINC OXIDE 16% OINT (BUTT PASTE) 113 GM TUBE TOP PRN (22:38)
[2017-10-28] VITALS (21 sets, daily range): BP systolic 81–163; BP diastolic 45–87
[2017-10-28] MEDS: RT-ALBUTEROL/IPRATROPIUM 3 ML (DUONEB) VIAL INH SCH ×8 (00:36→14:42)
[2017-10-28] MEDS: aCETylcysteine 20% (MUCOMYST) 30ML SOLN VIAL INH SCH ×4 (02:10→14:42)
[2017-10-28] MEDS: NS IV 1000 ML 1,000 ML IV SCH (02:41)
[2017-10-28 04:45] LABS: BASOPHILS % (AUTO) 0 % (0-10); EOSINOPHILS # (AUTO) 0.1 10^3/uL (0.0-0.3); EOSINOPHILS % (AUTO) 1 % (0-10); HEMATOCRIT 28 % (40-54); HEMOGLOBIN 8.6 G/DL (13.3-17.7); LYMPHOCYTES # (AUTO) 0.8 X 10^3 (1.0-4.0); LYMPHOCYTES % (AUTO) 12 % (12-44); MEAN CORPUSCULAR HEMOGLOBIN 25 PG (25-34); MEAN CORPUSCULAR HGB CONC 31 G/DL (32-36); MEAN CORPUSCULAR VOLUME 81 FL (80-99); MEAN PLATELET VOLUME 9.7 FL (7.4-10.4); MONOCYTES # (AUTO) 0.6 X 10^3 (0.0-1.0); MONOCYTES % (AUTO) 8 % (0-12); NEUTROPHILS # (AUTO) 5.6 X 10^3 (1.8-7.8); NEUTROPHILS % (AUTO) 79 % (42-75); PLATELET COUNT 225 10^3/uL (130-400); RED BLOOD COUNT 3.45 10^6/uL (4.35-5.85); RED CELL DISTRIBUTION WIDTH 16.5 % (10.0-14.5); WHITE BLOOD COUNT 7.1 10^3/uL (4.3-11.0)
[2017-10-28 04:58] LABS: INR 1.3 (0.8-1.4); PROTHROMBIN TIME PATIENT 15.8 SEC (12.2-14.7)
[2017-10-28 05:24] LABS: ABG BASE EXCESS 6.4 MMOL/L (-2.5-2.5); ABG OXYGEN SATURATION 92 % (94-100); ABG PCO2 40 MMHG (35-45); ABG PH 7.48 (7.37-7.43); ABG PO2 54 MMHG (79-93); ABG TCO2 31.2 MMOL/L (21.0-31.0)
[2017-10-28 05:27] LABS: ALLENS TEST YES-POS; INSPIRED O2 45% FI02; PATIENT TEMP 98.4; VENTILATOR YES
[2017-10-28] MEDS: KCL 10 MEQ TAB (MICRO K) PO SCH (05:30)
[2017-10-28] MEDS: LEVOTHYROXINE 100 MCG (LEVOTHROID) TAB PO SCH (05:30)
[2017-10-28] MEDS: MEROPENEM 2,000 MG in NS (IVPB) 100 ML IV SCH ×2 (05:30→14:26)
[2017-10-28 05:32] LABS: BUN/CREATININE RATIO 16; CALCIUM 7.9 MG/DL (8.5-10.1); CARBON DIOXIDE 27 MMOL/L (21-32); CHLORIDE 100 MMOL/L (98-107); CREATININE SERUM 0.45 MG/DL (0.60-1.30); GFR ESTIMATED > 60; GLUCOSE 158 MG/DL (70-105); MAGNESIUM 1.5 MG/DL (1.8-2.4); PHOSPHORUS 1.6 MG/DL (2.3-4.7); POTASSIUM 4.1 MMOL/L (3.6-5.0); SODIUM 137 MMOL/L (135-145)
[2017-10-28] MEDS: POTASSIUM CL 10MEQ/50ML IVPB 50 ML IV SCH (05:55)
[2017-10-28] MEDS: MAGNESIUM 1 GM/100 ML IVPB 100 ML IV SCH ×3 (05:56→07:29)
[2017-10-28] MEDS: inSUlin (REGULAR) HUMAN 1 UNIT/0.01 ML (CHARGE PER UNIT) SC SCH ×2 (06:04→12:00)
[2017-10-28] MEDS: ENOXAPARIN 80 MG/0.8 ML (LOVENOX) SYR SC SCH (06:04)
[2017-10-28] MEDS ORDERED: TROUGH ORDER-PHARMACY XX NR (07:00)
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
[2017-10-28] MEDS: meTOprolol TARTRATE 25 MG (LOPRESSOR) TABLET GT SCH (08:42)
[2017-10-28] MEDS: DIGOXIN 0.125 MG (LANOXIN) TAB PEG SCH (08:42)
[2017-10-28] MEDS: inSUlin DETERMIR 1 UNIT/0.01 ML (LEVEMIR) CHARGE PER UNIT SQ SCH (08:47)
--- NOTE | 2017-10-28 09:05 | Diagnostic Imaging Report ---
Portable semierect AP chest at 523 hours. INDICATION: Respiratory distress. FINDINGS: This exam is less than optimal as the periphery of the right lung base is not included on this study. The right lung base, however, does seem somewhat denser than noted on the prior exam. This suggests that there is greater involvement of the right lower lobe by pneumonia/atelectasis and/or fluid. The abnormal parenchymal densities in the left perihilar region and left lung base seen previously are essentially no different. The central pulmonary vascularity does not seem quite as prominent as on the prior exam, however. The heart is stable. The mediastinum is not widened. The osseous structures were visualized are intact. The left-sided PICC line and tracheostomy tube noted on the previous study are again evident and no different. IMPRESSION: There are mixed results. There does seem to be greater involvement of the right lung base by atelectasis/infiltrate and fluid, but the central pulmonary vascularity is not quite as prominent as on the prior exam. A followup study would be recommended for continued evaluation. Dictated by: Dictated on workstation # [id number]
[2017-10-28] MEDS ORDERED: INSU100V5 SQ (11:47)
[2017-10-28] MEDS ORDERED: POTA10TA6 PO (11:47)
[2017-10-28] MEDS ORDERED: MORP4CAR IVP (11:47)
[2017-10-28] MEDS ORDERED: ENOX80DI7 SC (11:47)
[2017-10-28] MEDS ORDERED: ZINC28PA TOP (11:47)
[2017-10-28] MEDS ORDERED: NORM50IV9 IV (11:47)
[2017-10-28] MEDS ORDERED: INSU100V3 SC (11:47)
[2017-10-28] MEDS ORDERED: ACET200V4 INH (11:47)
[2017-10-28] MEDS ORDERED: MERO1PIG IV (11:47)
[2017-10-28] MEDS ORDERED: SODI473S7 TOP (11:47)
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
[2017-10-28] MEDS: fentaNYL INJECTION 1,250 MCG in NS (IVPB) 250 ML IV SCH (13:09)
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
[2017-10-28] MEDS: morphine INJ 4 MG/ML 1 ML (VIAL/SYRINGE) IVP PRN (15:30)
== END 2017-10-28 15:33 | DRG 853 ==
LOC: EDUNIT# 13:23 → ER 13:25 → 4TH 15:03 → ICU 20:39
PROVIDERS: ADMIT Internal Medicine; ATTEND Internal Medicine
PROC: 5A1955Z Respiratory Ventilation, Greater than 96 Consecutive Hours (ICD-10-PCS; principal; 2017-10-21)
PROC: 0B21XFZ Change Tracheostomy Device in Trachea, External Approach (ICD-10-PCS; 2017-10-23)
PROC: 0B9M8ZX Drainage of Bilateral Lungs, Via Natural or Artificial Opening Endoscopic, Diagnostic (ICD-10-PCS; 2017-10-26)
PROC: 0BDM8ZX Extraction of Bilateral Lungs, Via Natural or Artificial Opening Endoscopic, Diagnostic (ICD-10-PCS; 2017-10-26)
DX: A41.9 Sepsis, unspecified organism (principal); R65.21 Severe sepsis with septic shock; J18.9 Pneumonia, unspecified organism; J96.21 Acute and chronic respiratory failure with hypoxia; G82.50 Quadriplegia, unspecified; E86.0 Dehydration; L89.314 Pressure ulcer of right buttock, stage 4; J98.09 Other diseases of bronchus, not elsewhere classified; I48.2 Chronic atrial fibrillation; E11.9 Type 2 diabetes mellitus without complications; E87.0 Hyperosmolality and hypernatremia; E87.6 Hypokalemia; E83.42 Hypomagnesemia; Z79.4 Long term (current) use of insulin; Z79.01 Long term (current) use of anticoagulants; Z93.0 Tracheostomy status; Z93.1 Gastrostomy status; Z93.3 Colostomy status
CPT/HCPCS: 36415; 36569; 71045; 71275; 76937; 80048; 80053; 80202; 81000; 82805; 82962; 83605; 83735; 83880; 84100; 84132; 85007; 85014; 85018; 85025; 85027; 85610; 85730; 86850; 86900; 86901; 86920; 87040; 87070; 87077; 87088; 87186; 87205; 87804; 93005; 93306; 94002; 94003; 94640; 94660; 94664; 94668; 94760; 94799; 96365